=== PATIENT | female | born 1955 | race Caucasian/White ===

== ENCOUNTER 2020-03-07 11:20 | Emergency (ER) | payer OTHER, SELFPAY ==
--- OUTSIDE RECORDS SUMMARY | 2020-03-07 11:30 | XMS REPORT | Continuity of Care Document ---
:1955 Author Organization [facility] t Address [address] [place] [address] Care Team Providers Name Role Phone Pcp, Does Not Have A Attending Clinician Lucy Wright Attending Clinician Doctor Unassigned, Name Attending Clinician Unavailable Aayd Fernandez MD Attending Clinician Faculty, Surg Attending Clinician Unavailable Problems This patient has no known problems. Allergies, Adverse Reactions, Alerts This patient has no known allergies or adverse reactions. Medications This patient has no known medications. Procedures This patient has no known procedures. Encounters Start End Encounter Admission Attending Care Care Encounter Source Date/Time Date/Time Type Type Clinicians Facility Department ID 2019-10-06 2019-10-06 Refill MAIK Felipe [id number] 00:00:00 00:00:00 Patient [facility] [id number] Does Not [facility] [id number] Have A [id number] 2019-08-07 2019-08-07 Emergency YOANDY [place] [id number] 13:02:05 17:56:00 Svetlana Plata [id number] [place] [id number] [place] [id number] 2019-08-07 2019-08-07 Orders Doctor RUCKER [id number] 00:00:00 00:00:00 Only Unassigned, MARLY [id number] [facility] .[id number] 2019-03-28 2019-03-[id number] 14:53:12 23:59:00 Encounter [facility] [id number] CLINICS [id number] 2019-03-28 2019-03-28 Office Faculty, [place] [id number] 16:59:34 20:22:24 Visit [facility] [id number] Surg [facility]INICS [id number] 2019-03-28 2019-03-[address]114 [id number] 14:46:21 14:52:00 Encounter [facility] [id number] CLINICS [id number] [id number] Results This patient has no known results.
[2020-03-07 13:11] LABS: Urine Blood TRACE (NEG); Urine Glucose 2+ (NEG); Urine Protein NEGATIVE (NEG); Urine Specific Gravity 1.015 (1.005-1.030); Urine pH 5.5 (5.0-7.0)
[2020-03-07] MEDS ORDERED: HYDROCODONE/APAP 10/325 TAB ONE (13:39)
[2020-03-07 13:40] LABS: Absolute Lymphocytes (CBC) 1.9 K/uL (0.7-4.9); Basophils % 1.2 % (0-1.3); Hematocrit 45.8 % (36.0-45.0); Lymphocytes % 22.5 % (15.3-44.8); MPV 8.3 fL (7.6-11.3); RBC Red Blood Cell Count 5.49 M/uL (3.86-4.86)
[2020-03-07 13:46] LABS: Protime INR 1.37
--- NOTE | 2020-03-07 13:48 | RAD REPORT ---
EXAM DESCRIPTION: RAD - Chest Single View - 03/07/2020 1:30 pm CLINICAL HISTORY: PALPITATIONS Chest pain. COMPARISON: No comparisons FINDINGS: Portable technique limits examination quality. The lungs are grossly clear. The heart is normal in size. No displaced fractures. IMPRESSION: No acute intrathoracic process suspected.
--- NOTE | 2020-03-07 14:00 | RAD REPORT ---
EXAM DESCRIPTION: US - Extrem Venous W Compress Ciro - 03/07/2020 1:47 pm CLINICAL HISTORY: PAIN Bilateral leg edema and swelling. COMPARISON: No comparisons TECHNIQUE: Real-time sonographic interrogation of the left and right lower extremity deep venous sys tems was performed. FINDINGS: Normal compressibility, flow augmentation, phasic flow and spontaneous flow is identified in both the left and right lower extremity deep venous systems. IMPRESSION: No sonographic evidence of left or right lower extremity deep venous thrombosis.
[2020-03-07 14:02] LABS: ALT/SGPT 18 U/L (12-78); AST/SGOT 8 U/L (15-37); Albumin 3.4 g/dL (3.4-5.0); Alkaline Phosphatase 168 U/L (45-117); BUN Blood Urea Nitrogen 15 mg/dL (7-18); Bicarbonate 29 mmol/L (21-32); Bilirubin Direct < 0.1 mg/dL (0-0.2); Bilirubin Total 0.2 mg/dL (0.2-1.0); Glucose Level 161 mg/dL (74-106); Magnesium 2.1 mg/dL (1.8-2.4); NT PRO-BNP 307 pg/mL (<125); Potassium 3.4 mmol/L (3.5-5.1); Protein, Total 8.2 g/dL (6.4-8.2); Sodium Level 138 mmol/L (136-145); Troponin (Emerg Dept Use Only) < 0.02 ng/mL (0.0-0.045)
--- NOTE | 2020-03-07 15:12 | EDPHYS ---
Physician Documentation [facility] Name: Daniela Enriquez Age: 64 yrs Sex: Female : 1955 Arrival Date: 03/07/2020 Time: 11:23 Bed 23 Private MD: ED Physician Joe Cole HPI: 03/08 12:32 This 64 yrs old Female presents to ER via Ambulatory with complaints of Leg kdr Pain. 12:32 The patient presents with pain, that is chronic, tenderness. The complaints affect the kdr lateral aspect of right calf and right calf. Context: The problem was sustained at an unknown site, resulted from Concerned that she may have recurrent blood clots in her leg. Onset: The symptoms/episode began/occurred gradually, 3 month(s) ago. Modifying factors: The symptoms are alleviated by nothing. the symptoms are aggravated by movement, weight bearing. Associated signs and symptoms: The patient has no apparent associated signs or symptoms. Treatment prior to arrival includes: no previous treatment. Severity of symptoms: At their worst the symptoms were mild, moderate, just prior to arrival. The patient has experienced similar episodes in the past, a few times, but today's symptoms are worse, more painful. The patient has not recently seen a physician. Historical: - Allergies: 03/07 11:39 Lidocaine; ll1 11:39 Morphine; ll1 11:39 Codeine; ll1 - PMHx: 11:39 Diabetes - NIDDM; heart medication for palpitations; blood clots; ll1 - PSHx: 11:39 leg surgeries x 15, bypass; Cholecystectomy; spleen surgery; Tubal ligation; ll1 - Immunization history:: Flu vaccine is not up to date. - Social history:: Smoking status: Patient denies any tobacco usage or history of. Patient/guardian denies using alcohol, street drugs. ROS: 03/08 12:32 Constitutional: Negative for fever, chills, and weight loss, Eyes: Negative for injury, kdr pain, redness, and discharge, Neck: Negative for injury, pain, and swelling, Cardiovascular: Negative for chest pain, palpitations, and edema, Respiratory: Negative for shortness of breath, cough, wheezing, and pleuritic chest pain, Abdomen/GI: Negative for abdominal pain, nausea, vomiting, diarrhea, and constipation, Back: Negative for injury and pain, : Negative for injury, bleeding, discharge, and swelling, Skin: Negative for injury, rash, and discoloration, Neuro: Negative for headache, weakness, numbness, tingling, and seizure activity. Psych: Negative for depression, anxiety, suicide ideation, homicidal ideation, and hallucinations, Allergy/Immunology: Negative for hives, rash, and allergies, Endocrine: Negative for neck swelling, polydipsia, polyuria, polyphagia, and marked weight changes, Hematologic/Lymphatic: Negative for swollen nodes, abnormal bleeding, and unusual bruising. MS/extremity: Positive for pain, Negative for injury or acute deformity, abrasion, decreased range of motion, ecchymosis, erythema, laceration, paresthesias, puncture, rash, swelling, tingling, warmth. Exam: 03/07 19:30 ECG was reviewed by the Attending Physician. kdr 03/08 12:32 Constitutional: This is a well developed, well nourished patient who is awake, alert, kdr and in no acute distress. Head/Face: Normocephalic, atraumatic. Eyes: Pupils equal round and reactive to light, extra-ocular motions intact. Lids and lashes normal. Conjunctiva and sclera are non-icteric and not injected. Cornea within normal limits. Periorbital areas with no swelling, redness, or edema. Neck: Trachea midline, no thyromegaly or masses palpated, and no cervical lymphadenopathy. Supple, full range of motion without nuchal rigidity, or vertebral point tenderness. No Meningismus. Chest/axilla: Normal chest wall appearance and motion. Nontender with no deformity. No lesions are appreciated. Cardiovascular: Regular rate and rhythm with a normal S1 and S2. No gallops, murmurs, or rubs. Normal PMI, no JVD. No pulse deficits. Respiratory: Lungs have equal breath sounds bilaterally, clear to auscultation and percussion. No rales, rhonchi or wheezes noted. No increased work of breathing, no retractions or nasal flaring. Abdomen/GI: Soft, non-tender, with normal bowel sounds. No distension or tympany. No guarding or rebound. No evidence of tenderness throughout. Back: No spinal tenderness. No costovertebral tenderness. Full range of motion. Skin: Warm, dry with normal turgor. Normal color with no rashes, no lesions, and no evidence of cellulitis. Neuro: Awake and alert, GCS 15, oriented to person, place, time, and situation. Cranial nerves II-XII grossly intact. Motor strength 5/5 in all extremities. Sensory grossly intact. Cerebellar exam normal. Normal gait. Psych: Awake, alert, with orientation to person, place and time. Behavior, mood, and affect are within normal limits. Musculoskeletal/extremity: Extremities: grossly normal except: ROM: no acute changes, Circulation is intact in all extremities. Perfusion: the patient is normally perfused throughout, pink, cool, Perfusion: the extremity is normally perfused throughout, pink, cool, Calf tenderness, that is mild, of the right lower extremity, Edema, is not appreciated, Sensation intact. Compartment Syndrome exam of affected extremity: is normal. Weight bearing: able to fully bear weight. Vital Signs: 03/07 11:35 BP 127 / 91; Pulse 95; Resp 18; Temp 98.2; Pulse Ox 100% ; Weight 79.83 kg; Height 5 ll1 ft. 6 in. (167.64 cm); Pain 8/10; 14:21 BP 125 / 76; Pulse 68; Resp 16; Temp 98.1(O); Pulse Ox 100% on R/A; Pain 5/10; ls4 11:35 Body Mass Index 28.41 (79.83 kg, 167.64 cm) ll1 MDM: 14:47 Data reviewed: vital signs, nurses notes. 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 kdr 15:11 Patient medically screened. kdr 03/07 12:10 Order name: Basic Metabolic Panel; Complete Time: 14:44 [facility] 03/07 12:10 Order name: CBC with Diff; Complete Time: 14:44 [facility] 03/07 12:10 Order name: LFT's; Complete Time: 14:44 [facility] 03/07 12:10 Order name: Magnesium; Complete Time: 14:44 [facility] 03/07 12:10 Order name: NT PRO-BNP; Complete Time: 14:44 [facility] 03/07 12:10 Order name: PT-INR; Complete Time: 14:44 [facility] 03/07 12:10 Order name: Troponin (emerg Dept Use Only); Complete Time: 14:44 [facility] 03/07 12:10 Order name: XRAY Chest (1 view); Complete Time: 14:44 [facility] 03/07 12:10 Order name: EKG; Complete Time: 12:11 [facility] 03/07 12:10 Order name: Cardiac monitoring; Complete Time: 12:10 [facility] 03/07 12:10 Order name: EKG - Nurse/Tech; Complete Time: 12:10 [facility] 03/07 12:35 Order name: Extremity Venous W Compression Bilateral US: lower ext pain; Complete Time: bd 14:44 03/07 12:42 Order name: Urine Dipstick--Ancillary (enter results); Complete Time: 14:44 03/07 12:10 Order name: IV Saline Lock; Complete Time: 12:11 [facility] 03/07 12:10 Order name: Labs collected and sent; Complete Time: 12:11 [facility] 03/07 12:10 Order name: O2 Per Protocol; Complete Time: 12:11 [facility] 03/07 12:10 Order name: O2 Sat Monitoring; Complete Time: 12:11 [facility] 03/07 12:12 Order name: Urine Dipstick-Ancillary (obtain specimen); Complete Time: 12:40 [facility] 03/07 12:49 Order name: Labs - recollect needed: recollect cbc,c7,pt; Complete Time: 13:34 bd EC:30 Rate is 77 beats/min. Rhythm is regular, Normal Sinus Rhythm with No ectopy. QRS [place] kdr is Normal. Left axis deviation noted. TN interval is normal. Clinical impression: NSR w/ Non-specific ST/T Changes. Administered Medications: 13:34 Drug: [place] 10 mg-325 mg 1 tabs Route: PO; ls4 Disposition: 03/07/20 15:11 Discharged to Home. Impression: Other idiopathic peripheral autonomic neuropathy, Pain in left leg, Pain in right lower leg. - Condition is Stable. - Discharge Instructions: Peripheral Neuropathy. - Prescriptions for Neurontin 300 mg Oral Capsule - take 1 capsule by ORAL route every 8 hours; 30 capsule. Pepcid 20 mg Oral Tablet - take 1 tablet by ORAL route once daily; 20 tablet. Cyclobenzaprine 10 mg Oral Tablet - take 1 tablet by ORAL route every 8 hours As needed; 15 tablet. - Medication Reconciliation Form, Thank You Letter form. - Follow up: Private Physician; When: 2 - 3 days; Reason: If symptoms return, Further diagnostic work-up, Recheck today's complaints, Continuance of care, Re-evaluation by your physician. - Problem is new. - Symptoms have improved. Signatures: Dispatcher [employer] EDMS Ella Melendez Kevin, MD MD kdr Melina Mishra RN RN iw Amarilys Buitrago RN RN ls4 Kennedy Cortes RN RN ll1 Corrections: (The following items were deleted from the chart) 15:36 15:11 03/07/2020 15:11 Discharged to Home. Impression: Other idiopathic peripheral iw autonomic neuropathy; Pain in left leg; Pain in right lower leg. Condition is Stable. Discharge Instructions: Peripheral Neuropathy. Prescriptions for Neurontin 300 mg Oral Capsule - take 1 capsule by ORAL route every 8 hours; 30 capsule, Pepcid 20 mg Oral Tablet - take 1 tablet by ORAL route once daily; 20 tablet. and Forms are Medication Reconciliation Form, Thank You Letter, Antibiotic Education, Prescription Opioid Use. Follow up: Private Physician; When: 2 - 3 days; Reason: If symptoms return, Further diagnostic work-up, Recheck today's complaints, Continuance of care, Re-evaluation by your physician. Problem is new. Symptoms have improved. kdr
--- NOTE | 2020-03-07 15:12 | ER ---
Nurse's Notes [facility] Name: Daniela Enriquez Age: 64 yrs Sex: Female : 1955 Arrival Date: 03/07/2020 Time: 11:23 Bed 23 Private MD: Diagnosis: Other idiopathic peripheral autonomic neuropathy;Pain in left leg;Pain in right lower leg Presentation: 03/07 11:35 Chief complaint: Patient states: R leg pain for 3 months, believes she has blood clots ll1 again. States left leg has started to have pain for 1 week. Taking eloquis as prescribed. Out of all other medications due to cost restrictions at this time. Coronavirus screen: Client denies travel out of the [place] in the last 14 days. At this time, the client does not indicate any symptoms associated with coronavirus-19. Ebola Screen: Patient denies travel to an Ebola-affected area in the 21 days before illness onset. Initial Sepsis Screen: Does the patient meet any 2 criteria? HR > 90 bpm. No. Patient's initial sepsis screen is negative. Risk Assessment: Do you want to hurt yourself or someone else? Patient reports no desire to harm self or others. Onset of symptoms was December 06, 2019. 11:35 Method Of Arrival: Ambulatory ll1 11:35 Acuity: MILAGROS 3 ll1 14:49 Initial Sepsis Screen: Does the patient have a suspected source of infection? No. ls4 Patient's initial sepsis screen is negative. Triage Assessment: 12:01 General: Appears in no apparent distress. comfortable. Pain: Complains of pain in right ls4 leg Pain does not radiate. Pain currently is 8 out of 10 on a pain scale. Quality of pain is described as tingling, stinging. 12:01 General: Behavior is calm, cooperative. Neuro: No deficits noted. ls4 Historical: - Allergies: 11:39 Lidocaine; ll1 11:39 Morphine; ll1 11:39 Codeine; ll1 - PMHx: 11:39 Diabetes - NIDDM; heart medication for palpitations; blood clots; ll1 - PSHx: 11:39 leg surgeries x 15, bypass; Cholecystectomy; spleen surgery; Tubal ligation; ll1 - Immunization history:: Flu vaccine is not up to date. - Social history:: Smoking status: Patient denies any tobacco usage or history of. Patient/guardian denies using alcohol, street drugs. Screenin:02 Abuse screen: Denies threats or abuse. Denies injuries from another. Nutritional ls4 screening: No deficits noted. Tuberculosis screening: No symptoms or risk factors identified. Fall Risk None identified. Assessment: 13:30 Reassessment: Patient appears in no apparent distress at this time. Patient and/or ls4 family updated on plan of care and expected duration. Pain level reassessed. Patient is alert, oriented x 3, equal unlabored respirations, skin warm/dry/pink. 14:47 Reassessment: Patient appears in no apparent distress at this time. Patient and/or ls4 family updated on plan of care and expected duration. Pain level reassessed. Patient is alert, oriented x 3, equal unlabored respirations, skin warm/dry/pink. Vital Signs: 11:35 BP 127 / 91; Pulse 95; Resp 18; Temp 98.2; Pulse Ox 100% ; Weight 79.83 kg; Height 5 ll1 ft. 6 in. (167.64 cm); Pain 8/10; 14:21 BP 125 / 76; Pulse 68; Resp 16; Temp 98.1(O); Pulse Ox 100% on R/A; Pain 5/10; ls4 11:35 Body Mass Index 28.41 (79.83 kg, 167.64 cm) ll1 ED Course: 11:23 Patient arrived in ED. ds1 11:33 Joe Cole MD is Attending Physician. kdr 11:37 Triage completed. ll1 11:40 Arm band placed on Patient notified of wait time. ll1 11:59 Amarilys Buitrago, RN is Primary Nurse. ls4 12:02 No apparent distress. ls4 12:02 Patient has correct armband on for positive identification. Bed in low position. Call ls4 light in reach. Side rails up X 1. returned goods repairer on. Pulse ox on. NIBP on. Warm blanket given. Verbal reassurance given. 12:02 No provider procedures requiring assistance completed. Inserted saline lock: 22 gauge ls4 in right antecubital area, using aseptic technique. Blood collected. Patient maintains SpO2 saturation greater than 95% on room air. 12:14 EKG done, by biofuels processing technician. reviewed by Joe Cole MD. at1 13:30 XRAY Chest (1 view) In Process Unspecified. EDMS 13:34 Extremity Venous W Compression Bilateral US: lower ext pain Sent. ls4 13:47 Extremity Venous W Compression Bilateral US: lower ext pain In Process Unspecified. EDMS 15:36 IV discontinued, intact, bleeding controlled, No redness/swelling at site. Pressure iw dressing applied. Administered Medications: 13:34 Drug: [place] 10 mg-325 mg 1 tabs Route: PO; ls4 Outcome: 15:11 Discharge ordered by . kdr 15:36 Discharged to home ambulatory. iw 15:36 Condition: good 15:36 Discharge instructions given to patient, Instructed on discharge instructions, follow up and referral plans. medication usage, Demonstrated understanding of instructions, follow-up care, medications, Prescriptions given X 3. 15:36 Patient left the ED. iw Signatures: Dispatcher [employer] EDMS Joe Cole MD MD kdr Vamsi, Samantha ds1 Melina Mishra, STEPHANIE RN iw Marleen Patrick, land acquisition manager EKG Tat1 Amarilys Buitrago RN RN ls4 Kennedy Cortes, RN RN ll1 Corrections: (The following items were deleted from the chart) 11:41 11:35 Chief complaint: Patient states: R leg pain for 3 months, believes she has blood ll1 clots again. States left leg has started to have pain for 1 week. ll1
[2020-03-07 16:09] VITALS: O2SAT 100
[2020-03-07 16:10] VITALS: BP 125/76; TEMP 98.1
--- NOTE | 2020-03-08 08:42 | EKG ---
Test Date: 2020-03-07 Test Time: 12:11:48 [employer] Ambulatory Analysts: NANNETTE MEASUREMENT RESULTS: Intervals: Rate: 77 [place]: 172 QRSD: 76 QT: 388 QTc: 439 [place]: P: 57 [place]: 172 QRS: -13 T: 25 INTERPRETIVE STATEMENTS: Normal sinus rhythm Anteroseptal infarct, age undetermined Abnormal ECG No previous ECG available for comparison Electronically Signed On 03-08-20 08:38:31 CDT by Tre Levy
== END 2020-03-07 15:36 | disposition home or self-care (01) ==
LOC: ER 11:20
DX: G90.09 Other idiopathic peripheral autonomic neuropathy (principal); M79.605 Pain in left leg; Z88.5 Allergy status to narcotic agent
CPT/HCPCS: 36415; 71045; 80048; 80076; 81003; 83735; 83880; 84484; 85025; 85610; 93005; 93970; 99285

== ENCOUNTER 2023-06-03 11:05 | Inpatient (IN) | payer OTHER ==
--- OUTSIDE RECORDS SUMMARY | 2023-06-03 11:27 | XMS REPORT | Continuity of Care Document ---
:1955 Author Organization [facility] t Address [address] [facility] [address] [place] [address] Care Team Providers Name Role Phone KLAUS BLACK Primary Care Physician Unavailable DR KLAUS BLACK Attending Clinician Unavailable [phone] Attending Clinician Unavailable INA DAVIS Attending Clinician Unavailable [id number] Attending Clinician Unavailable RADHA ANDREW Attending Clinician Unavailable SONALI GARCIA ROSHNI Attending Clinician Unavailable JAIME CRESPO Attending Clinician Unavailable Teto Attending Clinician Unavailable Francisco Alfaro Attending Clinician Unavailable Red Wheeler Attending Clinician Unavailable Doctor Unassigned, Post Attending Clinician Unavailable ENGLISH, EVELYN R Attending Clinician Unavailable Kathie SPENCERC, Evelyn R Attending Clinician Ina Davis MD Attending Clinician JULIÁN RANKIN Attending Clinician Unavailable Donnie PARTIDA, Julián Attending Clinician Karina_Brennen Attending Clinician Unavailable Vivian Hernandez RN Attending Clinician Unavailable LAITH LYON Attending Clinician Unavailable LAITH LYON Attending Clinician Unavailable Denisse PARTIDA, Sandor Attending Clinician Yordy Kimbrough MD Attending Clinician Elijah PARTIDA, Milind Ignacio Attending Clinician Sariah Godwin MD Attending Clinician Sayda Khalil MD Attending Clinician Only, Adc Test Attending Clinician Unavailable Socorro Jarvis MD Attending Clinician SOCORRO JARVIS Attending Clinician Unavailable AMBREEN_SAGE Attending Clinician Unavailable Brayan Zamudio MD Attending Clinician Lidia BROWN, Danay Estrada Attending Clinician Unavailable Bulmaro Schmidt MD Attending Clinician DEEPAK JAMES Attending Clinician Unavailable BOZENA STINSON Attending Clinician Unavailable Dustin Slater Attending Clinician Bozena Stinson DO Attending Clinician Alphonse Bro MA Attending Clinician Unavailable Flor Gross-C Attending Clinician Unavailable JANNIE AMANDA Attending Clinician Unavailable IRA DONALDSON Attending Clinician Unavailable Francisco Alfaro MD Attending Clinician Alka Cantu MD Attending Clinician [phone] Taya PARTIDA, Helen Mac Attending Clinician [phone] Damián PARTIDA, Deandra Haddad Attending Clinician Milind Rodriguez Attending Clinician Mendoza SANDOVAL, Ira Song Attending Clinician Mario PARTIDA, Suzy Attending Clinician SUZY MARTIN Attending Clinician Unavailable Luanne BROWN, Marlyn Attending Clinician Kamran PARTIDA, Radha Sanders Attending Clinician Meet PARTIDA, Arjun Melgar Attending Clinician Evelyn Gonzales RN Attending Clinician Abram PARTIDA, Mliind Attending Clinician Sunni Mclaughlin MD Attending Clinician JONATHAN LACEY Attending Clinician Unavailable Koko Connors Attending Clinician Unavailable Aldo Murray DO Attending Clinician [facility], [facility] Continuity Attending Clinician Unavail able Lawanda Valladares DO Attending Clinician LAWANDA VALLADARES Attending Clinician Unavailable SUZY MARTIN Attending Clinician Unavailable Tomasa Ge Attending Clinician Dirk Mercer DO Attending Clinician Albino Castaneda MD Attending Clinician Deepak Fernandez MD Attending Clinician Doug Moncada DO Attending Clinician Rey Haddad MD Attending Clinician Mishel Streeter Attending Clinician Danii Arevalo Attending Clinician Jorge Guerra MD Attending Clinician CAPO CANTU Attending Clinician Unavailable Oscar PARTIDA, Vanessa Briggs Attending Clinician [phone] Catrachita Pichardo MD Attending Clinician Pcp, Patient Does Not Have A Attending Clinician [phone] Svetlana Wright Attending Clinician 1, [facility] Attending Clinician Unavailable Faculty, Vascular Surg Attending Clinician Unavailable 2, [facility] Attending Clinician Unavailable Salvatore BROWN, Lakisha Estrada Attending Clinician Unavailable Blayne Good MD Attending Clinician Opal PARTIDA, Parker Atkinson Attending Clinician [phone] GIANFRANCO SWEENEY Attending Clinician Unavailable MARIELA CARRENO Attending Clinician Unavailable DR KLAUS BLACK Admitting Clinician Unavailable INA DAVIS Admitting Clinician Unavailable [id number] Admitting Clinician Unavailable SANDIP SANTILLAN Admitting Clinician Unavailable SONALI GARCIA ROSHNI Admitting Clinician Unavailable Teto Admitting Clinician Unavailable Red Wheeler Admitting Clinician Unavailable Physician, No Primary or Family Admitting Clinician UnavailEVELYN Ibarra Admitting Clinician Unavailable ZPeggy Admitting Clinician Unavailable LAITH LYON Admitting Clinician Unavailable AMBPARTH Admitting Clinician Unavailable Ina Davis MD Admitting Clinician BOZENA STINSON Admitting Clinician Unavailable Bozena Stinson DO Admitting Clinician HELEN MULLER Admitting Clinician Unavailable Radha Anderw MD Admitting Clinician LAWANDA VALLADARES Admitting Clinician Unavailable INA DAVIS Admitting Clinician Unavailable Catrachita Pichardo MD Admitting Clinician Deepak Fernandez MD Admitting Clinician GIANFRANCO SWEENEY Admitting Clinician Unavailable MARIELA CARRENO Admitting Clinician Unavailable Payers Payer Name Policy Type Policy Number Effective Date Expiration Date S martin MEDICARE - OP [id number] MEDICARE PART A [id number] 2020 \\T\\ B 00:00:00 MEDICAID SSI PENDING 2020 PENDING 00:00:00 [facility] [id number] [place]ARE B-[place]: [id number] 2020 [employer] 00:00:00 [place] A-[place]: [id number] 2020 [employer] 00:00:00 - [facility] MEDICAID 365 [id number] 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:00:00 Problems Condition Condition Condition Status Onset Resolution Last Treating Co mments Source Name Details Category Date Date Treatment Clinician Date Acute Acute Problem Active 2021-07 [place] bronchitis Bronchitis 1-14 da 00:00: Medical 00 Group PAD PAD Disease Active Univers (periphera (periphera 1-24 it y of l artery l artery 00:00: [place] disease) disease) 00 Medica l Branch Diabetic Diabetic Disease Active Unive rs foot ulcer foot ulcer 06 it y of associated [place] 00:[place] with with 00 Medical diabetes diabetes Branch mellitus mellitus due to due to underlying underlying condition, condition, unspecifie unspecifie d d laterality laterality , , unspecifie unspecifie d part of d part of foot, foot, unspecifie unspecifie d ulcer d ulcer stage stage Toe Toe Disease Active Overview: Univer s gangrene gangrene 04 Formattin ity of 00:00: g of this [place] 00 note Medical might be Branch different from the original. Added automatic ally from request for surgery [id number] Pneumonia Pneumonia Disease Active Met hodi due to due to 01-18 st COVID-19 COVID-19 00:00: Hospit a virus virus 00 l Amputated Amputated Disease Active Uni vers great toe great toe 5-12 ity of of right of right 00:00: [place] foot foot 00 Medical Branch Essential Essential Disease Active Uni vers hypertensi hypertensi 5-12 it y of on on 00:00: 00 Medical Branch Dyslipidem Dyslipidem Disease Active U nivers ia ia 5-12 ity of 00:00: 00 Medical Branch Stage 3a Stage 3a Disease Active Unive rs chronic chronic 5-12 ity of kidney kidney 00:00: [place] disease disease 00 Medical Branch Chronic Chronic Disease Active Univers osteomyeli osteomyeli 4-13 it y of tis of tis of 00:00: [place] right foot right foot 00 Me dical Branch Diabetic Diabetic Disease Active Unive rs polyneurop polyneurop 3-28 it y of athy athy 00:00: [place] associated associated 00 Me dical with type with type Bran ch 2 diabetes 2 diabetes mellitus mellitus Osteomyeli Osteomyeli Disease Active U nivers tis of tis of 3-28 ity of right foot right foot 00:[place] Wound Wound Disease Active Univers cellulitis cellulitis 3-26 it y of 00:00: [place] 00 Medical Branch Osteomyeli Osteomyeli Disease Active Overview : Univers tis of tis of 3-25 Formattin ity of right right 00:00: g of this [place] foot, foot, 00 note Medical unspecifie unspecifie might be Branch d type d type different from the original. Added automatic ally from request for surgery [id number] GI bleed GI bleed Disease Active Unive rs 2-11 ity of 00:00: [place] 00 Medical Branch Stroke Stroke Disease Active Univers 2-11 ity of 00:00: [place] 00 Medical Branch Cerebral Cerebral Disease Active Unive rs edema edema 2-11 ity of 00:00: [place] 00 Medical Branch AMS AMS Disease Active Univers (altered (altered 2-05 ity of mental mental 00:00: [place] status) status) 00 Medical Branch Peripheral Peripheral Disease Active U nivers vascular vascular 2-01 ity of disease disease 00:00: [place] 00 Medical Branch Hematochez Hematochez Disease Active Overview : Univers ia ia 2-01 Formattin ity of 00:00: g of this [place] 00 note Medical might be Branch different from the original. Added automatic ally from request for surgery [id number] Malignant Malignant Disease Active 2019-07 Uni vers hypertherm hypertherm 1-16 it y of ia ia 00:00: [place] susceptibi susceptibi 00 Me dical lity in lity in Branch family family history history Lower limb Lower limb Disease Active 2019-07 U nivers ischemia ischemia 1-14 ity of 00:00: [place] 00 Medical Branch Cellulitis Cellulitis Disease Active 2019-07 U nivers of right of right 1-14 ity of lower leg lower leg 00:[place] Critical Critical Disease Active Unive rs lower limb lower limb 8-12 it y of ischemia ischemia 00:00: [place] 00 Medical Branch Absent Absent Disease Active Univers foot pulse foot pulse 4-08 it y of 00:00: [place] Medical Branch Tachycardi Tachycardi Disease Active U nivers a a 1-09 ity of 00:00: [place] Medical Branch Other Other Disease Active Univers chest pain chest pain 1-09 it y of 00:00: [place] [facility] Branch SVT SVT Disease Active Univers (supravent (supravent 1-09 it y of ricular ricular 00:00: [place] tachycardi tachycardi 00 Me dical a) a) Branch Type 2 Type 2 Disease Active Univers diabetes diabetes 1-09 ity of mellitus mellitus 00:00: [place] with 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 Added automatic ally from request for surgery [id number] SOB SOB Disease Active Univers (shortness (shortness 8-22 it y of of breath) of breath) 00:00: [place] 00 [place] Obesity Obesity Disease Active Univers (BMI (BMI 8-22 ity of 35.0-39.9 35.0-39.9 00:00[place] without without 00 Medical comorbidit comorbidit Br anch y) y) Mild Mild Disease Active Univers intermitte intermitte 3-05 it y of nt asthma nt asthma 00:00: [place] without without 00 Medical complicati complicati Br anch on on Type 2 Type 2 Disease Active Univers diabetes diabetes 3-05 ity of mellitus mellitus 00:00: [place] with with 00 Medical hyperglyce hyperglyce Br anch makenna makenna Thrombosis Thrombosis Disease Active U nivers 2-29 ity of 00:00: [place] 00 Medical Branch Leg pain Leg pain Disease Active Unive rs 2-26 ity of 00:00: [place] 00 Medical Branch Thromboemb Thromboemb Disease Active 2014-07 U meri olic olic 1-27 ity of disorder disorder 00:00: [place] 00 Medical Branch Lower GI Lower GI Disease Active Unive rs bleed bleed 1-20 ity of 00:00: [place] [facility] Branch Ischemic Ischemic Disease Active 2013-07 Unive rs leg leg 2-30 ity of 00:00: [place] 00 [facility] Branch Allergies, Adverse Reactions, Alerts Allergy Allergy Status Severity Reaction(s) Onset Inactive Treating Comm ents Source Name Type Date Date Clinician lidocain DA Active U UNKNOWN 2021-07 [facility] e 2-24 Clear 00:00: [place] 00 [facility] morphine DA Active U UNKNOWN 2021-07 [facility] 2-24 Clear 00:00: [place] 00 [facility] codeine DA Active U UNKNOWN 2021-07 [facility] 2-24 Clear 00:00: [place] 00 [facility] Codeine Propensi Active Itching Method i ty to [facility] adverse 00:00: Hospita reaction 00 l s to drug Lidocain Propensi Active Hives Method i e ty to [facility] st adverse 00:00: Hospita reaction 00 l s to drug Morphine Propensi Active Hives Method i ty to 7-03 st adverse 00:00: Hospita reaction 00 l s to drug LIDOCAIN Allergy Active ENCGEN E 2-21 15:28: 21 LIDOCAIN Allergy Active ENCGEN E 2-21 15:28: 21 LIDOCAIN Allergy Active ENCGEN E 2-21 15:28: 21 LIDOCAIN Allergy Active ENCGEN E 2-21 15:28: 21 MORPHINE Allergy Active ENCGEN 2-21 15:28: 03 MORPHINE Allergy Active ENCGEN 2-21 15:28: 03 MORPHINE Allergy Active ENCGEN 2-21 15:28: 03 MORPHINE Allergy Active ENCGEN 2-21 15:28: 03 CODEINE Allergy Active ENCGEN 2- 15:27: 43 CODEINE Allergy Active ENCGEN 2 15:27: 43 CODEINE Allergy Active ENCGEN 2 15:27: 43 CODEINE Allergy Active ENCGEN 2 15:27: 43 Codeine Propensi Active Other - See Upset GI Univers ty to comments 2- ity of adverse 00:00: [place] reaction 00 Medical s Branch CODEINE DRUG Active Other-Cmnt Unive rs INGREDI 2- ity of 00:00: [place] 00 Medical Branch Morphine Propensi Active Hives 2014-07 Univer s ty to 2- ity of adverse 00:00: [place] reaction 00 Medical s Branch MORPHINE DRUG Active Hives 2014-07 Univers INGREDI 2 ity of 00:00: [place] 00 Medical Branch Lidocain Propensi Active Anaphylaxis 2013-07 U nivers e ty to 2-30 ity of adverse 00:00: [place] reaction 00 Medical s Branch LIDOCAIN DRUG Active Anaphylaxis 2013-07 Uni vers E INGREDI 2-30 ity of 00:00: [place] 00 Medical Branch Lidocain Allergy Active [place] to da substanc Medical e Group Morphine Allergy Active [place] to da substanc Medical e Group NOVOCAIN Allergy Active [place] to da substanc Medical e Group Family History Family Member Diagnosis Comments Start Date Stop Date Source Natural father Coronary Heart Univer [facility] Medical [place] Natural father Diabetes [facility] Natural mother Coronary Heart Univer [facility] Natural mother Diabetes [facility] Natural mother Hypertension [facility] Other Other - see comments [facility] Social History Social Habit Start Date Stop Date Quantity Comments Source History [facility] University o f Alcohol Frequency [place] M edical Branch History [facility] University o f Alcohol Std Drinks [place] [facility] History [facility] University o f Alcohol Binge [place] Medic al Branch History of tobacco Passive smoker Un iversity of use [facility] Sexual orientation [facility] Exposure to 2022-08-25 2022-09-04 Not sure University of SARS-CoV-2 (event) 00:00:00 13:08:00 [place] [facility] History SDOH 2022-03-31 2022-03-31 2 University o f Transport Med 00:00:00 00:00:00 [place] Medic al Branch History SDOH 2022-03-31 2022-03-31 2 University o f Transport Non-Med 00:00:00 00:00:00 [place] M edical Branch Education 2021-07-25 2021-07-25 14 University 00:00:00 00:00:00 [facility] History of Social 2021-02-06 2021-02-[address] function 00:00:00 00:00:00 Hospital Alcohol intake 2021-02-06 2021-02-06 Ex-drinker [facility] 00:00:00 00:00:00 (finding) Hospital Tobacco use and 2021-01-18 2021-01-18 Smokeless [facility] exposure 00:00:00 00:00:00 tobacco non-user Hospital Alcohol Comment 2020-10-12 2020-10-12 occasional; 1 Univer sity of 00:00:00 00:00:00 beer in 2 months [facility] dical [place] Sex [birth year] [facility] 00:00:00 00:00:00 Hospital Smoking Status Start Date Stop Date Source Never smoked tobacco [facility] Medications Ordered Filled Start Stop Current Ordering Indication Dosage Frequency Signature Comments Components Source Medication Medication Date Date Medication? Clinician (SIG) Name Name Depo-Medrol Depo-Medrol 2021-07 No Depo-Medro [place] 40 mg/mL 40 mg/mL 1-14 l 40 mg/mL d a suspension suspension 10:45: suspension Medical for for 00 for Group injectionTa injectionTa injectionT ke 1 mL by ke 1 mL by jordan 1 mL injection injection by route. route. injection route. dexamethaso dexamethaso 2021-07 No dexamethas [place] ne sodium ne sodium 1-14 one sodium da phosphate phosphate 10:44: phosphate Medical 10 mg/mL 10 mg/mL 00 10 mg/mL [place] up injection injection injection solutionTak solutionTak solutionTa e 1 mL by e 1 mL by ke 1 mL by injection injection injection route. route. route. Pantoprazol 2021-07 Yes 40mg Take 40 mg Univers e 40 mg 0-04 by mouth ity of delayed-rel 11:53: in the [facility] 18 morning. Medical suspension Branch Cholecalcif 2021-07 Yes Take by Uni vers tamir, 0-04 mouth. ity of Vitamin D3, 11:53: [place] 50 mcg 18 Medical (2,000 Branch unit) capsule Pantoprazol 2021-07 Yes 40mg Take 40 mg Univers e 40 mg 0-04 by mouth ity of delayed-rel 11:53: [place] 18 morning. Medical suspension Branch Cholecalcif 2021-07 Yes Take by Uni vers tamir, 0-04 mouth. ity of Vitamin D3, 11:53: [place] 50 mcg 18 Medical (2,000 Branch unit) capsule Pantoprazol 2021-07 Yes 40mg Take 40 mg Univers e 40 mg 0-04 by mouth ity of delayed-rel 11:53: [place] 18 morning. Medical suspension Branch Cholecalcif 2021-07 Yes Take by Uni vers tamir, 0-04 mouth. ity of Vitamin D3, 11:53: [place] 50 mcg 18 Medical (2,000 Branch unit) capsule Pantoprazol 2021-07 Yes 40mg Take 40 mg Univers e 40 mg 0-04 by mouth ity of delayed-rel 11:53: [place] 18 morning. Medical suspension Branch Cholecalcif 2021-07 Yes Take by Uni vers tamir, 0-04 mouth. ity of Vitamin D3, 11:53: [place] 50 mcg 18 Medical (2,000 Branch unit) capsule Pantoprazol 2021-07 Yes 40mg Take 40 mg Univers e 40 mg 0-04 by mouth ity of delayed-rel 11:53: in the [facility] 18 morning. Medical suspension Branch Cholecalcif 2021-07 Yes Take by Uni vers tamir, 0-04 mouth. ity of Vitamin D3, 11:53: [place] 50 mcg 18 Medical (2,000 Branch unit) capsule Pantoprazol 2021-07 Yes 40mg Take 40 mg Univers e 40 mg 0-04 by mouth ity of delayed-rel 11:53: [place] 18 morning. Medical suspension Branch Cholecalcif 2021-07 Yes Take by Uni vers tamir, 0-04 mouth. ity of Vitamin D3, 11:53: [place] 50 mcg 18 Medical (2,000 Branch unit) capsule Pantoprazol 2021-07 Yes 40mg Take 40 mg Univers e 40 mg 0-04 by mouth ity of delayed-rel 11:53: [place] 18 morning. Medical suspension Branch Cholecalcif 2021-07 Yes Take by Uni vers tamir, 0-04 mouth. ity of Vitamin D3, 11:53: [place] 50 mcg 18 Medical (2,000 Branch unit) capsule Pantoprazol 2021-07 Yes 40mg Take 40 mg Univers e 40 mg 0-04 by mouth ity of delayed-rel 11:53: [place] 18 morning. Medical suspension Branch Cholecalcif 2021-07 Yes Take by Uni vers tamir, 0-04 mouth. ity of Vitamin D3, 11:53: [place] 50 mcg 18 Medical (2,000 Branch unit) capsule escitalopra 2021-07 Yes [id number] 20mg Take 1 Univers m oxalate 0-04 tablet by ity o f (LEXAPRO) 00:00: [place] 20 mg 00 the Medical tablet morning. Branch escitalopra 2021-07 Yes [id number] 20mg Take 1 Univers m oxalate 0-04 tablet by ity o f (LEXAPRO) 00:00: [place] 20 mg 00 the Medical tablet morning. [place] escitalopra 2021-07 Yes [id number] 20mg Take 1 Univers m oxalate 0-04 tablet by ity o f (LEXAPRO) 00:00: [place] 20 mg 00 the Medical tablet morning. Branch escitalopra 2021-07 Yes [id number] 20mg Take 1 Univers m oxalate 0-04 tablet by ity o f (LEXAPRO) 00:00: [place] 20 mg 00 the Medical tablet morning. Branch escitalopra 2021-07 Yes [id number] 20mg Take 1 Univers m oxalate 0-04 tablet by ity o f (LEXAPRO) 00:00: [place] 20 mg 00 the Medical tablet morning. Branch escitalopra 2021-07 Yes [id number] 20mg Take 1 Univers m oxalate 0-04 tablet by ity o f (LEXAPRO) 00:00: [place] 20 mg 00 the Medical tablet morning. Branch escitalopra 2021-07 Yes [id number] 20mg Take 1 Univers m oxalate 0-04 tablet by ity o f (LEXAPRO) 00:00: [place] 20 mg 00 the Medical tablet morning. Branch escitalopra 2021-07 Yes [id number] 20mg Take 1 Univers m oxalate 0-04 tablet by ity o f (LEXAPRO) 00:00: [place] 20 mg 00 the Medical tablet morning. Branch escitalopra 2021-07- No [id number] 10mg Take 1 Univers m oxalate 0-04 10-04 tablet by ity of (LEXAPRO) 00:00: 00:00 mouth in [place] as 10 mg 00 :00 the Medical tablet morning. Branch escitalopra 2021-07- No [id number] 10mg Take 1 Univers m oxalate 0-04 10-04 tablet by ity of (LEXAPRO) 00:00: 00:00 mouth in [place] as 10 mg 00 :00 the Medical tablet morning. Branch clopidogreL Yes [id number] 75mg Take 1 Univers 75 mg 9-27 tablet by ity of tablet 00:00: mouth in [place] 00 the Medical morning. Branch clopidogreL Yes [id number] 75mg Take 1 Univers 75 mg 9-27 tablet by ity of tablet 00:00: mouth in [place] 00 the Medical morning. Branch traMADoL 50 2021- No [id number] 50mg Take 1 Uni vers mg tablet 9-27 10-05 tablet by ity of 00:00: 04:59 mouth [place] 00 :00 every 4 Medical (four) Branch hours as needed for Pain (scale 7-10) for up to 7 days. Indication s: acute pain traMADoL 50 2021- No [id number] 50mg Take 1 Uni vers mg tablet 9-27 10-05 tablet by ity of 00:00: 04:59 mouth [place] 00 :00 every 4 Medical (four) Branch hours as needed for Pain (scale 7-10) for up to 7 days. Indication s: acute pain traMADoL 50 2021- No [id number] 50mg Take 1 Uni vers mg tablet 9-27 10-05 tablet by ity of 00:00: 04:59 mouth [place] 00 :00 every 4 Medical (four) Branch hours as needed for Pain (scale 7-10) for up to 7 days. Indication s: acute pain traMADoL 50 2021- No [id number] 50mg Take 1 Uni vers mg tablet 9-27 10-05 tablet by ity of 00:00: 04:59 mouth [place] 00 :00 every 4 Medical (four) Branch hours as needed for Pain (scale 7-10) for up to 7 days. Indication s: acute pain clopidogreL 2021- No [id number] 75mg Take 1 Univers 75 mg 9-27 10-04 tablet by ity of tablet 00:00: 00:00 mouth in [place] 00 :00 the Medical morning. Branch clopidogreL 2021- No [id number] 75mg Take 1 Univers 75 mg 9-27 10-04 tablet by ity of tablet 00:00: 00:00 mouth in [place] 00 :00 the Medical morning. Branch Novolin N Novolin N No Novolin N [place] NPH U-100 NPH U-100 9-14 NPH U-100 da Insulin Insulin 00:00: Insulin Medi hever inject 18 inject 18 00 inject 18 Group units in am units in am units in and 16 pm and 16 pm am and 16 pm Novolin N Novolin N No Novolin N [place] NPH U-100 NPH U-100 9-14 NPH U-100 da Insulin Insulin 00:00: Insulin Medi hever inject 18 inject 18 00 inject 18 Group units in am units in am units in and 16 pm and 16 pm am and 16 pm Novolin N Novolin N No Novolin N [place] NPH U-100 NPH U-100 9-14 NPH U-100 da Insulin Insulin 00:00: Insulin Medi hever inject 18 inject 18 00 inject 18 Group units in am units in am units in and 16 pm and 16 pm am and 16 pm apixaban 2021- No 5mg 5 mg, Univers (ELIQUIS) 03-29 09-10 Oral, ity of tablet 5 mg 16:57: 17:18 [place]CE, 1 [place] :[place] dose, On Medical Sat Branch 03/29/22 at 1200, Routine
Indicatio ns: DVT/PE MULTIVITAMI Yes Inject Univ ers N 12 IV 9-10 intravenou ity of 15:37: sly. [place] 59 Medical Branch Pantoprazol Yes 40mg Take 40 mg Univers e 40 mg 9-10 by mouth ity of delayed-rel 15:37: in the [facility] 59 morning. Medical suspension Branch Cholecalcif Yes Take by Uni vers tamir, 9-10 mouth. ity of Vitamin D3, 15:37: [place] 50 mcg 59 Medical (2,000 Branch unit) capsule MULTIVITAMI Yes Inject Univ ers N 12 IV 9-10 intravenou ity of 15:37: [place]. [place] [id number] Medical Branch Pantoprazol Yes 40mg Take 40 mg Univers e 40 mg 9-10 by mouth ity of delayed-rel 15:37: in the [facility] morning. Medical suspension Branch Cholecalcif Yes Take by Uni vers tamir, 9-10 mouth. ity of Vitamin D3, 15:37: [place] 50 mcg 59 Medical (2,000 Branch unit) capsule MULTIVITAMI Yes Inject Univ ers N 12 IV 9-10 intravenou ity of 15:37: [place]. [place] [id number] Medical Branch Pantoprazol Yes 40mg Take 40 mg Univers e 40 mg 9-10 by mouth ity of delayed-rel 15:37: in the [facility] morning. Medical suspension Branch Cholecalcif Yes Take by Uni vers tamir, 9-10 mouth. ity of Vitamin D3, 15:37: [place] 50 mcg 59 Medical (2,000 Branch unit) capsule MULTIVITAMI Yes Inject Univ ers N 12 IV 9-10 intravenou ity of 15:37: sly. [place] [address] Medical Branch Pantoprazol Yes 40mg Take 40 mg Univers e 40 mg 9-10 by mouth ity of delayed-rel 15:37: in the [facility] morning. Medical suspension Branch Cholecalcif Yes Take by Uni vers tamir, 9-10 mouth. ity of Vitamin D3, 15:37: [place] 50 mcg 59 Medical (2,000 Branch unit) capsule MULTIVITAMI 0 Yes Inject Univ ers N 12 IV 9-10 intravenou ity of 15:37: [place]. [place] [address] Medical Branch MULTIVITAMI Yes Inject Univ ers N 12 IV 9-10 intravenou ity of 15:37: [place]. [place] [address] Medical Branch MULTIVITAMI Yes Inject Univ ers N 12 IV 9-10 intravenou ity of 15:37: sly. [address] MULTIVITAMI Yes Inject Univ ers N 12 IV 9-10 intravenou ity of 15:37: sly. [address] MULTIVITAMI Yes Inject Univ ers N 12 IV 9-10 intravenou ity of 15:37: sly. [address] MULTIVITAMI Yes Inject Univ ers N 12 IV 9-10 intravenou ity of 15:37: sly. [address] MULTIVITAMI Yes Inject Univ ers N 12 IV 9-10 intravenou ity of 15:37: sly. [address] MULTIVITAMI Yes Inject Univ ers N 12 IV 9-10 intravenou ity of 15:37: sly. [address] MULTIVITAMI Yes Inject Univ ers N 12 IV 9-10 intravenou ity of 15:37: sly. [address] MULTIVITAMI Yes Inject Univ ers N 12 IV 9-10 intravenou ity of 15:37: sly. [address] levoFLOXaci 2021- No 500mg Take 500 Univers n 500 mg 03-29 mg by ity of tablet 12:06: 00:00 mouth [place] 32 :00 every 24 Medical (twenty-fo Branch ur) hours. magnesium 2021- No 2g 2 g, IV Univ ers sulfate in 03-29 Piggyback, it y of water 2 02:00: 02:48 Administer [place] gram/50 mL 00 :00 over 60 Medica l (4 %) Minutes, Branch infusion 2 ONCE, 1 g dose, On Thu03/28/22 at 2100, Routine SERTraline Yes [id number] 100mg Take 2 Univers 50 mg 03-29 tablets by ity of tablet 00:00: mouth in [place] 00 the Medical morning Branch and 2 tablets in the evening. insulin NPH Yes [id number] 14U inject 14 Univers 100 unit/mL 03-29 [id number] Units ity of injection 00:00: under the [place] 00 skin every Medical morning Branch and evening. SERTraline 0 Yes [id number] 100mg Take 2 Univers 50 mg 9-10 [id number] tablets by ity of tablet 00:00: mouth in [place] 00 the Medical morning Branch and 2 tablets in the evening. insulin NPH 2021-0 Yes [id number] 14U inject 14 Univers 100 unit/mL 9-10 [id number] Units ity of injection 00:00: under the [place] 00 skin every Medical morning Branch and evening. SERTraline 2021-0 Yes [id number] 100mg Take 2 Univers 50 mg 9-10 [id number] tablets by ity of tablet 00:00: mouth in [place] 00 the Medical morning Branch and 2 tablets in the evening. insulin NPH 2021-0 Yes [id number] 14U inject 14 Univers 100 unit/mL 9-10 [id number] Units ity of injection 00:00: under the [place] 00 skin every Medical morning Branch and evening. SERTraline 2021-0 Yes [id number] 100mg Take 2 Univers 50 mg 9-10 [id number] tablets by ity of tablet 00:00: mouth in [place] 00 the Medical morning Branch and 2 tablets in the evening. insulin NPH 2021-0 Yes [id number] 14U inject 14 Univers 100 unit/mL 9-10 08251 Units ity of injection 00:00: under the [place] 00 skin every Medical morning Branch and evening. insulin NPH 0 Yes [id number] 14U inject 14 Univers 100 unit/mL 9-10 92906 Units ity of injection 00:00: under the [place] 00 skin every Medical morning Branch and evening. insulin NPH 2021-0 Yes [id number] 14U inject 14 Univers 100 unit/mL 9-10 84874 Units ity of injection 00:00: under the [place] 00 skin every Medical morning Branch and evening. insulin NPH 0 Yes [id number] 14U inject 14 Univers 100 unit/mL 9-10 70712 Units ity of injection 00:00: under the [place] 00 skin every Medical morning Branch and evening. insulin NPH 0 Yes [id number] 14U inject 14 Univers 100 unit/mL 9-10 87325 Units ity of injection 00:00: under the [place] 00 skin every Medical morning Branch and evening. insulin NPH 2021-0 Yes [id number] 14U inject 14 Univers 100 unit/mL 9-10 69432 Units ity of injection 00:00: under the [place] 00 skin every Medical morning Branch and evening. insulin NPH Yes [id number] 14U inject 14 Univers 100 unit/mL 9-10 02156 Units ity of injection 00:00: under the [place] 00 skin every Medical morning Branch and evening. insulin NPH Yes [id number] 14U inject 14 Univers 100 unit/mL 9-10 01051 Units ity of injection 00:00: under the [place] 00 skin every Medical morning Branch and evening. insulin NPH Yes [id number] 14U inject 14 Univers 100 unit/mL 9-10 [id number] Units ity of injection 00:00: under the [place] 00 skin every Medical morning Branch and evening. SERTraline 2021- No [id number] 100mg Take 2 Univers 50 mg 03-29 tablets by ity of tablet 00:00: 00:00 mouth in [place] 00 :00 the Medical morning Branch and 2 tablets in the evening. SERTraline 2021- No [id number] 100mg Take 2 Univers 50 mg 03-29 tablets by ity of tablet 00:00: 00:00 mouth in [place] 00 :00 the Medical morning Branch and 2 tablets in the evening. HYDROcodone 2021- No [id number] 1{tbl} Take 1 U nivers -acetaminop 03-2918 tablet by it y of hen 5-325 00:00: 04:59 mouth [place] mg tablet 00 :00 every 6 Medical (six) Branch hours as needed for Pain (scale 4-6) for up to 7 days. Indication s: acute pain HYDROcodone 2021- No 4647 1{tbl} Take 1 U nivers -acetaminop 03-2918 tablet by it y of hen 5-325 00:00: 04:59 mouth [place] mg tablet 00 :00 every 6 Medical (six) Branch hours as needed for Pain (scale 4-6) for up to 7 days. Indication s: acute pain lactated Yes 1000mL at 20 Univer s ringers IV 9-09 mL/hr, ity of infusion 02:00: 1,000 mL, [place] 1,000 mL 00 IV Medical Infusion, Branch CONTINUOUS , Starting on Narcisa 03/27/22 at 2100, Until Discontinu ed, Routine lactated 2021- No 1000mL at 20 Unive rs ringers IV 03-28 09-10 mL/hr, ity of infusion 02:00: 01:14 1,000 mL, [place] 1,000 mL 00 :25 IV Medical Infusion, Branch CONTINUOUS , Starting on Narcisa 03/27/22 at 2100, Until Thu03/28/22 at 2014, Routine FENTanyl PF 2021- No 25ug 25 mcg, Un breanne (SUBLIMAZE 03-27 Slow IV ity o f (PF)) 23:19: 23:18 Push, [place] injection 34 :34 Q1HPRN, Medical 25 mcg Starting Branch on Narcisa 03/27/22 at 1819, Until Thu03/28/22 at 1818, Routine, Pain (scale 7-10) FENTanyl PF 2021- Yes 25ug 25 mcg, Uni vers (SUBLIMAZE 03-27 Slow IV ity of (PF)) 21:39: Push, [place] injection 23 Q5MIN PRN, Medi hever 25 mcg 4 doses, Branch Starting on Narcisa 03/27/22 at 1639, Until Discontinu ed, Routine, Pain (scale 7-10), PACU FENTanyl PF Yes 25ug 25 mcg, Uni vers (SUBLIMAZE 03-27 Slow IV ity of (PF)) 21:39: Push, [place] injection 23 Q5MIN PRN, Medi hever 25 mcg 4 doses, Branch Starting on Narcisa 03/27/22 at 1639, Until Discontinu ed, Routine, Pain (scale 4-6), PACU ondansetron Yes 4mg 4 mg, Slow Univers (ZOFRAN 03-27 IV Push, ity of (PF)) 21:39: PRN, 1 [place] injection 4 23 dose, Medical mg Starting Branch on Narcisa 03/27/22 at 1639, Until Discontinu ed, Routine, Nausea and Vomiting (N/V), PACU FENTanyl PF 2021- Yes 25ug 25 mcg, Uni vers (SUBLIMAZE 03-27 Slow IV ity of (PF)) 21:39: Push, [place] injection 23 Q5MIN PRN, Medi hever 25 mcg 4 doses, Branch Starting on Narcisa 03/27/22 at 1639, Until Discontinu ed, Routine, Pain (scale 7-10), PACU FENTanyl PF 2021-0 Yes 25ug 25 mcg, Uni vers (SUBLIMAZE 03-27 Slow IV ity of (PF)) 21:39: Push, [place] injection 23 Q5MIN PRN, Medi hever 25 mcg 4 doses, Branch Starting on Narcisa 03/27/22 at 1639, Until Discontinu ed, Routine, Pain (scale 4-6), PACU ondansetron 2021-0 Yes 4mg 4 mg, Slow Univers (ZOFRAN 03-27 IV Push, ity of (PF)) 21:39: PRN, 1 [place] injection 4 23 dose, Medical mg Starting Branch on Narcisa 03/27/22 at 1639, Until Discontinu ed, Routine, Nausea and Vomiting (N/V), PACU argatroban 2021-0 Yes .15ug/k 0.15-2 Un breanne 50 mg in 9-08 g/min mcg/kg/min ity of 0.9% NaCl 21:17: ?87 kg [place] 50 mL RTU 12 (0.783-10. Medi hever IV infusion 44 mL/hr, Bra nch rounded to 0.78-10.44 mL/hr), IV Infusion, TITRATE, Parameters in Admin. Instr., Starting on Narcisa 03/27/22 at 1617
No rmal dosage for non-critic al care patients without hepatic impairment . Ini tial infusion rate : 2 microgram/ kg/min (ABW), Check aPTT 3 hours after start of infusion.& nbsp;Adjus t rate of infusion as follows (MAXIUM INFUSION RATE NOT TO EXCEED 10 MICROGRAM/ KG/MIN): *aPTT = Activated Partial Thrombopla stin Time 1). Standard aPTT* (sec) < or = 44, Infusion rate change increase by 0.5 microgram/ kg/min, Next aPTT 3 hours after rate change. 2). Standard aPTT* (sec) 45-90 (target), Infusion rate change none, Next aPTT repeat 3 hours from last aPTT: after 2 consecutiv e aPTTs within target range, check aPTT every 12 hours. 3). Standard aPTT* (sec) 91-120, Infusion rate change decrease by 0.5 microgram/ kg/min, Next aPTT 3 hours after rate change. 4). Standard aPTT* (sec) 121-149, Infusion rate change hold infusion 1 hour, resume at 1/2 rate, Next aPTT 3 hours after rate change. 5). Standard aPTT* (sec) > or = 150, Infusion rate change hold infusion 1 hour, resume at 1/2 rate when aPTT < 90 sec, Next aPTT repeat every hour until aPTT < 90 sec. 6). If any acute bleeding/h ematoma, obtain STAT aPTT and CBC with platelet count and call physician< br> argatroban 2021-0 2021- No .15ug/k 0.15-2 U nivers 50 mg in 03-27 09-10 g/min mcg/kg/min ity of 0.9% NaCl 21:17: 16:57 ?87 kg [place] 50 mL RTU 12 :41 (0.783-10. Medi hever IV infusion 44 mL/hr, Bra nch rounded to 0.78-10.44 mL/hr), IV Infusion, TITRATE, Parameters in Admin. Instr., Starting on Narcisa 03/27/22 at 1617
No rmal dosage for non-critic al care patients without hepatic impairment . Ini tial infusion rate : 2 microgram/ kg/min (ABW), Check aPTT 3 hours after start of infusion.& nbsp;Adjus t rate of infusion as follows (MAXIUM INFUSION RATE NOT TO EXCEED 10 MICROGRAM/ KG/MIN): *aPTT = Activated Partial Thrombopla stin Time 1). Standard aPTT* (sec) < or = 44, Infusion rate change increase by 0.5 microgram/ kg/min, Next aPTT 3 hours after rate change. 2). Standard aPTT* (sec) 45-90 (target), Infusion rate change none, Next aPTT repeat 3 hours from last aPTT: after 2 consecutiv e aPTTs within target range, check aPTT every 12 hours. 3). Standard aPTT* (sec) 91-120, Infusion rate change decrease by 0.5 microgram/ kg/min, Next aPTT 3 hours after rate change. 4). Standard aPTT* (sec) 121-149, Infusion rate change hold infusion 1 hour, resume at 1/2 rate, Next aPTT 3 hours after rate change. 5). Standard aPTT* (sec) > or = 150, Infusion rate change hold infusion 1 hour, resume at 1/2 rate when aPTT < 90 sec, Next aPTT repeat every hour until aPTT < 90 sec. 6). If any acute bleeding/h ematoma, obtain STAT aPTT and CBC with platelet count and call physician< br> ropivacaine 2021- No PRN, Unive rs 0.5 % 03-27 Starting ity of (NAROPIN 18:40: 22:13 on [facility]) 00 :36 03/27/22 at Medical injection 1340, Branch Until Thu03/27/22 at 1713, Routine, Intra-op insulin NPH 0 Yes 3U 3 Units, Un breanne (HUMULIN N) 03-27 Subcutaneo it y of injection 3 13:00: us, QAM [place] Units 00 WITH Medical BREAKFAST, Branch First dose (after last modificati on) on Thu03/27/22 at 0800, Until Discontinu ed, Routine insulin NPH 0 Yes 3U 3 Units, Un breanne (HUMULIN N) 03-27 Subcutaneo it y of injection 3 13:00: us, QAM [place] Units 00 WITH Medical BREAKFAST, Branch First dose (after last modificati on) on Thu03/27/22 at 0800, Until Discontinu ed, Routine D5W 0.45% 2021- No IV Univers NaCl 03-27 Infusion, ity of (1/2NS) 1 L 03:00: 00:46 at 75 [place] + KCL 20 00 :32 mL/hr, Medical mEq CONTINUOUS Branch , Starting on Thu03/26/22 at 2200, Until Thu03/27/22 at 1946, Routine gadobenate 2021- No [id number] .2mL/kg 17.4 mL Univers dimeglumine 03-26 (0.2 mL/kg i ty of (MULTIHANCE 02:30: 01:36 ?87 kg), [place] -20 mL) 00 :00 Intravenou Medica l injection s, ONCE, 1 Bran ch 17.4 mL dose, On Thu03/25/22 at 2130, Routine Saline 2021- No Injection, Univ ers Bubble 03-25 TITRATE - ity of Study 16:48: 16:48 FOR [place] 00 :00 PROCEDURE Medical USE, 1 Branch dose, Starting on Thu03/25/22 at 1148, Until Thu03/25/22 at 1148, Routine Saline 2021- No Injection, Univ ers Bubble 03-25 TITRATE - ity of Study 16:48: 16:48 FOR [place] 00 :00 PROCEDURE Medical USE, 1 Branch dose, Starting on Thu03/25/22 at 1148, Until Thu03/25/22 at 1148, Routine NaCl 0.9% [id number] 250mL at 20 Univers (NS) IV 03-25 mL/hr, IV ity of infusion 16:45: 01:54 Infusion, [place] 250 mL 00 :18 CONTINUOUS Medical , Starting Branch on Thu03/25/22 at 1145, Until Thu03/26/22 at 2054, Routine
KVO
FENTanyl PF 2021- No Slow IV Un breanne (SUBLIMAZE 03-25 Push, ity of (PF)) 16:34: 16:34 TITRATE - [place] injection 32 :32 FOR Medical PROCEDURE Branch USE, 1 dose, Starting on Thu03/25/22 at 1134, Until Thu03/25/22 at 1134, Routine midazolam 2021- No IV [place], Uni vers (VERSED) 03-25 TITRATE - ity o f injection 16:34: 16:34 FOR [place] 28 :28 PROCEDURE Medical USE, 1 Branch dose, Starting on Thu03/25/22 at 1134, Until Thu03/25/22 at 1134, Routine FENTanyl PF 2021- No Slow IV Un breanne (SUBLIMAZE 03-25 Push, ity of (PF)) 16:32: 16:32 TITRATE - [place] injection 11 :11 FOR Medical PROCEDURE Branch USE, 1 dose, Starting on Thu03/25/22 at 1132, Until Thu03/25/22 at 1132, Routine midazolam 2021- No IV Push, Uni vers (VERSED) 03-25 TITRATE - ity o f injection 16:32: 16:32 FOR [place] 04 :04 PROCEDURE Medical USE, 1 Branch dose, Starting on Thu03/25/22 at 1132, Until Thu03/25/22 at 1132, Routine NaCl 0.9% 2021- No IV Univers (NS) IV 03-25 Infusion, ity of infusion 16:27: 16:27 CONTINUOUS [place] 34 :34 PRN, Medical Starting Branch on Thu03/25/22 at 1127, Until Thu03/25/22 at 1127, Routine magnesium 2021- No 2g 2 g, IV Univ ers sulfate in 03-24 Piggyback, it y of water 2 13:00: 14:32 Administer [place] gram/50 mL 00 :00 over 60 Medica l (4 %) Minutes, Branch infusion 2 ONCE, 1 g dose, On Thu03/24/22 at 0800, NOAH KCL 2021-2021- No 40meq 40 mEq, Univers (KLOR-CON 03-22 Oral, ity of M20) tablet 15:30: 18:51 ONCE, 1 [place] 40 mEq 00 :00 dose, On Medical 03/22/22 Branch at 1030, Routine pantoprazol Yes 40mg 40 mg, Univ ers e 03-22 Oral, ity of (PROTONIX) 14:00: DAILY, [place] EC tablet 00 First dose Medi hever 40 mg on Sat Branch 03/22/22 at 0900, Until Discontinu ed, Routine collagenase 2021- Yes Topical Uni vers (SANTYL) 03-22 (Apply To ity of ointment 14:00: Affected [place] 00 Areas), Medical DAILY, Branch First dose on 03/22/22 at 0900, Until Discontinu ed, Routine aspirin Yes 81mg 81 mg, Univers chewable 03-22 Oral, ity of tablet 81 14:00: DAILY, [place] mg 00 First dose Medical on [facility] 03/22/22 at 0900, Until Discontinu ed, Routine pantoprazol 2022-0 Yes 40mg 40 mg, Univ ers e 03-22 Oral, ity of (PROTONIX) 14:00: DAILY, [place] EC tablet 00 First dose Medi hever 40 mg on [facility] 03/22/22 at 0900, Until Discontinu ed, Routine collagenase 2021-0 Yes Topical Uni vers (SANTYL) 03-22 (Apply To ity of ointment 14:00: Affected [place] 00 Areas), Medical DAILY, Branch First dose on [facility] 03/22/22 at 0900, Until Discontinu ed, Routine aspirin 2021-0 Yes 81mg 81 mg, Univers chewable 03-22 Oral, ity of tablet 81 14:00: DAILY, [place] mg 00 First dose Medical on [facility] 03/22/22 at 0900, Until Discontinu ed, Routine pantoprazol 2021-0 Yes 40mg 40 mg, Univ ers e 03-22 Oral, ity of (PROTONIX) 14:00: DAILY, [place] EC tablet 00 First dose Medi hever 40 mg on [facility] 03/22/22 at 0900, Until Discontinu ed, Routine collagenase 2021-0 Yes Topical Uni vers (SANTYL) 03-22 (Apply To ity of ointment 14:00: Affected [place] [id number] Areas), Medical DAILY, Branch First dose on [facility] 03/22/22 at 0900, Until Discontinu ed, Routine aspirin 2021-0 Yes 81mg 81 mg, Univers chewable 03-22 Oral, ity of tablet 81 14:00: DAILY, [place] mg 00 First dose Medical on [facility] 03/22/22 at 0900, Until Discontinu ed, Routine insulin NPH 2021-0 Yes 14U 14 Units, U nivers (HUMULIN N) 03-22 Subcutaneo it y of injection 13:00: us, QAM [place] 14 Units 00 WITH Medical BREAKFAST, Branch First dose on [facility] 03/22/22 at 0800, Until Discontinu ed, Routine insulin NPH 2021-0 2022- No 14U 14 Units, Univers (HUMULIN N) 03-22-08 Subcutaneo i ty of injection 13:00: 01:56 us, QAM [place] 14 Units 00 :14 WITH Medical BREAKFAST, [place] First dose on [facility] 03/22/22 at 0800, Until Discontinu ed, Routine rosuvastati 2021-0 Yes 10mg 10 mg, Univ ers n (CRESTOR) 9- Oral, QHS, it y of tablet 10 02:00: First dose [place] mg 00 on [facility] 03/21/22 at [place] 2100, Until Discontinu ed, Routine rosuvastati 2021-0 Yes 10mg 10 mg, Univ ers n (CRESTOR) 9- Oral, QHS, it y of tablet 10 02:00: First dose [place] mg 00 on [facility] 03/21/22 at [place] 2100, Until Discontinu ed, Routine rosuvastati 2021-0 Yes 10mg 10 mg, Univ ers n (CRESTOR) - Oral, QHS, it y of tablet 10 02:00: First dose [place] mg 00 on [facility] 03/21/22 at [place] 2099, Until Discontinu ed, Routine SERTraline 2021-0 Yes 100mg 100 mg, Uni vers (ZOLOFT) 03-22 Oral, BID, ity o f tablet 100 01:00: First dose [place] mg 00 on [facility] 03/21/22 at [place] 1999, Until Discontinu ed, Routine gabapentin 2021-0 Yes 300mg 300 mg, Uni vers (NEURONTIN) 03-22 Oral, BID, it y of capsule 300 01:00: First dose [place] mg 00 on Thu [facility] 03/21/22 at [place] 1999, Until Discontinu ed, Routine gabapentin 2022-0 Yes 300mg 300 mg, Uni vers (NEURONTIN) 03-22 Oral, BID, it y of capsule 300 01:00: First dose [place] mg 00 on Thu [facility] 03/21/22 at [place] 1999, Until Discontinu ed, Routine gabapentin 2022-0 Yes 300mg 300 mg, Uni vers (NEURONTIN) 03-22 Oral, BID, it y of capsule 300 01:00: First dose [place] mg 00 on Thu [facility] 03/21/22 at [place] 1999, Until Discontinu ed, Routine SERTraline 2022-0 2022- No 100mg 100 mg, Un breanne (ZOLOFT) 03-22 09-09 Oral, BID, ity of tablet 100 01:00: 01:55 First dose [place] mg 00 :38 on Thu Medical 03/21/22 at Branch 2000, Until Discontinu ed, Routine heparin 2021- No 5000U 5,000 Univers 1000 03-21 09-02 Units, IV ity of unit/mL 18:00: 20:08 Push, [place] injection 00 :00 ONCE, 1 Medical Soln 5,000 dose, On Branc h Units Thu03/21/22 at 1300, Routine heparin Yes 3000U FOR Univers (1,000 02 REBOLUSING ity of unit/mL, 10 17:53: , Starting [place] mL vial) 36 on Thu Medical 03/21/22 at Branch 1253, Until Discontinu ed, Routine
Dosing based on aPTT testing parameters (refer to continuous heparin drip order)
heparin Yes 1300U/h 1,300 Univer s 25,000 03-21 Units/hr ity of Units/250 17:53: (13 [place] mL 36 mL/hr), IV Medical (Premixed Infusion, Branc h Bag) in TITRATE, 0.45 % NS Parameters in Admin. Instr., Starting on Thu03/21/22 at 1253
CA UTION - If LMWH given in ER, AVOID bolus and start next dose/drip 12 hrs after ER dosage.&nb sp; M ust program rate using programmab le infusion pump.&nbsp ; Tarah ck with the ordering provider first prior to any administra tion should the patient be on existing/a dditional anticoagul ant therapy. Rang e, Dosing and Testing: &nbs p;DO NOT ADJUST INITIAL BOLUS OR INITIAL INFUSION RATE.&nbsp ; _ &nb sp;FOR [facility], [facility], AND [facility] ONLY &nbs p; - aPTT < 35: & nbsp;Bolus 5000 units, increase rate 300 units/hr&n bsp; - aPTT 35-44:&nbs p; Miko emerita 3000 units, increase rate 200 units/hr&n bsp; - aPTT 45-54:&nbs p; In crease rate 100 units/hr&n bsp; - aPTT 55-85:&nbs p; NO CHANGE&nbs p; - aPTT 86-95:&nbs p; De crease rate 100 units/hr&n bsp; - aPTT 96-120:&nb sp;&nb sp;Hold 30 minutes, decrease rate 150 units/hr&n bsp; - aPTT > 120: Hold 60 minutes, decrease rate 200 units/hr&n bsp; Check aPTT 6 hours after initiation , then Q6H after every change, aPTT Q12H once therapeuti c levels are reached.&n bsp; &nbs p; __ &n bsp;FOR [facility] ONLY - aPTT < 40: & nbsp;Bolus 5000 units, increase rate 300 units/hr&n bsp; - aPTT 40-49:&nbs p; Miko emerita 3000 units, increase rate 200 units/hr&n bsp; - aPTT 50-59:&nbs p; In crease rate 100 units/hr&n bsp; - aPTT 60-85:&nbs p; NO CHANGE&nbs p; - aPTT 86-95:&nbs p; De crease rate 100 units/hr&n bsp; - aPTT 96-120:&nb sp; H old 30 minutes, decrease rate 150 units/hr&n bsp; - aPTT > 120: Hold 60 minutes, decrease rate 200 units/hr&n bsp; Check aPTT 6 hours after initiation , then Q6H after every change, aPTT Q12H once therapeuti c levels are reached.<b r> heparin 2021-0 Yes 3000U FOR Univers (1,000 9-02 REBOLUSING ity of unit/mL, 10 17:53: , Starting [place] mL vial) 36 on Thu [facility] 03/21/22 at Branch 1253, Until Discontinu ed, Routine
Dosing based on aPTT testing parameters (refer to continuous heparin drip order)
heparin 0 Yes 3000U FOR Univers (1,000 9-02 REBOLUSING ity of unit/mL, 10 17:53: , Starting [place] mL vial) 36 on Thu [facility] 03/21/22 at Branch 1253, Until Discontinu ed, Routine
Dosing based on aPTT testing parameters (refer to continuous heparin drip order)
heparin 202- No 1300U/h 1,300 Unive rs 25,000 - 09-09 Units/hr ity of Units/250 17:53: 00:46 (13 [place] mL 36 :32 mL/hr), IV Medical (Premixed Infusion, Branc h Bag) in TITRATE, 0.45 % NS Parameters in Admin. Instr., Starting on Thu03/21/22 at 1253
CA UTION - If LMWH given in ER, AVOID bolus and start next dose/drip 12 hrs after ER dosage.&nb sp; M ust program rate using programmab le infusion pump.&nbsp ; Tarah ck with the ordering provider first prior to any administra tion should the patient be on existing/a dditional anticoagul ant therapy. Rang e, Dosing and Testing: &nbs p;DO NOT ADJUST INITIAL BOLUS OR INITIAL INFUSION RATE.&nbsp ; _ &nb sp;FOR [facility], [facility], AND [facility] ONLY &nbs p; - aPTT < 35: & nbsp;Bolus 5000 units, increase rate 300 units/hr&n bsp; - aPTT 35-44:&nbs p; Miko emerita 3000 units, increase rate 200 units/hr&n bsp; - aPTT 45-54:&nbs p; In crease rate 100 units/hr&n bsp; - aPTT 55-85:&nbs p; NO CHANGE&nbs p; - aPTT 86-95:&nbs p; De crease rate 100 units/hr&n bsp; - aPTT 96-120:&nb sp;&nb sp;Hold 30 minutes, decrease rate 150 units/hr&n bsp; - aPTT > 120: Hold 60 minutes, decrease rate 200 units/hr&n bsp; Check aPTT 6 hours after initiation , then Q6H after every change, aPTT Q12H once therapeuti c levels are reached.&n bsp; &nbs p; __ &n bsp;FOR [facility] ONLY - aPTT < 40: & nbsp;Bolus 5000 units, increase rate 300 units/hr&n bsp; - aPTT 40-49:&nbs p; Miko emerita 3000 units, increase rate 200 units/hr&n bsp; - aPTT 50-59:&nbs p; In crease rate 100 units/hr&n bsp; - aPTT 60-85:&nbs p; NO CHANGE&nbs p; - aPTT 86-95:&nbs p; De crease rate 100 units/hr&n bsp; - aPTT 96-120:&nb sp; H old 30 minutes, decrease rate 150 units/hr&n bsp; - aPTT > 120: Hold 60 minutes, decrease rate 200 units/hr&n bsp; Check aPTT 6 hours after initiation , then Q6H after every change, aPTT Q12H once therapeuti c levels are reached.<b r> Sliding [facility] 9-02 us, TID ity of Insulin - 17:00: MEALS+HS, [place] Lispro 00 First dose Medical (HumaLOG) + on Thu Branch [facility] 03/21/22 at Testing 1200, Until Discontinu ed, Routine Sliding Yes [facility] ers Scale 9-02 us, TID ity of Insulin - 17:00: MEALS+HS, [place] Lispro 00 First dose Medical (HumaLOG) + on Thu Branch [facility] 03/21/22 at Testing 1200, Until Discontinu ed, Routine Sliding Yes [facility] ers Scale 9-02 us, TID ity of Insulin - 17:00: MEALS+HS, [place] Lispro 00 First dose Medical (HumaLOG) + on Thu Branch [facility] 03/21/22 at Testing 1200, Until Discontinu ed, Routine FENTanyl PF Yes 25ug 25 mcg, Uni vers (SUBLIMAZE 03-21 Slow IV ity of (PF)) 14:29: Push, [place] injection 59 Q6HPRN, Medical 25 mcg Starting Branch on Thu03/21/22 at 0929, Until Discontinu ed, Routine, Pain (scale 7-10) HYDROcodone Yes 1{tbl} 1 tablet, [facility] -acetaminop 02 Oral, ity of hen (NORCO 14:28: Q6HPRN[place] 5) 5-325 mg 23 Starting Medi hever tablet 1 on Fri Branch tablet 03/21/22 at 0928, Until Discontinu ed, Routine, Pain (scale 4-6) HYDROcodone 0 Yes 1{tbl} 1 tablet, [facility] -acetaminop 9-02 Oral, ity of hen (NORCO 14:28: Q6HPRN, [place] 5) 5-325 mg 23 Starting Medi hever tablet 1 on Fri Branch tablet 03/21/22 at 0928, Until Discontinu ed, Routine, Pain (scale 4-6) HYDROcodone 2022-0 Yes 1{tbl} 1 tablet, [facility] -acetaminop 03-21 Oral, ity of hen (NORCO 14:28: Q6HPRN, [place] 5) 5-325 mg 23 Starting Medi hever tablet 1 on Fri Branch tablet 03/21/22 at 0928, Until Discontinu ed, Routine, Pain (scale 4-6) acetaminoph 2022-0 Yes 650mg 650 mg, Un breanne en 03-21 Oral, ity of (TYLENOL) 14:28: Q6HPRN, [place] tablet 650 02 Starting Medic al mg on Fri Branch 03/21/22 at 0928, Until Discontinu ed, Routine, Pain (scale 1-3) acetaminoph 2022-0 Yes 650mg 650 mg, Un breanne en 03-21 Oral, ity of (TYLENOL) 14:28: Q6HPRN, [place] tablet 650 02 Starting Medic al mg on Fri Branch 03/21/22 at 0928, Until Discontinu ed, Routine, Pain (scale 1-3) acetaminoph 2022-0 Yes 650mg 650 mg, Un breanne en 03-21 Oral, ity of (TYLENOL) 14:28: Q6HPRN, [place] tablet 650 02 Starting Medic al mg on Fri Branch 03/21/22 at 0928, Until Discontinu ed, Routine, Pain (scale 1-3) ondansetron 2022-0 Yes 4mg 4 mg, Slow [facility] (ZOFRAN 03-21 IV Push, ity of (PF)) 14:27: Q6HPRN, [place] injection 4 57 Starting Medi hever mg on Fri Branch 03/21/22 at 0927, Until Discontinu ed, Routine, Nausea and Vomiting (N/V) ondansetron 2022-0 Yes 4mg 4 mg, Slow [facility] (ZOFRAN -02 IV Push, ity of (PF)) 14:27: Q6HPRN, [place] injection 4 57 Starting Medi hever mg on Fri Branch 03/21/22 at 0927, Until Discontinu ed, Routine, Nausea and Vomiting (N/V) ondansetron 2022-0 Yes 4mg 4 mg, Slow [facility] (ZOFRAN - IV Push, ity of (PF)) 14:27: Q6HPRN, [place] injection 4 57 Starting Medi hever mg on Thu Branch 03/21/22 at 0927, Until Discontinu ed, Routine, Nausea and Vomiting (N/V) ipratropium 2022-0 Yes 3mL 3 mL, Unive rs -albuteroL 03-21 Inhalation ity of (DUONEB) 14:16: , Q6HPRN, [place] 0.5 mg-3 07 Starting Medical mg(2.5 mg on Thu)/3 mL 03/21/22 at nebulizer 0916, solution 3 Until mL Discontinu ed, Routine, Wheezing, Shortness of Breath albuterol 2022-0 Yes 2{puff} 2 Puff, Un breanne (VENTOLIN) 03-21 Inhalation ity of inhaler 2 14:16: , Q6HPRN, [place] Puff 07 Starting Medical on Thu Branch 03/21/22 at 0916, Until Discontinu ed, Routine, Wheezing, Shortness of Breath cyclobenzap 2022-0 Yes 5mg 5 mg, Unive rs rine 03-21 Oral, ity of (FLEXERIL) 14:16: TIDPRN, [place] tablet 5 mg 07 Starting Medi hever on Thu Branch 03/21/22 at 0916, Until Discontinu ed, Routine, Muscle Spasms ipratropium 2022-0 Yes 3mL 3 mL, Unive rs -albuteroL 03-21 Inhalation ity of (DUONEB) 14:16: , Q6HPRN, [place] 0.5 mg-3 07 Starting Medical mg(2.5 mg on Thu)/3 mL 03/21/22 at nebulizer 0916, solution 3 Until mL Discontinu ed, Routine, Wheezing, Shortness of Breath albuterol 2022-0 Yes 2{puff} 2 Puff, Un breanne (VENTOLIN) 03-21 Inhalation ity of inhaler 2 14:16: , Q6HPRN, [place] Puff 07 Starting Medical on Thu03/21/22 at 0916, Until Discontinu ed, Routine, Wheezing, Shortness of Breath cyclobenzap 2022-0 Yes 5mg 5 mg, Unive rs rine 03-21 Oral, ity of (FLEXERIL) 14:16: TIDPRN, [place] tablet 5 mg 07 Starting Medi hever on Thu Branch 03/21/22 at 0916, Until Discontinu ed, Routine, Muscle Spasms ipratropium Yes 3mL 3 mL, Unive rs -albuteroL 03-21 Inhalation ity of (DUONEB) 14:16: , Q6HPRN, [place] 0.5 mg-3 07 Starting Medical mg(2.5 mg on Thu Branch base)/3 mL 03/21/22 at nebulizer 0916, solution 3 Until mL Discontinu ed, Routine, Wheezing, Shortness of Breath albuterol Yes 2{puff} 2 Puff, Un breanne (VENTOLIN) 03-21 Inhalation ity of inhaler 2 14:16: , Q6HPRN, [place] Puff 07 Starting Medical on Thu Branch 03/21/22 at 0916, Until Discontinu ed, Routine, Wheezing, Shortness of Breath cyclobenzap Yes 5mg 5 mg, Unive rs rine 03-21 Oral, ity of (FLEXERIL) 14:16: TIDPRN, [place] tablet 5 mg 07 Starting Medi hever on Thu Branch 03/21/22 at 0916, Until Discontinu ed, Routine, Muscle Spasms iopamidol 2021- No PRN, Univers (ISOVUE 03-21 Starting ity of 370-500 mL) 13:41: 14:21 on Thu [place] injection 00 :25 03/21/22 at Medic al 0841, Branch Until Thu03/21/22 at 0921, Routine, Intra-op heparin 2021- No PRN, Univers 10,000 03-21 Starting ity of units in NS 13:00: 14:21 on Thu [place] 1000 mL for 00 :25 03/21/22 at Med ical vascular 0800, Branch Intra-op MULTIVITAMI Yes Inject Univ ers N 12 IV 03-21 intravenou ity of 09:30: sly. [address] levoFLOXaci Yes 500mg Take 500 U nivers n 500 mg 03-21 mg by ity of tablet 09:30: mouth [place] [address] every 24 Medical (twenty-fo Branch ur) hours. Pantoprazol 2022-0 Yes 40mg Take 40 mg Univers e 40 mg 9-02 by mouth ity of delayed-rel 09:30: in the [facility] 53 morning. Medical suspension Branch Cholecalcif 2021-0 Yes Take by Uni vers tamir, 03-21 mouth. ity of Vitamin D3, 09:30: [place] 50 mcg 53 Medical (2,000 Branch unit) capsule MULTIVITAMI 2-0 Yes Inject Univ ers N 12 IV 03-21 intravenou ity of 09:30: sly. [place] [address] Medical Branch levoFLOXaci 2-0 Yes 500mg Take 500 U nivers n 500 mg 9-02 mg by ity of tablet 09:30: mouth [place] [address] every 24 Medical (twenty-fo Branch ur) hours. Pantoprazol 2022-0 Yes 40mg Take 40 mg Univers e 40 mg -02 by mouth ity of delayed-rel 09:30: in the [facility] 53 morning. Medical suspension Branch Cholecalcif 2021-0 Yes Take by Uni vers tamir, 03-21 mouth. ity of Vitamin D3, 09:30: [place] 50 mcg 53 Medical (2,000 Branch unit) capsule MULTIVITAMI 2-0 Yes Inject Univ ers N 12 IV 03-21 intravenou ity of 09:30: sly. [place] [address] Medical Branch levoFLOXaci 2-0 Yes 500mg Take 500 U nivers n 500 mg 9-02 mg by ity of tablet 09:30: mouth [place] [address] every 24 Medical (twenty-fo Branch ur) hours. Pantoprazol 2-0 Yes 40mg Take 40 mg Univers e 40 mg 02 by mouth ity of delayed-rel 09:30: in the [place] [address] morning. Medical suspension Branch Cholecalcif 2-0 Yes Take by Uni vers tamir, 03-21 mouth. ity of Vitamin D3, 09:30: [place] 50 mcg 53 Medical (2,000 Branch unit) capsule MULTIVITAMI 2-0 Yes Inject Univ ers N 12 IV -02 intravenou ity of 09:30: sly. [place] [address] Medical Branch levoFLOXaci 2022-0 Yes 500mg Take 500 U nivers n 500 mg 9-02 mg by ity of tablet 09:30: mouth [place] [address] every 24 Medical (twenty-fo Branch ur) hours. Pantoprazol 0 Yes 40mg Take 40 mg Univers e 40 mg 03-21 by mouth ity of delayed-rel 09:30: in the [facility] 53 morning. Medical suspension Branch Cholecalcif 0 Yes Take by Uni vers tamir, 03-21 mouth. ity of Vitamin D3, 09:30: [place] 50 mcg 53 Medical (2,000 Branch unit) capsule Pantoprazol 0 Yes 40mg Take 40 mg Univers e 40 mg 03-19 by mouth ity of delayed-rel 09:43: in the [facility] 14 morning. Medical suspension Branch Cholecalcif Yes Take by Uni vers tamir, 03-19 mouth. ity of Vitamin D3, 09:43: [place] 50 mcg 14 Medical (2,000 Branch unit) capsule MULTIVITAMI Yes Inject Univ ers N 12 IV 8-18 intravenou ity of 16:15: sly. [place] [address] Medical Branch levoFLOXaci Yes 500mg Take 500 U nivers n 500 mg 8-18 mg by ity of tablet 16:15: mouth [place] 17 every 24 Medical (-fo Branch ur) hours. gadoteridol 2021- No [id number] .2mL/kg 0.2 mL/kg, Univers (PROHANCE-2 03-05 Intravenou i ty of 0 mL) 22:30: 22:16 s, ONCE, 1 [place] injection 00 :00 dose, On Medica l 0.2 mL/kg [facility] Branch 03/05/22 at 1730, Routine minocycline 2021-2021- No 100mg Take 100 Univers 100 mg 03-02 mg by ity of capsule 00:00: 04:59 mouth [place] 00 :00 every 12 Medical (twelve) Branch hours. minocycline 2021-0 2021- No [id number] 100mg Take 1 [facility] 100 mg 02-25 capsule by ity of capsule 00:00: 04:59 mouth [place] 00 :00 every 12 Medical (twelve) Branch hours for 7 days. minocycline 2021-0 2021- No [id number] 100mg Take 1 [facility] 100 mg 02-25 capsule by ity of capsule 00:00: 04:59 mouth [place] 00 :00 every 12 Medical (twelve) Branch hours for 7 days. benzonatate 2-0 2022- No 100mg Q.[id number] Take 100 Methodi (TESSALON) 5-27 05-27 [id number] mg by s t 100 MG 11:12: 00:00 3D mouth 3 Hospita capsule 20 :00 (three) l times a day as needed for cough. rosuvastati 2022-0 Yes 10mg QD Take 10 mg Methodi n (CRESTOR) 5-[address] 10 mg 09:27: daily. Hospita tablet 45 l rosuvastati 2022-0 Yes 10mg QD Take 10 mg Methodi n (CRESTOR) 5-[address] 10 mg 09:27: daily. Hospita tablet 45 l sertraline 2022-0 Yes 100mg Q.5D Take 100 Me [facility]odi (ZOLOFT) 5-[address] 100 MG 09:27: mouth 2 Hospita tablet 43 (two) l times a day. sertraline 2022-0 Yes 100mg Q.5D Take 100 Me [facility] (ZOLOFT) 5-[address] 100 MG 09:27: mouth 2 Hospita tablet 43 (two) l times a day. clotrimazol 2022-0 Yes [id number] Apply to Univers e 1 % 2-21 area(s) 2 ity of topical 00:00: (two) [place] cream 00 times Medical daily. Branch clotrimazol 2022-0 Yes [id number] Apply to Univers e 1 % 2-21 area(s) 2 ity of topical 00:00: (two) [place] cream 00 times Medical daily. Branch clotrimazol 2022-0 Yes [id number] Apply to Univers e 1 % 2-21 area(s) 2 ity of topical 00:00: (two) [place] cream 00 times Medical daily. Branch clotrimazol 2022-0 Yes [id number] Apply to Univers e 1 % 2-21 area(s) 2 ity of topical 00:00: (two) [place] cream 00 times Medical daily. Branch clotrimazol 2022-0 Yes [id number] Apply to Univers e 1 % 2-21 area(s) 2 ity of topical 00:00: (two) [place] cream 00 times Medical daily. Branch clotrimazol 2022-0 Yes [id number] Apply to Univers e 1 % 2-21 area(s) 2 ity of topical 00:00: (two) [place] cream 00 times Medical daily. Branch clotrimazol 2022-0 Yes [id number] Apply to Univers e 1 % 2-21 area(s) 2 ity of topical 00:00: (two) [place] cream 00 times Medical daily. Branch clotrimazol 2022-0 Yes [id number] Apply to Univers e 1 % 2-21 area(s) 2 ity of topical 00:00: (two) [place] cream 00 times Medical daily. Branch clotrimazol 2022-0 Yes [id number] Apply to Univers e 1 % 2-21 area(s) 2 ity of topical 00:00: (two) [place] cream 00 times Medical daily. Branch clotrimazol 2022-0 Yes [id number] Apply to Univers e 1 % 2-21 area(s) 2 ity of topical 00:00: (two) [place] cream 00 times Medical daily. Branch clotrimazol 2022-0 Yes [id number] Apply to Univers e 1 % 2-21 area(s) 2 ity of topical 00:00: (two) [place] cream 00 times Medical daily. Branch clotrimazol 2022-0 Yes [id number] Apply to Univers e 1 % 2-21 area(s) 2 ity of topical 00:00: (two) [place] cream 00 times Medical daily. Branch clotrimazol 2022-0 Yes [id number] Apply to Univers e 1 % 2-21 area(s) 2 ity of topical 00:00: (two) [place] cream 00 times Medical daily. Branch clotrimazol 2022-0 Yes [id number] Apply to Univers e 1 % 2-21 area(s) 2 ity of topical 00:00: (two) [place] cream 00 times Medical daily. Branch clotrimazol 2022-0 Yes [id number] Apply to Univers e 1 % 2-21 area(s) 2 ity of topical 00:00: (two) [place] cream 00 times Medical daily. Branch clotrimazol 2022-0 Yes [id number] Apply to Univers e 1 % 2-21 area(s) 2 ity of topical 00:00: (two) [place] cream 00 times Medical daily. Branch clotrimazol Yes [id number] Apply to Univers e 1 % 2-21 area(s) 2 ity of topical 00:00: (two) [place] cream 00 times Medical daily. Branch clotrimazol 0 Yes [id number] Apply to Univers e 1 % 2-21 area(s) 2 ity of topical 00:00: (two) [place] cream 00 times Medical daily. Branch clotrimazol 0 Yes [id number] Apply to Univers e 1 % 2-21 area(s) 2 ity of topical 00:00: (two) [place] cream 00 times Medical daily. Branch MULTIVITAMI Yes Inject Univ ers N 12 IV 1-29 intravenou ity of 18:16: sly. [address] levoFLOXaci 0 Yes 500mg Take 500 U nivers n 500 mg 1-29 mg by ity of tablet 18:16: mouth [place] 05 every 24 Medical (twenty-fo Branch ur) hours. MULTIVITAMI Yes Inject Univ ers N 12 IV 1-29 intravenou ity of 18:16: sly. [address] levoFLOXaci 0 Yes 500mg Take 500 U nivers n 500 mg 1-29 mg by ity of tablet 18:16: mouth [place] 05 every 24 Medical (twenty-fo Branch ur) hours. traMADoL 50 2021-0 Yes [id number] 50mg Take 1 Univ ers mg tablet 1-04 tablet by ity o f 00:00: mouth [place] 00 every 8 Medical (eight) Branch hours as needed for Pain (scale 7-10). Indication s: chronic pain traMADoL 50 2021-0 Yes [id number] 50mg Take 1 Univ ers mg tablet 1-04 tablet by ity o f 00:00: mouth [place] 00 every 8 Medical (eight) Branch hours as needed for Pain (scale 7-10). Indication s: chronic pain traMADoL 50 2021-0 Yes [id number] 50mg Take 1 Univ ers mg tablet 1-04 tablet by ity o f 00:00: mouth [place] 00 every 8 Medical (eight) Branch hours as needed for Pain (scale 7-10). Indication s: chronic pain traMADoL 50 2021-0 Yes [id number] 50mg Take 1 Univ ers mg tablet 1-04 tablet by ity o f 00:00: mouth [place] 00 every 8 Medical (eight) Branch hours as needed for Pain (scale 7-10). Indication s: chronic pain traMADoL 50 2021-0 Yes [id number] 50mg Take 1 Univ ers mg tablet 1-04 tablet by ity o f 00:00: mouth [place] 00 every 8 Medical (eight) Branch hours as needed for Pain (scale 7-10). Indication s: chronic pain traMADoL 50 2021-0 Yes [id number] 50mg Take 1 Univ ers mg tablet 1-04 tablet by ity o f 00:00: mouth [place] 00 every 8 Medical (eight) Branch hours as needed for Pain (scale 7-10). Indication s: chronic pain traMADoL 50 2021-0 Yes [id number] 50mg Take 1 Univ ers mg tablet 1-04 tablet by ity o f 00:00: mouth [place] 00 every 8 Medical (eight) Branch hours as needed for Pain (scale 7-10). Indication s: chronic pain traMADoL 50 2021-0 2021- No [id number] 50mg Take 1 Uni vers mg tablet 1-04 09-10 tablet by ity of 00:00: 00:00 mouth [place] 00 :00 every 8 Medical (eight) Branch hours as needed for Pain (scale 7-10). Indication s: chronic pain RISPERIDONE 2020-0 Yes Q.5D Take by Met hodi ORAL 8-[address] 13:52: (two) Hospita 40 times a l day. RISPERIDONE 2020-0 Yes Q.5D Take by Met hodi ORAL 8-[address] 13:52: (two) Hospita 40 times a l day. RISPERIDONE 2020-0 Yes Q.5D Take by Met hodi ORAL 8-[address] 13:52: (two) Hospita 40 times a l day. cefuroxime 2020-0 2020- No 500mg Q.5D Take 500 M ethodi (CEFTIN) 7- 07-[address] 500 MG 15:27: 00:00 mouth 2 Hospita tablet 28 :00 (two) l times a day. aspirin 2020-0 Yes 81mg QD Take 81 mg [facility] ped[facility] (ECOTRIN) 7-[address] 81 MG 15:27: daily. Hospita enteric 24 l coated tablet ondansetron 2020-0 Yes 4mg Q.25D Take 4 mg [facility]i ODT 7-[address] (ZOFRAN-ODT 15:27: (four) [facility] ) 4 MG 24 times a l disintegrat day as ing tablet needed for nausea or vomiting. gabapentin 2020-0 Yes 300mg Q.5D Take 300 [facility] (NEURONTIN) 7-[address] 300 mg 15:27: mouth 2 Hospita capsule 24 (two) l times a day. cyclobenzap 202-0 Yes 5mg Q.[id number] Take 5 mg Methodi rine 7-07 [id number] mouth [address] (FLEXERIL) 15:27: 3D (three) [facility] [place] 5 mg tablet 24 times a l day as needed for muscle spasms. metoprolol 2020-0 Yes 12.5mg Q.5D Take 12.5 Methodi tartrate 7-[address] (LOPRESSOR) 15:27: mouth 2 Hos teena 25 mg 24 (two) l tablet times a day. sertraline 0 Yes 50mg QD Take 50 mg M ethodi (ZOLOFT) 50 7-[address] MG tablet 15:27: nightly. [facility] [place] 24 l apixaban 2020-0 Yes 5mg Q.5D Take 5 mg [facility] (ELIQUIS) 5 7-[address] mg tablet 15:27: (two) Hospita 24 times a l day. pantoprazol 2020-0 Yes 40mg QD Take 40 mg Methodi e 7-[address] (PROTONIX) 15:27: daily. Hospi ta 40 MG EC 24 l tablet aspirin 2020-0 Yes 81mg QD Take 81 mg [facility] (ECOTRIN) 7-[address] 81 MG 15:27: daily. Hospita enteric 24 l coated tablet rosuvastati 2020-0 Yes 10mg QD Take 10 mg Methodi n (CRESTOR) 7-[address] 10 mg 15:27: daily. Hospita tablet 24 l ondansetron 2020-0 Yes 4mg Q.25D Take 4 mg [facility]i ODT 7-[address] (ZOFRAN-ODT 15:27: (four) [facility] ) 4 MG 24 times a l disintegrat day as ing tablet needed for nausea or vomiting. gabapentin 2020-0 Yes 300mg Q.5D Take 300 [facility] (NEURONTIN) 7-[address] 300 mg 15:27: mouth 2 Hospita capsule 24 (two) l times a day. cyclobenzap 2020-0 Yes 5mg Q.[id number] Take 5 mg Methodi rine 7-07 [id number] mouth [address] (FLEXERIL) 15:27: 3D (three) [facility] 5 mg tablet 24 times a l day as needed for muscle spasms. metoprolol 2020-0 Yes 12.5mg Q.5D Take 12.5 [facility]i tartrate 7-[address] (LOPRESSOR) 15:27: mouth 2 Hos [place] 25 mg 24 (two) l tablet times a day. sertraline 2020-0 Yes 50mg QD Take 50 mg M ethodi (ZOLOFT) 50 7-[address] MG tablet 15:27: nightly. [facility] 24 l apixaban 2020-0 Yes 5mg Q.5D Take 5 mg [facility] (ELIQUIS) 5 7-[address] mg tablet 15:27: (two) Hospita 24 times a l day. pantoprazol 0 Yes 40mg QD Take 40 mg Methodi e 7-[address] (PROTONIX) 15:27: daily. Hospi ta 40 MG EC 24 l tablet benzonatate Yes 100mg Q.[id number] Take 100 [facility]i (TESSALON) 7-[id number] 100 MG 15:27: 3D mouth 3 Hospita capsule 24 (three) l times a day as needed for cough. aspirin 0 Yes 81mg QD Take 81 mg [facility] (ECOTRIN) 7-[address] 81 MG 15:27: daily. Hospita enteric 24 l coated tablet ondansetron 0 Yes 4mg Q.25D Take 4 mg [facility]i ODT 7-[address] (ZOFRAN-ODT 15:27: (four) [facility] ) 4 MG 24 times a l disintegrat day as ing tablet needed for nausea or vomiting. gabapentin 2020-0 Yes 300mg Q.5D Take 300 Me [facility] (NEURONTIN) 7-[address] 300 mg 15:27: mouth 2 Hospita capsule 24 (two) l times a day. cyclobenzap Yes 5mg Q.[id number] Take 5 mg Methodi rine 01-23 [id number] mouth [address] (FLEXERIL) 15:27: 3D (three) [facility] 5 mg tablet 24 times a l day as needed for muscle spasms. metoprolol Yes 12.5mg Q.5D Take 12.5 [facility]i tartrate 7-[address] (LOPRESSOR) 15:27: mouth 2 Hos teena 25 mg 24 (two) l tablet times a day. sertraline Yes 50mg QD Take 50 mg M ethodi (ZOLOFT) [address] MG tablet 15:27: nightly. [facility] 24 l apixaban Yes 5mg Q.5D Take 5 mg [facility] (ELIQUIS) [address] mg tablet 15:27: (two) Hospita 24 times a l day. pantoprazol Yes 40mg QD Take 40 mg Methodi e 01-[address] (PROTONIX) 15:27: daily. Hospi ta 40 MG EC 24 l tablet methylPREDN 2020- No follow Met hodi ISolone 01-[address] (MEDROL 00:00: 04:59 directions Hos teena DOSEPAK) 4 00 :00 l mg tablet amoxicillin 2020- No 1{tbl} Q.5D Take 1 M ethodi -pot 01-[address] clavulanate 00:00: 04:59 mouth 2 Ho spita (Augmentin) 00 :00 (two) l 875-125 mg times a per tablet day for 5 days. Lactobac 2020- No 1{capsu QD Take 1 Met hodi 41-B.bifid, 01-23 le} capsule by s t lactis-FOS 00:00: 04:59 mouth Hospi ta 111 mg (25 00 :00 daily for l billion 5 days. cell) capsule collagenase Yes [id number] Apply to Univers 250 5-18 affected ity of unit/gram 00:00: area(s) [place] ointment 00 daily. Medical Branch collagenase Yes [id number] Apply to Univers 250 5-18 affected ity of unit/gram 00:00: area(s) [place] ointment 00 daily. Medical Branch collagenase 2020-0 Yes [id number] Apply to Univers 250 5-18 affected ity of unit/gram 00:00: area(s) [place] ointment 00 daily. Medical Branch collagenase 2020-0 Yes [id number] Apply to Univers 250 5-18 affected ity of unit/gram 00:00: area(s) [place] ointment 00 daily. Medical Branch collagenase 2020-0 Yes [id number] Apply to Univers 250 5-18 affected ity of unit/gram 00:00: area(s) [place] ointment 00 daily. Medical Branch collagenase 2020-0 Yes [id number] Apply to Univers 250 5-18 affected ity of unit/gram 00:00: area(s) [place] ointment 00 daily. Medical Branch collagenase 2020-0 Yes [id number] Apply to Univers 250 5-18 affected ity of unit/gram 00:00: area(s) [place] ointment 00 daily. Medical Branch collagenase 2020-0 Yes [id number] Apply to Univers 250 5-18 affected ity of unit/gram 00:00: area(s) [place] ointment 00 daily. Medical Branch collagenase 2020-0 Yes [id number] Apply to Univers 250 5-18 affected ity of unit/gram 00:00: area(s) [place] ointment 00 daily. Medical Branch collagenase 2020-0 Yes [id number] Apply to Univers 250 5-18 affected ity of unit/gram 00:00: area(s) [place] ointment 00 daily. Medical Branch collagenase 2020-0 Yes [id number] Apply to Univers 250 5-18 affected ity of unit/gram 00:00: area(s) [place] ointment 00 daily. Medical Branch collagenase 2020-0 Yes [id number] Apply to Univers 250 5-18 affected ity of unit/gram 00:00: area(s) [place] ointment 00 daily. Medical Branch collagenase 2020-0 Yes [id number] Apply to Univers 250 5-18 affected ity of unit/gram 00:00: area(s) [place] ointment 00 daily. Medical Branch collagenase 2020-0 Yes [id number] Apply to Univers 250 5-18 affected ity of unit/gram 00:00: area(s) [place] ointment 00 daily. Medical Branch collagenase 2020-0 Yes [id number] Apply to Univers 250 5-18 affected ity of unit/gram 00:00: area(s) [place] ointment 00 daily. Medical Branch collagenase 2020-0 Yes [id number] Apply to Univers 250 5-18 affected ity of unit/gram 00:00: area(s) [place] ointment 00 daily. Medical Branch collagenase 2020-0 Yes [id number] Apply to Univers 250 5-18 affected ity of unit/gram 00:00: area(s) [place] ointment 00 daily. Medical Branch collagenase 2020-0 Yes [id number] Apply to Univers 250 5-18 affected ity of unit/gram 00:00: area(s) [place] ointment 00 daily. Medical Branch collagenase 2020-0 Yes [id number] Apply to Univers 250 5-18 affected ity of unit/gram 00:00: area(s) [place] ointment 00 daily. Medical Branch collagenase 2020-0 Yes [id number] Apply to Univers 250 5-18 affected ity of unit/gram 00:00: area(s) [place] ointment 00 daily. Medical Branch collagenase 2020-0 Yes [id number] Apply to Univers 250 5-18 affected ity of unit/gram 00:00: area(s) [place] ointment 00 daily. Medical Branch insulin NPH 0 Yes [id number] 14U inject 14 Univers 100 unit/mL 4-06 [id number] Units ity of injection 00:00: under the [place] 00 skin daily Medical with Branch breakfast. insulin NPH 0 Yes [id number] 14U inject 14 Univers 100 unit/mL 4-06 [id number] Units ity of injection 00:00: under the [place] 00 skin daily Medical with Branch breakfast. insulin NPH 2020-0 Yes [id number] 14U inject 14 [facility] 100 unit/mL 4-06 [id number] Units ity of injection 00:00: under the [place] 00 skin daily Medical with Branch breakfast. insulin NPH 0 Yes [id number] 14U inject 14 Univers 100 unit/mL 4-06 [id number] Units ity of injection 00:00: under the [place] 00 skin daily Medical with Branch breakfast. insulin NPH 2020-0 Yes [id number] 14U inject 14 [facility] 100 unit/mL 10-23 [id number] Units ity of injection 00:00: under the [place] 00 skin daily Medical with Branch breakfast. insulin NPH 2020-0 Yes [id number] 14U inject 14 Univers 100 unit/mL 10-23 [id number] Units ity of injection 00:00: under the [place] 00 skin daily Medical with Branch breakfast. insulin NPH 2020-0 Yes [id number] 14U inject 14 [facility] 100 unit/mL 10-23 [id number] Units ity of injection 00:00: under the [place] 00 skin daily Medical with Branch breakfast. insulin NPH 2021- No [id number] 14U inject 14 [facility] 100 unit/mL 10-23- 20512 Units ity o f injection 00:00: 00:00 under the [place] 00 :00 skin daily Medical with Branch breakfast. apixaban 5 0 Yes 1462 5mg Take 1 Unive rs mg tablet 10-22 tablet by ity o f 00:00: mouth 2 [place] (two) Medical times Branch daily. Indication s: blood vessel disease gabapentin Yes [id number] 300mg Take 1 Univers 300 mg 10-22 capsule by ity of capsule 00:00: mouth 2 [place] (two) Medical times Branch daily. rosuvastati Yes [id number] 10mg Take 1 Univers n 10 mg 10-22 tablet by ity of tablet 00:00: mouth at [place] [id number] bedtime. Medical Branch SERTraline Yes [id number] 50mg Take 1 [facility] 50 mg 10-22 tablet by ity of tablet 00:00: mouth at [place] 00 bedtime. Medical Branch ipratropium 0 Yes [id number] 3mL Inhale 3 Univers -albuteroL - mL every 6 it y of 0.5 mg-3 00:00: (six) [place] mg(2.5 mg 00 hours as Medica l base)/3 mL needed for Bra [facility] nebulizer Wheezing solution or Shortness of Breath. insulin Yes [id number] BG 170-220 Univers lispro, - give 1 ity of human, 100 00:00: unitBG [place] unit/mL 00 221-270 Medical injection give 2 Branch unitsBG 271-300 give 3 units>300 give 4 units, recheck in 3 hours then cover again with sliding scale apixaban 5 Yes 1462 5mg Take 1 Unive rs mg tablet 4-05 tablet by ity o f 00:00: mouth 2 (two) Medical times Branch daily. Indication s: blood vessel disease gabapentin Yes [id number] 300mg Take 1 Univers 300 mg 4-05 [address]93 capsule by ity of capsule 00:00: mouth 2 (two) Medical times Branch daily. rosuvastati Yes [id number] 10mg Take 1 [facility] n 10 mg 4-05 16290 tablet by ity of tablet 00:00: mouth at [place] bedtime. Medical Branch SERTraline Yes [id number] 50mg Take 1 [facility] 50 mg 4-05 [id number] tablet by ity of tablet 00:00: mouth at [place] bedtime. Medical Branch ipratropium Yes [id number] 3mL Inhale 3 [facility] -albuteroL 4-05 42527 mL every 6 it y of 0.5 mg-3 00:00: (six) [place] mg(2.5 mg 00 hours as Medica l base)/3 mL needed for [facility] nebulizer Wheezing solution or Shortness of Breath. insulin Yes [id number] BG 170-220 [facility] lispro, 4-05 78525 give 1 ity of human, 100 00:00: unitBG [place] unit/mL 00 221-270 Medical injection give 2 Branch unitsBG 271-300 give 3 units>300 give 4 units, recheck in 3 hours then cover again with sliding scale apixaban 5 2020- Yes 1462 5mg Take 1 Unive rs mg tablet 4-05 tablet by ity o f 00:00: mouth 2 (two) Medical times Branch daily. Indication s: blood vessel disease gabapentin 2020-0 Yes [id number] 300mg Take 1 [facility] 300 mg 4-05 89701 capsule by ity of capsule 00:00: mouth 2 (two) Medical times Branch daily. rosuvastati 2020- Yes [id number] 10mg Take 1 [facility] n 10 mg 4-05 58429 tablet by ity of tablet 00:00: mouth at [place] 00 bedtime. Medical Branch SERTraline Yes [id number] 50mg Take 1 [facility] 50 mg 4-05 35447 tablet by ity of tablet 00:00: mouth at [place] [address] bedtime. Medical Branch ipratropium Yes [id number] 3mL Inhale 3 [facility] -albuteroL 4-05 04406 mL every 6 it y of 0.5 mg-3 00:00: (six) [place] mg(2.5 mg 00 hours as Medica l base)/3 mL needed for [facility] nebulizer Wheezing solution or Shortness of Breath. insulin Yes [id number] BG 170-220 [facility] lispro, 4-00 give 1 ity of human, 100 00:00: unitBG [place] unit/mL 00 221-270 Medical injection give 2 Branch unitsBG 271-300 give 3 units>300 give 4 units, recheck in 3 hours then cover again with sliding scale apixaban 5 Yes 1462 5mg Take 1 [facility] rs mg tablet 10-22 tablet by ity o f 00:00: mouth 2 (two) Medical times Branch daily. Indication s: blood vessel disease gabapentin Yes [id number] 300mg Take 1 [facility] 300 mg 4- capsule by ity of capsule 00:00: mouth 2 (two) Medical times Branch daily. rosuvastati Yes [id number] 10mg Take 1 [facility] n 10 mg 4-00 tablet by ity of tablet 00:00: mouth at [place] [address] bedtime. Medical Branch SERTraline Yes [id number] 50mg Take 1 [facility] 50 mg 4-05 [id number] tablet by ity of tablet 00:00: mouth at [place] [address] bedtime. Medical Branch ipratropium Yes [id number] 3mL Inhale 3 [facility] -albuteroL 4-05 08054 mL every 6 it y of 0.5 mg-3 00:00: (six) [place] mg(2.5 mg 00 hours as Medica l base)/3 mL needed for [facility] nebulizer Wheezing solution or Shortness of Breath. insulin Yes [id number] BG 170-220 [facility] lispro, 4-00 give 1 ity of human, 100 00:00: unitBG [place] unit/mL 00 221-270 Medical injection give 2 Branch unitsBG 271-300 give 3 units>300 give 4 units, recheck in 3 hours then cover again with sliding scale apixaban 5 Yes 1462 5mg Take 1 [facility] rs mg tablet 4-05 tablet by ity o f 00:00: mouth 2 (two) Medical times Branch daily. Indication s: blood vessel disease gabapentin Yes [id number] 300mg Take 1 [facility] 300 mg 4-00 capsule by ity of capsule 00:00: mouth 2 (two) Medical times Branch daily. rosuvastati Yes [id number] 10mg Take 1 [facility] n 10 mg 4-00 tablet by ity of tablet 00:00: mouth at [place] 00 bedtime. Medical Branch SERTraline Yes [id number] 50mg Take 1 [facility] 50 mg 4-00 tablet by ity of tablet 00:00: mouth at [place] 00 bedtime. Medical Branch ipratropium Yes [id number] 3mL Inhale 3 [facility] -albuteroL 4-05 26148 mL every 6 it y of 0.5 mg-3 00:00: (six) [place] mg(2.5 mg 00 hours as Medica l base)/3 mL needed for [facility] nebulizer Wheezing solution or Shortness of Breath. insulin Yes [id number] BG 170-220 [facility] lispro, 4-00 give 1 ity of human, 100 00:00: unitBG [place] unit/mL 00 221-270 Medical injection give 2 Branch unitsBG 271-300 give 3 units>300 give 4 units, recheck in 3 hours then cover again with sliding scale apixaban 5 Yes 1462 5mg Take 1 [facility] rs mg tablet 4-05 tablet by ity o f 00:00: mouth 2 (two) Medical times Branch daily. Indication s: blood vessel disease gabapentin 2020- Yes [id number] 300mg Take 1 [facility] 300 mg 4-00 capsule by ity of capsule 00:00: mouth 2 (two) Medical times Branch daily. rosuvastati Yes [id number] 10mg Take 1 [facility] n 10 mg 4-05 [id number] tablet by ity of tablet 00:00: mouth at [place] bedtime. Medical Branch SERTraline Yes [id number] 50mg Take 1 [facility] 50 mg 4-05 02417 tablet by ity of tablet 00:00: mouth at [place] [address] bedtime. Medical Branch ipratropium Yes [id number] 3mL Inhale 3 [facility] -albuteroL 4-05 54752 mL every 6 it y of 0.5 mg-3 00:00: (six) [place] mg(2.5 mg 00 hours as Medica l base)/3 mL needed for [facility] nebulizer Wheezing solution or Shortness of Breath. insulin Yes [id number] BG 170-220 [facility] lispro, 4-05 14002 give 1 ity of human, 100 00:00: unitBG [place] unit/mL 00 221-270 Medical injection give 2 Branch unitsBG 271-300 give 3 units>300 give 4 units, recheck in 3 hours then cover again with sliding scale apixaban 5 0 Yes 1462 5mg Take 1 [facility] rs mg tablet 4-05 tablet by ity o f 00:00: mouth 2 (two) Medical times Branch daily. Indication s: blood vessel disease gabapentin Yes [id number] 300mg Take 1 [facility] 300 mg 4-05 87965 capsule by ity of capsule 00:00: mouth 2 [place] (two) Medical times Branch daily. rosuvastati Yes [id number] 10mg Take 1 [facility] n 10 mg 4-05 68616 tablet by ity of tablet 00:00: mouth at [place] [address] bedtime. Medical Branch SERTraline Yes [id number] 50mg Take 1 [facility] 50 mg 4-05 [id number] tablet by ity of tablet 00:00: mouth at [place] [address] bedtime. Medical Branch ipratropium Yes [id number] 3mL Inhale 3 [facility] -albuteroL 4-05 72589 mL every 6 it y of 0.5 mg-3 00:00: (six) [place] mg(2.5 mg 00 hours as Medica l base)/3 mL needed for [facility] nebulizer Wheezing solution or Shortness of Breath. insulin Yes [id number] BG 170-220 [facility] lispro, 4-05 84699 give 1 ity of human, 100 00:00: unitBG [place] unit/mL 00 221-270 Medical injection give 2 Branch unitsBG 271-300 give 3 units>300 give 4 units, recheck in 3 hours then cover again with sliding scale apixaban 5 Yes 1462 5mg Take 1 [facility] rs mg tablet 4-05 tablet by ity o f 00:00: mouth 2 (two) Medical times Branch daily. Indication s: blood vessel disease gabapentin Yes [id number] 300mg Take 1 [facility] 300 mg 4-00 capsule by ity of capsule 00:00: mouth 2 (two) Medical times Branch daily. rosuvastati Yes [id number] 10mg Take 1 [facility] n 10 mg 4-00 tablet by ity of tablet 00:00: mouth at bedtime. Medical Branch ipratropium Yes [id number] 3mL Inhale 3 [facility] -albuteroL 4-05 20414 mL every 6 it y of 0.5 mg-3 00:00: (six) [place] mg(2.5 mg 00 hours as Medica l base)/3 mL needed for [facility] nebulizer Wheezing solution or Shortness of Breath. insulin Yes [id number] BG 170-220 [facility] lispro, 4-00 give 1 ity of human, 100 00:00: unitBG [place] unit/mL 00 221-270 Medical injection give 2 Branch unitsBG 271-300 give 3 units>300 give 4 units, recheck in 3 hours then cover again with sliding scale apixaban 5 Yes 1462 5mg Take 1 [facility] rs mg tablet 4-05 tablet by ity o f 00:00: mouth 2 (two) Medical times Branch daily. Indication s: blood vessel disease gabapentin 2020- Yes [id number] 300mg Take 1 [facility] 300 mg 4- 72802 capsule by ity of capsule 00:00: mouth 2 (two) Medical times Branch daily. rosuvastati Yes [id number] 10mg Take 1 [facility] n 10 mg 4-05 70582 tablet by ity of tablet 00:00: mouth at [place] 00 bedtime. Medical Branch ipratropium Yes [id number] 3mL Inhale 3 [facility] -albuteroL 4-05 23491 mL every 6 it y of 0.5 mg-3 00:00: (six) [place] mg(2.5 mg 00 hours as Medica l base)/3 mL needed for Bra [facility] nebulizer Wheezing solution or Shortness of Breath. insulin Yes [id number] BG 170-220 [facility] lispro, 4- 16794 give 1 ity of human, 100 00:00: unitBG [place] unit/mL 00 221-270 Medical injection give 2 Branch unitsBG 271-300 give 3 units>300 give 4 units, recheck in 3 hours then cover again with sliding scale apixaban 5 Yes 1462 5mg Take 1 [facility] rs mg tablet 4-05 tablet by ity o f 00:00: mouth 2 (two) Medical times Branch daily. Indication s: blood vessel disease gabapentin Yes [id number] 300mg Take 1 [facility] 300 mg 4-05 81728 capsule by ity of capsule 00:00: mouth 2 (two) Medical times Branch daily. rosuvastati Yes [id number] 10mg Take 1 [facility] n 10 mg 4-05 93799 tablet by ity of tablet 00:00: mouth at [place] 00 bedtime. Medical Branch ipratropium Yes [id number] 3mL Inhale 3 [facility] -albuteroL 4-05 30121 mL every 6 it y of 0.5 mg-3 00:00: (six) [place] mg(2.5 mg 00 hours as Medica l base)/3 mL needed for [facility] nebulizer Wheezing solution or Shortness of Breath. insulin Yes [id number] BG 170-220 [facility] lispro, 4-05 80635 give 1 ity of human, 100 00:00: unitBG [place] unit/mL 00 221-270 Medical injection give 2 Branch unitsBG 271-300 give 3 units>300 give 4 units, recheck in 3 hours then cover again with sliding scale apixaban 5 2021-0 Yes 1462 5mg Take 1 [facility] rs mg tablet 4-05 tablet by ity o f 00:00: mouth 2 (two) Medical times Branch daily. Indication s: blood vessel disease gabapentin 2020-0 Yes [id number] 300mg Take 1 [facility] 300 mg 4-05 [id number] capsule by ity of capsule 00:00: mouth 2 (two) Medical times Branch daily. rosuvastati 2020-0 Yes [id number] 10mg Take 1 [facility] n 10 mg 4-05 32247 tablet by ity of tablet 00:00: mouth at [place] bedtime. Medical Branch ipratropium Yes [id number] 3mL Inhale 3 [facility] -albuteroL 4-05 62722 mL every 6 it y of 0.5 mg-3 00:00: (six) [place] mg(2.5 mg 00 hours as Medica l base)/3 mL needed for [facility] nebulizer Wheezing solution or Shortness of Breath. insulin Yes [id number] BG 170-220 [facility] lispro, 4-05 14398 give 1 ity of human, 100 00:00: unitBG [place] unit/mL 00 221-270 Medical injection give 2 Branch unitsBG 271-300 give 3 units>300 give 4 units, recheck in 3 hours then cover again with sliding scale apixaban 5 2020-0 Yes 1462 5mg Take 1 [facility] rs mg tablet 4-05 tablet by ity o f 00:00: mouth 2 (two) Medical times Branch daily. Indication s: blood vessel disease gabapentin 2020-0 Yes [id number] 300mg Take 1 [facility] 300 mg 4-05 86594 capsule by ity of capsule 00:00: mouth 2 (two) Medical times Branch daily. rosuvastati 2020-0 Yes [id number] 10mg Take 1 [facility] n 10 mg 4-05 [id number] tablet by ity of tablet 00:00: mouth at [place] bedtime. Medical Branch ipratropium 2020-0 Yes [id number] 3mL Inhale 3 [facility] -albuteroL 4-05 65046 mL every 6 it y of 0.5 mg-3 00:00: (six) [place] mg(2.5 mg 00 hours as Medica l base)/3 mL needed for Bra n[facility] nebulizer Wheezing solution or Shortness of Breath. insulin Yes [id number] BG 170-220 [facility] lispro, 4-05 46001 give 1 ity of human, 100 00:00: unitBG [place] unit/mL 00 221-270 Medical injection give 2 Branch unitsBG 271-300 give 3 units>300 give 4 units, recheck in 3 hours then cover again with sliding scale apixaban 5 Yes 1462 5mg Take 1 [facility] rs mg tablet 4-05 tablet by ity o f 00:00: mouth 2 (two) Medical times Branch daily. Indication s: blood vessel disease gabapentin 2020- Yes [id number] 300mg Take 1 [facility] 300 mg 4-00 capsule by ity of capsule 00:00: mouth 2 (two) Medical times Branch daily. rosuvastati Yes [id number] 10mg Take 1 [facility] n 10 mg 4-00 tablet by ity of tablet 00:00: mouth at bedtime. Medical Branch ipratropium Yes [id number] 3mL Inhale 3 [facility] -albuteroL 4-05 51647 mL every 6 it y of 0.5 mg-3 00:00: (six) [place] mg(2.5 mg 00 hours as Medica l base)/3 mL needed for Bra n[facility] nebulizer Wheezing solution or Shortness of Breath. insulin Yes [id number] BG 170-220 [facility] lispro, 4-05 09636 give 1 ity of human, 100 00:00: unitBG [place] unit/mL 00 221-270 Medical injection give 2 Branch unitsBG 271-300 give 3 units>300 give 4 units, recheck in 3 hours then cover again with sliding scale apixaban 5 2020- Yes 1462 5mg Take 1 [facility] rs mg tablet 4-05 tablet by ity o f 00:00: mouth 2 (two) Medical times Branch daily. Indication s: blood vessel disease gabapentin 2020-0 Yes [id number] 300mg Take 1 [facility] 300 mg 4-05 88972 capsule by ity of capsule 00:00: mouth 2 (two) Medical times Branch daily. rosuvastati 2020-0 Yes [id number] 10mg Take 1 [facility] n 10 mg 4-05 [id number] tablet by ity of tablet 00:00: mouth at [place] 00 bedtime. Medical Branch ipratropium Yes [id number] 3mL Inhale 3 [facility] -albuteroL 4-05 [id number] mL every 6 it y of 0.5 mg-3 00:00: (six) [place] mg(2.5 mg 00 hours as Medica l base)/3 mL needed for Bra n[facility] nebulizer Wheezing solution or Shortness of Breath. insulin 0 Yes [id number] BG 170-220 [facility] lispro, 4- give 1 ity of human, 100 00:00: unitBG [place] unit/mL 00 221-270 Medical injection give 2 Branch unitsBG 271-300 give 3 units>300 give 4 units, recheck in 3 hours then cover again with sliding scale apixaban 5 Yes 1462 5mg Take 1 [facility] rs mg tablet 4-05 tablet by ity o f 00:00: mouth 2 (two) Medical times Branch daily. Indication s: blood vessel disease gabapentin 2020-0 Yes [id number] 300mg Take 1 [facility] 300 mg 4-05 [id number] capsule by ity of capsule 00:00: mouth 2 [place] (two) Medical times Branch daily. rosuvastati Yes [id number] 10mg Take 1 [facility] n 10 mg 4-05 [id number] tablet by ity of tablet 00:00: mouth at [place] 00 bedtime. Medical Branch ipratropium Yes [id number] 3mL Inhale 3 [facility] -albuteroL 4-05 10196 mL every 6 it y of 0.5 mg-3 00:00: (six) [place] mg(2.5 mg 00 hours as Medica l base)/3 mL needed for Bra n[facility] nebulizer Wheezing solution or Shortness of Breath. insulin 0 Yes [id number] BG 170-220 [facility] lispro, 4-05 22887 give 1 ity of human, 100 00:00: unitBG [place] unit/mL 00 221-270 Medical injection give 2 Branch unitsBG 271-300 give 3 units>300 give 4 units, recheck in 3 hours then cover again with sliding scale apixaban 5 2020-0 Yes 1462 5mg Take 1 Un[facility] rs mg tablet 4-05 tablet by ity o f 00:00: mouth 2 (two) Medical times Branch daily. Indication s: blood vessel disease gabapentin 2020-0 Yes [id number] 300mg Take 1 [facility] 300 mg 4-05 79077 capsule by ity of capsule 00:00: mouth 2 (two) Medical times Branch daily. rosuvastati 2020-0 Yes [id number] 10mg Take 1 [facility] n 10 mg 4-05 15049 tablet by ity of tablet 00:00: mouth at [place] 00 bedtime. Medical Branch ipratropium Yes [id number] 3mL Inhale 3 [facility] -albuteroL 4-05 33892 mL every 6 it y of 0.5 mg-3 00:00: (six) [place] mg(2.5 mg 00 hours as Medica l base)/3 mL needed for Bra n[facility] nebulizer Wheezing solution or Shortness of Breath. insulin Yes [id number] BG 170-220 [facility] lispro, 4-05 83644 give 1 ity of human, 100 00:00: unitBG [place] unit/mL 00 221-270 Medical injection give 2 Branch unitsBG 271-300 give 3 units>300 give 4 units, recheck in 3 hours then cover again with sliding scale apixaban 5 2020-0 Yes 1462 5mg Take 1 Un[facility] rs mg tablet 4-05 tablet by ity o f 00:00: mouth 2 (two) Medical times Branch daily. Indication s: blood vessel disease gabapentin 2020-0 Yes [id number] 300mg Take 1 [facility] 300 mg 4-05 77939 capsule by ity of capsule 00:00: mouth 2 (two) Medical times Branch daily. rosuvastati 2020- Yes [id number] 10mg Take 1 [facility] n 10 mg 4-05 [id number] tablet by ity of tablet 00:00: mouth at [place] [address] bedtime. Medical Branch ipratropium Yes [id number] 3mL Inhale 3 [facility] -albuteroL 4-05 67592 mL every 6 it y of 0.5 mg-3 00:00: (six) [place] mg(2.5 mg 00 hours as Medica l base)/3 mL needed for Bra nch nebulizer Wheezing solution or Shortness of Breath. insulin Yes [id number] BG 170-220 [facility] lispro, 4-05 25760 give 1 ity of human, 100 00:00: unitBG [place] unit/mL 00 221-270 Medical injection give 2 Branch unitsBG 271-300 give 3 units>300 give 4 units, recheck in 3 hours then cover again with sliding scale apixaban 5 Yes 1462 5mg Take 1 Un[facility] rs mg tablet 4-05 tablet by ity o f 00:00: mouth 2 (two) Medical times Branch daily. Indication s: blood vessel disease gabapentin 2020- Yes [id number] 300mg Take 1 [facility] 300 mg 4-00 capsule by ity of capsule 00:00: mouth (two) Medical times Branch daily. rosuvastati Yes [id number] 10mg Take 1 [facility] n 10 mg 4- 85791 tablet by ity of tablet 00:00: mouth at bedtime. Medical Branch ipratropium Yes [id number] 3mL Inhale 3 [facility] -albuteroL 4-05 72637 mL every 6 it y of 0.5 mg-3 00:00: (six) [place] mg(2.5 mg 00 hours as Medica l base)/3 mL needed for Bra nch nebulizer Wheezing solution or Shortness of Breath. insulin Yes [id number] BG 170-220 [facility] lispro, 4-05 18981 give 1 ity of human, 100 00:00: unitBG [place] unit/mL 00 221-270 Medical injection give 2 Branch unitsBG 271-300 give 3 units>300 give 4 units, recheck in 3 hours then cover again with sliding scale apixaban 5 2020- Yes 1462 5mg Take 1 Un[facility] rs mg tablet 4-05 tablet by ity o f 00:00: mouth (two) Medical times Branch daily. Indication s: blood vessel disease gabapentin 2020-0 Yes [id number] 300mg Take 1 [facility] 300 mg 4-05 04101 capsule by ity of capsule 00:00: mouth 2 (two) Medical times Branch daily. rosuvastati 2020-0 Yes [id number] 10mg Take 1 [facility] n 10 mg 4-05 35445 tablet by ity of tablet 00:00: mouth at [place] 00 bedtime. Medical Branch ipratropium Yes [id number] 3mL Inhale 3 [facility] -albuteroL 4-05 08003 mL every 6 it y of 0.5 mg-3 00:00: (six) [place] mg(2.5 mg 00 hours as Medica l base)/3 mL needed for Bra n[facility] nebulizer Wheezing solution or Shortness of Breath. insulin Yes [id number] BG 170-220 [facility] lispro, 4- give 1 ity of human, 100 00:00: unitBG [place] unit/mL 00 221-270 Medical injection give 2 Branch unitsBG 271-300 give 3 units>300 give 4 units, recheck in 3 hours then cover again with sliding scale apixaban 5 Yes 1462 5mg Take 1 Un[facility] rs mg tablet 4-05 tablet by ity o f 00:00: mouth 2 (two) Medical times Branch daily. Indication s: blood vessel disease gabapentin 2020-0 Yes [id number] 300mg Take 1 [facility] 300 mg 4- 65116 capsule by ity of capsule 00:00: mouth 2 (two) Medical times Branch daily. rosuvastati Yes [id number] 10mg Take 1 [facility] n 10 mg 4-05 85880 tablet by ity of tablet 00:00: mouth at [place] 00 bedtime. Medical Branch ipratropium Yes [id number] 3mL Inhale 3 [facility] -albuteroL 4-05 47486 mL every 6 it y of 0.5 mg-3 00:00: (six) [place] mg(2.5 mg 00 hours as Medica l base)/3 mL needed for Bra n[facility] nebulizer Wheezing solution or Shortness of Breath. insulin Yes [id number] BG 170-220 [facility] lispro, 4-05 00949 give 1 ity of human, 100 00:00: unitBG [place] unit/mL 00 221-270 Medical injection give 2 Branch unitsBG 271-300 give 3 units>300 give 4 units, recheck in 3 hours then cover again with sliding scale apixaban 5 2020- Yes 1462 5mg Take 1 [facility] rs mg tablet 10-22 tablet by ity o f 00:00: mouth 2 (two) Medical times Branch daily. Indication s: blood vessel disease gabapentin Yes [id number] 300mg Take 1 [facility] 300 mg 10-22 capsule by ity of capsule 00:00: mouth 2 [place] (two) Medical times Branch daily. rosuvastati Yes [id number] 10mg Take 1 [facility] n 10 mg 10-22 tablet by ity of tablet 00:00: mouth at [place] 00 bedtime. Medical Branch ipratropium Yes [id number] 3mL Inhale 3 [facility] -albuteroL 10-22 mL every 6 it y of 0.5 mg-3 00:00: (six) [place] mg(2.5 mg 00 hours as Medica l base)/3 mL needed for [facility] nebulizer Wheezing solution or Shortness of Breath. insulin Yes [id number] BG 170-220 [facility] lispro, 10-22 give 1 ity of human, 100 00:00: unitBG [place] unit/mL 00 221-270 Medical injection give 2 Branch unitsBG 271-300 give 3 units>300 give 4 units, recheck in 3 hours then cover again with sliding scale SERTraline 2021- No [id number] 50mg Take 1 [facility] 50 mg 10-22 tablet by ity of tablet 00:00: 00:00 mouth at [place] 00 :00 bedtime. Medical Branch albuterol Yes [id number] 2{puff} Inhale 2 [facility] 90 8-16 Puffs ity of mcg/actuati 00:00: every 6 [place] as on inhaler 00 (six) Medical hours as Branch needed for Wheezing or Shortness of Breath. albuterol Yes [id number] 2{puff} Inhale 2 [facility] 90 8-16 Puffs ity of mcg/actuati 00:00: every 6 [place] as on inhaler 00 (six) Medical hours as Branch needed for Wheezing or Shortness of Breath. albuterol Yes [id number] 2{puff} Inhale 2 [facility] 90 8-16 Puffs ity of mcg/actuati 00:00: every 6 [place] as on inhaler 00 (six) Medical hours as Branch needed for Wheezing or Shortness of Breath. albuterol 2019- Yes [id number] 2{puff} Inhale 2 [facility] 90 8-16 Puffs ity of mcg/actuati 00:00: every 6 [place] as on inhaler 00 (six) Medical hours as Branch needed for Wheezing or Shortness of Breath. albuterol 2019- Yes [id number] 2{puff} Inhale 2 [facility] 90 8-16 Puffs ity of mcg/actuati 00:00: every 6 [place] as on inhaler 00 (six) Medical hours as Branch needed for Wheezing or Shortness of Breath. albuterol 2019- Yes [id number] 2{puff} Inhale 2 [facility] 90 8-16 Puffs ity of mcg/actuati 00:00: every 6 [place] as on inhaler 00 (six) Medical hours as Branch needed for Wheezing or Shortness of Breath. albuterol 2019- Yes [id number] 2{puff} Inhale 2 [facility] 90 8-16 Puffs ity of mcg/actuati 00:00: every 6 [place] as on inhaler 00 (six) Medical hours as Branch needed for Wheezing or Shortness of Breath. albuterol 2019-0 Yes [id number] 2{puff} Inhale 2 [facility] 90 8-16 Puffs ity of mcg/actuati 00:00: every 6 [place] as on inhaler 00 (six) Medical hours as Branch needed for Wheezing or Shortness of Breath. albuterol 2019-0 Yes [id number] 2{puff} Inhale 2 [facility] 90 8-16 Puffs ity of mcg/actuati 00:00: every 6 [place] as on inhaler 00 (six) Medical hours as Branch needed for Wheezing or Shortness of Breath. albuterol 2019-0 Yes [id number] 2{puff} Inhale 2 [facility] 90 8-16 Puffs ity of mcg/actuati 00:00: every 6 [place] as on inhaler 00 (six) Medical hours as Branch needed for Wheezing or Shortness of Breath. albuterol 2019-0 Yes [id number] 2{puff} Inhale 2 [facility] 90 8-16 Puffs ity of mcg/actuati 00:00: every 6 [place] as on inhaler 00 (six) Medical hours as Branch needed for Wheezing or Shortness of Breath. albuterol 2019- Yes [id number] 2{puff} Inhale 2 [facility] 90 8-16 Puffs ity of mcg/actuati 00:00: every 6 [place] as on inhaler 00 (six) Medical hours as Branch needed for Wheezing or Shortness of Breath. albuterol 2018- Yes [id number] 2{puff} Inhale 2 [facility] 90 8-16 Puffs ity of mcg/actuati 00:00: every 6 [place] as on inhaler 00 (six) Medical hours as Branch needed for Wheezing or Shortness of Breath. albuterol Yes [id number] 2{puff} Inhale 2 [facility] 90 8-16 Puffs ity of mcg/actuati 00:00: every 6 [place] as on inhaler 00 (six) Medical hours as Branch needed for Wheezing or Shortness of Breath. albuterol Yes [id number] 2{puff} Inhale 2 [facility] 90 8-16 Puffs ity of mcg/actuati 00:00: every 6 [place] as on inhaler 00 (six) Medical hours as Branch needed for Wheezing or Shortness of Breath. albuterol Yes [id number] 2{puff} Inhale 2 [facility] 90 8-16 Puffs ity of mcg/actuati 00:00: every 6 [place] as on inhaler 00 (six) Medical hours as Branch needed for Wheezing or Shortness of Breath. albuterol Yes [id number] 2{puff} Inhale 2 [facility] 90 8-16 Puffs ity of mcg/actuati 00:00: every 6 [place] as on inhaler 00 (six) Medical hours as Branch needed for Wheezing or Shortness of Breath. albuterol Yes [id number] 2{puff} Inhale 2 [facility] 90 8-16 Puffs ity of mcg/actuati 00:00: every 6 [place] as on inhaler 00 (six) Medical hours as Branch needed for Wheezing or Shortness of Breath. albuterol 2018-0 Yes [id number] 2{puff} Inhale 2 [facility] 90 8-16 Puffs ity of mcg/actuati 00:00: every 6 [place] as on inhaler 00 (six) Medical hours as Branch needed for Wheezing or Shortness of Breath. albuterol Yes [id number] 2{puff} Inhale 2 [facility] 90 8-16 Puffs ity of mcg/actuati 00:00: every 6 [place] as on inhaler 00 (six) Medical hours as Branch needed for Wheezing or Shortness of Breath. albuterol 2018- Yes [id number] 2{puff} Inhale 2 [facility] 90 8-16 Puffs ity of mcg/actuati 00:00: every 6 [place] as on inhaler 00 (six) Medical hours as Branch needed for Wheezing or Shortness of Breath. cyclobenzap Yes [id number] 5mg Take 1 [facility] rine 5 mg 5-06 tablet by ity o f tablet 00:00: mouth 3 [place] (three) Medical times Branch daily as needed for Muscle Spasms. cyclobenzap Yes [id number] 5mg Take 1 [facility] rine 5 mg 5-06 tablet by ity o f tablet 00:00: mouth 3 00 (three) Medical times Branch daily as needed for Muscle Spasms. cyclobenzap 2018- Yes [id number] 5mg Take 1 [facility] 5 mg 5-06 tablet by it[facility] o f tablet 00:00: mouth 3 00 (three) Medical times Branch daily as needed for Muscle Spasms. cyclobenzap Yes [id number] 5mg Take 1 [facility] 5 mg 5-06 tablet by ity o f tablet 00:00: mouth 3 00 (three) Medical times Branch daily as needed for Muscle Spasms. cyclobenzap 2018- Yes [id number] 5mg Take 1 [facility] 5 mg 5-06 tablet by ity o f tablet 00:00: mouth 3 [place] 00 (three) Medical times Branch daily as needed for Muscle Spasms. cyclobenzap 2018- Yes [id number] 5mg Take 1 [facility] 5 mg 5-06 tablet by ity o f tablet 00:00: mouth 3 [place] 00 (three) Medical times Branch daily as needed for Muscle Spasms. cyclobenzap 2018- Yes [id number] 5mg Take 1 [facility] 5 mg 5-06 tablet by ity o f tablet 00:00: mouth 3 [place] 00 (three) Medical times Branch daily as needed for Muscle Spasms. cyclobenzap 2018- Yes [id number] 5mg Take 1 [facility] 5 mg 5-06 tablet by ity o f tablet 00:00: mouth 3 [place] 00 (three) Medical times Branch daily as needed for Muscle Spasms. cyclobenzap Yes [id number] 5mg Take 1 [facility] 5 mg 5-06 tablet by ity o f tablet 00:00: mouth 3 [place] 00 (three) Medical times Branch daily as needed for Muscle Spasms. cyclobenzap Yes [id number] 5mg Take 1 [facility] 5 mg 5-06 tablet by ity o f tablet 00:00: mouth 3 [place] 00 (three) Medical times Branch daily as needed for Muscle Spasms. cyclobenzap Yes [id number] 5mg Take 1 [facility] 5 mg 5-06 tablet by ity o f tablet 00:00: mouth 3 00 (three) Medical times Branch daily as needed for Muscle Spasms. cyclobenzap 2021- No [id number] 5mg Take 1 [facility] 5 mg 5-06 10-04 tablet by ity of tablet 00:00: 00:00 mouth 3 [place] 00 :00 (three) Medical times Branch daily as needed for Muscle Spasms. cyclobenzap 2021- No [id number] 5mg Take 1 [facility] 5 mg 5-06 10-04 tablet by ity of tablet 00:00: 00:00 mouth 3 [place] 00 :00 (three) Medical times Branch daily as needed for Muscle Spasms. aspirin 81 2014-07 Yes 81mg Take 1 Tab U nivers mg chewable 2-08 by mouth ity of tablet 00:00: daily. [place] [facility] aspirin 81 2014-07 Yes 81mg Take 1 Tab U nivers mg chewable 2-08 by mouth ity of tablet 00:00: daily. [place] [facility] aspirin 81 2014-07 Yes 81mg Take 1 Tab U nivers mg chewable 2-08 by mouth ity of tablet 00:00: daily. [place] [facility] aspirin 81 2014-07 Yes 81mg Take 1 Tab U nivers mg chewable 2-08 by mouth ity of tablet 00:00: daily. [place] [facility] aspirin 81 2014-07 Yes 81mg Take 1 Tab U nivers mg chewable 2-08 by mouth ity of tablet 00:00: daily. [place] [facility] aspirin 81 2014-07 Yes 81mg Take 1 Tab U nivers mg chewable 2-08 by mouth ity of tablet 00:00: daily. Medical Branch aspirin 81 2014-07 Yes 81mg Take 1 Tab U nivers mg chewable 2-08 by mouth ity of tablet 00:00: daily. Medical Branch aspirin 81 2014-07 Yes 81mg Take 1 Tab U nivers mg chewable 2-08 by mouth ity of tablet 00:00: daily. Medical Branch aspirin 81 2014-07 Yes 81mg Take 1 Tab U nivers mg chewable 2-08 by mouth ity of tablet 00:00: daily. Medical Branch aspirin 81 2014-07 Yes 81mg Take 1 Tab U nivers mg chewable 2-08 by mouth ity of tablet 00:00: daily. [facility] Branch aspirin 81 2014-07 Yes 81mg Take 1 Tab U nivers mg chewable 2-08 by mouth ity of tablet 00:00: daily. [place] [facility] aspirin 81 2014-07 Yes 81mg Take 1 Tab U nivers mg chewable 2-08 by mouth ity of tablet 00:00: daily. [place] [facility] Branch aspirin 81 2014-07 Yes 81mg Take 1 Tab U nivers mg chewable 2-08 by mouth ity of tablet 00:00: daily. [place] [facility] Branch aspirin 81 2014-07 Yes 81mg Take 1 Tab U nivers mg chewable 2-08 by mouth ity of tablet 00:00: daily. [place] [facility] Branch aspirin 81 2014-07 Yes 81mg Take 1 Tab U nivers mg chewable 2-08 by mouth ity of tablet 00:00: daily. [facility] aspirin 81 2014-07 Yes 81mg Take 1 Tab U nivers mg chewable 2-08 by mouth ity of tablet 00:00: daily. [place] [facility] aspirin 81 2014-07 Yes 81mg Take 1 Tab U nivers mg chewable 2-08 by mouth ity of tablet 00:00: daily. [place] [facility] Branch aspirin 81 2014-07 Yes 81mg Take 1 Tab U nivers mg chewable 2-08 by mouth ity of tablet 00:00: daily. [place] [facility] Branch aspirin 81 2014-07 Yes 81mg Take 1 Tab U nivers mg chewable 2-08 by mouth ity of tablet 00:00: daily. [address] aspirin 81 2014-07 Yes 81mg Take 1 Tab U nivers mg chewable 2-08 by mouth ity of tablet 00:00: daily. [address] aspirin 81 2014-07 Yes 81mg Take 1 Tab U nivers mg chewable 2-08 by mouth ity of tablet 00:00: daily. [address] Adult Low Adult Low No Adult Low [place] Dose Dose Dose da Aspirin one Aspirin one Aspirin Medical tablet tablet one tablet Group daily daily daily atorvastati atorvastati No atorvastat [place] n 10 mg n 10 mg in 10 mg da tablet 1 tablet 1 tablet 1 Med ical tab po qd tab po qd tab po qd Group cyclobenzap cyclobenzap No cyclobenza [place] rine 5 mg rine 5 mg olayinka 5 mg da tablet Take tablet Take tablet Medical by oral by oral Take by Group route for route for oral route 90 days. 90 days. for 90 days. Eliquis 5 Eliquis 5 No Eliquis 5 [place] mg tablet mg tablet mg tablet da TAKE 1 TAKE 1 TAKE 1 Medical TABLET BY TABLET BY TABLET BY Group MOUTH TWICE MOUTH TWICE MOUTH DAILY DAILY TWICE DAILY ergocalcife ergocalcife No ergocalcif [place] rol rol tamir da (vitamin (vitamin (vitamin Med ical D2) 1,250 D2) 1,250 D2) 1,250 Group mcg (50,000 mcg (50,000 mcg unit) unit) (50,000 capsule capsule unit) TAKE ONE TAKE ONE capsule CAPSULE BY CAPSULE BY TAKE ONE MOUTH EVERY MOUTH EVERY CAPSULE BY WEEK WEEK MOUTH EVERY WEEK gabapentin gabapentin No gabapentin [place] 300 mg 300 mg 300 mg da capsule capsule capsule Medica l TAKE ONE TAKE ONE TAKE ONE Joshua up CAPSULE BY CAPSULE BY CAPSULE BY MOUTH THREE MOUTH THREE MOUTH TIMES DAILY TIMES DAILY THREE TIMES DAILY metoprolol metoprolol No metoprolol [place] tartrate 25 tartrate 25 tartrate da mg tablet mg tablet 25 mg Medi hever TAKE 1/2 TAKE 1/2 tablet Group TABLET BY TABLET BY TAKE 1/2 MOUTH TWICE MOUTH TWICE TABLET BY DAILY DAILY MOUTH TWICE DAILY Novolin R Novolin R No Novolin R [place] Regular Regular Regular da U-100 U-100 U-100 Medical Insulin 100 Insulin 100 Insulin Group unit/mL unit/mL 100 injection injection unit/mL solution solution injection sliding sliding solution scale scale sliding scale pantoprazol pantoprazol No pantoprazo [place] e 40 mg e 40 mg le 40 mg da tablet,adam tablet,adam tablet,del Medical yed release yed release ayed G roup TAKE 1 TAKE 1 release TABLET BY TABLET BY TAKE 1 MOUTH EVERY MOUTH EVERY TABLET BY DAY DAY MOUTH EVERY DAY rosuvastati rosuvastati No rosuvastat [place] n 10 mg n 10 mg in 10 mg da tablet TAKE tablet TAKE tablet Medical 1 TABLET BY 1 TABLET BY TAKE 1 Group MOUTH EVERY MOUTH EVERY TABLET BY DAYMUST DAYMUST MOUTH BE SEEN FOR BE SEEN FOR EVERY ADDITIONAL ADDITIONAL DAYMUST REFILLS* REFILLS* BE SEEN FOR ADDITIONAL REFILLS* tramadol 50 tramadol 50 No tramadol [place] mg tablet mg tablet 50 mg da TAKE 1 TAKE 1 tablet Medical TABLET BY TABLET BY TAKE 1 Joshua up MOUTH EVERY MOUTH EVERY TABLET BY 8 HOURS 8 HOURS MOUTH NEEDED FOR NEEDED FOR EVERY 8 SEVERE PAIN SEVERE PAIN HOURS OR CHRONIC OR CHRONIC NEEDED FOR PAIN PAIN SEVERE PAIN OR CHRONIC PAIN Adult Low Adult Low No Adult Low [place] Dose Dose Dose da Aspirin one Aspirin one Aspirin Medical tablet tablet one tablet Group daily daily daily albuterol albuterol No 2puff(s Q4H albuterol [place] sulfate HFA sulfate HFA ) sulfate da 90 90 HFA 90 Medical mcg/actuati mcg/actuati mcg/actuat Group on aerosol on aerosol ion inhaler inhaler aerosol Inhale 2 Inhale 2 inhaler puffs every puffs every Inhale 2 4 hours by 4 hours by puffs inhalation inhalation every 4 route as route as hours by needed. needed. inhalation route as needed. atorvastati atorvastati No atorvastat [place] n 10 mg n 10 mg in 10 mg da tablet 1 tablet 1 tablet 1 Med ical tab po qd tab po qd tab po qd Group clopidogrel clopidogrel No clopidogre [place] 75 mg 75 mg l 75 mg da tablet TAKE tablet TAKE tablet Medical 1 TABLET BY 1 TABLET BY TAKE 1 Group MOUTH IN MOUTH IN TABLET BY THE MORNING THE MORNING MOUTH IN THE MORNING cyclobenzap cyclobenzap No cyclobenza [place] rine 5 mg rine 5 mg olayinka 5 mg da tablet Take tablet Take tablet Medical by oral by oral Take by Group route for route for oral route 90 days. 90 days. for 90 days. Depo-Medrol Depo-Medrol No 1mL Depo-Medro [place] 40 mg/mL 40 mg/mL l 40 mg/mL d a suspension suspension suspension Medical for for for Group injection injection injection Take 1 mL Take 1 mL Take 1 mL by by by injection injection injection route. route. route. dexamethaso dexamethaso No 1mL dexamethas [place] ne sodium ne sodium one sodium da phosphate phosphate phosphate Medical 10 mg/mL 10 mg/mL 10 mg/mL Joshua up injection injection injection solution solution solution Take 1 mL Take 1 mL Take 1 mL by by by injection injection injection route. route. route. doxycycline doxycycline No 1capsul BID doxycyclin [place] hyclate 100 hyclate 100 e(s) e hyclate da mg capsule mg capsule 100 mg M edical Take 1 Take 1 capsule Group capsule capsule Take 1 twice a day twice a day capsule by oral by oral twice a route for route for day by 10 days. 10 days. oral route for 10 days. Eliquis 5 Eliquis 5 No Eliquis 5 [place] mg tablet mg tablet mg tablet da TAKE 1 TAKE 1 TAKE 1 Medical TABLET BY TABLET BY TABLET BY Group MOUTH TWICE MOUTH TWICE MOUTH DAILY DAILY TWICE DAILY ergocalcife ergocalcife No ergocalcif [place] rol rol tamir da (vitamin (vitamin (vitamin Med ical D2) 1,250 D2) 1,250 D2) 1,250 Group mcg (50,000 mcg (50,000 mcg unit) unit) (50,000 capsule capsule unit) TAKE ONE TAKE ONE capsule CAPSULE BY CAPSULE BY TAKE ONE MOUTH EVERY MOUTH EVERY CAPSULE BY WEEK WEEK MOUTH EVERY WEEK escitalopra escitalopra No escitalopr [place] m 20 mg m 20 mg am 20 mg da tablet TAKE tablet TAKE tablet Medical 1 TABLET BY 1 TABLET BY TAKE 1 Group MOUTH IN MOUTH IN TABLET BY THE MORNING THE MORNING MOUTH IN THE MORNING gabapentin gabapentin No gabapentin [place] 300 mg 300 mg 300 mg da capsule capsule capsule Medica l TAKE ONE TAKE ONE TAKE ONE Joshua up CAPSULE BY CAPSULE BY CAPSULE BY MOUTH THREE MOUTH THREE MOUTH TIMES DAILY TIMES DAILY THREE TIMES DAILY hydrocodone hydrocodone No hydrocodon [place] 5 5 e 5 da mg-acetamin mg-acetamin mg-acetami Medical ophen 325 ophen 325 nophen 325 Group mg tablet mg tablet mg tablet TAKE 1 TAKE 1 TAKE 1 TABLET BY TABLET BY TABLET BY MOUTH EVERY MOUTH EVERY MOUTH 6 HOURS FOR 6 HOURS FOR EVERY 6 UP TO 7 UP TO 7 HOURS FOR DAYS DAYS UP TO 7 NEEDED FOR NEEDED FOR DAYS MODERATE MODERATE NEEDED FOR PAIN OR PAIN OR MODERATE ACUTE PAIN. ACUTE PAIN. PAIN OR ACUTE PAIN. metoprolol metoprolol No metoprolol [place] tartrate 25 tartrate 25 tartrate da mg tablet mg tablet 25 mg Medi hever TAKE 1/2 TAKE 1/2 tablet Group TABLET BY TABLET BY TAKE 1/2 MOUTH TWICE MOUTH TWICE TABLET BY DAILY DAILY MOUTH TWICE DAILY Novolin R Novolin R No Novolin R [place] Regular Regular Regular da U-100 U-100 U-100 Medical Insulin 100 Insulin 100 Insulin Group unit/mL unit/mL 100 injection injection unit/mL solution solution injection sliding sliding solution scale scale sliding scale pantoprazol pantoprazol No pantoprazo [place] e 40 mg e 40 mg le 40 mg da tablet,adam tablet,adam tablet,del Medical yed release yed release ayed G roup TAKE 1 TAKE 1 release TABLET BY TABLET BY TAKE 1 MOUTH EVERY MOUTH EVERY TABLET BY DAY DAY MOUTH EVERY DAY rosuvastati rosuvastati No rosuvastat [place] n 10 mg n 10 mg in 10 mg da tablet TAKE tablet TAKE tablet Medical 1 TABLET BY 1 TABLET BY TAKE 1 Group MOUTH EVERY MOUTH EVERY TABLET BY DAY DAY MOUTH EVERY DAY sertraline sertraline No sertraline [place] 100 mg 100 mg 100 mg da tablet TAKE tablet TAKE tablet Medical ONE TABLET ONE TABLET TAKE ONE Group BY MOUTH BY MOUTH TABLET BY TWICE DAILY TWICE DAILY MOUTH TWICE DAILY tramadol 50 tramadol 50 No tramadol [place] mg tablet mg tablet 50 mg da TAKE 1 TAKE 1 tablet Medical TABLET BY TABLET BY TAKE 1 Joshua up MOUTH EVERY MOUTH EVERY TABLET BY 4 HOURS FOR 4 HOURS FOR MOUTH UP TO 7 UP TO 7 EVERY 4 DAYS DAYS HOURS FOR NEEDED FOR NEEDED FOR UP TO 7 SEVERE PAIN SEVERE PAIN DAYS OR ACUTE OR ACUTE NEEDED FOR PAIN PAIN SEVERE PAIN OR ACUTE PAIN Vanacof DM Vanacof DM No 5mL Q8H Vanacof DM [place] 10 mg-18 10 mg-18 10 mg-18 da mg-200 mg-200 mg-200 Medical mg/15 mL mg/15 mL mg/15 mL Joshua up oral liquid oral liquid oral Take 5 mL Take 5 mL liquid every 8 every 8 Take 5 mL hours by hours by every 8 oral route oral route hours by as needed. as needed. oral route as needed. Adult Low Adult Low No Adult Low [place] Dose Dose Dose da Aspirin one Aspirin one Aspirin Medical tablet tablet one tablet Group daily daily daily albuterol albuterol No albuterol [place] sulfate HFA sulfate HFA sulfate da 90 90 HFA 90 Medical mcg/actuati mcg/actuati mcg/actuat Group on aerosol on aerosol ion inhaler inhaler aerosol INHALE 2 INHALE 2 inhaler PUFFS BY PUFFS BY INHALE 2 MOUTH EVERY MOUTH EVERY PUFFS BY 4 HOURS 4 HOURS MOUTH NEEDED NEEDED EVERY 4 HOURS NEEDED atorvastati atorvastati No atorvastat [place] n 10 mg n 10 mg in 10 mg da tablet 1 tablet 1 tablet 1 Med ical tab po qd tab po qd tab po qd Group cyclobenzap cyclobenzap No cyclobenza [place] rine 5 mg rine 5 mg olayinka 5 mg da tablet TAKE tablet TAKE tablet Medical 1 TABLET BY 1 TABLET BY TAKE 1 Group MOUTH THREE MOUTH THREE TABLET BY TIMES TIMES MOUTH DAILY. DAILY. THREE TIMES DAILY. Depo-Medrol Depo-Medrol No 1mL Depo-Medro [place] 40 mg/mL 40 mg/mL l 40 mg/mL d a suspension suspension suspension Medical for for for Group injection injection injection Take 1 mL Take 1 mL Take 1 mL by by by injection injection injection route. route. route. dexamethaso dexamethaso No 1mL dexamethas [place] ne sodium ne sodium one sodium da phosphate phosphate phosphate Medical 10 mg/mL 10 mg/mL 10 mg/mL Joshua up injection injection injection solution solution solution Take 1 mL Take 1 mL Take 1 mL by by by injection injection injection route. route. route. Eliquis 5 Eliquis 5 No Eliquis 5 [place] mg tablet mg tablet mg tablet da TAKE 1 TAKE 1 TAKE 1 Medical TABLET BY TABLET BY TABLET BY Group MOUTH TWICE MOUTH TWICE MOUTH DAILY DAILY TWICE DAILY ergocalcife ergocalcife No ergocalcif [place] rol rol tamir da (vitamin (vitamin (vitamin Med ical D2) 1,250 D2) 1,250 D2) 1,250 Group mcg (50,000 mcg (50,000 mcg unit) unit) (50,000 capsule capsule unit) TAKE ONE TAKE ONE capsule CAPSULE BY CAPSULE BY TAKE ONE MOUTH EVERY MOUTH EVERY CAPSULE BY WEEK WEEK MOUTH EVERY WEEK escitalopra escitalopra No escitalopr [place] m 20 mg m 20 mg am 20 mg da tablet TAKE tablet TAKE tablet Medical 1 TABLET BY 1 TABLET BY TAKE 1 Group MOUTH IN MOUTH IN TABLET BY THE MORNING THE MORNING MOUTH IN THE MORNING gabapentin gabapentin No gabapentin [place] 300 mg 300 mg 300 mg da capsule capsule capsule Medica l TAKE ONE TAKE ONE TAKE ONE Joshua up CAPSULE BY CAPSULE BY CAPSULE BY MOUTH THREE MOUTH THREE MOUTH TIMES DAILY TIMES DAILY THREE TIMES DAILY hydrocodone hydrocodone No hydrocodon [place] 5 5 e 5 da mg-acetamin mg-acetamin mg-acetami Medical ophen 325 ophen 325 nophen 325 Group mg tablet mg tablet mg tablet TAKE 1 TAKE 1 TAKE 1 TABLET BY TABLET BY TABLET BY MOUTH EVERY MOUTH EVERY MOUTH 6 HOURS FOR 6 HOURS FOR EVERY 6 UP TO 7 UP TO 7 HOURS FOR DAYS DAYS UP TO 7 NEEDED FOR NEEDED FOR DAYS MODERATE MODERATE NEEDED FOR PAIN OR PAIN OR MODERATE ACUTE PAIN. ACUTE PAIN. PAIN OR ACUTE PAIN. metoprolol metoprolol No metoprolol [place] tartrate 25 tartrate 25 tartrate da mg tablet mg tablet 25 mg Medi hever TAKE 1/2 TAKE 1/2 tablet Group TABLET BY TABLET BY TAKE 1/2 MOUTH TWICE MOUTH TWICE TABLET BY DAILY DAILY MOUTH TWICE DAILY Novolin R Novolin R No Novolin R [place] Regular Regular Regular da U-100 U-100 U-100 Medical Insulin 100 Insulin 100 Insulin Group unit/mL unit/mL 100 injection injection unit/mL solution solution injection sliding sliding solution scale scale sliding scale pantoprazol pantoprazol No pantoprazo [place] e 40 mg e 40 mg le 40 mg da tablet,adam tablet,adam tablet,del Medical yed release yed release ayed G roup TAKE 1 TAKE 1 release TABLET BY TABLET BY TAKE 1 MOUTH EVERY MOUTH EVERY TABLET BY DAY DAY MOUTH EVERY DAY Plavix 75 Plavix 75 No 1 Q1D Plavix 75 [place] mg tablet mg tablet mg tablet da Take 1 Take 1 Take 1 Medical tablet tablet tablet Group every day every day every day by oral by oral by oral route for route for route for 90 days. 90 days. 90 days. rosuvastati rosuvastati No rosuvastat [place] n 10 mg n 10 mg in 10 mg da tablet TAKE tablet TAKE tablet Medical 1 TABLET BY 1 TABLET BY TAKE 1 Group MOUTH EVERY MOUTH EVERY TABLET BY DAY DAY MOUTH EVERY DAY sertraline sertraline No 1 BID sertraline [place] 100 mg 100 mg 100 mg da tablet Take tablet Take tablet Medical 1 tablet 1 tablet Take 1 Group twice a day twice a day tablet by oral by oral twice a route at route at day by bedtime for bedtime for oral route 90 days. 90 days. at bedtime for 90 days. tramadol 50 tramadol 50 No tramadol [place] mg tablet mg tablet 50 mg da TAKE 1 TAKE 1 tablet Medical TABLET BY TABLET BY TAKE 1 Joshua up MOUTH EVERY MOUTH EVERY TABLET BY 4 HOURS FOR 4 HOURS FOR MOUTH UP TO 7 UP TO 7 EVERY 4 DAYS DAYS HOURS FOR NEEDED FOR NEEDED FOR UP TO 7 SEVERE PAIN SEVERE PAIN DAYS OR ACUTE OR ACUTE NEEDED FOR PAIN PAIN SEVERE PAIN OR ACUTE PAIN Vanacof DM Vanacof DM No 5mL Q8H Vanacof DM [place] 10 mg-18 10 mg-18 10 mg-18 da mg-200 mg-200 mg-200 Medical mg/15 mL mg/15 mL mg/15 mL Joshua up oral liquid oral liquid oral Take 5 mL Take 5 mL liquid every 8 every 8 Take 5 mL hours by hours by every 8 oral route oral route hours by as needed. as needed. oral route as needed. Immunizations Ordered Filled Date Status Comments Source Immunization Name Immunization Name [facility] 2021-01-22 Completed [facility] 00:00:00 [facility] 2021-01-22 Completed [facility] 00[facility]00:00 [facility] 2021-01-22 Completed [facility] 2021-01-22 Completed [facility] 00[facility] 2021-01-22 Completed [facility] 00[facility] 2021-01-22 Completed [facility] 00[facility]00:[facility] 2021-01-22 Completed [facility] 00[facility]00:[facility] 2021-01-22 Completed [facility] 00:00:00 [facility] 2021-01-22 Completed [facility] 00:[facility] 2021[facility]01[facility]22 [facility] Remdesivir 2021-01-22 Completed [facility] 00:00:00 [facility] Remdesivir 2021-01-22 Completed [facility]00 [facility] Rem[facility] 2021-01-22 Completed [facility] 00:00:00 [facility] Remdesivir 2021-01-21 Completed [facility] 00:00:00 [facility] Remdesivir 2021-01-21 Completed [facility] 00:00:00 [facility] Remdesivir 2021-01-21 Completed [facility] 00:00:00 [facility] Remdesivir 2021-01-21 Completed [facility] 00:00:00 [facility] Remdesivir 2021-01-21 Completed [facility] 00:00:00 [facility] Remdesivir 2021-01-21 Completed [facility] 00:00:00 [facility] Remdesivir 2021-01-21 Completed [facility] 00:00:00 [facility] Remdesivir 2021-01-21 Completed [facility] of 00:00:00 [facility] Remdesivir 2021-01-21 Completed [facility] 00:00:00 [facility] Remdesivir 2021-01-21 Completed [facility] 00:00:00 [facility] Remdesivir 2021-01-21 Completed [facility] 00:00:00 [facility] Remdesivir 2021-01-21 Completed [facility] 00:00:00 [facility] Remdesivir 2021-01-21 Completed [facility] 00:00:00 [facility] Remdesivir 2021-01-21 Completed [facility] 00:00:00 [facility] Remdesivir 2021-01-20 Completed [facility] 00:00:00 [facility] Remdesivir 2021-01-20 Completed [facility] 00:00:00 [facility] Remdesivir 2021-01-20 Completed [facility] 00:00:00 [facility] Remdesivir 2021-01-20 Completed [facility] 00:00:00 [facility] Remdesivir 2021-01-20 Completed [facility] 00:00:00 [facility] Remdesivir 2021-01-20 Completed [facility] 00:00:00 [facility] Remdesivir 2021-01-20 Completed [facility] 00:00:00 [facility] Remdesivir 2021-01-20 Completed [facility] 00:00:00 [facility] Remdesivir 2021-01-20 Completed [facility] 00:00:00 [facility] Remdesivir 2021-01-20 Completed [facility] 00:00:00 [facility] Remdesivir 2021-01-20 Completed [facility] 00:00:00 [facility] Remdesivir 2021-01-20 Completed [facility] 00:00:00 [facility] Remdesivir 2021-01-20 Completed [facility] 00:00:00 [facility] Remdesivir 2021-01-20 Completed [facility] 00:00:00 [facility] Influenza Virus 2015-06-26 Completed [facility]+ 00:00:00 [facility] Influenza Virus 2015-06-26 Completed [facility]+ 00:00:00 [facility] Influenza Virus 2015-06-26 Completed [facility]it [facility] 3+ 00:00:00 [facility] Influenza Virus 2015-06-26 Completed [facility] 3+ 00:00:00 [facility] Influenza Virus 2015-06-26 Completed [facility]it y [facility] 3+ 00:00:00 [facility] Influenza Virus 2015-06-26 Completed [facility]it y of [facility] 3+ 00:00:00 [facility] Influenza Virus 2015-06-26 Completed [facility]it [facility] 3+ 00:00:00 [facility] Influenza Virus 2015-06-26 Completed [facility]it y of [facility]ine [facility] 3+ 00:00:00 [facility] Influenza Virus 2015-06-26 Completed [facility]it [facility] of [facility] 3+ 00:00:00 [facility] Influenza Virus 2015-06-26 Completed [facility] 3+ 00:00:00 [facility] Influenza Virus 2015-06-26 Completed [facility] 3+ 00:00:00 [facility] Influenza Virus 2015-06-26 Completed [facility] 3+ 00:00:00 [facility] Influenza Virus 2015-06-26 Completed [facility]it y of [facility] 3+ 00:00:00 [facility] Influenza Virus 2015-06-26 Completed [facility] 3+ 00:00:00 [facility] Influenza Virus 2015-06-26 Completed [facility] 3+ 00:00:00 [facility] Influenza Virus 2015-06-26 Completed Universit y of Vaccine [facility] IM 3+ 00:00:00 [facility] Influenza Virus 2015-06-26 Completed [facility] 3+ 00:00:00 [facility] Influenza Virus 2014-07-28 Completed [facility] 3+ 00:00:00 [facility] Influenza Virus 2014-07-28 Completed [facility] 3+ 00:00:00 [facility] Influenza Virus 2014-07-28 Completed [facility] 3+ 00:00:00 [facility] Influenza Virus 2014-07-28 Completed [facility]it [facility] of [facility] 3+ 00:00:00 [facility] Influenza Virus 2014-07-28 Completed [facility]it y [facility] 3+ 00:00:00 [facility] Influenza Virus 2014-07-28 Completed Universit y of Vaccine Quad IM 3+ 00:00:00 [facility] Influenza Virus 2014-07-28 Completed [facility]ine [facility] IM 3+ 00:00:00 [facility] Influenza Virus 2014-07-28 Completed [facility] y of Vaccine [facility] IM 3+ 00:00:00 [facility] Influenza Virus 2014-07-28 Completed [facility] y of Vaccine [facility] IM 3+ 00:00:00 [facility] Influenza Virus 2014-07-28 Completed [facility]it y of Vaccine [facility] IM 3+ 00:00:00 [facility] Influenza Virus 2014-07-28 Completed [facility]it y of Vaccine [facility] IM 3+ 00:00:00 [facility] Influenza Virus 2014-07-28 Completed [facility]it y of Vaccine [facility] IM 3+ 00:00:00 [facility] Influenza Virus 2014-07-28 Completed [facility] y of Vaccine [facility] IM 3+ 00:00:00 [facility] Influenza Virus 2014-07-28 Completed [facility]it y of Vaccine [facility] IM 3+ 00:00:00 [facility] Influenza Virus 2014-07-28 Completed [facility] y of Vaccine [facility] IM 3+ 00:00:00 [facility] Influenza Virus 2014-07-28 Completed [facility] y of Vaccine [facility] IM 3+ 00:00:00 [facility] Influenza Virus 2014-07-28 Completed [facility]it y of Vaccine Quad IM 3+ 00:00:00 [facility] Influenza Virus Unknown Completed [facility] y of Vaccine Quad IM 3+ [facility] Influenza Virus Unknown Completed [facility] y [facility] Vaccine [facility] IM 3+ [facility] Remdesivir Unknown Completed [facility] Remdesivir Unknown Completed [facility] Remdesivir Unknown Completed [facility] Influenza Virus Unknown Completed [facility] of Vaccine [facility] IM 3+ [facility] Influenza Virus Unknown Completed [facility] of Vaccine [facility] IM 3+ [facility] Remdesivir Unknown Completed [facility] Remdesivir Unknown Completed [facility] Remdesivir Unknown Completed [facility] Influenza Virus Unknown Completed [facility] of Vaccine Quad IM 3+ [facility] Influenza Virus Unknown Completed [facility] of Vaccine [facility] IM 3+ [facility] Remdesivir Unknown Completed [facility] Remdesivir Unknown Completed [facility] Remdesivir Unknown Completed [facility] Influenza Virus Unknown Completed [facility] Vaccine [facility] IM 3+ [facility] Influenza Virus Unknown Completed [facility] Vaccine [facility] IM 3+ [facility] Remdesivir Unknown Completed [facility] Remdesivir Unknown Completed [facility] Remdesivir Unknown Completed [facility] Remdesivir Unknown Completed [facility] Remdesivir Unknown Completed [facility] Remdesivir Unknown Completed [facility] Vital Signs Vital Name Observation Time Observation Value Comments Source BP Diastolic 2022-07-30 00:00:00 72 mm[Hg] [facility] Height 2022-07-30 00:00:00 66 [facility] BMI (Body Mass 2022-07-30 00:00:00 30.6 kg/m2 [facility] BP Systolic 2022-07-30 00:00:00 125 mm[facility]Hg] [facility] Body Weight 2022-07-30 00:00:00 3030 [facility]oz_av[facility] BP Diastolic 2022-06-02 00:00:00 63 mm[Hg] [facility] Height 2022-06-02 00:00:00 66 [in_i] [facility] BMI (Body Mass 2022-06-02 00:00:00 31.2 kg/m2 [facility] Medical Index) Group BP Systolic 2022-06-02 00:00:00 108 mm[Hg] [facility] Body Weight 2022-06-02 00:00:00 3088 [oz_av] [facility] Systolic blood 2022-05-28 22:03:00 114 mm[Hg] Univer sity of [facility] Diastolic blood 2022-05-28 22:03:00 75 mm[Hg] Unive rsity of pressure [facility] Heart rate 2022-05-28 22:03:00 70 /min [facility] Body temperature 2022-05-28 22:03:00 36.5 Chitra [facility] ers[facility] Body height 2022-05-28 22:03:00 167.6 cm [facility] Body weight 2022-05-28 22:03:00 85.73 kg [facility] BMI 2022-05-28 22:03:00 30.51 kg/m2 [facility] Oxygen saturation in 2022-05-28 22:03:00 100 /min University of Arterial blood by [facility] Pulse oximetry Branch Systolic blood 2022-04-22 16:59:00 123 mm[Hg] Univer sity of pressure [facility] Diastolic blood 2022-04-22 16:59:00 82 mm[Hg] Unive rsity of pressure [facility] Heart rate 2022-04-22 16:59:00 70 /min [facility] Body temperature 2022-04-22 16:59:00 36.39 Chitra [facility] Body height 2022-04-22 16:59:00 167.6 cm [facility] Body weight 2022-04-22 16:59:00 85.73 kg [facility] BMI 2022-04-22 16:59:00 30.51 kg/m2 [facility] Oxygen saturation in 2022-04-22 16:59:00 98 /min University of Arterial blood by [facility] Pulse oximetry Branch Systolic blood 2022-04-15 13:44:00 124 mm[Hg] Univer [facility]ity of [facility] Diastolic blood 2022-04-15 13:44:00 67 mm[Hg] Unive rsity of pressure [facility] Heart rate 2022-04-15 13:44:00 82 /min [facility] Body height 2022-04-15 13:44:00 167.6 cm [facility] Body weight 2022-04-15 13:44:00 84.823 kg [facility] BMI 2022-04-15 13:44:00 30.18 kg/m2 [facility] Oxygen saturation in 2022-04-15 13:44:00 99 /min University of Arterial blood by [facility] Pulse oximetry Branch BP Diastolic 2022-04-02 00:00:00 71 mm[Hg] [facility] Height 2022-04-02 00:00:00 66 [in_i] [facility] BMI (Body Mass 2022-04-02 00:00:00 31.2 kg/m2 [facility] Medical Index) Group BP Systolic 2022-04-02 00:00:00 120 mm[Hg] [facility] Body Weight 2022-04-02 00:00:00 3093 [oz_av] [facility] Systolic blood 2022-03-29 17:20:00 101 mm[Hg] Univer [facility]ity of pressure [facility] Diastolic blood 2022-03-29 17:20:00 73 mm[Hg] [facility] Heart rate 2022-03-29 17:20:00 82 /min [facility] Body temperature 2022-03-29 17:20:00 36.39 Chitra [facility] Respiratory rate 2022-03-29 17:20:00 18 /min [facility] Oxygen saturation in 2022-03-29 17:20:00 97 /min University of Arterial blood by [place] [facility] Pulse oximetry Branch Body weight 2022-03-29 11:18:00 85.911 kg [facility] BMI 2022-03-29 11:18:00 30.57 kg/m2 [facility] Body height 2022-03-27 23:28:00 167.6 cm [facility] Systolic blood 2022-03-27 12:23:00 130 mm[Hg] [facility] Diastolic blood 2022-03-27 12:23:00 57 mm[Hg] Unive rsity of pressure [facility] Heart rate 2022-03-27 12:23:00 81 /min [facility] Body temperature 2022-03-27 12:23:00 36.56 Chitra [facility] Respiratory rate 2022-03-27 12:23:00 16 /min [facility] Oxygen saturation in 2022-03-27 12:23:00 96 /min [facility] Arterial blood by [place] [employer] [facility] Pulse oximetry Branch Body height 2022-03-21 18:13:00 167.6 cm [facility] Body weight 2022-03-21 18:13:00 87 kg [facility] BMI 2022-03-21 18:13:00 31.95 kg/m2 [facility] Systolic blood 2022-03-21 14:15:00 128 mm[Hg] [facility] Diastolic blood 2022-03-21 14:15:00 62 mm[Hg] Unive rsity of pressure [facility] Respiratory rate 2022-03-21 14:15:00 10 /min [facility] Oxygen saturation in 2022-03-21 14:15:00 96 /min [facility] Arterial blood by [place] [employer] [facility] Pulse oximetry Branch Heart rate 2022-03-21 13:58:00 74 /min [facility] Body temperature 2022-03-21 13:58:00 36.5 Chitra [facility] Body height 2022-03-21 10:46:00 167.6 cm [facility] Body weight 2022-03-21 10:46:00 85.5 kg [facility] BMI 2022-03-21 10:46:00 30.96 kg/m2 [facility] BP Diastolic 2022-03-18 00:00:00 68 mm[Hg] [facility] Height 2022-03-18 00:00:00 66 [in_i] [facility] BP Systolic 2022-03-18 00:00:00 104 mm[Hg] [facility] Systolic blood 2022-02-25 14:52:00 102 mm[Hg] Univer sity of pressure [facility] Diastolic blood 2022-02-25 14:52:00 61 mm[Hg] Unive rsity of pressure [facility] Heart rate 2022-02-25 14:52:00 66 /min [facility] Body height 2022-02-25 14:52:00 167.6 cm [facility] Body weight 2022-02-25 14:52:00 [facility]22-02-25 14:52:00 32.12 kg/m2 [facility] Oxygen saturation in 2022-02-25 14:52:00 98 /min [facility] Arterial blood by [facility] Pulse oximetry Branch BP Diastolic 2021-05-27 00:00:00 73 mm[Hg] [facility] Height 2021-05-27 00:00:00 66 [in_i] [facility] BMI (Body Mass 2021-05-27 00:00:00 29.2 kg/m2 [facility]) Group BP Systolic 2021-05-27 00:00:00 118 mm[Hg] [facility] Body Weight 2021-05-27 00:00:00 2897 [oz_av] [facility] Height 2021-01-30 00:00:00 66 [in_i] [facility] BMI (Body Mass 2021-01-30 00:00:00 28.4 kg/m2 [facility] Medical Index) Group Body Weight 2021-01-30 00:00:00 2816 [oz_av] [facility] Height 2021-01-17 00:00:00 66 [in_i] [facility] BMI (Body Mass 2021-01-17 00:00:00 28.4 kg/m2 [facility] supervisor Medical Index) Group Body Weight 2021-01-17 00:00:00 2816 [oz_av] [facility] BP Diastolic 2020-11-13 00:00:00 58 mm[Hg] [facility] Height 2020-11-13 00:00:00 66 [in_i] [facility] BMI (Body Mass 2020-11-13 00:00:00 28.4 kg/m2 [facility]) Group BP Systolic 2020-11-13 00:00:00 95 mm[Hg] [facility] Body Weight 2020-11-13 00:00:00 2816 [oz_av] [facility] BP Diastolic 2020-09-25 00:00:00 69 mm[Hg] [facility] Height 2020-09-25 00:00:00 66 [in_i] [facility] BMI (Body Mass 2020-09-25 00:00:00 31.2 kg/m2 [facility]) [facility] BP Systolic 2020-09-25 00:00:00 115 mm[Hg] [facility] Body Weight 2020-09-25 00:00:00 3092 [oz_av] [facility] Systolic blood 2022-03-27 12:23:00 130 mm[Hg] Univer sity of [facility] Diastolic blood 2022-03-27 12:23:00 57 mm[Hg] Unive rsity of [facility] Heart rate 2022-03-27 12:23:00 81 /min [facility] Body temperature 2022-03-27 12:23:00 36.56 Chitra [facility] Respiratory rate 2022-03-27 12:23:00 16 /min [facility] Oxygen saturation in 2022-03-27 12:23:00 96 /min [facility] blood by [facility] Pulse oximetry Branch Body height 2022-03-21 18:13:00 167.6 cm [facility] Body weight 2022-03-21 18:13:00 87 kg [facility] BMI 2022-03-21 18:13:00 30.96 kg/m2 [facility] Heart rate 2021-01-23 14:19:00 66 /min [facility] Respiratory rate 2021-01-23 14:19:00 18 /min [facility] Oxygen saturation in 2021-01-23 14:13:00 97 /min [facility] Arterial blood by Pulse oximetry Systolic blood 2021-01-23 12:55:04 130 mm[Hg] [facility] pressure Diastolic blood 2021-01-23 12:55:04 64 mm[Hg] [facility] Body temperature 2021-01-23 12:55:04 36.39 Chitra [facility] Body weight 2021-01-21 08:18:11 80.015 kg [facility] BMI 2021-01-21 08:18:11 29.35 kg/m2 [facility] Body height 2021-01-19 05:30:00 165.1 cm [facility] Procedures Procedure Date / Time Performing Clinician Source Performed MR BRAIN WO CONTRAST 2022-05-09 16:09:41 Evelyn Saunders [facility] POCT GLUCOSE (AUTOMATED) 2022-03-29 17:15:00 [facility] 2022-03-29 12:58:00 [facility] 2022-03-29 09:05:[address] [facility] BASIC METABOLIC PANEL (NA, 2022-03-29 09:05:00 [facility] K, CL, CO2, GLUCOSE, BUN, [facility] CREATININE, [place]) CBC WITH DIFF 2022-03-29 09:05:00 Cristhian, [facility] ACTIVATED PARTIAL THRMPLAS 2022-03-29 05:17:00 Jonah Brand [facility] ACTIVATED PARTIAL THRMPLAS 2022-03-29 01:51:00 Jonah Brand [facility] POCT GLUCOSE (AUTOMATED) 2022-03-29 01:40:00 [facility]SE (AUTOMATED) 2022-03-28 21:11:00 Laith Lyon versity [facility] POCT GLUCOSE (AUTOMATED) 2022-03-28 21:11:00 Laith Lyon [facility] ACTIVATED PARTIAL THRMPLAS 2022-03-28 21:10:00 [facility] 2022-03-28 21:10:00 Jonah Brandersdaniel [facility] POCT GLUCOSE (AUTOMATED) 2022-03-28 16:40:00 [facility] (AUTOMATED) 2022-03-28 16:40:00 [facility] ACTIVATED PARTIAL THRMPLAS 2022-03-28 16:38:00 Jonah Brand niversity [facility] ACTIVATED PARTIAL THRMPLAS 2022-03-28 16:38:00 Jonah Brand niversity [facility] ACTIVATED PARTIAL THRMPLAS 2022-03-28 12:58:00 Jonah Brandersity [facility] ACTIVATED PARTIAL THRMPLAS 2022-03-28 12:58:00 [facility]ATED) 2022-03-28 12:51:00 Laith Lyon Uni versity [facility] POCT GLUCOSE (AUTOMATED) 2022-03-28 12:51:00 [facility] 2022-03-28 08:58:[address] [facility] MAGNESIUM 2022-03-28 08:58:00 Dennis [facility] BASIC METABOLIC PANEL (NA, 2022-03-28 08:58:00 Demetrio Collins [facility] K, CL, CO2, GLUCOSE, BUN, Medica l Branch CREATININE, CA) CBC WITH DIFF 2022-03-28 08:58:[address] [facility] ACTIVATED PARTIAL THRMPLAS 2022-03-28 08:58:00 [facility] 2022-03-28 08:58:[address] [facility] MAGNESIUM 2022-03-28 08:58:00 Dennis [facility] BASIC METABOLIC PANEL (NA, 2022-03-28 08:58:00 Demetrio Collins [facility] K, CL, CO2, GLUCOSE, BUN, Medica l Branch CREATININE, CA) CBC WITH DIFF 2022-03-28 08:58:00 Demetrio Collins o f [facility] ACTIVATED PARTIAL THRMPLAS 2022-03-28 08:58:00 Jonah Brand [facility] ACTIVATED PARTIAL THRMPLAS 2022-03-28 04:40:00 Jonah Brand [facility] ACTIVATED PARTIAL THRMPLAS 2022-03-28 04:40:00 Jonah Brand [facility] POCT GLUCOSE (AUTOMATED) 2022-03-28 01:57:00 Laith Lyon [facility] POCT GLUCOSE (AUTOMATED) 2022-03-28 01:57:00 Laith Lyon [facility] ACTIVATED PARTIAL THRMPLAS 2022-03-28 01:48:00 Jonah Brand [facility] ACTIVATED PARTIAL THRMPLAS 2022-03-28 01:48:00 Jonah Brand [facility] FL TIME OR 2022-03-27 20:53:17 [facility] (NON-REPORTABLE) [facility] FL TIME OR 2022-03-27 20:53:17 [facility] (NON-REPORTABLE) [facility] POCT ACT HIGH RANGE 2022-03-27 19:29:00 Laith Lyon [facility] TRANSFUSE PACKED RBC 2022-03-27 19:00:00 Gordon Morrow [facility] TRANSFUSE PACKED RBC 2022-03-27 19:00:00 Gordon Morrow [facility] POCT ACT HIGH RANGE 2022-03-27 19:00:00 Laith Lyon [facility] TRANSFUSE PACKED RBC 2022-03-27 18:09:00 Gordon Morrow [facility] TRANSFUSE PACKED RBC 2022-03-27 18:09:00 Gordon Morrow [facility] ARTERIAL LINE 2022-03-27 17:33:00 Denisse [facility] CENTRAL LINE 2022-03-27 17:15:00 [facility] PREPARE PACKED RBC 2022-03-27 16:31[facility]06 [facility] 2022-03-27 16:31:06 [facility] RBC 2022-03-27 16:31:06 [facility] ARTERIAL THROMBECTOMY 2022-03-27 16:15:00 [facility] ANGIOPLASTY 2022-03-27 16:[facility]27 [facility]22-03-27 [facility]:15[facility] ([facility]OMATED) 2022-03-27 14:12:00 Laith Lyon [facility] POCT GLUCOSE (AUTOMATED) 2022-03-27 14:12:00 Laith yLon [facility] POCT GLUCOSE (AUTOMATED) 2022-03-27 14:12:00 Laith Lyon [facility] POCT GLUCOSE (AUTOMATED) 2022-03-27 12:56:00 Laith Lyon [facility] POCT GLUCOSE (AUTOMATED) 2022-03-27 12:56:00 Laith Lyon [facility] POCT GLUCOSE (AUTOMATED) 2022-03-27 12:56:00 Laith Lyon [facility] HB ABO GROUPING 2022-03-27 10:24:00 Fior [facility] HB ABO GROUPING 2022-03-27 10:24:00 Fior [facility] HB ABO GROUPING 2022-03-27 10:24:00 elifosiris [facility] BASIC METABOLIC PANEL (NA, 2022-03-27 06:01:00 Sahibzada, [facility] K, CL, CO2, GLUCOSE, BUN, [facility] CREATININE, CA) CBC WITH DIFF 2022-03-27 06:01:00 [facility] MAGNESIUM 2022-03-27 06:01:00 [facility] ACTIVATED PARTIAL THRMPLAS 2022-03-27 06:01:[address] [facility] MAGNESIUM 2022-03-27 06:01:00 [facility] BASIC METABOLIC PANEL (NA, 2022-03-27 06:01:00 [facility] K, CL, CO2, GLUCOSE, BUN, [facility] CREATININE, CA) CBC WITH DIFF 2022-03-27 06:01:00 [facility] ACTIVATED PARTIAL THRMPLAS 2022-03-27 06:01:[address] [facility] MAGNESIUM 2022-03-27 06:01:00 [facility] BASIC METABOLIC PANEL (NA, 2022-03-27 06:01:00 Moiz Cohen [facility] K, CL, CO2, GLUCOSE, BUN, [facility] CREATININE, CA) CBC WITH DIFF 2022-03-27 06:01:00 [facility] ACTIVATED PARTIAL THRMPLAS 2022-03-27 06:01:[address] [facility] POCT GLUCOSE (AUTOMATED) 2022-03-27 01:08:00 Laith Lyon [facility] POCT GLUCOSE (AUTOMATED) 2022-03-27 01:08:00 Laith Lyon [facility] POCT GLUCOSE (AUTOMATED) 2022-03-27 01:08:00 Laith Lyon [facility] POCT GLUCOSE (AUTOMATED) 2022-03-26 22:23:00 Laith Lyon [facility] POCT GLUCOSE (AUTOMATED) 2022-03-26 22:23:00 [facility] ([facility]OMATED) 2022-03-26 22:23:00 [facility] ACTIVATED PARTIAL THRMPLAS 2022-03-26 21:39:[address] [facility] ACTIVATED PARTIAL THRMPLAS 2022-03-26 21:39:[address] [facility] ACTIVATED PARTIAL THRMPLAS 2022-03-26 21:39:[address] [facility] COVID-19 (ID NOW RAPID 2022-03-26 17:27:[address] [facility] TESTING) Medical Branch LAB ONLY COVID 2022-03-26 17:27:[address] [facility] COVID-19 (ID NOW RAPID 2022-03-26 17:27:[address] [facility] TESTING) Medical Branch LAB ONLY COVID 2022-03-26 17:27:00 [facility] COVID-19 (ID NOW RAPID 2022-03-26 17:27:[address] [facility] TESTING) Medical Branch LAB ONLY COVID 2022-03-26 17:27:[address] [facility] POCT GLUCOSE (AUTOMATED) 2022-03-26 17:14:00 [facility]SE (AUTOMATED) 2022-03-26 17:14:00 [facility] PO[facility]SE (AUTOMATED) 2022-03-26 17:14:00 [facility] POCT GLUCOSE (AUTOMATED) 2022-03-26 14:08:00 [facility] POCT GLUCOSE (AUTOMATED) 2022-03-26 14:08:00 Laith Lyon versity of [facility] POCT GLUCOSE (AUTOMATED) 2022-03-26 14:08:00 [facility] BASIC METABOLIC PANEL (NA, 2022-03-26 09:58:00 Fior [facility] K, CL, CO2, GLUCOSE, BUN, Medica l Branch CREATININE, CA) ACTIVATED PARTIAL THRMPLAS 2022-03-26 09:58:[address] [facility] BASIC METABOLIC PANEL (NA, 2022-03-26 09:58:00 Fior [facility] K, CL, CO2, GLUCOSE, BUN, Medica l Branch CREATININE, CA) ACTIVATED PARTIAL THRMPLAS 2022-03-26 09:58:[address] [facility] BASIC METABOLIC PANEL (NA, 2022-03-26 09:58:00 Fior [facility] K, CL, CO2, GLUCOSE, BUN, Medica l Branch CREATININE, CA) ACTIVATED PARTIAL THRMPLAS 2022-03-26 09:58:[address] [facility] MR ANGIOGRAM NECK W 2022-03-26 02:17:54 [facility] MR ANGIOGRAM NECK W 2022-03-26 02:17:54 [facility] MR ANGIOGRAM NECK W 2022-03-26 02:17:54 [facility] MR ANGIOGRAM HEAD WO 2022-03-26 02:17:17 Aida [facility] CONTRAST Medical Branch MR ANGIOGRAM HEAD WO 2022-03-26 02:17:17 Aida [facility] CONTRAST Medical Branch MR ANGIOGRAM HEAD WO 2022-03-26 02:17:17 Aida [facility] CONTRAST Medical Branch POCT GLUCOSE (AUTOMATED) 2022-03-26 02:16:00 [facility] ([facility]OMATED) 2022-03-26 02:16:00 [facility] PO[facility]SE (AUTOMATED) 2022-03-26 02:16:00 Laith Lyon [facility] POCT GLUCOSE (AUTOMATED) 2022-03-25 21:45:00 Laith Lyon [facility] POCT GLUCOSE (AUTOMATED) 2022-03-25 21:45:00 Laith Lyon [facility] POCT GLUCOSE (AUTOMATED) 2022-03-25 21:45:00 Laith Lyon [facility] ACTIVATED PARTIAL THRMPLAS 2022-03-25 21:30:[address] [facility] ACTIVATED PARTIAL THRMPLAS 2022-03-25 21:30:[address] [facility] ACTIVATED PARTIAL THRMPLAS 2022-03-25 21:30:[address] [facility] TRANSESOPHAGEAL ECHO (AUTUMN) 2022-03-25 17:53:52 Leonard Mejia [facility] COMPLETE W/ DOPPLER AND [facility] COLOR TRANSESOPHAGEAL ECHO (AUTUMN) 2022-03-25 17:53:52 Leonard Mejia [facility] W/ DOPPLER AND [facility] COLOR TRANSESOPHAGEAL ECHO (AUTUMN) 2022-03-25 17:53:52 Leonard Mejia [facility] W/ DOPPLER AND [facility] COLOR POCT GLUCOSE (AUTOMATED) 2022-03-25 12:09:00 Laith Lyon [place] [facility] POCT GLUCOSE (AUTOMATED) 2022-03-25 12:09:00 Laith Lyon [facility] POCT GLUCOSE (AUTOMATED) 2022-03-25 12:09:00 Laith Lyon [facility] CBC WITHOUT DIFF 2022-03-25 09:06:[address] [facility] BASIC METABOLIC PANEL (NA, 2022-03-25 09:06:00 [facility], CO2, [facility]SE, [facility], [facility] CREAT[facility], [facility]) ACTIVATED PARTIAL THRMPLAS 2022-03-25 09:06:[address] [facility] ANTICARDIOLIPIN ANTIBODIES 2022-03-25 09:06:00 Fior [facility] ANTI-B2 GLYCOPROTEIN I AB 2022-03-25 09:06:00 Fior [facility] ANTIPHOSPHOLIPID ANTIBODY 2022-03-25 09:06:00 [facility] PANEL (NA, 2022-03-25 09:06:00 [facility] K, CL, CO2, GLUCOSE, BUN, [facility] CREATININE, CA) CBC WITHOUT DIFF 2022-03-25 09:06:00 [facility] ACTIVATED PARTIAL THRMPLAS 2022-03-25 09:06:[address] [facility] ANTICARDIOLIPIN ANTIBODIES 2022-03-25 09:06:00 Fior [facility] ANTI-B2 GLYCOPROTEIN I AB 2022-03-25 09:06:00 Fior [facility] ANTIPHOSPHOLIPID ANTIBODY 2022-03-25 09:06:00 Fior [facility] BASIC METABOLIC PANEL (NA, 2022-03-25 09:06:00 [facility], CL, CO2, GLUCOSE, BUN, [facility] CREATININE, CA) CBC WITHOUT DIFF 2022-03-25 09:06:00 [facility] ACTIVATED PARTIAL THRMPLAS 2022-03-25 09:06:[address] [facility] ANTICARDIOLIPIN ANTIBODIES 2022-03-25 09:06:00 Fior [facility] ANTI-B2 GLYCOPROTEIN I AB 2022-03-25 09:06:00 Fior [facility] ANTIPHOSPHOLIPID ANTIBODY 2022-03-25 09:06:00 Fior [facility] POCT GLUCOSE (AUTOMATED) 2022-03-25 01:53:00 [facility] 2022-03-25 01:53:00 [facility] ([facility]OMATED) 2022-03-25 01:53:00 [facility] POCT GLUCOSE (AUTOMATED) 2022-03-24 21:56:00 Laith Lyon Uni [facility] POCT GLUCOSE (AUTOMATED) 2022-03-24 21:56:00 Laith Lyon [facility] POCT GLUCOSE (AUTOMATED) 2022-03-24 21:56:00 Laith Lyon [facility] POCT GLUCOSE (AUTOMATED) 2022-03-24 21:56:00 Laith Lyon Payton [facility] ACTIVATED PARTIAL THRMPLAS 2022-03-24 21:03:[address] [facility] ACTIVATED PARTIAL THRMPLAS 2022-03-24 21:03:[address] [facility] ACTIVATED PARTIAL THRMPLAS 2022-03-24 21:03:[address] [facility] ACTIVATED PARTIAL THRMPLAS 2022-03-24 21:03:[address] [facility] POCT GLUCOSE (AUTOMATED) 2022-03-24 16:53:00 Laith Lyon [facility] POCT GLUCOSE (AUTOMATED) 2022-03-24 16:53:00 Laith Lyon [facility] POCT GLUCOSE (AUTOMATED) 2022-03-24 16:53:00 Laith Lyon [facility] POCT GLUCOSE (AUTOMATED) 2022-03-24 16:53:00 Laith Lyon [facility] POCT GLUCOSE (AUTOMATED) 2022-03-24 14:04:00 Laith Lyon [facility] POCT GLUCOSE (AUTOMATED) 2022-03-24 14:04:00 Laith Lyon [facility] POCT GLUCOSE (AUTOMATED) 2022-03-24 14:04:00 Laith Lyon [facility] POCT GLUCOSE (AUTOMATED) 2022-03-24 14:04:00 Laith Lyon [facility] POCT GLUCOSE (AUTOMATED) 2022-03-24 12:57:00 Laith Lyon [facility] POCT GLUCOSE (AUTOMATED) 2022-03-24 12:57:00 Lyon, [facility] POCT GLUCOSE (AUTOMATED) 2022-03-24 12:57:00 Laith [facility] POCT GLUCOSE (AUTOMATED) 2022-03-24 12:57:00 Laith Lyon [facility] MAGNESIUM 2022-03-24 09:03:00 [facility] BASIC METABOLIC PANEL (NA, 2022-03-24 09:03:00 [facility], [facility], CO2, GLUCOSE, BUN, [facility] CREATININE, CA) CBC WITH DIFF 2022-03-24 09:03:00 [facility] ACTIVATED PARTIAL THRMPLAS 2022-03-24 09:03:[address] [facility] BASIC METABOLIC PANEL (NA, 2022-03-24 09:03:00 [facility]iz [facility], CL, CO2, GLUCOSE, BUN, [facility] CREATININE, CA) CBC WITH DIFF 2022-03-24 09:03:00 [facility] MAGNESIUM 2022-03-24 09:03:00 [facility] ACTIVATED PARTIAL THRMPLAS 2022-03-24 09:03:00 Renee Childress [facility] MAGNESIUM 2022-03-24 09:03:00 [facility] BASIC METABOLIC PANEL (NA, 2022-03-24 09:03:00 Moiz Cohen U [facility]iversity [facility] K, CL, CO2, GLUCOSE, BUN, [facility] CREATININE, CA) CBC WITH DIFF 2022-03-24 09:03:00 [facility]i [facility] ACTIVATED PARTIAL THRMPLAS 2022-03-24 09:03:00 Renee Childress [facility] MAGNESIUM 2022-03-24 09:03:00 [facility] BASIC METABOLIC PANEL (NA, 2022-03-24 09:03:00 [facility] K, CL, CO2, GLUCOSE, BUN, [facility] CREATININE, CA) CBC WITH DIFF 2022-03-24 09:03:00 [facility] ACTIVATED PARTIAL THRMPLAS 2022-03-24 09:03:[address] [facility] POCT GLUCOSE (AUTOMATED) 2022-03-24 01:44:00 Laith Lyon [facility] POCT GLUCOSE (AUTOMATED) 2022-03-24 01:44:00 Laith Lyon [facility] POCT GLUCOSE (AUTOMATED) 2022-03-24 01:44:00 Laith Lyon [facility] POCT GLUCOSE (AUTOMATED) 2022-03-24 01:44:00 Laith Lyon [facility] POCT GLUCOSE (AUTOMATED) 2022-03-23 22:41:00 Laith Lyon [facility] POCT GLUCOSE (AUTOMATED) 2022-03-23 22:41:00 Laith Lyon [facility] POCT GLUCOSE (AUTOMATED) 2022-03-23 22:41:00 Laith Lyon [facility] POCT GLUCOSE (AUTOMATED) 2022-03-23 22:41:00 Laith Lyon versity [facility] ACTIVATED PARTIAL THRMPLAS 2022-03-23 20:58:[address] [facility] ACTIVATED PARTIAL THRMPLAS 2022-03-23 20:58:[address] [facility] ACTIVATED PARTIAL THRMPLAS 2022-03-23 20:58:[address] [facility] ACTIVATED PARTIAL THRMPLAS 2022-03-23 20:58:[address] [facility] POCT GLUCOSE (AUTOMATED) 2022-03-23 17:50:00 Laith Lyon [facility] POCT GLUCOSE (AUTOMATED) 2022-03-23 17:50:00 [facility]OMATED) 2022-03-23 17:50:00 [facility] PO[facility]SE (AUTOMATED) 2022-03-23 17:50:00 Laith Lyon versity [facility] POCT GLUCOSE (AUTOMATED) 2022-03-23 13:24:00 [facility] PO[facility]SE (AUTOMATED) 2022-03-23 13:24:00 Laith Lyon versity [facility] POCT GLUCOSE (AUTOMATED) 2022-03-23 13:24:00 Laith Lyon versity [facility] POCT GLUCOSE (AUTOMATED) 2022-03-23 13:24:00 Laith Lyon [facility] BASIC METABOLIC PANEL (NA, 2022-03-23 09:19:00 Fior [facility] K, CL, CO2, GLUCOSE, BUN, Medica l Branch CREATININE, CA) CBC WITH DIFF 2022-03-23 09:19:00 Fior [facility] ACTIVATED PARTIAL THRMPLAS 2022-03-23 09:19:[address] [facility] CBC WITH DIFF 2022-03-23 09:19:00 Fior [facility] BASIC METABOLIC PANEL (NA, 2022-03-23 09:19:00 Fior [facility] K, CL, CO2, GLUCOSE, BUN, Medica l Branch CREATININE, CA) ACTIVATED PARTIAL THRMPLAS 2022-03-23 09:19:[address] [facility] BASIC METABOLIC PANEL (NA, 2022-03-23 09:19:00 Fior [facility] K, CL, CO2, GLUCOSE, BUN, Medica l Branch CREATININE, CA) CBC WITH DIFF 2022-03-23 09:19:00 Fior [facility] ACTIVATED PARTIAL THRMPLAS 2022-03-23 09:19:[address] [facility] BASIC METABOLIC PANEL (NA, 2022-03-23 09:19:00 Fior [facility] K, CL, CO2, GLUCOSE, BUN, Medica l Branch CREATININE, CA) CBC WITH DIFF 2022-03-23 09:19:00 Fior [facility] ACTIVATED PARTIAL THRMPLAS 2022-03-23 09:19:[address] [facility] POCT GLUCOSE (AUTOMATED) 2022-03-23 02:05:00 Laith Lyon [facility] POCT GLUCOSE (AUTOMATED) 2022-03-23 02:05:00 Laith Lyon [facility] POCT GLUCOSE (AUTOMATED) 2022-03-23 02:05:00 Laith Lyon [facility] POCT GLUCOSE (AUTOMATED) 2022-03-23 02:05:00 Laith Lyon [facility] POCT GLUCOSE (AUTOMATED) 2022-03-22 22:42:00 Laith Lyon [facility] POCT GLUCOSE (AUTOMATED) 2022-03-22 22:42:00 Laith Lyon [facility] POCT GLUCOSE (AUTOMATED) 2022-03-22 22:42:00 Laith Lyon [facility] POCT GLUCOSE (AUTOMATED) 2022-03-22 22:42:00 [facility] ACTIV[facility] PARTIAL THRMPLAS 2022-03-22 21:19:[address] [facility] ACTIVATED PARTIAL THRMPLAS 2022-03-22 21:19:[address] [facility] ACTIVATED PARTIAL THRMPLAS 2022-03-22 21:19:[address] [facility] ACTIVATED PARTIAL THRMPLAS 2022-03-22 21:19:[address] [facility] POCT GLUCOSE (AUTOMATED) 2022-03-22 17:50:00 Laith Lyon [facility] POCT GLUCOSE (AUTOMATED) 2022-03-22 17:50:00 Laith Lyon [facility] POCT GLUCOSE (AUTOMATED) 2022-03-22 17:50:00 Laith Lyon versity [facility] POCT GLUCOSE (AUTOMATED) 2022-03-22 17:50:00 [facility] ([facility]OMATED) 2022-03-22 13:35:00 Ina Davis [facility] POCT GLUCOSE (AUTOMATED) 2022-03-22 13:35:00 Ina Davis [facility] POCT GLUCOSE (AUTOMATED) 2022-03-22 13:35:00 Ina Davis [facility] POCT GLUCOSE (AUTOMATED) 2022-03-22 13:35:00 Ina Davis [facility] BASIC METABOLIC PANEL (NA, 2022-03-22 09:50:00 Can [facility] [place] K, CL, CO2, GLUCOSE, BUN, Medica l Branch CREATININE, CA) CBC WITH DIFF 2022-03-22 09:50:00 Aida [facility] ACTIVATED PARTIAL THRMPLAS 2022-03-22 09:50:[address] [facility] CBC WITH DIFF 2022-03-22 09:50:00 Aida [facility] BASIC METABOLIC PANEL (NA, 2022-03-22 09:50:00 AidaCan cortes [facility] [place] K, CL, CO2, GLUCOSE, BUN, Medica l Branch CREATININE, CA) ACTIVATED PARTIAL THRMPLAS 2022-03-22 09:50:[address] [facility] BASIC METABOLIC PANEL (NA, 2022-03-22 09:50:00 AidaCan cortes [facility] [place] K, CL, CO2, GLUCOSE, BUN, Medica l Branch CREATININE, CA) CBC WITH DIFF 2022-03-22 09:50:00 Aida [facility] ACTIVATED PARTIAL THRMPLAS 2022-03-22 09:50:[address] [facility] BASIC METABOLIC PANEL (NA, 2022-03-22 09:50:00 AidaLaloa [facility] [place] K, CL, CO2, GLUCOSE, BUN, Medica l Branch CREATININE, CA) CBC WITH DIFF 2022-03-22 09:50:00 [facility] ACTIVATED PARTIAL THRMPLAS 2022-03-22 09:50:00 [facility] ACTIVATED PARTIAL THRMPLAS 2022-03-22 02:01:00 Renee Childress [facility] POCT GLUCOSE (AUTOMATED) 2022-03-22 02:01:00 Ina Davis [facility] ACTIVATED PARTIAL THRMPLAS 2022-03-22 02:01:[address] [facility] POCT GLUCOSE (AUTOMATED) 2022-03-22 02:01:00 Ina Davis [facility] ACTIVATED PARTIAL THRMPLAS 2022-03-22 02:01:[address] [facility] POCT GLUCOSE (AUTOMATED) 2022-03-22 02:01:00 Ina Davis [facility] ACTIVATED PARTIAL THRMPLAS 2022-03-22 02:01:[address] [facility] POCT GLUCOSE (AUTOMATED) 2022-03-22 02:01:00 Ina Davis [facility] POCT GLUCOSE (AUTOMATED) 2022-03-21 22:17:00 Ina Davis [facility] POCT GLUCOSE (AUTOMATED) 2022-03-21 22:17:00 [facility]ATED) 2022-03-21 22:17:00 Ina Davis [facility] POCT GLUCOSE (AUTOMATED) 2022-03-21 22:17:00 Ina Davis U [facility] ACTIVATED PARTIAL THRMPLAS 2022-03-21 18:31:[address] [facility] ACTIVATED PARTIAL THRMPLAS 2022-03-21 18:31:[address] [facility] ACTIVATED PARTIAL THRMPLAS 2022-03-21 18:31:00 Renee Childress [facility] ACTIVATED PARTIAL THRMPLAS 2022-03-21 18:31:00 Renee Childress [facility] POCT GLUCOSE (AUTOMATED) 2022-03-21 18:23:00 Ina Davis [facility] POCT GLUCOSE (AUTOMATED) 2022-03-21 18:23:00 Ina Davis [facility] POCT GLUCOSE (AUTOMATED) 2022-03-21 18:23:00 Ina Davis [facility] POCT GLUCOSE (AUTOMATED) 2022-03-21 18:23:00 Ina Davis [facility] FL TIME OR 2022-03-21 13:45:00 [facility] (NON-REPORTABLE) [facility] FL TIME OR 2022-03-21 13:45:00 [facility] (NON-REPORTABLE) [facility] FL TIME OR 2022-03-21 13:45:00 [facility] (NON-REPORTABLE) [facility] FL TIME OR 2022-03-21 13:45:00 [facility] (NON-REPORTABLE) [facility] ARTERIOGRAM 2022-03-21 12:05:00 [facility] 2022-03-21 12:05:00 [facility] 2022-03-21 12:05:00 [facility] HB ABO GROUPING 2022-03-21 11:04:00 [facility] POCT GLUCOSE (AUTOMATED) 2022-03-21 11:04:00 Ina Davis [facility] HB ABO GROUPING 2022-03-21 11:04[facility]00 [facility] 2022-03-21 11:04:00 Ina Davis [facility] HB ABO GROUPING 2022-03-21 11:04:00 [facility] POCT GLUCOSE (AUTOMATED) 2022-03-21 11:04:00 Ina Davis [facility] HB ABO GROUPING 2022-03-21 11:04:00 [facility] POCT GLUCOSE (AUTOMATED) 2022-03-21 11:04:00 Ina Davis [facility] COVID-19 (ID NOW RAPID 2022-03-20 13:33:00 Ina Davis [facility] TESTING) Medical Branch LAB ONLY COVID 2022-03-20 13:33:00 Ina Davis [facility] INTERPRETATION [facility] MR FOOT RIGHT W WO 2022-03-05 22:14:00 Ina Davis [facility] CONTRAST [facility] PATIENT QUESTIONNAIRE 2022-03-05 05:01:00 Doctor Unassigned, [facility] Post [facility] DANIELE MULTI LEVEL - BY 2022-02-18 16:50:00 Ina Davis [facility] VASCULAR LAB Medical Branch LOWER EXTREMITY ARTERIAL 2022-02-18 16:21:00 [facility] DUPLEX BILATERAL - BY [facility] VASCULAR LAB AORTOILIAC DUPLEX - BY 2022-02-18 14:28:00 Ina Davis [facility] VASCULAR LAB Medical Branch AUTHORIZATION FOR RELEASE 2022-02-13 05:01:00 Doctor Unalinh, [facility] Post [facility] MRI BRAIN WO CONTRAST 2021-03-08 17:38:09 Brayan Zamudio [facility] EEG AWAKE/ASLEEP LESS THAN 2021-03-08 15:52:[facility] 41 MIN XR CHEST 1 VW PORTABLE 2021-01-23 13:38:57 Jagruti Adams [facility] POC GLUCOSE 2021-01-23 12:53:00 Milind Rodriguez [facility] HC COMPLETE BLD COUNT 2021-01-23 08:54:00 Milind Rodriguez [facility] W/AUTO DIFF COMPREHENSIVE METABOLIC 2021-01-23 08:54:00 [facility]NESIUM LEVEL 2021-01-23 08:54[facility]00 [facility] 2021-01-23 08:54[facility] 2021-01-23 08:54[facility]00 [facility] 2021-01-23 00:42:00 [facility]SE 2021-01-22 22:03:00 [facility] POC GLUCOSE 2021-01-22 17:39:00 [facility] POC GLUCOSE 2021-01-22 12:44:00 [facility] COMPREHENSIVE METABOLIC 2021-01-22 09:04:00 [facility] PANEL HC COMPLETE BLD COUNT 2021-01-22 09:04:00 [facility] W/AUTO DIFF LIPID PANEL 2021-01-22 09:04:00 [facility] ESTIMATED GFR 2021-01-22 09:04:00 [facility] POC GLUCOSE 2021-01-22 00:27:00 [facility] POC GLUCOSE 2021-01-21 21:21:00 [facility] XR CHEST 1 VW PORTABLE 2021-01-21 17:45:22 [facility] POC GLUCOSE 2021-01-21 17:43:00 [facility] POC GLUCOSE 2021-01-21 13:39:00 [facility] COMPREHENSIVE METABOLIC 2021-01-21 09:04:00 [facility] PANEL HC COMPLETE BLD COUNT 2021-01-21 09:04:00 [facility] W/AUTO DIFF HEMOGLOBIN A1C 2021-01-21 09:04:00 [facility] ESTIMATED GFR 2021-01-21 09:04:00 [facility] 2021-01-21 00:21:00 Damián [facility] POC GLUCOSE 2021-01-20 21:51:00 Damián, [facility] POC GLUCOSE 2021-01-20 18:39:00 Damián, [facility] US DUPLEX VENOUS LOWER 2021-01-20 17:51:37 Damián [facility] EXTREMITY BILATERAL XR CHEST 1 VW PORTABLE 2021-01-20 16:44:43 Damián, [facility] POC GLUCOSE 2021-01-20 16:03:00 [facility] POC GLUCOSE 2021-01-20 12:41:00 Damián, [facility] COMPREHENSIVE METABOLIC 2021-01-20 11:39:00 [facility] PANEL HC COMPLETE BLD COUNT 2021-01-20 11:39:00 Deandra Steel [facility] W/AUTO DIFF ESTIMATED GFR 2021-01-20 11:39:00 [facility] POC GLUCOSE 2021-01-20 00:26:00 [facility] AMMONIA LEVEL 2021-01-19 22:41:00 [facility] POC GLUCOSE 2021-01-19 22:09:00 [facility] CT HEAD WO CONTRAST 2021-01-19 21:15:47 Deandra Steel [facility] POC GLUCOSE 2021-01-19 19:00:00 [facility] XR CHEST 1 VW PORTABLE 2021-01-19 14:14:47 [facility] POC GLUCOSE 2021-01-19 13:14:00 [facility] [id number] IGG 2021-01-19 07:04:00 Helen Muller [facility]ba TROPONIN 2021-01-19 07:04:00 Helen Muller [facility] IMMUNOGLOBULIN G 2021-01-19 07:04:00 [facility]er [facility] INTERLEUKIN 6 2021-01-19 07:04:00 Helen Muller [facility] FERRITIN LEVEL 2021-01-19 07:04:00 Helen Muller [facility] LDH 2021-01-19 07:04:00 Helen Muller [facility] D-DIMER 2021-01-19 07:04:00 Helen Muller [facility] TRIGLYCERIDES 2021-01-19 07:04:00 Helen Muller [facility] FIBRINOGEN 2021-01-19 07:04:00 Helen Muller [facility] CRP HIGH SENSITIVITY 2021-01-19 07:04:00 Helen Muller [facility] Bubba HC COMPLETE BLD COUNT 2021-01-19 07:04:00 Helen Muller [facility] W/AUTO DIFF [place] COMPREHENSIVE METABOLIC 2021-01-19 07:04:00 Helen Muller [facility] PANEL [place] ESTIMATED GFR 2021-01-19 07:04:00 Helen Muller [facility] [place] XR CHEST 1 VW PORTABLE 2021-01-19 02:25:49 [facility] [place] [facility] COMPLETE BLD COUNT 2021-01-19 02:11:00 [facility]/AUTO DIFF [place] COMPREHENSIVE METABOLIC 2021-01-19 02:11:00 [facility] PANEL [place] TROPONIN 2021-01-19 02:11:00 Helen Muller [facility] [place] LIPASE LEVEL 2021-01-19 02:11:00 [facility] NATRIURETIC PEPTIDE 2021-01-19 02:11:00 [facility] [place] ESTIMATED GFR 2021-01-19 02:11:00 [facility] ECG 12-LEAD 2021-01-19 02:00:39 Helen Muller [facility] [place] ECG ED PRELIMINARY 2021-01-19 01:41:44 Milind Anguiano [facility] INTERPRETATION [place] Procedure on Spleen [facility] Tubal Ligation [facility] Cholecystectomy [facility] Amputation of Toe [facility] Plan of Care Planned Activity Planned Date Details Comments Source Future Scheduled Test 2023-05-16 [facility] 23:08:37 malignant neoplasm of colon (procedure) [code = 502976601] Future Scheduled Test 2023-05-16 [facility] 23:08:37 malignant neoplasm of colon (procedure) [code = 029687620] Future Scheduled Test 2023-05-16 [facility] 23:08:37 malignant neoplasm of colon (procedure) [code = 996995201] Future Scheduled Test 2023-05-16 COVID-19 VACCINE (#1) [facility] 23:08:37 [code = COVID-19 VACCINE (#1)] Future Scheduled Test 2023-05-16 65+ PNEUMOCOCCAL [facility] 23:08:37 VACCINE (1 - PCV) [code = 65+ PNEUMOCOCCAL VACCINE (1 - PCV)] Future Scheduled Test 2023-05-16 Hepatitis C screening [facility] 23:08:37 (procedure) [code = 736838035] Future Scheduled Test 2023-05-16 BREAST CANCER [facility] 23:08:37 SCREENING [code = BREAST CANCER SCREENING] Future Scheduled Test 2023-05-16 Screening for [facility] 23:08:37 malignant neoplasm of colon (procedure) [code = [id number]] Future Scheduled Test 2023-05-16 Screening for [facility] 23:08:37 malignant neoplasm of colon (procedure) [code = 591410796] Future Scheduled Test 2023-05-16 SHINGLES VACCINES (1 [facility] 23:08:37 of 2) [code = SHINGLES VACCINES (1 of 2)] Future Scheduled Test 2023-05-16 INFLUENZA VACCINE [facility] 23:08:37 (#1) [code = INFLUENZA VACCINE (#1)] Diagnostic Test 2022-07-30 urinalysis, dipstick [facility] Medical Pending 00:00:00 [code = urinalysis, Group dipstick] Diagnostic Test 2022-07-30 CMP, serum or plasma [facility] Pending 00:00:00 [code = CMP, serum or Group plasma] Diagnostic Test 2022-07-30 CBC w/ auto diff [facility] Pending 00:00:00 [code = CBC w/ auto Group diff] Diagnostic Test 2022-07-30 phosphorus, serum or [facility] Pending 00:00:00 plasma [code = Group phosphorus, serum or plasma] Diagnostic Test 2022-07-30 magnesium, serum or [facility] Pending 00:00:00 plasma [code = Group magnesium, serum or plasma] Diagnostic Test 2022-07-30 HbA1c (hemoglobin [facility] Pending 00:00:00 A1c), blood [code = Group HbA1c (hemoglobin A1c), blood] Diagnostic Test 2022-07-30 lipid panel, serum [facility] Pending 00:00:00 [code = lipid panel, Group serum] Diagnostic Test 2022-07-30 culture, urine [code [facility] Pending 00:00:00 = culture, urine] Group Future Scheduled Test 2022-07-07 COVID-19 VACCINE (#1) [facility] 04:05:06 [code = COVID-19 VACCINE (#1)] Future Scheduled Test 2022-07-07 65+ PNEUMOCOCCAL Me [facility] 04:05:06 VACCINE (1 - PCV) [code = 65+ PNEUMOCOCCAL VACCINE (1 - PCV)] Future Scheduled Test 2022-07-07 Hepatitis C screening [facility] 04:05:06 (procedure) [code = 860022545] Future Scheduled Test 2022-07-07 SHINGLES VACCINES (1 [facility] 04:05:06 of 2) [code = SHINGLES VACCINES (1 of 2)] Future Scheduled Test 2022-07-07 BREAST CANCER [facility] 04:05:06 SCREENING [code = BREAST CANCER SCREENING] Future Scheduled Test 2022-07-07 COLONOSCOPY SCREENING [facility] 04:05:06 [code = COLONOSCOPY SCREENING] Future Scheduled Test 2022-07-07 INFLUENZA VACCINE [facility] 04:05:06 [code = INFLUENZA VACCINE] Future Scheduled Test 2021-08-21 COVID-19 VACCINE (1) [facility] 11:33:49 [code = COVID-19 VACCINE (1)] Future Scheduled Test 2021-08-21 Hepatitis C screening [facility] 11:33:49 (procedure) [code = 367812850] Future Scheduled Test 2021-08-21 Screening for [facility] 11:33:49 malignant neoplasm of cervix (procedure) [code = 023655134] Future Scheduled Test 2021-08-21 BREAST CANCER [facility] 11:33:49 SCREENING [code = BREAST CANCER SCREENING] Future Scheduled Test 2021-08-21 COLONOSCOPY SCREENING [facility] 11:33:49 [code = COLONOSCOPY SCREENING] Future Scheduled Test 2021-08-21 SHINGLES VACCINES [facility] 11:33:49 (#1) [code = SHINGLES VACCINES (#1)] Future Scheduled Test 2021-08-21 INFLUENZA VACCINE [facility] 11:33:49 [code = INFLUENZA VACCINE] Instructions [facility] Encounters Start End Encounter Admission Attending Care Care Encounter Source Date/Time Date/Time Type Type Clinicians Facility Department ID 2022-05-08 Outpatient KLAUS BLACK ELCAMPO ELCAMPO 0 [id number] El 09:24:35 [id number] [facility] 2022-03-21 Inpatient R SUSAN [facility] [id number] Univers 09:37:28 INA [facility] 2021-08-15 Outpatient 3 [id number] ENCSL REF [id number] [facility] 11:53:55 [id number] [facility] [place] 2021-07-23 [facility] [id number] Univers 15:05:51 INA [facility] 2021-05-19 Outpatient R SUSAN [facility] [id number] Univers 11:18:54 INA [facility] 2021-05-19 Inpatient RADHA SUBRAMANIAN [facility] [id number] Univers [facility]19 Emergency [facility] [id number] Univers 00:33:26 [facility] 2021-05-18 Emergency [facility] [id number] Univers 12:17:07 [facility] 2021-05-18 Emergency [facility] [id number] Univers 05:31:55 ity of [facility] 2021-05-17 Emergency [facility] [id number] Univers 21:35:55 ity [facility] 2020-10-24 Inpatient 3 ROZINA GARCIA AML [id number] [facility] 17:55:00 SONALI 93611 [facility] [place] 2022-11-09 2022-11-09 Outpatient Evans_S [facility] MMG [id number] [place] 00:00:00 00:00:00 0423 [facility] 2022-10-05 2022-10-05 Outpatient Evans_S MMG MMG [id number] [place] 00:00:00 00:00:00 0319 [facility] 2022-09-04 2022-09-04 Outpatient R CHERIE, [facility] [id number] Univers 13:45:00 13:49:29 JAIME ity [facility] 2022-08-31 2022-08-31 Outpatient Evans_S MMG MMG [id number] [place] 00:00:00 00:00:00 0212 [facility] 2022-08-22 2022-08-22 Outpatient Duncan SUSAN, [facility] [id number] Univers 12:29:37 23:59:00 INA moreno [facility] 2022-07-30 2022-07-30 Outpatient EL Karina, [facility] [id number] [place] 09:48:00 09:48:00 Francisco [id number] [facility] 2022-07-30 2022-07-30 Outpatient Zuniga_S MMG MMG [id number] 2022 [place] 00:00:00 00:00:00 0111 [facility] 2022-07-30 2022-07-30 Outpatient Zuniga_S MMG MMG [id number] 2022 [place] 00:00:00 00:00:00 0117 [facility] 2022-07-30 2022-07-30 Francisco PAULINO [place] - [id number] [place] 00:00:00 00:00:00 Scott Penn MD: [address] [facility] [address], [place] [address] , Ph. 2022-07-29 2022-07-29 Outpatient Zuniga_S MMG MMG [id number] 2022 [place] 00:00:00 00:00:00 0110 [facility] 2022-07-12 2022-07-16 Inpatient EM Wheeler, HCAPM TELE [id number] [facility] 19:16:00 11:31:00 Red 23 [facility] [place] 2022-06-22 2022-06-22 Outpatient Zuniga_S MMG MMG [id number] 2021 [place] 00:00:00 00:00:00 1204 [facility] 2022-06-02 2022-06-02 Outpatient Zuniga_S MMG MMG [id number] [place] 00:00:00 00:00:00 1114 [facility] 2022-06-02 2022-06-02 Sonam MMG [place] - [id number] [place] 00:00:00 00:00:00 Discovery charla Alfaro PRESS OFFICER-C: 600 [facility] [place] [address], [facility] [address] , Ph. 2022-05-29 2022-05-29 Patient Doctor [facility] 1.2.840.114 [id number] Univers 00:00:00 00:00:00 Secure Msg Unassigned, SPECIALTY 350.1.13.10 ity of Post [place] [phone] [address] 2022-05-28 2022-05-28 Outpatient Duncan CRESPO [facility] [id number] Univers 15:45:00 16:41:29 JAIME hortay of [facility] 2022-05-28 2022-05-28 Office MAIK Crespo 1.2.970.025 [id number] Univers 15:45:00 16:41:29 Visit Jaime [facility] 350.1.13.10 i ty of CL[place]ICS [place] [id number] [facility] [address] 2022-05-16 2022-05-16 Outpatient R KATHIE [facility] [id number] Univers 00:00:00 00:00:00 EVELYN sanchez [facility] 2022-05-09 2022-05-09 Outpatient R KATHIE [facility] [id number] Univers 09:01:30 23:59:00 EVELYN daniel [facility] 2022-05-09 2022-05-09 [facility] 1.2.840.114 [id number] Univers 09:01:30 23:59:00 Encounter Evelyn FOURNIER 350.1.13.10 ity of [place] [id number] [facility] [address] 2022-05-08 2022-05-08 Outpatient N KLAUS BLACK [facility] TY [id number] 09:26:00 09:26:00 [id number] [facility] 2022-05-02 2022-05-02 Patient Doctor ALKA 1.2.840.114 [id number] Univers 00:00:00 00:00:00 Secure Msg Unassigned, MAGGI 350.1.13.10 ity of Post [facility] 4.2.7.2.686 [place] [id number] [facility] [address] 2022-04-25 2022-04-25 Telephone [facility] 1.2.840.114 [id number] Univers 00:00:00 00:00:00 Ina FOURNIER 350.1.13.10 ity of [place] [facility] [phone] Wi dical [facility] [address] BUILDING 2022-04-22 2022-04-22 Outpatient R DONNIE [facility] [id number] Univers 12:00:00 16:26:49 HASHEM itdorothy [facility] 2022-04-22 2022-04-22 Office Donnie [facility] 1.2.647.858 [id number] Univers 12:00:00 16:26:49 Visit [facility] 350.1.13.10 it y of [place] [phone] [facility] [address] [place] OFFICE BUILDING 2022-04-15 2022-04-15 Outpatient R SUSAN [facility] [id number] Univers 09:00:00 09:49:12 INA ayoub f [facility] 2022-04-15 2022-04-15 Office [facility] 1.2.840.114 [id number] Univers 09:00:00 09:49:12 Visit Ina FOURNIER 350.1.13.10 ity of [facility] 4.2.7.2.[place] [phone] Wi dical [facility] [address] [facility] 2022-04-02 2022-04-02 Outpatient Zuniga_F [facility] [id number] [place] 00:00:00 00:00:00 0914 [facility] 2022-04-02 2022-04-02 [facility] [place] - [id number] [place] 00:00:00 00:00:00 Azam Jones [facility] Medical MD: [address] [place] [address] [address], [place] [address] , Ph. 2022-03-31 2022-03-31 Transition KELLY Hernandez 1.2.840.114 [id number] Univers 00:00:00 00:00:00 of Care Vivian ZAYAS 350.1.13.10 it y of [place] [id number] [facility] [address] 2022-03-21 2022-03-29 Inpatient R LAITH LYON [facility] 10 [id number] Univers 05:20:00 15:20:00 LAITH LYON of [facility] 2022-03-21 2022-03-29 [facility] 1.2.840 .114 [id number] Univers 05:20:00 15:20:00 Encounter Laith Lyon 350.1.13.10 ity of [facility] 4.2.7.2.686 [place] [id number] [facility] [address] 2022-03-27 2022-03-27 Surgery ROXANA Davis 1.2.840.114 [id number] Univers 09:30:00 15:13:00 Ina TAY 350.1.13.10 i ty of HOSPITAL 4.2.7.2.686 [place] [phone] [facility] [address] 2022-03-27 2022-03-27 Anesthesia Denisse Sandor 1.2.840.1 [id number] Univers 11:33:00 11:33:00 Event Yordy Kimbrough 86963.1.1 ity of 3.104.2.7 [place] .3.414072 Medica l .8 Branch 2022-03-26 2022-03-26 Anesthesia Elijah, 1.2.840.4 [id number] Univers 11:31:05 11:31:05 Event Milind Ignacio 70159.1.1 ity of 3.104.2.7 [place] .3.755281 Medica l .8 Branch 2022-03-21 2022-03-21 Surgery Susan, 1.2.840.1 [id number] Univers 06:50:00 09:23:00 Ina 55012.1.1 ity of 3.104.2.7 [place] .3.620321 Medica l .8 Branch 2022-03-21 2022-03-21 Anesthesia Sariah Godwin 1.2.840.3 [id number] Univers 07:26:00 08:51:00 Event Sayda Khalil 06207.1.1 ity of 3.104.2.7 [place] .3.634953 Medica l .8 Branch 2022-03-20 2022-03-20 Laboratory Ina Davis 1.2.840.9 [id number] Univers 08:45:00 09:00:00 Only Only, Adc Test 98076.1.1 ity of 3.104.2.7 [place] .3.256528 Medica l .8 Branch 2022-03-20 2022-03-20 Outpatient R SUSAN, [facility] [id number] Univers 08:45:00 08:45:00 INA moreno [facility] 2022-03-19 2022-03-19 Travel 1.2.840.1 1.2.513.637 [id number] Univers 00:00:00 00:00:00 68516.1.1 350.1.13.10 ity of 3.104.2.7 4.[place].7.3.698 [place] .3.258650 084.8 Medica l .8 Branch 2022-03-18 2022-03-18 Outpatient ERVIN Alfaro [facility] [id number] [place] 11:25:00 11:25:00 Francisco [id number] [facility] 2022-03-18 2022-03-18 Francisco Jaydeniga_F [facility] [place] - [id number] [place] 00:00:00 00:00:00 Azam Frausto 829 charla Alfaro [facility] Medical MD: [address] [facility] [address], [place] [address] , Ph. 2022-03-18 2022-03-18 Francisco MMG [place] - [id number] [place] 00:00:00 00:00:00 Scott Penn Medical MD: [address] [place] [address] [address], [place] [address] , Ph. 2022-03-14 2022-03-14 Outpatient Sahrauniga_F [facility] [id number]- [id number] [place] 00:00:00 00:00:00 08Blanco [facility] 2022-03-06 2022-03-06 Outpatient Duncan CRESPO, [facility] [id number] Univers 16:15:00 16:29:50 JAIME sanchez of [facility] 2022-03-06 2022-03-06 Office Cherie, 1.2.840.8 [id number] Univers 16:15:00 16:29:50 Visit Jaime 62069.1.1 ity of 3.104.2.7 [place] .3.952256 Medica l .[address] [place] 2022-03-06 2022-03-06 Outpatient [facility] [id number] Univers 16:15:00 16:15:00 JAIME ity of [facility] 2022-03-06 2022-03-06 Travel 1.2.840.1 1.2.775.813 [id number] Univers 00:00:00 00:00:00 05396.1.1 350.1.13.10 ity of 3.104.2.7 4.[place].7.3.698 [place] .3.621295 084.8 Medica l .8 [place] 2022-03-05 2022-03-05 Outpatient [facility] [id number] Univers 15:18:39 23:59:00 INA moreno [facility] 2022-03-05 2022-03-05 [facility], 1.2.840.0 [id number] [id number] [facility] 15:18:39 23:59:00 Encounter Ina 71880.1.1 i ty of 3.104.2.7 [place] .3.579174 Medica l .8 [place] 2022-02-26 2022-02-26 Travel 1.2.840.1 1.2.794.072 [id number] Univers 00:00:00 00:00:00 94751.1.1 350.1.13.10 ity of 3.104.2.7 4.2.7.3.698 [place] .3.803745 084.8 Medica l .8 [place] 2022-02-25 2022-02-25 Outpatient [facility] [id number] Univers 09:30:00 10:47:50 INA moreno [facility] 2022-02-25 2022-02-25 [facility], 1.2.840.3 [id number] Univers 09:30:00 10:47:50 Visit Ina 17543.1.1 ity of 3.104.2.7 [place] .3.413779 Medica l .8 Branch 2022-02-25 2022-02-25 Travel 1.2.840.1 1.2.545.451 [id number] [id number] Univers 00:00:00 00:00:00 17249.1.1 350.1.13.10 ity of 3.104.2.7 4.2.7.3.698 [place] .3.901694 084.8 Medica l .8 Branch 2022-02-18 2022-02-18 [facility] 1.2.840.1 [id number] Univers 08:46:54 23:59:00 Encounter Matheus Socorro 96394.1.1 ity of 3.104.2.7 [place] .3.558903 Medica l .8 [place] 2022-02-18 2022-02-18 [facility] 1.2.840.1 [id number] Univers 08:46:04 23:59:00 Encounter Socorro Jarvis 63008.1.1 ity of 3.104.2.7 [place] .3.984247 Medica l .8 Branch 2022-02-18 2022-02-18 Outpatient Duncan JARVIS, [facility] [id number] Univers 08:45:05 08:45:05 SOCORRO ity o f [facility] 2022-02-18 2022-02-18 [facility]xfer 1.2.840.1 [id number] Univers 08:45:05 08:45:05 Encounter Socorro Jarvis 33259.1.1 ity of 3.104.2.7 [place] .3.970797 Medica l .8 Branch 2022-02-17 2022-02-17 Office [facility] 1.2.840.114 [id number] Univers 10:45:00 11:00:00 Visit Ina [facility] 350.1.13.10 ity of CLINICS 4.2.[place].2.[place] [id number] [facility] hever [address] 2022-02-17 2022-02-17 Office [place] [address].2.840.2 [id number] Univers 10:45:00 11:00:00 Visit Ina 27877.1.1 ity of 3.104.2.7 [place] .3.883250 Medica l .8 [place] 2022-02-17 2022-02-17 Outpatient [facility] [id number] Univers 10:45:00 10:45:00 INA moreno [facility] 2022-02-13 2022-02-13 Orders Doctor ALKA 1.2.840.114 [id number] Univers 00:00:00 00:00:00 Only Unassigned, MAGGI 350.1.13.10 ity of Post [facility] 4.2.7.2.686 [place] [id number] [address] 2022-02-13 2022-02-13 Orders Doctor 1.2.840.2 [id number] Univers 00:00:00 00:00:00 Only Unassigned, 28423.1.1 ity of Post 3.104.2.7 [place] .3.494968 Medica l .8 [place] 2022-01-30 2022-01-30 [facility] [address] [place] 05:41:00 05:41:00 RICK 0714 da [facility] Outre h Program 2021-12-13 2021-12-13 Telemedici Brayan Zamudio 1.2.840.1 [id number] Methodi 11:15:00 11:15:[address] 3.430.2.7 Hospit a .3.044581 l .8 2021-09-09 2021-09-09 Outpatient [facility] [id number] Univers 08:15:00 09:23:25 INA moreno [facility] 2021-09-09 2021-09-09 Office MAIK Davis 1.2.840.114 [id number] Univers 08:15:00 09:23:25 Visit Ina CURRAN 350.1.13.10 ity of CL[place] 4[place] [id number] [facility] [address] 2021-08-19 2021-08-19 Transition KELLY Hernandez 1.2.840.114 [id number] Univers 00:00:00 00:00:00 of Care Vivian ZAYAS 350.1.13.10 it y of [place] 4[place]2.7.2.[place] [id number] [facility] [address] 2021-08-19 2021-08-19 Patient Doctor ALKA 1.2.840.114 [id number] Univers 00:00:00 00:00:00 Secure Msg Unassigned, MAGGI 350.1.13.10 ity of Post [facility] 4.2.7.2.686 [place] [id number] [facility] 019 [address] 2021-08-12 2021-08-17 Inpatient R [facility] [id number] Univers 08:27:00 17:30:00 INA moreno [facility] 2021-08-12 2021-08-17 Hospital ROXANA Davis 1.2.742.392 [id number] Univers 08:27:00 17:30:00 Encounter Ina TAY 350.1.13.10 ity of [place] [address].2.7.2.686 [place] [id number] [facility] 0[address] 2021-08-12 2021-08-17 Inpatient R [facility] [id number] Univers 08:27:00 17:30:00 INA moreno [facility] 2021-08-15 2021-08-15 Surgery ROXANA Davis 1.2.840.114 [id number] Univers 14:10:00 16:31:00 Ina TAY 350.1.13.10 i ty of [facility] 4.2.7.2.686 [place] [id number] [facility] [address] 2021-08-12 2021-08-12 Anesthesia Danay Murillo 1.2.840. 114 [id number] Univers 11:53:00 15:55:00 Event Bulmaro Schmidt 350.1.13.10 ity of [facility] 4.2.7.2.686 [place] [id number] [facility] [address] 2021-08-12 2021-08-12 Surgery ROXANA Davis 1.2.840.114 [id number] Univers 10:50:00 15:42:00 Ina MAGGI 350.1.13.10 i ty of HOSPITAL 2.7.2.686 [place] [id number] [facility] [address] [place] 2021-08-12 2021-08-12 Orders Doctor ALKA 1.2.840.114 [id number] Univers 00:00:00 00:00:00 Only Unassigned, MAGGI 350.1.13.10 ity of Post [facility].7.2.686 [place] [id number] [facility] [address] [place] 2021-08-10 2021-08-10 Outpatient R [facility] [id number] Univers 11:45:00 11:45:00 DEEPAK sanchez [facility] 2021-08-07 2021-08-07 [facility] [id number] Univers 06:29:00 13:28:00 INA daniel o f [facility] 2021-08-07 2021-08-07 [facility] Susan ROXANA 1.2.145.315 [id number] Univers 06:29:00 13:28:00 Encounter Ina MAGGI 350.1.13.10 ity of HOSPITAL [facility].7.2.686 [place] [id number] [facility] [address] 2021-08-07 2021-08-07 Surgery RADHA DavisE 1.2.840.114 [id number] Univers 09:00:00 11:27:00 Ina MAGGI 350.1.13.10 i ty of HOSPITAL [facility].7.2.686 [place] [id number] [facility] [address] [place] 2021-08-07 2021-08-07 Orders Doctor ALKA 1.2.840.114 [id number] Univers 00:00:00 00:00:00 Only Unassigned, MAGGI 350.1.13.10 ity of Post HOSPITAL 2.7.2.686 [place] [id number] [facility] [address] 2021-08-07 2021-08-07 Prep For SusanMAIK 1.2.840.114 [id number] Univers 00:00:00 00:00:00 Surgery Ina Dorothy [facility] 350.1.13.10 ity of CLIN[place] 4[place] [id number] [facility] [address] 2021-08-06 2021-08-06 Outpatient R SUSAN [facility] [id number] Univers 13:45:00 13:45:00 INA ity o f [facility] 2021-07-30 2021-07-30 Transition Hernandez KELLY 1.2.840.114 [id number] Univers 00:00:00 00:00:00 of Care Vivian ZAYAS 350.1.13.10 it y of [place] 4.2.7.[place] [id number] [facility] [address] 2021-07-29 2021-07-29 Patient Doctor ALKA 1.2.840.114 [id number] Univers 00:00:00 00:00:00 Secure Msg Unassigned, MAGGI 350.1.13.10 ity of Post HOSPITAL 4.2.7.2.686 [place] [id number] [facility] 0[address] 2021-07-25 2021-07-28 Inpatient X SHANTELL [facility] TIERA [id number] Univers 11:18:00 13:56:00 BOZENA sanchez of [facility] 2021-07-25 2021-07-28 Hospital Dustin Mosher [facility] 1.2.840. 114 [id number] Univers 11:18:00 13:56:00 Encounter Bozena Stinson 350.1.13.10 ity of [facility] 4.2.7.[place] [id number] [facility] [address] 2021-07-25 2021-07-25 Orders Adali 1.2.840.1 [id number] Methodi 00:00:00 00:00:00 Only Alphonse 44622.1.[address] 3.430.2.7 Hospit a .3.232854 l .8 2021-07-25 2021-07-25 Telephone Susan [facility] 1.2.840.114 [id number] Univers 00:00:00 00:00:00 Ina Metzger [facility] 350.1.13.10 ity of CL[place] 4[place] [id number] [address] 2021-07-23 2021-07-23 Office Susan [facility] 1.2.840.114 [id number] Univers 14:00:00 14:15:00 Visit Ina CURRAN 350.1.13.10 ity of CL[place] 4[place] [id number] [address] 2021-07-23 2021-07-23 Outpatient R [facility] [id number] Univers 14:00:00 14:00:00 INA ayoub [facility] 2021-07-23 2021-07-23 Outpatient R [facility] [id number] Univers 14:00:00 14:00:00 INA ayoub [facility] 2021-07-15 2021-07-15 [facility] 1.2.522.228 [id number] Univers 08:51:33 23:59:00 Encounter Ina FOURNIER 350.1.13.10 ity of [place] 4.2.7.2.686 [facility] s [place] [id number] [address] 2021-07-15 2021-07-15 [facility] 1.2.510.889 [id number] Univers 08:50:31 08:50:31 Encounter Ina FOURNIER 350.1.13.10 ity of [place] 4[place]2.7.2.[place] [id number] [address] 2021-07-15 2021-07-15 Outpatient R [facility] [id number] Univers 08:48:28 08:49:00 INA ayoub [facility] 2021-07-15 2021-07-15 [facility] 1.2.119.761 [id number] Univers 08:48:28 08:49:00 Encounter Ina FOURNIER 350.1.13.10 ity of [place].2.[place] C[place]US [id number] [facility] [address] 2021-07-15 2021-07-15 Outpatient R [facility] [id number] Univers 00:00:00 00:00:00 INA daniel ayoub brennen [facility] 2021-07-15 2021-07-15 Orders Doctor ALKA 1.2.840.114 [id number] Univers 00:00:00 00:00:00 Only Unassigned, MAGGI 350.1.13.10 ity of Post [facility] 4.2.7.2.686 [place] as [id number] [facility] [address] 2021-06-25 2021-06-25 [facility] 1.2.840.114 [id number] Univers 15:51:06 16:06:06 Visit Ina Metzger MAGDY 350.1.13.10 ity of [facility] [place] [id number] [facility] [address] 2021-06-25 2021-06-25 Outpatient R [facility] [id number] Univers 15:30:00 15:30:00 INA moreno [facility] 2021-06-24 2021-06-24 Outpatient ERVIN Gross, [facility] [id number] [place] 08:16:00 08:16:00 Flor -[id number] da [facility] 2021-06-04 2021-06-04 Emergency ER TREASURE, [facility] [id number] [address] [place] 19:24:00 23:02:00 JANNIE -[id number] [facility] 2021-05-27 2021-05-27 Outpatient ERVIN Alfaro, [facility] [id number] [address] [place] 11:31:00 11:31:00 Francisco -[id number] da [facility] 2021-05-27 2021-05-27 Francisco Alfaro_F [facility] [place] - [id number] 21 [place] 00:00:00 00:00:00 Azam Frausto 1108 Scott Jones MD: [address] [facility] [address], [place] [address] , Ph. 2021-04-10 2021-04-10 [facility] [id number] [facility] 02:57:00 02:57:00 0922 [facility] 2021-03-15 2021-03-15 Telephone Adali 1.2.840.1 [id number] Methodi 00:00:00 00:00:[address] 3.430.2.7 Hospit a .3.703736 l .8 2021-03-08 2021-03-08 [facility] Brayan Zamduio 1.2.840.1 [id number] 2 [id number] Methodi 09:09:40 23:59:[address] 3.430.2.7 Hospit a .3.893234 l .8 2021-03-08 2021-03-08 [facility] Brayan Zamudio 1.2.840.1 [id number] 2 [id number] Methodi 09:09:18 23:59:[address] 3.430.2.7 Hospit a .3.208649 l .8 2021-03-08 2021-03-08 Travel 1.2.840.1 1.2.695.680 [id number] Methodi 00:00:00 00:00:[address] 3.430.2.7 0.2.7.3.698 [facility] .3.804147 084.8 l .8 2021-02-07 2021-02-07 Outpatient Duncan DONALDSON FIRELANDS [facility] [id number] Univers 11:00:00 11:00:00 IRA sanchez [facility] 2021-02-06 2021-02-06 Telemedici Francisco Alfaro 1.2.840.1 [id number] Methodi 08:14:48 10:42:54 [address]33.1.[address] 3.430.2.7 Hospit a .3.502045 l .8 2021-02-06 2021-02-06 Travel 1.2.840.1 1.2.830.087 3212 [id number] Methodi 00:00:00 00:00:[address] 3.430.2.7 0.2.7.3.698 Ho spita .3.291850 084.8 l .8 2021-01-30 2021-01-30 Francisco Carpenteramada_[place] [facility] [place] - [address] [facility] 00:00[facility]00 Azam Frausto 0714 charla Alfaro, Medical Medical MD: [address] [place] [address] [address], [place] [address] , Ph. 2021-01-30 2021-01-30 Transcribe Karina, 1.2.840.1 [id number] Methodi 00:00:00 00:00:00 Orders Francisco [address]6623.1.[address] 3.430.2.7 Hospit a .3.181049 l .8 2021-01-18 2021-01-23 [facility] Alka Cantu in 1.2.840.1 [id number] Methodi 20:35:00 15:27:00 Encounter Helen Muller 86261.1.1 179 [facility] Boo 3.430.2.7 Hospita Milind Rodriguez .3.848598 l .8 2021-01-18 2021-01-18 Travel 1.2.840.1 1.2.796.675 1161 [id number] Methodi 00:00:00 00:00:[address] 3.430.2.7 0.2.7.3.698 Ho spita .3.024400 084.8 l .8 2021-01-17 2021-01-17 Francisco Zunigpuja_[place] [facility] [place] - [address] 21 [place] 00:00:00 00:00:00 Azam Frausto 0701 charla Alfaro Medical Medical MD: [address] [facility] [address], [place] [address] , Ph. 2021-01-16 2021-01-16 Emergency ER TREASURE, [facility] [id number] 250 [place] 15:21:00 18:16:00 [id number] 2020-12-27 2020-12-27 Office [facility] 1.2.840.114 [id number] 11:01:03 11:58:26 Visit Ira R Y HEALTH 350.1.13.10 CLINICS 4.2.7.2.686 [id number] 2020-12-27 2020-12-27 Office Mendoza, [facility] 1.2.840.114 [id number] [facility] 11:01:03 11:58:26 Visit Ira R Y HEALTH 350.1.13.10 ity of CL[place] [phone] [address] 2020-12-27 2020-12-27 Outpatient R [facility] 934 [id number] [facility] 11:15:00 11:15:00 IRA ity [facility] 2020-12-20 2020-12-20 Out[facility] 699 [id number] [facility] 11:45:00 11:45:00 IRA ity [facility] 2020-12-20 2020-12-20 Telephone [facility] 1.2.840.114 [id number] [facility] 00:00:00 00:00:00 Ina Y HEALTH 350.1.13.10 ity of CL[place] [phone] [address] 2020-12-05 2020-12-05 Telephone [facility] 1.2.840.114 844 [id number] Univers 00:00:00 00:00:00 Ina Sherlyn 350.1.13.10 ity of [place] Profess[place] [phone] Wi dical nal 188 [facility] 2020-12-04 2020-12-04 [facility] 1.2.843.302 9702 0295 Univers 11:14:41 11:16:00 Encounter Ina Sherlyn 350.1.13.10 ity of [place].7.[place] [phone] [facility] [address] [place] 2020-12-04 2020-12-04 Office [facility] 1.2.840.114 [id number] 698 Univers 09:46:15 10:41:58 Visit Ina Fournier 350.1.13.10 ity of [place] 4.2.7.[place] Profess[place] [phone] Wi dical nal 205 [facility] 2020-12-04 2020-12-04 Outpatient R [facility] [id number] Univers 10:00:00 10:00:00 INA sanchez o f [facility] 2020-12-03 2020-12-03 [facility] 1.2.840.114 843 [id number] [facility] 00:00:00 00:00:00 Ina Fournier 350.1.13.10 ity of [place].7.[place] [phone] Wi dical nal 205 [facility] 2020-11-28 2020-11-28 Office [facility] 1.2.840.114 842 [id number] Univers 14:18:18 16:47:17 Visit Suzy Fournier 350.1.13.10 i ty of [place] 4.2.7.2.[place] [phone] Wi dical nal 044 [facility] 2020-11-28 2020-11-28 Outpatient R [facility] 1032 [id number] Univers 16:00:00 16:00:00 SUZY sanchez [facility] 2020-11-23 2020-11-23 Telephone [facility] 1.2.840.114 8 [id number] Univers 00:00:00 00:00:00 Ina Dorothy CURRAN 350.1.13.10 ity of CLINICS 4.[place] [phone] [address] 2020-11-21 2020-11-21 Telephone [facility] 1.2.840.114 840 [id number] Univers 00:00:00 00:00:00 Ina Sherlyn 350.1.13.10 ity of [place] 4.2.7.2.[place] Profess[place] [phone] [address] 2020-11-20 2020-11-20 Office [facility] 1.2.840.114 [id number] Univers 09:04:26 10:12:49 Visit Ina Fournier 350.1.13.10 ity of [place] 4.2.7.2.[place] Profess[place] [phone] [address] 2020-11-20 2020-11-20 Outpatient R [facility] [id number] [facility] 09:15:00 09:15:00 INA moreno [facility] 2020-11-13 2020-11-13 Francisco Alfaro_Brennen [place] - [address] 21 [facility] 00:00:00 00:00:00 Azam Frausto 0427 Scott Jones Medical MD: [address] [place] [address] [address], [place] [address] , Ph. 2020-11-13 2020-11-13 Orders Doctor RUCKER 1..840.114 [id number] Univers 00:00:00 00:00:00 Only Unassigned, MAGGI 350.1.13.10 ity of Post [facility] 4.2.7.2.686 [place] [phone] [address] 2020-11-06 2020-11-06 Office [facility] 1.2.840.114 [id number] Univers 09:05:03 11:49:51 Visit Ina Sherlyn 350.1.13.10 ity of [place] 4.2.7.2.[place] [phone] Wi dical nal 205 [facility] 2020-11-06 2020-11-06 Outpatient R [facility] 1032 [id number] Univers 09:00:00 09:00:00 PETER ity of [facility] 2020-11-06 2020-11-06 Telephone [facility] 1.2.840.114 [id number] Univers 00:00:00 00:00:00 Suzy Fournier 350.1.13.10 i ty of [place] 4[place].7.2.[place] [phone] Wi dicma nal 044 [facility] 2020-11-01 2020-11-01 Transition Kelly Stroud 1.2.840.114 835 [id number] Univers 00:00:00 00:00:00 of John Zayas 350.1.13.10 it y of [place] 4.2.7.2.[place] [phone] [facility] [address] [place] 2020-11-01 2020-11-01 Telephone [facility] 1.2.840.114 [id number] [id number] Univers 00:00:00 00:00:00 Ina Sherlyn 350.1.13.10 ity of [place].7.[place] [phone] [facility] 205 [facility] 2020-10-30 2020-10-31 Hospital Roxana Davis 1.2.864.045 [id number] 1532 Univers 09:12:00 19:50:00 Encounter Ina Tay 350.1.13.10 ity of [facility] 4.2.7.2.686 [place] [phone] [facility] [address] 2020-10-30 2020-10-30 Surgery Roxana Davis 1.2.840.114 [id number] Univers 10:44:00 13:08:00 Ina Tay 350.1.13.10 i ty of [address]686 [place] [phone] [facility] 103 [address] 2020-10-12 2020-10-24 Hospital Radha Andrew 1.2.8 40.114 [id number] Univers 01:38:00 15:51:00 Encounter Arjun Dsouza 350.1.13.10 ity of [place] [address].7.2.686 [place] [phone] [facility] 093 Branch 2020-10-22 2020-10-22 Patient Evelyn Gonzales 1.2.840.114 [id number] Univers 00:00:00 00:00:00 Outreach E Zayas 350.1.13.10 i ty of [address]2.[place] [phone] [facility] 403 [address] 2020-10-18 2020-10-18 Surgery Roxana Davis 1.2.840.114 [id number] Univers 11:20:00 13:49:00 Ina Tay 350.1.13.10 i ty of [place] [address].7.2.686 [place] [phone] [facility] 103 [address] 2020-10-18 2020-10-18 Anesthesia Milind Valverde 1.2.840.1 14 [id number] Univers 11:21:00 13:19:00 Event Sunni Mclaughlin Carlos Tay 350.1.13.10 ity of [address]686 [place] [phone] [facility] 103 [address] 2020-10-18 2020-10-18 Outpatient Karina_F [facility] [id number] [place] 03:48:00 03:48:00 0401 Medical Group 2020-10-11 2020-10-11 Emergency LONDON LACEY, [facility] [id number] [place] 17:00:00 23:42:00 JONATHAN -[id number] [facility] 2020-10-09 2020-10-09 Outpatient ERVIN Connors, [facility] [id number] [place] 15:56:00 15:56:00 Koko -[id number] [facility] 2020-10-04 2020-10-04 Telephone Susan [facility] 1.2.840.114 [id number] Univers 00:00:00 00:00:00 Ina Sherlyn 350.1.13.10 ity of [place] [phone] Wi dical nal 205 [address] Building 2020-09-28 2020-09-28 [facility] 1.2.840.114 [id number] Univers 00:00:00 00:00:00 [facility] 350.1.13.10 it y of [place] 4.2.7.2.686 [place] Professio [phone] Wi dical nal [address] [place] [address] One 2020-09-27 2020-09-27 Outpatient [facility] 06602- 2020 [place] 04:09:00 04:09:00 0311 [facility] 2020-09-27 2020-09-27 Patient Evelyn Gonzales 1.2.840.114 [id number] Univers 00:00:00 00:00:00 Outreach E Zayas 350.1.13.10 i ty of [place].7.[place] [phone] [facility] 403 [address] 2020-09-25 2020-09-25 [place] - [address] 21 [place] 00:00:00 00:00:00 Azam Frausto 0309 Scott Jones Medical MD: [address] [place] [address] [address], [place] [address] , Ph. 2020-09-25 2020-09-25 Patient Trevor [facility] 1.2.840.114 [id number] Univers 00:00:00 00:00:00 Outreach Aldo MUNOZ 350.1.13.10 i ty of José [place]2.7.2.[place] [phone] Wi dical 388 [address] 2020-09-22 2020-09-22 Outpatient Zuniga_F MMG MMG [id number] [place] 01:23:00 01:23:00 0306 Medical Group 2020-09-19 2020-09-19 Letter Clinic, [facility] 1.2.840.114 [id number] Univers 00:00:00 00:00:00 (Out) Neurology Y HEALTH 350.1.13.10 ity of Continuity CLINICS 4.2.7.2.686 [place] [phone] [facility] 092 Branch 2020-09-18 2020-09-18 Orders Doctor ALKA 1.2.840.114 [id number] Univers 00:00:00 00:00:00 Only Unassigned, MAGGI 350.1.13.10 ity of Post [facility] 4.2.7.2.686 [place] [phone] [facility] 009 Branch 2020-09-11 2020-09-11 Outpatient Zunstefaniea_F [facility] [id number] [place] 04:11:00 04:11:00 0223 [facility] 2020-09-10 2020-09-10 Emergency [facility] 1.2.840.114 81 [id number] Univers 14:58:00 18:55:00 Lawanda Fournier 350.1.13.10 ity of [place].2.[place] [phone] [facility] 084 Branch 2020-09-10 2020-09-10 Emergency X [facility] ERT [id number] Univers 14:58:00 18:55:00 LAWANDA ity of [facility] 2020-09-07 2020-09-07 Outpatient CHRIS MARTIN, ENCGEN ENCGEN 2665 [id number] ENCGEN 00:00:00 00:00:00 ADMISSION SUZY 2020-09-06 2020-09-06 Telephone [facility] 1.2.840.114 [id number] [id number] Univers 00:00:00 00:00:00 Tomasa Fournier 350.1.13.10 ity of [place].2.[place] [facility] [phone] [facility] 044 [facility] 2020-08-20 2020-09-04 [facility] Dirk Mercer 1.2.840.1 14 [id number] Univers 11:09:00 16:04:00 Encounter Ina Davis Maggi 350.1.13.1 0 ity of [facility] 4.2.7.2.686 Deepak Glass [phone] Medical Ina Davis 089 Branch 2020-08-20 2020-09-04 Inpatient U [facility] [id number] Univers 11:09:00 16:04:00 INA daniel o f [facility] 2020-08-23 2020-08-23 Anesthesia Doug Moncada Roxana 1.2. 840.114 [id number] Univers 11:44:00 22:36:00 Rey Haddad 350.1.13.10 ity of [facility] 4.2.7.2.686 [place] [phone] [facility] 103 Branch 2020-08-21 2020-08-21 Patient Kelly Streeter 1.2.840.114 [id number] Univers 00:00:00 00:00:00 Outreach Mishel E Zayas 350.1.13.10 i ty of [place] [phone] [facility] 403 Branch 2020-08-20 2020-08-20 Orders Doctor ALKA 1.2.840.114 [id number] Univers 00:00:00 00:00:00 Only UnassignedMAGGI 350.1.13.10 ity of Post [facility] 4.2.7.2.686 [place] [phone] [facility] 009 Branch 2020-08-16 2020-08-16 Patient Evelyn Gonzales Kelly 1.2.840.114 81 [id number] Univers 00:00:00 00:00:00 Outreach E Zayas 350.1.13.10 i ty of [place].7.2.[place] [phone] [facility] 403 [address] 2020-08-15 2020-08-15 Patient Evelyn Gonzales Kelly 1.2.840.114 81 [id number] Univers 00:00:00 00:00:00 Outreach E Zayas 350.1.13.10 i ty of [place] 4[place]2.7.2.[place] [phone] [facility] 403 [address] 2020-08-05 2020-08-05 Tele[facility] 1.2.840.114 [id number] Univers 00:00:00 00:00:00 Ira Barton 350.1.13.10 ity of Pediatric [place].2.[place] [phone] [facility] 370 [address] 2020-08-03 2020-08-03 Telephone Susan [facility] 1.2.840.114 [id number] Univers 00:00:00 00:00:00 Ina CURRAN 350.1.13.10 ity of CLINICS 4.2.7.2.[place] [phone] [facility] 205 [address] 2020-07-30 2020-07-30 Patient Kelly Streeter 1.2.840.114 [id number] Univers 00:00:00 00:00:00 Outreach Mishel Carlos Zayas 350.1.13.10 i ty of [place] 4[place]2.7.2.[place] [phone] [facility] 403 [address] 2020-07-24 2020-07-24 Office [facility] 1.2.840.114 [id number] Univers 09:36:34 12:10:39 Visit Ina Fournier 350.1.13.10 ity of [place] 4.[place].2.[place] [phone] [facility] 205 [address] Building 2020-07-24 2020-07-24 Outpatient R [facility] [id number] Univers 10:30:00 10:30:00 INA moreno [facility] 2020-07-17 2020-07-17 Orders Doctor RUCKER 1.2.840.114 [id number] Univers 00:00:00 00:00:00 Only Unassigned, MAGGI 350.1.13.10 ity of Post HOSPITAL 4.2.7.2.686 [place] [phone] [facility] 009 Branch 2020-07-10 2020-07-10 Transition Kelly Arevalo 1.2.840.114 [id number] [id number] Univers 00:00:00 00:00:00 of Care Danii Zayas 350.1.13.10 ity of [place].2.[place] [phone] [address] 2020-07-09 2020-07-09 Patient Kelly Streeter 1.2.840.114 [id number] Univers 00:00:00 00:00:00 Outreach Mishel E Zayas 350.1.13.10 i ty of [place] 4[place]2.7.2.[place] [phone] [address] 2020-07-07 2020-07-08 Hospital Mari Jorge Carlos Schmidt 1.2.840. 114 [id number] Univers 14:49:00 15:30:00 Encounter Ina Davis 350.1.13.1 0 ity of Hospital 4.2.7.2.686 [place] [phone] [place] [address] [place] 2020-07-06 2020-07-06 Patient Evelyn Gonzales 1.2.840.114 [id number] Univers 00:00:00 00:00:00 Outreach E Zayas 350.1.13.10 i ty of [place]2.7.2.[place] [phone] [address] 2020-07-06 2020-07-06 Patient Kelly Streeter 1.2.840.114 [id number] Univers 00:00:00 00:00:00 Outreach Mishel E Zayas 350.1.13.10 i ty [place].2.[place] [phone] [address] 2020-07-03 2020-07-03 Office Susan CAYANN 1.2.840.114 [id number] Univers 09:50:36 12:17:17 Visit Ina Fournier 350.1.13.10 ity of [place].2.[place] Profess[place] [phone] Wi dical [address] 2020-07-03 2020-07-03 Outpatient R SUSAN CAYANN [facility] [id number] Univers 10:00:00 10:00:00 INA sanchez o f [facility] 2020-06-27 2020-06-27 Emergency ER CAPO CANTU [facility] [id number] [place] 10:20:00 12:46:00 -[id number] [facility] 2020-06-18 2020-06-18 Patient Evelyn Gonzales 1.2.840.114 [id number] Univers 00:00:00 00:00:00 Outreach E Zayas 350.1.13.10 i ty of [place] 4[place]2.7.2.[place] [phone] [facility] 403 [address] 2020-06-06 2020-06-06 Transition Kelly Arevalo 1.2.840.114 [id number] [id number] Univers 00:00:00 00:00:00 of Care Danii Zayas 350.1.13.10 ity of [place] 4[place]2.7.2.[place] [id number] [place] [address] Branch 2020-06-06 2020-06-06 Transition Kelly Arevalo 1.2.840.114 [id number] [id number] Univers 00:00:00 00:00:00 of Care Danii Zayas 350.1.13.10 ity of [place] 4[place].2.[place] [phone] [facility] 403 [address] 2020-06-01 2020-06-05 [facility] Lawanda Valladares 1.2.84 0.114 [id number] Univers 19:35:00 16:10:00 Encounter Vanessa Moore 350.1 .13.10 ity of [place] Aldo [facility] 4.2.7.2.68 6 [facility], [place] [phone] Medical 096 Branch 2020-04-25 2020-04-25 Emergency , [facility] 1.2.152.557 [id number] Univers 11:54:00 14:04:00 Dirk Fournier 350.1.13.10 i ty of [place].7.2.[place] [phone] [facility] 084 Branch 2019-10-06 2019-10-06 Refill Pcp, UNIVERSIT 1.2.809.007 [id number] Univers 00:00:00 00:00:00 Patient Y HEALTH 350.1.13.10 i ty of Does Not CLINICS 4.2.7.2.686 [place] Have A [phone] [facility] 205 [address] 2019-08-07 2019-08-07 Emergency Grzegorz CAYANN 1.2.840.114 [id number] Univers 13:02:05 17:56:00 Svetlana Fournier 350.1.13.10 ity of [place] 4.2.7.2.[place] [phone] [facility] 084 Branch 2019-08-07 2019-08-07 Orders Doctor ALKA 1.2.840.114 [id number] Univers 00:00:00 00:00:00 Only Unassigned, MAGGI 350.1.13.10 ity of Post [facility] 4.2.7.2.686 [place] [phone] [facility] 009 Branch 2019-03-28 2019-03-28 [facility] Deepak Fernandez UN[facility]ERS[facility] 1.2.84 0.114 [id number] Univers 14:53:12 23:59:00 Encounter 1, [facility] Vas Rm Y HEALTH 350.1.13.10 ity of CLINICS 4[place] [phone] [facility] 206 Branch 2019-03-28 2019-03-28 Office Faculty, Vascular Surg UNIVERSIT 1 .2.840.114 [id number] Univers 16:59:34 20:22:24 Visit Deepak Fernandez HEALTH 350.1.13.10 ity of CLINICS 4[place]2.7.2.[place] [id number] [facility] 205 [address] 2019-03-28 2019-03-28 [facility] Deepak Fernandez UNIVERSIT 1.2.84 0.114 [id number] Univers 14:46:21 14:52:00 Encounter 2, [facility] Vas Rm Y HEALTH 350.1.13.10 ity of CLINICS 4.2.7.2.[place] [id number] [facility] 206 Branch 2019-03-14 2019-03-14 Office Faculty, Vascular Surg UNIVERSIT 1 .2.840.114 [id number] Univers 14:46:56 15:01:56 Visit Ina Davis [facility] 350.1.13.10 ity of CLINICS 4.2.7.2.[place] [phone] [facility] 205 [address] 2019-03-11 2019-03-11 Telephone YOANDY Chase AT 1.2.840.114 [id number] Univers 00:00:00 00:00:00 Lakisha GILL 350.1.13.10 ity of [place] 980.1 [facility] Branch 2019-03-08 2019-03-08 Transition Kelly Arevalo 1.2.840.114 [id number] Univers 00:00:00 00:00:00 of Care Danii Coxy 350.1.13.10 ity of [place] 4[place]2.7.2.[place] [phone] [facility] 403 Branch 2019-03-07 2019-03-07 Telephone Salvatore [facility] AT 1.2.840.114 [id number] [id number] Univers 00:00:00 00:00:00 Lakisha GILL 350.1.13.10 ity of [place].2.[place] 980.1 [facility] Branch 2019-02-28 2019-03-04 Hospital Roxana Fernandez 1.2.840.114 [id number] Univers 16:08:00 14:47:00 Encounter Deepak Tay 350.1.13.10 ity of Hospital 4.2.7.2.686 [place] [phone] [facility] 089 Branch 2019-03-02 2019-03-02 Anesthesia Roxana Good 1.2.840.114 [id number] [id number] Univers 15:58:00 20:40:00 Blayne Tay 350.1.13.10 it y of Hospital 4.2.7.2.686 [place] [id number] [facility] 103 Branch 2019-03-02 2019-03-02 Telephone Salvatore [facility] AT 1.2.840.114 [id number] [id number] Univers 00:00:00 00:00:00 Lakisha GILL 350.1.13.10 ity of [place] 980.1 [facility] 2019-02-28 2019-03-01 Office Faculty, Vascular Surg UNIVERSIT 1 .2.840.114 [id number] Univers 12:48:14 14:08:20 Visit Deepak Fernandez Y HEALTH 350.1.13.10 ity of CLINICS 4[place] [phone] [facility] 205 [address] 2019-02-28 2019-02-28 [facility] Deepak Fernandez UNIVERSIT 1.2.84 0.114 [id number] Univers 14:25:24 16:07:00 Encounter 2, [facility] Vas Rm Y HEALTH 350.1.13.10 ity of CLINICS 4[place]2.7.2.[place] [id number] [place] [address] Branch 2019-02-28 2019-02-28 [facility] Deepak Fernandez UNIVERSIT 1.2.84 0.114 [id number] Univers 11:00:00 14:24:00 Encounter 1, [facility] Vas Rm Y HEALTH 350.1.13.10 ity of CLINICS 4[place]2.7.2.[place] [phone] [place] [address] Branch 2019-02-28 2019-02-28 Abstract Opal, UN[facility]ERSIT 1.2.840.114 [id number] Univers 00:00:00 00:00:00 Parker Y HEALTH 350.1.13.10 ity of [facility] CLINICS 4.[place].7.2.[place] [phone] [address] 2018-03-10 2018-03-17 Inpatient X [facility] [id number] Univers 09:02:48 13:55:00 GIANFRANCO sanchez [facility] 2018-02-18 2018-02-18 Emergency X WAI [facility] ERT [id number] Univers 10:05:57 12:46:00 [facility] 2016-[facility] 2016-01-28 Outpatient R MENDOZA [facility] [id number] Univers 15:00:00 15:05:25 IRA sanchez [facility] 2016-01-28 2016-01-28 Office Faculty, Vascular Surg UNIVERSIT 1 .2.840.114 [id number] Univers 15:00:00 15:05:25 Visit Ira Donaldson Y HEALTH 350.1.1 3.10 ity of CLINICS 4.2.7.2.686 Luis M ignacio [phone] [facility] 205 Branch Results Test Description Test Time Test Comments Results Result Comments Source culture,urine pres id david 2022-08-01 09:03:00 Test Item Value Reference Range Interpretation Comme nts culture,urine (test code = culture,urine) scant skin nneka present. pathogen not present at 2 days. [facility] pres id [id number] 08:27:00 Test Item Value Reference Range Interpretation Comments culture,urine (test scant skin nneka code = culture,urine) present. pathogen not present at 1 day. [id number] 12:43[facility]00 Test Item Value Reference Range Interpretation Comments Hemoglobin A1c/Hemoglobin.total in 5.8 % 4.0-6.0 Blood (test code = 4548-4) [facility] - [facility] or Plasma 2022-07-30 12:24:00 Test Item Value Reference Range Interpretation Comments glucose (test code = glucose) 122 mg/dL 82-115 H blood urea nitrogen (test code = 31 mg/dL 8-23 H blood urea nitrogen) osmolality calculated,serum (test 284 mOsm/kg 280-300 code = osmolality calculated,serum) creatinine (test code = 2.92 mg/dL 0.50-0.90 H creatinine) glomerular filtration rate (test 16.16 L code = glomerular filtration rate) BUN/creatinine ratio (test code = 10.6 12.0-20.0 L BUN/creatinine ratio) sodium level (test code = sodium 138 mmol/L 135-145 level) potassium level (test code = 5.0 mmol/L 3.5-5.2 potassium level) chloride level (test code = 105 mmol/L 98-108 chloride level) CO2 (test code = CO2) 28 mmol/L 21-32 anion gap (test code = anion gap) 10.0 mEq/L 12.0-20.0 L calcium level (test code = 9.4 mg/dL 8.8-10.2 calcium level) total protein (test code = total 7.8 g/dL 6.6-8.7 protein) albumin (test code = albumin) 3.7 g/dL 3.5-5.2 globulin (test code = globulin) 4.1 g/dL 1.5-4.5 A/G ratio (test code = A/G ratio) 0.9 >1.0 bilirubin,total (test code = 0.2 mg/dL 0.0-1.2 bilirubin,total) AST/SGOT (test code = AST/SGOT) 12 U/L 15-32 L ALT/SGPT (test code = ALT/SGPT) 7 U/L 0-33 alkaline phosphatase, total (test 121 U/L 35-105 H code = alkaline phosphatase, total) [id number] Test Item Value Reference Range Interpretation Comments cholesterol level (test code = 133 mg/dL 150-200 L cholesterol level) triglycerides level (test code = 269 mg/dL <150 H triglycerides level) HDL cholesterol (test code = HDL 34 mg/dL >65 L cholesterol) Cholesterol in LDL [Mass/volume] in 47 mg/dL <100 Serum or Plasma (test code = 2089-1) cholesterol risk ratio (test code = 3.911 cholesterol risk ratio) [facility] - [id number] 11:41:00 Test Item Value Reference Range Interpretation Comments white blood count (test code = 9.4 K/uL 4.0-11.5 white blood count) red blood count (test code = red 4.45 M/uL 3.80-5.20 blood count) hemoglobin (test code = 10.6 g/dL 10.5-15.7 hemoglobin) hematocrit (test code = 37.7 % 34.0-50.0 hematocrit) mean corpuscular volume (test code 84.7 fL 86.0-100.0 L = mean corpuscular volume) mean corpuscular hemoglobin (test 23.8 pg 26.2-33.4 L code = mean corpuscular hemoglobin) mean corpuscular HGB conc (test 28.1 g/dL 30.0-34.0 L code = mean corpuscular HGB conc) red cell distribution width (test 15.4 % 12.0-15.5 code = red cell distribution width) platelet count (test code = 280 K/uL 165-450 platelet count) mean platelet volume (test code = 10.0 fL 9.4-12.6 mean platelet volume) neutrophils % (test code = 79.2 % 44.4-80.1 neutrophils %) Ig% (test code = Ig%) 0.3 % 0.0-0.4 lymphocyte% (test code = 12.9 % 10.0-50.0 lymphocyte%) mono % (test code = mono %) 4.1 % 3.6-12.0 eos % (test code = eos %) 3.0 % 0.0-5.4 basophil % (test code = basophil 0.5 % 0.1-1.2 %) absolute neutrophil count (test 7.41 K/uL 1.56-6.13 H code = absolute neutrophil count) Ig# (test code = Ig#) 0.03 K/uL 0.00-0.03 lymph # (test code = lymph #) 1.21 K/uL 1.18-3.74 mono # (test code = mono #) 0.38 K/uL 0.24-0.86 eos # (test code = eos #) 0.28 K/uL 0.04-0.36 basophil # (test code = basophil 0.05 K/uL 0.01-0.08 #) NRBC% (test code = NRBC%) 0 /100 WBC 0-0.2 NRBC# (test code = NRBC#) 0 K/uL [facility] pres id [id number] 11:07:00 Test Item Value Reference Range Interpretation Comments culture,urine (test specimen has been code = culture,urine) received in lab and IS in progress. [facility] CenterUrinalysis macro (dipstick) panel - [id number] 09:18:00 Test Item Value Reference Range Interpretation Comments Leukocytes (test code = Leukocytes) Trace Nitrite (test code = Nitrite) negative Urobilinogen (test code = .2 Urobilinogen) Protein (test code = Protein) 30 pH (test code = pH) 5.5 Blood (test code = Blood) Moderate Specific Mesa (test code = 1.015 Specific Mesa) Ketone (test code = Ketone) Negative Bilirubin (test code = Bilirubin) Negative Glucose (test code = Glucose) Negative Appearance (test code = Appearance) Clear Color (test code = Color) Yellow [facility] GroupPhosphate [Mass/volume] in Serum or [id number] 00:00:00 Test Item Value Reference Range Interpretation Comments phosphorous level (test code = 3.2 mg/dL 2.5-4.5 phosphorous level) [facility] CenterMagnesium [Mass/volume] in Serum or [id number] 00:00:00 Test Item Value Reference Range Interpretation Comments magnesium level (test code = 2.0 mg/dL 1.6-2.4 magnesium level) [facility] CenterUR SODIUM [id number] 15:11:00 Test Item Value Reference Range Interpretation Comments UR SODIUM RANDOM 135 MEQ/L See_Comment The Referen ce Range and (test code = Method Performa nce NIMCO) specificationsh ave not been established for this fluid. The test result should be correlated into the clinical context forinte rpretation. [Automated mess age] The system which ge nerated this result transmit hernesto reference range: (). The reference range was not u sed to interpret this result as normal/abnormal . UR POTASSIUM [id number] 15:11:00 Test Item Value Reference Range Interpretation Comments UR POTASSIUM 12.0 MEQ/L See_Comment The Reference R ruchi and RANDOM (test code Method Per formance = KU) specificationsh ave not been establishe d for this fluid. The test resultshould be correlated into the clinic al context forinterpretati on. [Automated mess age] The system which ge nerated this result tra nsmitted reference range : (). The reference range was not used to interpr et this result as alfredo l/abnormal. UR CHLORIDE [id number] 15:11:00 Test Item Value Reference Range Interpretation Comments UR CHLORIDE RANDOM 113 mmol/L Not Estab. Performed At: HD (test code = CLU) [facility] [id number] [place], [place] [id number] marly Wiggins MD Ph:[phone] UR PROTEIN [id number] 15:11:00 Test Item Value Reference Range Interpretation Comments UR PROTEIN TOTAL (test code = 56.5 MG/DL 0.0-12.0 H PROTU) UR CREATININE [id number] 15:11:00 Test Item Value Reference Range Interpretation Comments UR CREATININE RANDOM (test code = 26.3 MG/DL 30-125 L CREATU) UR OSMOLALITY [id number] 15:11:00 Test Item Value Reference Range Interpretation Comments UR OSMOLALITY RANDOM 332 mOsm/KG See_Comment INFCE R esult Units: (test code = OSMOU) mOsmol/k g 24 hr : 300 - 900 Random: 5 0 - 1400 After 12hr fluid restriction: >850Performed A t: HD [facility] [address] [id number] Kyle L MD Ph:[phone] [Automated mess age] The system [employer] generated this result transmitted ref erence range: (). The reference range was not used to int erpret this result as normal/abnormal . AB DNA DOUBLE [id number] 11:11:00 Test Item Value Reference Range Interpretation Comments AB DNA DOUBLE STRAND 1 IU/mL 0-9 Negat trinidad <5 Equivocal (test code = DNADSAB) 5 - 9 Positive >9Performed At: HD [facility] [address] [id number] ucarlos Wiggins MD Ph:[phone] GLUCOSE BEDSIDE [id number] 08:52:00 Test Item Value Reference Range Interpretation Comments GLUCOSE BEDSIDE TESTING (test code 104 mg/dL 70-110 N = GLUBED) GLUCOSE BEDSIDE [id number] 21:04:00 Test Item Value Reference Range Interpretation Comments GLUCOSE BEDSIDE TESTING (test code 116 mg/dL 70-110 H = GLUBED) GLUCOSE BEDSIDE [id number] 16:40:00 Test Item Value Reference Range Interpretation Comments GLUCOSE BEDSIDE TESTING (test code 139 mg/dL 70-110 H = GLUBED) GLUCOSE BEDSIDE [id number] 11:48:00 Test Item Value Reference Range Interpretation Comments GLUCOSE BEDSIDE TESTING (test code 103 mg/dL 70-110 N = GLUBED) GLUCOSE BEDSIDE [id number] 08:12:00 Test Item Value Reference Range Interpretation Comments GLUCOSE BEDSIDE TESTING (test code 111 mg/dL 70-110 H = GLUBED) BASIC METABOLIC [id number] 07:32:00 Test Item Value Reference Range Interpretation Comments SODIUM (test code = 143 mmol/L 134-147 N NA) POTASSIUM (test 3.9 mmol/L 3.4-5.0 N code = K) CHLORIDE (test code 111 mmol/L 100-108 H = CL) CARBON DIOXIDE 24 mmol/L 21-32 N (test code = CO2) ANION GAP (test 8.0 GAP calc 4.0-15.0 N code = GAP) GLUCOSE (test code 112 MG/DL 70-110 H = GLU) BLOOD UREA NITROGEN 22 MG/DL 7-18 H (test code = BUN) GLOMERULAR 23 estGFR >60 L The Glomerular FILTRATION RATE Filtration R ate is a (test code = GFR) calculated parameterbased on serum Creatinin e, patient age and sex. GFR valuesless than 60 mL/min/1.73 squ are meters are keely cative ofChronic Kidne y Disease. Values less than 15 mL/min/1.73squa re meters indicate Kidney failure. The calculation for GFR is based on the CK D-EPI (2020) calculat ion. This formulais race indifferent and is the recommended for timothy for GFRby the [facility] on for Adults.The GFR will not calculate i f the sex is unknown or if thepatient's ag e is <18 years. CREATININE (test 2.3 MG/DL 0.6-1.0 H code = CREAT) CALCIUM (test code 8.9 MG/DL 8.5-10.1 N = CA) THROMBOPLASTIN TIME [id number] 06:39:00 Test Item Value Reference Range Interpretation Comments THROMBOPLASTIN TIME PARTIAL 28.0 SECONDS 26-35 N (test code = PTT) CBC W/AUTO [id number] 06:32:00 Test Item Value Reference Range Interpretation Comments WHITE BLOOD CELL (test code = 7.6 K/mm3 3.5-11.0 N WBC) RED BLOOD CELL (test code = 3.73 M/mm3 4.70-6.10 L RBC) HEMOGLOBIN (test code = HGB) 9.2 G/DL 10.4-14.9 L HEMATOCRIT (test code = HCT) 30.4 % 31.5-44.1 L MEAN CELL VOLUME (test code = 81.5 Fl 84.5-98.6 L MCV) MEAN CELL HGB (test code = MCH) 24.7 pg 27.0-34.2 L MEAN CELL HGB CONCETRATION 30.3 G/DL 31.5-34.0 L (test code = MCHC) RED CELL DISTRIBUTION WIDTH 14.8 SD 11.5-14.5 H (test code = RDW) PLATELET COUNT (test code = 176 K/mm3 150-450 N PLT) MEAN PLATELET VOLUME (test code 9.60 fL 7.0-10.5 N = MPV) NEUTROPHIL % (test code = NT%) 75.9 % 40-76 N IMMATURE GRANULOCYTE % (test 0.4 % 0.0-5.0 N code = IG%) LYMPHOCYTE % (test code = LY%) 13.0 % 20.5-51.1 L MONOCYTE % (test code = MO%) 7.5 % 1.7-9.3 N EOSINOPHIL % (test code = EO%) 2.8 % 0.0-6.0 N BASOPHIL % (test code = BA%) 0.4 % 0.0-2.0 N NUCLEATED RBC % (test code = 0.0 /100WBC% 0.0-1.0 N NRBC%) NEUTROPHIL # (test code = NT#) 5.7 K/mm3 1.8-7.6 N IMMATURE GRANULOCYTE # (test 0.03 x10 3/uL 0.00-0.03 N code = IG#) LYMPHOCYTE # (test code = LY#) 1.0 K/mm3 0.6-3.2 N MONOCYTE # (test code = MO#) 0.6 K/mm3 0.3-1.1 N EOSINOPHIL # (test code = EO#) 0.2 K/mm3 0.0-0.4 N BASOPHIL # (test code = BA#) 0.0 K/mm3 0.0-0.1 N NUCLEATED RBC # (test code = 0.0 K/mm3 0.0-0.1 N NRBC#) MANUAL DIFF REQUIRED (test code NO DIFF/SCN CRITERIA = MDIFF) SERUM [id number] 03:43:00 Test Item Value Reference Range Interpretation Comments SERUM IRON (test code = IRON) 39 mcG/DL 50-170 L TOTAL IRON BINDING [id number] 03:43:00 Test Item Value Reference Range Interpretation Comments TOTAL IRON BINDING CAPACITY (test 279 mcg/dL 260-445 code = TIBC) TOTAL IRON BINDING [id number] 03:42:00 Test Item Value Reference Range Interpretation Comments TOTAL IRON BINDING CAPACITY (test 279 mcg/dL 260-445 N code = TIBC) UR SODIUM [id number] 03:38:00 Test Item Value Reference Range Interpretation Comments UR SODIUM RANDOM 135 MEQ/L The Referen ce Range and (test code = Method Performa nce NIMCO) specificationsh ave not been established for this fluid. The test result should be correlated into the clinical context forinte rpretation. UR POTASSIUM [id number] 03:38:00 Test Item Value Reference Range Interpretation Comments UR POTASSIUM 12.0 MEQ/L The Reference R ruchi and RANDOM (test code Method Per formance = KU) specificationsh ave not been establishe d for this fluid. The test resultshould be correlated into the clinic al context forinterpretati on. GLUCOSE BEDSIDE [id number] 21:49:00 Test Item Value Reference Range Interpretation Comments GLUCOSE BEDSIDE TESTING (test code 116 mg/dL 70-110 H = GLUBED) GLUCOSE BEDSIDE [id number] 17:26:00 Test Item Value Reference Range Interpretation Comments GLUCOSE BEDSIDE TESTING (test code 102 mg/dL 70-110 N = GLUBED) - [facility] [id number] 17:05:00 [facility] 1955 Sex: F Name: LUCHO NORRIS [facility] : 1955 Age/S: 66 / F [address] [address] [place] Unit #: [id number] Loc:[place] [address] Phys: Carloz Pelletier MD Acct: [id number] Dis Date: Status: ADM IN PHONE #: [phone] Exam Date: 07/14/2022 1359 FAX #: Reason: clare EXAMS: CPT: [id number] US RETROPERITONEAL COM 83082 EXAM: - US RETROPERITONEAL COM HISTORY: clare Location code:C3 TECHNIQUE: Grayscale B-mode and color Doppler sonographic images of the kidneys were performed. Dedicated grayscale B-mode and color Doppler pelvic imaging of the urinary bladder was also performed. COMPARISON: None availabletime of interpretation. FINDINGS: The right kidney measures 10.8 x 4.9 x 3.4cm and the left mekvipjs39.7 x 4.9 x 4.5 cm. Shadowing echogenic focus in the mid right kidney measuring 8 x 8 mm in size isseen. There is no cystic or solid renal mass lesion visualized. No hydronephrosis. There is normal renal cortical thickness and echogenicity. The urinary bladder has a normal sonographic appearance. IMP RESSION: 1. There is an 8 mm shadowing calculus in the mid right kidney otherwise no significant abnormality. at 1705 Reportedand signed by: Tay Agustin MD CC: Carloz Simon MD; Red Wheeler MD Technologist: Laura Garza Trnscb Date/Time: 07/14/2022 (1705) MitchellCB5 PAGE 1 Signed Report Name: LUCHO LEAHY [facility] : 1955 Age/S: 66 / F [address] [address] [place] Unit #: [id number] Loc: [place] [address] Phys: Carloz Pelletier MD Acct: [id number] Dis Date: Status: ADM IN PHONE #: [phone] Exam Date: 07/14/2022 135 FAX #: Reason: clare EXAMS: CPT: [id number] US RETROPERITONEAL COM 78210 (Continued) Orig Print D/T: S: 07/14/2022 (1708) Probe: PAGE 2 Signed ReportGLUCOSE BEDSIDE [id number] 12:30:00 Test Item Value Reference Range Interpretation Comments GLUCOSE BEDSIDE TESTING (test code 134 mg/dL 70-110 H = GLUBED) GLUCOSE BEDSIDE [id number] 08:18:00 Test Item Value Reference Range Interpretation Comments GLUCOSE BEDSIDE TESTING (test code 104 mg/dL 70-110 N = GLUBED) BASIC METABOLIC [id number] 05:03:00 Test Item Value Reference Range Interpretation Comments SODIUM (test code = 141 mmol/L 134-147 N NA) POTASSIUM (test 3.8 mmol/L 3.4-5.0 N code = K) CHLORIDE (test code 110 mmol/L 100-108 H = CL) CARBON DIOXIDE 24 mmol/L 21-32 N (test code = CO2) ANION GAP (test 7.0 GAP calc 4.0-15.0 N code = GAP) GLUCOSE (test code 112 MG/DL 70-110 H = GLU) BLOOD UREA NITROGEN 28 MG/DL 7-18 H (test code = BUN) GLOMERULAR 21 estGFR >60 L The Glomerular FILTRATION RATE Filtration R ate is a (test code = GFR) calculated parameterbased on serum Creatinin e, patient age and sex. GFR valuesless than 60 mL/min/1.73 squ are meters are keely cative ofChronic Kidne y Disease. Values less than 15 mL/min/1.73squa re meters indicate Kidney failure. The calculation for GFR is based on the CK D-EPI (2020) calculat ion. This formulais race indifferent and is the recommended for timothy for GFRby the [facility] for Ad[facility].The GFR will not calculate i f the sex is unknown or if thepatient's ag e is <18 years. CREATININE (test 2.5 MG/DL 0.6-1.0 H code = CREAT) CALCIUM (test code 8.3 MG/DL 8.5-10.1 L = CA) THROMBOPLASTIN TIME [id number] 04:59:00 Test Item Value Reference Range Interpretation Comments THROMBOPLASTIN TIME PARTIAL 58.6 SECONDS 26-35 H (test code = PTT) CBC W/AUTO [id number] 04:49:00 Test Item Value Reference Range Interpretation Comments WHITE BLOOD CELL (test code = 7.8 K/mm3 3.5-11.0 N WBC) RED BLOOD CELL (test code = 2.81 M/mm3 4.70-6.10 L RBC) HEMOGLOBIN (test code = HGB) 6.8 G/DL 10.4-14.9 L HEMATOCRIT (test code = HCT) 22.1 % 31.5-44.1 L MEAN CELL VOLUME (test code = 78.6 Fl 84.5-98.6 L MCV) MEAN CELL HGB (test code = MCH) 24.2 pg 27.0-34.2 L MEAN CELL HGB CONCETRATION 30.8 G/DL 31.5-34.0 L (test code = MCHC) RED CELL DISTRIBUTION WIDTH 15.3 SD 11.5-14.5 H (test code = RDW) PLATELET COUNT (test code = 151 K/mm3 150-450 N PLT) MEAN PLATELET VOLUME (test code 10.20 fL 7.0-10.5 N = MPV) NEUTROPHIL % (test code = NT%) 74.1 % 40-76 N IMMATURE GRANULOCYTE % (test 0.3 % 0.0-5.0 N code = IG%) LYMPHOCYTE % (test code = LY%) 15.0 % 20.5-51.1 L MONOCYTE % (test code = MO%) 7.5 % 1.7-9.3 N EOSINOPHIL % (test code = EO%) 2.6 % 0.0-6.0 N BASOPHIL % (test code = BA%) 0.5 % 0.0-2.0 N NUCLEATED RBC % (test code = 0.0 /100WBC% 0.0-1.0 N NRBC%) NEUTROPHIL # (test code = NT#) 5.8 K/mm3 1.8-7.6 N IMMATURE GRANULOCYTE # (test 0.02 x10 3/uL 0.00-0.03 N code = IG#) LYMPHOCYTE # (test code = LY#) 1.2 K/mm3 0.6-3.2 N MONOCYTE # (test code = MO#) 0.6 K/mm3 0.3-1.1 N EOSINOPHIL # (test code = EO#) 0.2 K/mm3 0.0-0.4 N BASOPHIL # (test code = BA#) 0.0 K/mm3 0.0-0.1 N NUCLEATED RBC # (test code = 0.0 K/mm3 0.0-0.1 N NRBC#) MANUAL DIFF REQUIRED (test code NO DIFF/SCN CRITERIA = MDIFF) THROMBOPLASTIN TIME [id number] 22:00:00 Test Item Value Reference Range Interpretation Comments THROMBOPLASTIN TIME PARTIAL 62.4 SECONDS 26-35 H (test code = PTT) GLUCOSE BEDSIDE [id number] 21:05:00 Test Item Value Reference Range Interpretation Comments GLUCOSE BEDSIDE TESTING (test code 114 mg/dL 70-110 H = GLUBED) - [place] [id number] 18:04:00 [facility] 1955 Sex: F Name:LUCHO LEAHY [facility] : 1955 Age/S: 66 / F [address] [address] [place] Unit #: [id number] Loc:[place] [address] Phys: Red Wheeler MD Acct: [id number] Dis Date: Status: ADM IN PHONE #: [phone] Exam Date: 07/13/2022 1520 FAX #: Reason: NON PALAPABLE PULSE EXAMS: CPT: [id number] [place] [address] EXAM: - [place] HISTORY: NON PALPABLE PULSE Location code:C3 TECHNIQUE: Grayscale B-mode, color-flow, and spectral Doppler analysis of the lower extremity arterial vasculature was performed. COMPARISON: None available time of interpretation. FINDINGS: No flow in the right mid SFA and popliteal artery is seen with partial monophasic waveform in the distal SFA on the right. There is monophasic waveforms throughout the right lower survey otherwise with decreased velocities below theknee indicative of inflow disease/high-grade stenosis at the right SFA origin. Monophasic waveform in the distal left SFA and distally indicative of focal stenosis in the distal left SFA is seen. Multiphasic waveforms with normal velocities above this level are present on the left. IMPRESSION: As above. at 1804 Reported and signed by: Tay Agustin MD CC: Red Wheeler MD Technologist: Laura Garza Trnscb Date/Time:07/13/2022 (1803) [id number] PAGE 1 Signed Report Name: LUCHO LEAHY [place] : 1955 Age/S: 66 / F [address] [address] [place] Unit #: [id number] Loc: [place] [address] Phys: Red Wheeler MD Acct: [id number] Dis Date: Status: ADM IN PHONE #: [phone] Exam Date: 07/13/2022 1520 FAX #: Reason: NON PALAPABLE PULSE EXAMS: CPT: [id number] [place] [address] (Continued) Orig Print D/T: S: (1806) Probe: PAGE 2 Signed ReportGLUCOSE BEDSIDE [id number] 17:36:00 Test Item Value Reference Range Interpretation Comments GLUCOSE BEDSIDE TESTING (test code 120 mg/dL 70-110 H = GLUBED) - XR FOOT 3+V [id number] 14:55:00 [facility] : 1955 Sex: F [facility]: [facility] 1955 Age/S: 66 / F [address] [address] [place] Unit #: [id number] Loc:[place] [address] Phys: Buzz Garcia DPM Acct: [id number] Dis Date: Status: ADM IN PHONE #: [phone] Exam Date: 07/13/20221406 FAX #: Reason: ulcer 5th metatarsal base EXAMS: CPT: [id number] XR FOOT 3+[place] [address] Fluoro Time: DAP (Gy m2): Air Kerma (mGy): Location: B2 EXAM: - XR FOOT 3+V RT INDICATION: ulcer 5th metatarsal base COMPARISON: None TECHNIQUE: 3 views of the right foot. FINDINGS: There is diffuse osteopenia. 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 No acute fracture or malalignment isidentified. No definite cortical erosion, focal osteopenia or other bony destructive changes. Thereis mild nonspecific soft tissue swelling of the midfoot and hindfoot. IMPRESSION: 1. No acute bony abnormality. No definite radiographic evidence of osteomyelitis. However, an MRI examination or triphasic nuclear medicine bone scan would be a more sensitive evaluation for such. 2. Osteopenia. 3. Chronic findings, as above. at 1455 Reported and signed by: Darinel Bean M.D. CC: Red Wheeler MD; Buzz Garcia DPM PAGE 1 Signed Report [facility] 1955 Age/S: 66 / F [address] [facility] Unit #: [id number] Loc: [place] [address] Phys: Buzz Garcia DPM Acct: [id number] Dis Date: Status: ADM IN PHONE #: [phone] Exam Date: 07/13/20221406 FAX #: Reason: ulcer 5th metatarsal base EXAMS: CPT: [id number] XR FOOT 3+[place] [address] Fluoro Time: DAP (Gy m2): Air Kerma (mGy): (Continued) T echnologist: Janette De La Cruz, RT(R)(CT) Trnscb Date/Time: 07/13/2022 (8071) t.[email or web address] Orig Print D/T:S: 07/13/2022 (1124) PAGE 2 Signed Report THROMBOPLASTIN TIME [id number] 14:11:00 Test Item Value Reference Range Interpretation Comments THROMBOPLASTIN TIME PARTIAL 148.6 SECONDS 26-35 HH (test code = PTT) GLUCOSE BEDSIDE [id number] 14:03:00 Test Item Value Reference Range Interpretation Comments GLUCOSE BEDSIDE TESTING (test code 115 mg/dL 70-110 H = GLUBED) - MRI BRAIN W/O [id number] 13:18:00 [facility] : 1955 Sex: F FAX: Major Jensen APRN [phone] Camps: PM St: ADM FAX: Red Wheeler MD [phone] Name: LUCHO LEAHY [facility] : 1955 Age/S: 66/F [address] [address] [place] Unit #: [id number] Loc: [place] [address] Phys: Corin Bowen APRNNP Acct: [id number] Dis Date: Status: ADM IN PHONE #: [phone] Exam Date: 07/13/2022 1225 FAX #: Reason: AMS, CVA to rule out EXAMS: CPT: [id number] MRI BRAIN W/O CONTRAST 07740 Location: B2 EXAM: - MRI BRAIN W/O CONTRAST INDICATION: AMS, CVA to rule out COMPARISON: None TECHNIQUE: Multiplanar, multisequence MRI of the brain without contrast. FINDINGS: Diffusion-weighted im ages fail to demonstrate any recent ischemic change. No MRI evidence of intracranial hemorrhage. There is mild, chronic diffuse parenchymal volume loss. There is chronic encephalomalacia involving portions of the left parietal, left temporal and lateral left occipital lobes and left insular cortex. There is some regional cortical laminar necrosis, which may suggest sequelae of prior, old infarct. Subtle patchy T2/FLAIR abnormality within the servando is favored to represent sequelae of chronic microvascular disease. There are a few, subtle, small periventricular, deep and juxtacortical white matter T2/FLAIR hyperintensities, which are nonspecific. Given small size, these may represent prominent perivascular spaces. Alternately, they may represent additional, mild sequelae of chronic microvascular disease. The large intracranial vessels demonstrate normal flow-voids. There is mild mucosal thickeningof the ethmoid air cells, maxillary sinuses and sphenoid sinuses. Mastoid air cells are predominantly clear. IMPRESSION: 1. No acute intracranial abnormality. No evidence of recent ischemic PAGE 1 Signed Report (CONTINUED) FAX: Major Rod APRN [phone] Camps: PM St: ADM FAX: Red Wheeler MD [phone] Name:LUCHO LEAHY [facility] : 1955 Age/S: 66/F [address] [address] [place] Unit #: [id number] Loc: [place] [address] Phys: Corin Bowen APRNNP Acct: [id number] Dis Date: Status: ADM IN PHONE #: [phone] Exam Date: 07/13/2022 1225 FAX #: Reason: AMS, CVA to rule out EXAMS: CPT: [id number] MRI BRAIN W/O CONTRAST 33315 (Continued) change. 2. Chronic intracranial findings, as above. 3. Mild sinonasal disease. at 1318 Reported and signed by: Darinel Bean M.D. CC: Corin Bowen; Red Wheeler MD Technologist: Alber Small, RT(R)(CT)(MR) Transcribed Date/Time/By: 07/13/2022 (8726) :MitchellGS29 [facility] D/T: S: 07/13/2022 (9527) PAGE 2 Signed Report- [place] [id number] 10:56:00[facility] : 1955 Sex: F Name: LUCHO NORRIS [facility] : 1955 Age/S: 66 / F [address] [address] [facility] [place] Unit #: [id number] Loc: [place] [address] Phys: Corin Bowen Acct: [id number] Dis Date: Status: ADM IN PHONE #: [phone] Exam Date: 07/12/2022 1030 FAX #: Reason: Rt. lower extremity swelling and redness EXAMS: CPT: [id number] [place] [address] LOCATION CODE: C3 LOWER EXTREMITY VENOUS DUPLEX ULTRASOUND, right. HISTORY: Right lower extremity redness COMPARISON: None available TECHNIQUE: Real-time spectralanalysis and color flow imaging ultrasound of the right lower extremity was obtained from the inguinal ligament down to the ankle in transverse and longitudinal planes. FINDINGS: Duplex color Doppler ultrasound of the common femoral, deep femoral, superficial femoral, proximal greater saphenous, popliteal, posterior tibial and peroneal veins was obtained. The deep venous system is well visualized without evidence of intraluminal filling defect, lack of compressibility, or augmentation. The study is considered negative for deep venous thrombosis. Survey of the contralateral left common femoral vein demonstrates normal compressibility and normal flow as well. IMPRESSION: No evidence of deep venous thrombosis. . at 1056 Reported and signed by: Saskia Ibarra MD CC: Corin Bowen; Red Wheeler MD Technologist: Laura Garza Trnprb Date/Time: 07/13/2022 (4682) MitchellEFM1 PAGE 1 Signed Report Name: LUCHO LEAHY A[place]ate : 1955 Age/S: 66 / F [address] [place] Unit #: [id number] Loc: [place] [address] Phys: Corin Bowen Acct: [id number] Dis Date: Status: ADM IN PHONE #: [phone] Exam Date: 07/12/2022 1030 FAX #: Reason: Rt. lower extremity swelling and redness EXAMS: [id number] [place] [address] (Continued) Orig Print D/T: S: 07/13/2022 (3815) Probe: PAGE 2 Signed ReportGLUCOSE BEDSIDE [id number] 08:25:00 Test Item Value Reference Range Interpretation Comments GLUCOSE BEDSIDE TESTING (test code 113 mg/dL 70-110 H = GLUBED) GLYCOSYLATED HEMOGLOBIN [id number] 05:35:00 Test Item Value Reference Range Interpretation Comments GLYCOSYLATED HEMOGLOBIN (HA1C) 5.4 % A1C 0.0-5.7 N (test code = GLYHGB) ESTIMATED AVERAGE GLUCOSE (test 108 MG/DLest code = EAG) BASIC METABOLIC [id number] 05:33:00 Test Item Value Reference Range Interpretation Comments SODIUM (test code = 137 mmol/L 134-147 N NA) POTASSIUM (test 3.8 mmol/L 3.4-5.0 N code = K) CHLORIDE (test code 107 mmol/L 100-108 N = CL) CARBON DIOXIDE 23 mmol/L 21-32 N (test code = CO2) ANION GAP (test 7.0 GAP calc 4.0-15.0 N code = GAP) GLUCOSE (test code 90 MG/DL 70-110 N = GLU) BLOOD UREA NITROGEN 30 MG/DL 7-18 H (test code = BUN) GLOMERULAR 19 estGFR >60 L The Glomerular FILTRATION RATE Filtration R ate is a (test code = GFR) calculated parameterbased on serum Creatinin e, patient age and sex. GFR valuesless than 60 mL/min/1.73 squ are meters are keely cative ofChronic Kidne y Disease. Values less than 15 mL/min/1.73squa re meters indicate Kidney failure. The calculation for GFR is based on the CK D-EPI (2020) calculat ion. This formulais race indifferent and is the recommended for timothy for GFRby the N [facility] for Ad[facility].The GFR will not calculate i f the sex is unknown or if thepatient's ag e is <18 years. CREATININE (test 2.7 MG/DL 0.6-1.0 H code = CREAT) CALCIUM (test code 8.0 MG/DL 8.5-10.1 L = CA) LIPID PROFILE (CORONARY RISK)2022-07-13 05:33:00 Test Item Value Reference Range Interpretation Comments TRIGLYCERIDES (test 128 MG/DL 0-150 N code = TRIG) CHOLESTEROL (test 89 MG/DL 133-200 L code = CHOL) CHOLESTEROL/HDL 3.07 RATIO See_Comment RISK ASSOCIA HERNESTO WITH RATIO (test code = CHOL/HDL RATIOS: RISK CHOLHDL) MALE FEMALE1/2 AVERAGE 3.43 3.27AVERAG E 4.97 4.442X AVERAGE 9.55 7.053X AVERAGE 23.39 11.04 NOTE THAT THE REFERENCE VALUE IS RELATED TO RISK LEVELS ASRECOMMENDED B Y THE [facility] . [Automated mess age] The system which ge nerated this result tra nsmitted reference range : 0-. The reference range was not used to interpr et this result as normal/abnormal . HDL CHOLESTEROL 29 MG/DL 40-59 L (test code = HDL) NON-HDL CHOLESTEROL 60 mg/dL <130 (test code = NHDL) LIPOPROTEIN LDL 45 MG/DL 0-129 N <100 OPTIMAL 100 - 129 (test code = LDL) NEAR OPTIM AL/ABOVE [id number] - 15 9 [id number] - 189 HIGH>OR= 190 VE RY HIGHNOTE THAT G UIDELINES ARE PROVIDED BY NATIONAL CHOLESTEROLEDUC ATION PROGRAM ADULT T REATMENT PANEL III LDL/HDL (test code 1.55 Ratio See_Comment N [Automat ed message] The = LDL/HDL) system which LAVEGO nerated this result tra nsmitted reference range : 1.48-3.22 Avg. The reference range was not used to interpr et this result as normal/abnormal . [id number] 05:33:00 Test Item Value Reference Range Interpretation Comments PHOSPHOROUS (test code = PHOS) 3.3 MG/DL 2.5-4.9 N [id number] 05:33:00 Test Item Value Reference Range Interpretation Comments MAGNESIUM (test code = MAG) 2.4 MG/DL 1.8-2.4 N CBC W/AUTO [id number] 05:15:00 Test Item Value Reference Range Interpretation Comments WHITE BLOOD CELL (test code = 11.1 K/mm3 3.5-11.0 H WBC) RED BLOOD CELL (test code = 3.13 M/mm3 4.70-6.10 L RBC) HEMOGLOBIN (test code = HGB) 7.7 G/DL 10.4-14.9 L HEMATOCRIT (test code = HCT) 24.6 % 31.5-44.1 L MEAN CELL VOLUME (test code = 78.6 Fl 84.5-98.6 L MCV) MEAN CELL HGB (test code = MCH) 24.6 pg 27.0-34.2 L MEAN CELL HGB CONCETRATION 31.3 G/DL 31.5-34.0 L (test code = MCHC) RED CELL DISTRIBUTION WIDTH 15.6 SD 11.5-14.5 H (test code = RDW) PLATELET COUNT (test code = 162 K/mm3 150-450 N PLT) MEAN PLATELET VOLUME (test code 10.60 fL 7.0-10.5 H = MPV) NEUTROPHIL % (test code = NT%) 82.1 % 40-76 H IMMATURE GRANULOCYTE % (test 0.5 % 0.0-5.0 N code = IG%) LYMPHOCYTE % (test code = LY%) 10.0 % 20.5-51.1 L MONOCYTE % (test code = MO%) 6.5 % 1.7-9.3 N EOSINOPHIL % (test code = EO%) 0.5 % 0.0-6.0 N BASOPHIL % (test code = BA%) 0.4 % 0.0-2.0 N NUCLEATED RBC % (test code = 0.0 /100WBC% 0.0-1.0 N NRBC%) NEUTROPHIL # (test code = NT#) 9.1 K/mm3 1.8-7.6 H IMMATURE GRANULOCYTE # (test 0.06 x10 3/uL 0.00-0.03 H code = IG#) LYMPHOCYTE # (test code = LY#) 1.1 K/mm3 0.6-3.2 N MONOCYTE # (test code = MO#) 0.7 K/mm3 0.3-1.1 N EOSINOPHIL # (test code = EO#) 0.1 K/mm3 0.0-0.4 N BASOPHIL # (test code = BA#) 0.0 K/mm3 0.0-0.1 N NUCLEATED RBC # (test code = 0.0 K/mm3 0.0-0.1 N NRBC#) MANUAL DIFF REQUIRED (test code NO DIFF/SCN CRITERIA = MDIFF) LACTIC [id number] 01:09:00 Test Item Value Reference Range Interpretation Comments LACTIC ACID (test code = LACT) 0.8 mmol/L 0.4-2.0 N PROTHROMBIN [id number] 01:07:00 Test Item Value Reference Range Interpretation Comments PT PATIENT (test 26.6 SECONDS 9.3-12.9 H code = PTP) INTERNATIONAL NORMAL 2.35 INR Unit 0.8-1.2 H TARGE T INR BY RATIO (test code = INDICATIO N Indication INR) INR1. Prophylax is of venous thrombos is 2.0 - 3.0 (orthoped ic surgery), Proph ylaxis of venous throm bosis (other than hig h-risk surgery), Treat ment of Deep Vein Thrombosis/Pulm onary Embolism, Preve ntion of systemic emb olism - Tissue heart va lves, Acute Myocardia l Infarction (to prevent systemic emboli sm), Valvular heart disease, Acute Myocardial Infa rction (to prevent sys temic embolism), Valv ular heart disease, Atrial Fibrillation, Bileaflet mecha nical valve in aortic position.2. Mec hanical prosthetic valv es (high risk), 2. 5 - 3.5 Presence of Lup us Anticoagulant o r Antiphospholipi d Antibodies, Pre vention of systemic emb olism - Acute Myocardia l Infarction (to prevent recurrent infar ct). THROMBOPLASTIN TIME [id number] 01:07:00 Test Item Value Reference Range Interpretation Comments THROMBOPLASTIN TIME PARTIAL 32.7 SECONDS 26-35 N (test code = PTT) CBC W/AUTO [id number] 01:06:00 Test Item Value Reference Range Interpretation Comments WHITE BLOOD CELL (test code = 11.6 K/mm3 3.5-11.0 H WBC) RED BLOOD CELL (test code = 3.15 M/mm3 4.70-6.10 L RBC) HEMOGLOBIN (test code = HGB) 7.7 G/DL 10.4-14.9 L HEMATOCRIT (test code = HCT) 24.8 % 31.5-44.1 L MEAN CELL VOLUME (test code = 78.7 Fl 84.5-98.6 L MCV) MEAN CELL HGB (test code = MCH) 24.4 pg 27.0-34.2 L MEAN CELL HGB CONCETRATION 31.0 G/DL 31.5-34.0 L (test code = MCHC) RED CELL DISTRIBUTION WIDTH 15.6 SD 11.5-14.5 H (test code = RDW) PLATELET COUNT (test code = 155 K/mm3 150-450 N PLT) MEAN PLATELET VOLUME (test code 10.10 fL 7.0-10.5 N = MPV) NEUTROPHIL % (test code = NT%) 84.3 % 40-76 H IMMATURE GRANULOCYTE % (test 0.5 % 0.0-5.0 N code = IG%) LYMPHOCYTE % (test code = LY%) 8.0 % 20.5-51.1 L MONOCYTE % (test code = MO%) 6.7 % 1.7-9.3 N EOSINOPHIL % (test code = EO%) 0.2 % 0.0-6.0 N BASOPHIL % (test code = BA%) 0.3 % 0.0-2.0 N NUCLEATED RBC % (test code = 0.0 /100WBC% 0.0-1.0 N NRBC%) NEUTROPHIL # (test code = NT#) 9.7 K/mm3 1.8-7.6 H IMMATURE GRANULOCYTE # (test 0.06 x10 3/uL 0.00-0.03 H code = IG#) LYMPHOCYTE # (test code = LY#) 0.9 K/mm3 0.6-3.2 N MONOCYTE # (test code = MO#) 0.8 K/mm3 0.3-1.1 N EOSINOPHIL # (test code = EO#) 0.0 K/mm3 0.0-0.4 N BASOPHIL # (test code = BA#) 0.0 K/mm3 0.0-0.1 N NUCLEATED RBC # (test code = 0.0 K/mm3 0.0-0.1 N NRBC#) MANUAL DIFF REQUIRED (test code NO DIFF/SCN CRITERIA = MDIFF) Comment: IF NOT ALREADY DONE WITHIN THE LAST 24 HOURSGLUCOSE BEDSIDE TESTING 2022-07-12 22:04:00 Test Item Value Reference Range Interpretation Comments GLUCOSE BEDSIDE TESTING (test code 102 mg/dL 70-110 N = GLUBED) rapid flu (A+B)2022-06-02 14:54:00 Test Item Value Reference Range Interpretation Comments Flu (test code = Flu) negative [facility] GLUCOSE (AUTOMATED)2022-03-29 17:17:50 Test Item Value Reference Range Interpretation Comments POCT GLU (test code = 6985556184) 140 mg/dL 70-110 H Lab Interpretation (test code = Abnormal 20130-4) [facility] GLUCOSE (AUTOMATED)2022-03-29 13:08:23 Test Item Value Reference Range Interpretation Comments POCT GLU (test code = 7488681712) 122 mg/dL 70-110 H Lab Interpretation (test code = Abnormal 27592-0) [facility] ACT HIGH [id number] 12:59:18 Test Item Value Reference Range Interpretation Comments ACTHR (test code = See_Comment [Automat ed message] 2348057279) The system [employer] generated this result transmitted ref erence range: 96 - 152 Seconds. The re ference range was not u sed to interpret this result as normal/abnor mal. Lab Interpretation (test Normal code = 63373-6) [facility] ACT HIGH [id number] 12:59:18 Test Item Value Reference Range Interpretation Comments ACTHR (test code = See_Comment H [Automat ed message] 8216743937) The system [employer] generated this result transmitted ref erence range: 96 - 152 Seconds. The reference range was not used to int erpret this result as normal/abnormal . Lab Interpretation (test Abnormal code = 70517-5) [facility] GLUCOSE (AUTOMATED)2022-03-29 01:41:19 Test Item Value Reference Range Interpretation Comments POCT GLU (test code = 0248703889) 110 mg/dL 70-110 Lab Interpretation (test code = Normal 73017-7) [facility] GLUCOSE (AUTOMATED)2022-03-28 21:12:42 Test Item Value Reference Range Interpretation Comments POCT GLU (test code = 6114027473) 137 mg/dL 70-110 H Lab Interpretation (test code = Abnormal 50926-0) [facility] GLUCOSE (AUTOMATED)2022-03-28 21:12:42 Test Item Value Reference Range Interpretation Comments POCT GLU (test code = 0092984391) 137 mg/dL 70-110 H Lab Interpretation (test code = Abnormal 76662-4) [facility] GLUCOSE (AUTOMATED)2022-03-28 16:44:33 Test Item Value Reference Range Interpretation Comments POCT GLU (test code = 4608548262) 153 mg/dL 70-110 H Lab Interpretation (test code = Abnormal 30621-6) [facility] GLUCOSE (AUTOMATED)2022-03-28 16:44:33 Test Item Value Reference Range Interpretation Comments POCT GLU (test code = 4273230530) 153 mg/dL 70-110 H Lab Interpretation (test code = Abnormal 21532-3) [place] [id number] 13:13:00 Test Item Value Reference Range Interpretation Comments APTT Patient (test code See_Comment H [Au tomated message] = 3173-2) The system [employer] generated this result transmitted ref erence range: 26 - 36 Seconds. The reference range was not used to int erpret this result as normal/abnormal . Lab Interpretation (test Abnormal code = 50998-3) [facility] 13:13:00 Test Item Value Reference Range Interpretation Comments APTT Patient (test code See_Comment H [Au tomated message] = 3173-2) The system [employer] generated this result transmitted ref erence range: 26 - 36 Seconds. The reference range was not used to int erpret this result as normal/abnormal . Lab Interpretation (test Abnormal code = 54552-7) [facility] GLUCOSE (AUTOMATED)2022-03-28 13:02:15 Test Item Value Reference Range Interpretation Comments POCT GLU (test code = 1448133249) 101 mg/dL 70-110 Lab Interpretation (test code = Normal 65455-8) [facility] GLUCOSE (AUTOMATED)2022-03-28 13:02:15 Test Item Value Reference Range Interpretation Comments POCT GLU (test code = 1048926895) 101 mg/dL 70-110 Lab Interpretation (test code = Normal 10124-2) [facility] (NA, K, CL, CO2, GLUCOSE, BUN, CREATININE, CA)2022-03-28 12:36:55 Test Item Value Reference Range Interpretation Comments NA (test code = 136 mmol/L 135-145 2250382666) K (test code = 4.6 mmol/L 3.5-5 6139024482) CL (test code = 110 mmol/L 98-108 H 1360897105) CO2 TOTAL (test code = 27 mmol/L 23-31 4537263992) AGAP (test code = 2-16 L 4603368306) BUN (test code = 16 mg/dL 7-23 5245684538) GLUCOSE (test code = 104 mg/dL 70-110 7087441300) CREATININE (test code = 1.92 mg/dL 0.5-1.04 H 2778098187) CALCIUM (test code = 8.0 mg/dL 8.6-10.6 L 2698070513) eGFR (test code = mL/min/1.73m2 1314658548) RICHARD (test code = RICHARD) Association of Glomerular Filtration Rate (GFR) and Staging of Kidney Disease* + --+ --+ ------+| GFR (mL/min/1.73 m2) ?| With Kidney Damage ?| ?Without Kidney Damage+ --------+ --------+ +| ?>90 ?| ?Stage one ?| ? Normal ?+ ---+ ---+ -------+| ?60-89 ?| ?Stage two ?| ? Decreased GFR ? + --+ --+ ------+| ?30-59 ?| ?Stage three ?| ? Stage three ? + --+ --+ ------+| ?15-29 ?| ?Stage four ? | ? Stage four ?+ ---+ ---+ -------+| ?<15 (or dialysis) ? ?| ?Stage five ? | ? Stage five ?+ ---+ ---+ -------+ *Each stage assumes the associated GFR level has been in effect for at least three months. ?Stages 1 to 5, with or without kidney disease, indicate chronic kidney disease. Notes: Determination of stages one and two (with eGFR >59mL/min/1.73 m2) requires estimation of kidney damage for at least three months as defined by structural or functional abnormalities of the kidney, manifested by either:Pathological abnormalities or Markers of kidney damage (including abnormalities in the composition of the blood or urine or abnormalities in imaging tests). Lab Interpretation Abnormal (test code = 87856-4) [facility] Metabolic Panel (NA, K, CL, CO2, GLUCOSE, BUN, CREATININE, CA)2022-03-28 12:36:55 Test Item Value Reference Range Interpretation Comments NA (test code = 136 mmol/L 135-145 2890615050) K (test code = 4.6 mmol/L 3.5-5 5710574684) CL (test code = 110 mmol/L 98-108 H 3208074642) CO2 TOTAL (test code = 27 mmol/L 23-31 4399024042) AGAP (test code = 2-16 L 9399877162) BUN (test code = 16 mg/dL 7-23 5909397398) GLUCOSE (test code = 104 mg/dL 70-110 1213075883) CREATININE (test code = 1.92 mg/dL 0.5-1.04 H 8536093514) CALCIUM (test code = 8.0 mg/dL 8.6-10.6 L 4153463923) eGFR (test code = mL/min/1.73m2 6792377436) RICHARD (test code = RICHARD) Association of Glomerular Filtration Rate (GFR) and Staging of Kidney Disease* + --+ --+ ------+| GFR (mL/min/1.73 m2) ?| With Kidney Damage ?| ?Without Kidney Damage+ --------+ --------+ +| ?>90 ?| ?Stage one ?| ? Normal ?+ ---+ ---+ -------+| ?60-89 ?| ?Stage two ?| ? Decreased GFR ? + --+ --+ ------+| ?30-59 ?| ?Stage three ?| ? Stage three ? + --+ --+ ------+| ?15-29 ?| ?Stage four ? | ? Stage four ?+ ---+ ---+ -------+| ?<15 (or dialysis) ? ?| ?Stage five ? | ? Stage five ?+ ---+ ---+ -------+ *Each stage assumes the associated GFR level has been in effect for at least three months. ?Stages 1 to 5, with or without kidney disease, indicate chronic kidney disease. Notes: Determination of stages one and two (with eGFR >59mL/min/1.73 m2) requires estimation of kidney damage for at least three months as defined by structural or functional abnormalities of the kidney, manifested by either:Pathological abnormalities or Markers of kidney damage (including abnormalities in the composition of the blood or urine or abnormalities in imaging tests). Lab Interpretation Abnormal (test code = 49053-0) [facility] [id number] 12:19:55 Test Item Value Reference Range Interpretation Comments MAGNESIUM (test code = 1017706508) 1.8 mg/dL 1.7-2.4 Lab Interpretation (test code = Normal 63473-2) [facility] CampusPhosphorus [id number] 12:19:55 Test Item Value Reference Range Interpretation Comments PHOSPHORUS (test code = 2147264436) 4.1 mg/dL 2.5-5 Lab Interpretation (test code = Normal 84874-6) [facility] [id number] 12:19:55 Test Item Value Reference Range Interpretation Comments MAGNESIUM (test code = 7334247350) 1.8 mg/dL 1.7-2.4 Lab Interpretation (test code = Normal 84804-0) [facility] [id number] 12:19:55 Test Item Value Reference Range Interpretation Comments PHOSPHORUS (test code = 9774108686) 4.1 mg/dL 2.5-5 Lab Interpretation (test code = Normal 55822-8) [facility]2022-[facility]-09 09:32:18 Test Item Value Reference Range Interpretation Comments APTT Patient (test code See_Comment H [Au tomated message] = 3173-2) The system [employer] generated this result transmitted ref erence range: 26 - 36 Seconds. The reference range was not used to int erpret this result as normal/abnormal . Lab Interpretation (test Abnormal code = 66278-7) [facility]2022-[facility]-09 09:32:18 Test Item Value Reference Range Interpretation Comments APTT Patient (test code See_Comment H [Au tomated message] = 3173-2) The system [employer] generated this result transmitted ref erence range: 26 - 36 Seconds. The reference range was not used to int erpret this result as normal/abnormal . Lab Interpretation (test Abnormal code = 25719-7) [facility] Campus[facility] with [id number] 09:29:57 Test Item Value Reference Range Interpretation Comments WBC (test code = See_Comment [Automated 6690-2) message] The sy stem which generated this result transmitted reference range : 4.30 - 11.10 10*3/?L. The reference range was not used to interpret this result as normal/abnormal . RBC (test code = See_Comment L [Automated 789-8) message] The sy stem which generated this result transmitted reference range : 3.93 - 5.25 10*6/?L. The reference range was not used to interpret this result as normal/abnormal . HGB (test code = 9.3 g/dL 11.6-15 L 718-7) HCT (test code = 30.2 % 35.7-45.2 L 4544-3) MCV (test code = 80.1 fL 80.6-95.5 L 787-2) MCH (test code = 24.7 pg 25.9-32.8 L 785-6) MCHC (test code = 30.8 g/dL 31.6-35.1 L 786-4) RDW-SD (test code = 51.3 fL 39-49.9 H 67216-3) RDW-CV (test code = 17.3 % 12-15.5 H 788-0) PLT (test code = See_Comment [Automated 777-3) message] The sy stem which generated this result transmitted reference range : 166 - 358 10*3/ ?L. The reference r ruchi was not used to interpret this result as normal/abnormal . MPV (test code = 9.2 fL 9.5-12.9 L 65935-2) NRBC/100 WBC (test See_Comment [Automat ed code = 3156222213) message] The system which generated this result transmitted reference range : 0.0 - 10.0 /100 WBCs. The refer ence range was not u sed to interpret th is result as normal/abnormal . NRBC x10^3 (test code See_Comment [Auto mated = 3045999927) message] The s ystem which generated this result transmitted reference range : 10*3/?L. The reference range was not used to interpret this result as normal/abnormal . GRAN MAT (NEUT) % 79.0 % (test code = 770-8) IMM GRAN % (test code 0.30 % = 9482529642) LYMPH % (test code = 11.6 % 736-9) MONO % (test code = 5.8 % 5905-5) EOS % (test code = 3.0 % 713-8) BASO % (test code = 0.3 % 706-2) GRAN MAT x10^3(ANC) 7.55 10*3/uL 1.88-7.09 H (test code = 7734615861) IMM GRAN x10^3 (test 0.03 10*3/uL 0-0.06 code = 3670029156) LYMPH x10^3 (test code 1.11 10*3/uL 1.32-3.29 L = 731-0) MONO x10^3 (test code 0.55 10*3/uL 0.33-0.92 = 742-7) EOS x10^3 (test code = 0.29 10*3/uL 0.03-0.39 711-2) BASO x10^3 (test code 0.03 10*3/uL 0.01-0.07 = 704-7) Lab Interpretation Abnormal (test code = 29985-0) [facility] with Moofiecutodo8161-58-44 09:29:57 Test Item Value Reference Range Interpretation Comments WBC (test code = See_Comment [Automated 6690-2) message] The sy stem which generated this result transmitted reference range : 4.30 - 11.10 10*3/?L. The reference range was not used to interpret this result as normal/abnormal . RBC (test code = See_Comment L [Automated 789-8) message] The sy stem which generated this result transmitted reference range : 3.93 - 5.25 10*6/?L. The reference range was not used to interpret this result as normal/abnormal . HGB (test code = 9.3 g/dL 11.6-15 L 718-7) HCT (test code = 30.2 % 35.7-45.2 L 4544-3) MCV (test code = 80.1 fL 80.6-95.5 L 787-2) MCH (test code = 24.7 pg 25.9-32.8 L 785-6) MCHC (test code = 30.8 g/dL 31.6-35.1 L 786-4) RDW-SD (test code = 51.3 fL 39-49.9 H 81621-2) RDW-CV (test code = 17.3 % 12-15.5 H 788-0) PLT (test code = See_Comment [Automated 777-3) message] The sy stem which generated this result transmitted reference range : 166 - 358 10*3/ ?L. The reference r ruchi was not used to interpret this result as normal/abnormal . MPV (test code = 9.2 fL 9.5-12.9 L 68480-9) NRBC/100 WBC (test See_Comment [Automat ed code = 3578933997) message] The system which generated this result transmitted reference range : 0.0 - 10.0 /100 WBCs. The refer ence range was not u sed to interpret th is result as normal/abnormal . NRBC x10^3 (test code See_Comment [Auto mated = 2228680301) message] The s ystem which generated this result transmitted reference range : 10*3/?L. The reference range was not used to interpret this result as normal/abnormal . GRAN MAT (NEUT) % 79.0 % (test code = 770-8) IMM GRAN % (test code 0.30 % = 6476120412) LYMPH % (test code = 11.6 % 736-9) MONO % (test code = 5.8 % 5905-5) EOS % (test code = 3.0 % 713-8) BASO % (test code = 0.3 % 706-2) GRAN MAT x10^3(ANC) 7.55 10*3/uL 1.88-7.09 H (test code = 6798817807) IMM GRAN x10^3 (test 0.03 10*3/uL 0-0.06 code = 6730961134) LYMPH x10^3 (test code 1.11 10*3/uL 1.32-3.29 L = 731-0) MONO x10^3 (test code 0.55 10*3/uL 0.33-0.92 = 742-7) EOS x10^3 (test code = 0.29 10*3/uL 0.03-0.39 711-2) BASO x10^3 (test code 0.03 10*3/uL 0.01-0.07 = 704-7) Lab Interpretation Abnormal (test code = 07521-8) [facility] 05:42:45 Test Item Value Reference Range Interpretation Comments APTT Patient (test code See_Comment H [Au tomated message] = 3173-2) The system whic h generated this result transmitted ref erence range: 26 - 36 Seconds. The reference range was not used to int erpret this result as normal/abnormal . Lab Interpretation (test Abnormal code = 99698-3) [facility]22-[facility]-09 05:42:45 Test Item Value Reference Range Interpretation Comments APTT Patient (test code See_Comment H [Au tomated message] = 3173-2) The system [employer] generated this result transmitted ref erence range: 26 - 36 Seconds. The reference range was not used to int erpret this result as normal/abnormal . Lab Interpretation (test Abnormal code = 61351-4) [place] [id number] 02:07:11 Test Item Value Reference Range Interpretation Comments APTT Patient (test code See_Comment H [Au tomated message] = 3173-2) The system [employer] generated this result transmitted ref erence range: 26 - 36 Seconds. The reference range was not used to int erpret this result as normal/abnormal . Lab Interpretation (test Abnormal code = 40109-0) [place] [id number] 02:07:11 Test Item Value Reference Range Interpretation Comments APTT Patient (test code See_Comment H [Au tomated message] = 3173-2) The system [employer] generated this result transmitted ref erence range: 26 - 36 Seconds. The reference range was not used to int erpret this result as normal/abnormal . Lab Interpretation (test Abnormal code = 85069-5) [facility] GLUCOSE (AUTOMATED)2022-03-28 01:58:16 Test Item Value Reference Range Interpretation Comments POCT GLU (test code = 3643089862) 122 mg/dL 70-110 H Lab Interpretation (test code = Abnormal 75984-7) [facility] GLUCOSE (AUTOMATED)2022-03-28 01:58:16 Test Item Value Reference Range Interpretation Comments POCT GLU (test code = 2859796015) 122 mg/dL 70-110 H Lab Interpretation (test code = Abnormal 96320-1) [facility] Packed RBC (in units), 2 Units 2022-03-27 16:31:06 Test Item Value Reference Range Interpretation Comments Cross Match Result Compatible (test code = 4409) ISBT Blood Type Code (test code = 466661) Unit Blood Type (test A Neg code = 4410) Unit Number (test [id number] code = 4411) Blood Expiration Date & Time (test code = 001883) Status Information Issued (test code = 4412) Product Red Blood Cells Identification (test code = 4413) Product Code (test N7492L28 Performed at [facility] code = 4414) Laboratory Services - [facility] Blood [address] [address]Gmrw Free: [phone] A No. [id number] [facility] Packed RBC (in units), 2 Units 2022-03-27 16:31:06 Test Item Value Reference Range Interpretation Comments Cross Match Result Compatible (test code = 4409) ISBT Blood Type Code (test code = 704520) Unit Blood Type (test A Neg code = 4410) Unit Number (test [id number] code = 4411) Blood Expiration Date & Time (test code = 022092) Status Information Issued (test code = 4412) Product Red Blood Cells Identification (test code = 4413) Product Code (test U6851I73 Performed at [facility] code = 4414) Laboratory Services - [facility] Blood [address] [address]Hayw Free: [phone] A No. [id number] [facility] Packed RBC (in units), 2 Units 2022-03-27 16:31:06 Test Item Value Reference Range Interpretation Comments Cross Match Result Compatible (test code = 4409) ISBT Blood Type Code (test code = 005454) Unit Blood Type (test A Neg code = 4410) Unit Number (test [id number] code = 4411) Blood Expiration Date & Time (test code = 075334) Status Information Issued (test code = 4412) Product Red Blood Cells Identification (test code = 4413) Product Code (test F2932H47 Performed at [facility] code = 4414) Laboratory Services - [facility] Blood [address] [address]Fuxx Free: [phone] A No. [id number] [facility]22-[facility]-27 14:13:29 Test Item Value Reference Range Interpretation Comments POCT GLU (test code = 1593550558) 137 mg/dL 70-110 H Lab Interpretation (test code = Abnormal 94464-7) [facility] GLUCOSE (AUTOMATED)2022-03-27 14:13:29 Test Item Value Reference Range Interpretation Comments POCT GLU (test code = 8734406280) 137 mg/dL 70-110 H Lab Interpretation (test code = Abnormal 79687-6) [facility] GLUCOSE (AUTOMATED)2022-03-27 14:13:29 Test Item Value Reference Range Interpretation Comments POCT GLU (test code = 3215600602) 137 mg/dL 70-110 H Lab Interpretation (test code = Abnormal 32201-9) [facility] GLUCOSE (AUTOMATED)2022-03-27 12:57:54 Test Item Value Reference Range Interpretation Comments POCT GLU (test code = 1951281875) 116 mg/dL 70-110 H Lab Interpretation (test code = Abnormal 92790-1) [facility] GLUCOSE (AUTOMATED)2022-03-27 12:57:54 Test Item Value Reference Range Interpretation Comments POCT GLU (test code = 3082216013) 116 mg/dL 70-110 H Lab Interpretation (test code = Abnormal 71614-5) [facility] and Screen - ONCE [id number] 11:02:45 Test Item Value Reference Range Interpretation Comments ABO & RH (test code A NEGATIVE Performe d at [facility] = 20) Laboratory [facility] Blood Bank[address] [place] [address]Xiqh Free: [phone] A No. [id number] IAT (test code = Negative Performed a t [facility] 1185) Laboratory [facility] access hospital Blood Bank[facility] [address] [place] [address] s [address]Vcub Free: [phone] A No. [id number] [facility] and Screen - ONCE [id number] 11:02:45 Test Item Value Reference Range Interpretation Comments ABO & RH (test code A NEGATIVE Performe d at [facility] = 20) Laboratory [facility] access hospital Blood [facility] [address] [place] [address] s [address]Gsjw Free: [phone] A No. [id number] IAT (test code = Negative Performed a t [facility] 1185) Laboratory Critical access hospital Blood Bank3 [address] [facility] [address]Ajac Free: [phone] A No. [id number] [facility] [id number] 11:02:45 Test Item Value Reference Range Interpretation Comments ABO & RH (test code A NEGATIVE Performe d at [facility] = 20) Laboratory Critical access hospital Blood Bank3 [address] [facility] [address]Yewq Free: [phone] A No. [id number] IAT (test code = Negative Performed a t [facility] 1185) Laboratory Critical access hospital Blood Bank3 [facility] [address]Bzwg Free: [phone] A No. [id number] [facility]2022-[facility] 06:37:05 Test Item Value Reference Range Interpretation Comments MAGNESIUM (test code = 5019428814) 2.0 mg/dL 1.7-2.4 Lab Interpretation (test code = Normal 24147-9) [facility]OLIC PAN[facility] (NA, K, CL, CO2, GLUCOSE, BUN, CREATININE, CA)2022-03-27 06:37:05 Test Item Value Reference Range Interpretation Comments NA (test code = 136 mmol/L 135-145 0385102181) K (test code = 4.2 mmol/L 3.5-5 8270471983) CL (test code = 108 mmol/L 98-108 0378809816) CO2 TOTAL (test code = 27 mmol/L 23-31 8995241061) AGAP (test code = 2-16 L 9587486530) BUN (test code = 18 mg/dL 7-23 6886194627) GLUCOSE (test code = 108 mg/dL 70-110 0455685316) CREATININE (test code = 2.08 mg/dL 0.5-1.04 H 7294072516) CALCIUM (test code = 8.3 mg/dL 8.6-10.6 L 2087296750) eGFR (test code = mL/min/1.73m2 7500797452) RICHARD (test code = RICHARD) Association of Glomerular Filtration Rate (GFR) and Staging of Kidney Disease* + --+ --+ ------+| GFR (mL/min/1.73 m2) ?| With Kidney Damage ?| ?Without Kidney Damage+ --------+ --------+ +| ?>90 ?| ?Stage one ?| ? Normal ?+ ---+ ---+ -------+| ?60-89 ?| ?Stage two ?| ? Decreased GFR ? + --+ --+ ------+| ?30-59 ?| ?Stage three ?| ? Stage three ? + --+ --+ ------+| ?15-29 ?| ?Stage four ? | ? Stage four ?+ ---+ ---+ -------+| ?<15 (or dialysis) ? ?| ?Stage five ? | ? Stage five ?+ ---+ ---+ -------+ *Each stage assumes the associated GFR level has been in effect for at least three months. ?Stages 1 to 5, with or without kidney disease, indicate chronic kidney disease. Notes: Determination of stages one and two (with eGFR >59mL/min/1.73 m2) requires estimation of kidney damage for at least three months as defined by structural or functional abnormalities of the kidney, manifested by either:Pathological abnormalities or Markers of kidney damage (including abnormalities in the composition of the blood or urine or abnormalities in imaging tests). Lab Interpretation Abnormal (test code = 63079-5) [facility] (NA, K, CL, CO2, GLUCOSE, BUN, CREATININE, CA)2022-03-27 06:37:05 Test Item Value Reference Range Interpretation Comments NA (test code = 136 mmol/L 135-145 8186259888) K (test code = 4.2 mmol/L 3.5-5 8210509050) CL (test code = 108 mmol/L 98-108 2544872106) CO2 TOTAL (test code = 27 mmol/L 23-31 9312983121) AGAP (test code = 2-16 L 7913135234) BUN (test code = 18 mg/dL 7-23 4788688798) GLUCOSE (test code = 108 mg/dL 70-110 2963984997) CREATININE (test code = 2.08 mg/dL 0.5-1.04 H 8213856010) CALCIUM (test code = 8.3 mg/dL 8.6-10.6 L 3412151604) eGFR (test code = mL/min/1.73m2 8604887710) RICHARD (test code = RICHARD) Association of Glomerular Filtration Rate (GFR) and Staging of Kidney Disease* + --+ --+ ------+| GFR (mL/min/1.73 m2) ?| With Kidney Damage ?| ?Without Kidney Damage+ --------+ --------+ +| ?>90 ?| ?Stage one ?| ? Normal ?+ ---+ ---+ -------+| ?60-89 ?| ?Stage two ?| ? Decreased GFR ? + --+ --+ ------+| ?30-59 ?| ?Stage three ?| ? Stage three ? + --+ --+ ------+| ?15-29 ?| ?Stage four ? | ? Stage four ?+ ---+ ---+ -------+| ?<15 (or dialysis) ? ?| ?Stage five ? | ? Stage five ?+ ---+ ---+ -------+ *Each stage assumes the associated GFR level has been in effect for at least three months. ?Stages 1 to 5, with or without kidney disease, indicate chronic kidney disease. Notes: Determination of stages one and two (with eGFR >59mL/min/1.73 m2) requires estimation of kidney damage for at least three months as defined by structural or functional abnormalities of the kidney, manifested by either:Pathological abnormalities or Markers of kidney damage (including abnormalities in the composition of the blood or urine or abnormalities in imaging tests). Lab Interpretation Abnormal (test code = 73042-8) [facility]20[facility] 06:37:05 Test Item Value Reference Range Interpretation Comments MAGNESIUM (test code = 6949916080) 2.0 mg/dL 1.7-2.4 Lab Interpretation (test code = Normal 64520-6) [facility] (NA, K, CL, CO2, GLUCOSE, BUN, CREATININE, CA)2022-03-27 06:37:05 Test Item Value Reference Range Interpretation Comments NA (test code = 136 mmol/L 135-145 1745927056) K (test code = 4.2 mmol/L 3.5-5 8065185222) CL (test code = 108 mmol/L 98-108 9619440877) CO2 TOTAL (test code = 27 mmol/L 23-31 0690294717) AGAP (test code = 2-16 L 9740855133) BUN (test code = 18 mg/dL 7-23 4687158983) GLUCOSE (test code = 108 mg/dL 70-110 3526039417) CREATININE (test code = 2.08 mg/dL 0.5-1.04 H 1144866929) CALCIUM (test code = 8.3 mg/dL 8.6-10.6 L 0338230338) eGFR (test code = mL/min/1.73m2 9979945479) RICHARD (test code = RICHARD) Association of Glomerular Filtration Rate (GFR) and Staging of Kidney Disease* + --+ --+ ------+| GFR (mL/min/1.73 m2) ?| With Kidney Damage ?| ?Without Kidney Damage+ --------+ --------+ +| ?>90 ?| ?Stage one ?| ? Normal ?+ ---+ ---+ -------+| ?60-89 ?| ?Stage two ?| ? Decreased GFR ? + --+ --+ ------+| ?30-59 ?| ?Stage three ?| ? Stage three ? + --+ --+ ------+| ?15-29 ?| ?Stage four ? | ? Stage four ?+ ---+ ---+ -------+| ?<15 (or dialysis) ? ?| ?Stage five ? | ? Stage five ?+ ---+ ---+ -------+ *Each stage assumes the associated GFR level has been in effect for at least three months. ?Stages 1 to 5, with or without kidney disease, indicate chronic kidney disease. Notes: Determination of stages one and two (with eGFR >59mL/min/1.73 m2) requires estimation of kidney damage for at least three months as defined by structural or functional abnormalities of the kidney, manifested by either:Pathological abnormalities or Markers of kidney damage (including abnormalities in the composition of the blood or urine or abnormalities in imaging tests). Lab Interpretation Abnormal (test code = 13582-5) [facility] Test Item Value Reference Range Interpretation Comments MAGNESIUM (test code = 1026437051) 2.0 mg/dL 1.7-2.4 Lab Interpretation (test code = Normal 72026-2) [facility] (for use with Heparin Drip)2022-03-27 06:33:44 Test Item Value Reference Range Interpretation Comments APTT Patient (test code See_Comment H [Au tomated message] = 3173-2) The system [employer] generated this result transmitted ref erence range: 26 - 36 Seconds. The reference range was not used to int erpret this result as normal/abnormal . Lab Interpretation (test Abnormal code = 69508-2) [facility] (for use with Heparin Drip)2022-03-27 06:33:44 Test Item Value Reference Range Interpretation Comments APTT Patient (test code See_Comment H [Au tomated message] = 3173-2) The system [employer] generated this result transmitted ref erence range: 26 - 36 Seconds. The reference range was not used to int erpret this result as normal/abnormal . Lab Interpretation (test Abnormal code = 29960-4) [facility] (for use with Heparin Drip)2022-03-27 06:33:44 Test Item Value Reference Range Interpretation Comments APTT Patient (test code See_Comment H [Au tomated message] = 3173-2) The system [employer] generated this result transmitted ref erence range: 26 - 36 Seconds. The reference range was not used to int erpret this result as normal/abnormal . Lab Interpretation (test Abnormal code = 94968-4) [facility] WITH [id number] 06:15:59 Test Item Value Reference Range Interpretation Comments WBC (test code = See_Comment [Automated 6690-2) message] The sy stem which generated this result transmitted reference range : 4.30 - 11.10 10*3/?L. The reference range was not used to interpret this result as normal/abnormal . RBC (test code = See_Comment L [Automated 789-8) message] The sy stem which generated this result transmitted reference range : 3.93 - 5.25 10*6/?L. The reference range was not used to interpret this result as normal/abnormal . HGB (test code = 7.9 g/dL 11.6-15 L 718-7) HCT (test code = 26.4 % 35.7-45.2 L 4544-3) MCV (test code = 76.7 fL 80.6-95.5 L 787-2) MCH (test code = 23.0 pg 25.9-32.8 L 785-6) MCHC (test code = 29.9 g/dL 31.6-35.1 L 786-4) RDW-SD (test code = 48.1 fL 39-49.9 18739-9) RDW-CV (test code = 17.4 % 12-15.5 H 788-0) PLT (test code = See_Comment [Automated 777-3) message] The sy stem which generated this result transmitted reference range : 166 - 358 10*3/ ?L. The reference r ruchi was not used to interpret this result as normal/abnormal . MPV (test code = 9.6 fL 9.5-12.9 24099-0) NRBC/100 WBC (test See_Comment [Automat ed code = 6008861370) message] The system which generated this result transmitted reference range : 0.0 - 10.0 /100 WBCs. The refer ence range was not u sed to interpret th is result as normal/abnormal . NRBC x10^3 (test code See_Comment [Auto mated = 9664731538) message] The s ystem which generated this result transmitted reference range : 10*3/?L. The reference range was not used to interpret this result as normal/abnormal . GRAN MAT (NEUT) % 70.6 % (test code = 770-8) IMM GRAN % (test code 0.50 % = 3675628683) LYMPH % (test code = 20.2 % 736-9) MONO % (test code = 5.2 % 5905-5) EOS % (test code = 3.1 % 713-8) BASO % (test code = 0.4 % 706-2) GRAN MAT x10^3(ANC) 7.26 10*3/uL 1.88-7.09 H (test code = 6085701063) IMM GRAN x10^3 (test 0.05 10*3/uL 0-0.06 code = 8100631930) LYMPH x10^3 (test code 2.07 10*3/uL 1.32-3.29 = 731-0) MONO x10^3 (test code 0.53 10*3/uL 0.33-0.92 = 742-7) EOS x10^3 (test code = 0.32 10*3/uL 0.03-0.39 711-2) BASO x10^3 (test code 0.04 10*3/uL 0.01-0.07 = 704-7) Lab Interpretation Abnormal (test code = 76139-7) [facility] WITH [id number] 06:15:59 Test Item Value Reference Range Interpretation Comments WBC (test code = See_Comment [Automated 6290-2) message] The sy stem which generated this result transmitted reference range : 4.30 - 11.10 10*3/?L. The reference range was not used to interpret this result as normal/abnormal . RBC (test code = See_Comment L [Automated 789-8) message] The sy stem which generated this result transmitted reference range : 3.93 - 5.25 10*6/?L. The reference range was not used to interpret this result as normal/abnormal . HGB (test code = 7.9 g/dL 11.6-15 L 718-7) HCT (test code = 26.4 % 35.7-45.2 L 4544-3) MCV (test code = 76.7 fL 80.6-95.5 L 787-2) MCH (test code = 23.0 pg 25.9-32.8 L 785-6) MCHC (test code = 29.9 g/dL 31.6-35.1 L 786-4) RDW-SD (test code = 48.1 fL 39-49.9 17175-9) RDW-CV (test code = 17.4 % 12-15.5 H 788-0) PLT (test code = See_Comment [Automated 777-3) message] The sy stem which generated this result transmitted reference range : 166 - 358 10*3/ ?L. The reference r ruchi was not used to interpret this result as normal/abnormal . MPV (test code = 9.6 fL 9.5-12.9 57815-3) NRBC/100 WBC (test See_Comment [Automat ed code = 2298026725) message] The system which generated this result transmitted reference range : 0.0 - 10.0 /100 WBCs. The refer ence range was not u sed to interpret th is result as normal/abnormal . NRBC x10^3 (test code See_Comment [Auto mated = 7135611642) message] The s ystem which generated this result transmitted reference range : 10*3/?L. The reference range was not used to interpret this result as normal/abnormal . GRAN MAT (NEUT) % 70.6 % (test code = 770-8) IMM GRAN % (test code 0.50 % = 6900112045) LYMPH % (test code = 20.2 % 736-9) MONO % (test code = 5.2 % 5905-5) EOS % (test code = 3.1 % 713-8) BASO % (test code = 0.4 % 706-2) GRAN MAT x10^3(ANC) 7.26 10*3/uL 1.88-7.09 H (test code = 0428007126) IMM GRAN x10^3 (test 0.05 10*3/uL 0-0.06 code = 3315492951) LYMPH x10^3 (test code 2.07 10*3/uL 1.32-3.29 = 731-0) MONO x10^3 (test code 0.53 10*3/uL 0.33-0.92 = 742-7) EOS x10^3 (test code = 0.32 10*3/uL 0.03-0.39 711-2) BASO x10^3 (test code 0.04 10*3/uL 0.01-0.07 = 704-7) Lab Interpretation Abnormal (test code = 41245-2) [facility] WITH [id number] 06:15:59 Test Item Value Reference Range Interpretation Comments WBC (test code = See_Comment [Automated 6690-2) message] The sy stem which generated this result transmitted reference range : 4.30 - 11.10 10*3/?L. The reference range was not used to interpret this result as normal/abnormal . RBC (test code = See_Comment L [Automated 789-8) message] The sy stem which generated this result transmitted reference range : 3.93 - 5.25 10*6/?L. The reference range was not used to interpret this result as normal/abnormal . HGB (test code = 7.9 g/dL 11.6-15 L 718-7) HCT (test code = 26.4 % 35.7-45.2 L 4544-3) MCV (test code = 76.7 fL 80.6-95.5 L 787-2) MCH (test code = 23.0 pg 25.9-32.8 L 785-6) MCHC (test code = 29.9 g/dL 31.6-35.1 L 786-4) RDW-SD (test code = 48.1 fL 39-49.9 28005-1) RDW-CV (test code = 17.4 % 12-15.5 H 788-0) PLT (test code = See_Comment [Automated 777-3) message] The sy stem which generated this result transmitted reference range : 166 - 358 10*3/ ?L. The reference r ruchi was not used to interpret this result as normal/abnormal . MPV (test code = 9.6 fL 9.5-12.9 64435-9) NRBC/100 WBC (test See_Comment [Automat ed code = 6250386382) message] The system which generated this result transmitted reference range : 0.0 - 10.0 /100 WBCs. The refer ence range was not u sed to interpret th is result as normal/abnormal . NRBC x10^3 (test code See_Comment [Auto mated = 0169660571) message] The s ystem which generated this result transmitted reference range : 10*3/?L. The reference range was not used to interpret this result as normal/abnormal . GRAN MAT (NEUT) % 70.6 % (test code = 770-8) IMM GRAN % (test code 0.50 % = 1998594371) LYMPH % (test code = 20.2 % 736-9) MONO % (test code = 5.2 % 5905-5) EOS % (test code = 3.1 % 713-8) BASO % (test code = 0.4 % 706-2) GRAN MAT x10^3(ANC) 7.26 10*3/uL 1.88-7.09 H (test code = 0538818619) IMM GRAN x10^3 (test 0.05 10*3/uL 0-0.06 code = 8501405633) LYMPH x10^3 (test code 2.07 10*3/uL 1.32-3.29 = 731-0) MONO x10^3 (test code 0.53 10*3/uL 0.33-0.92 = 742-7) EOS x10^3 (test code = 0.32 10*3/uL 0.03-0.39 711-2) BASO x10^3 (test code 0.04 10*3/uL 0.01-0.07 = 704-7) Lab Interpretation Abnormal (test code = 24681-2) [facility] GLUCOSE (AUTOMATED)2022-03-27 01:12:34 Test Item Value Reference Range Interpretation Comments POCT GLU (test code = 0857869164) 131 mg/dL 70-110 H Lab Interpretation (test code = Abnormal 05796-5) [facility] GLUCOSE (AUTOMATED)2022-03-27 01:12:34 Test Item Value Reference Range Interpretation Comments POCT GLU (test code = 9392556000) 131 mg/dL 70-110 H Lab Interpretation (test code = Abnormal 51148-1) [facility] GLUCOSE (AUTOMATED)2022-03-26 22:25:08 Test Item Value Reference Range Interpretation Comments POCT GLU (test code = 5942148285) 119 mg/dL 70-110 H Lab Interpretation (test code = Abnormal 39488-9) [facility] GLUCOSE (AUTOMATED)2022-03-26 22:25:08 Test Item Value Reference Range Interpretation Comments POCT GLU (test code = 4865370446) 119 mg/dL 70-110 H Lab Interpretation (test code = Abnormal 18740-2) [facility]2022-03-26 22:02:12 Test Item Value Reference Range Interpretation Comments APTT Patient (test code See_Comment H [Au tomated message] = 9083-2) The system [employer] generated this result transmitted ref erence range: 26 - 36 Seconds. The reference range was not used to int erpret this result as normal/abnormal . Lab Interpretation (test Abnormal code = 80281-3) [facility]arin Drip[facility]2022-03-26 22:02:12 Test Item Value Reference Range Interpretation Comments APTT Patient (test code See_Comment H [Au tomated message] = 3173-2) The system [employer] generated this result transmitted ref erence range: 26 - 36 Seconds. The reference range was not used to int erpret this result as normal/abnormal . Lab Interpretation (test Abnormal code = 63546-6) [facility] GLUCOSE (AUTOMATED)2022-03-26 17:17:02 Test Item Value Reference Range Interpretation Comments POCT GLU (test code = 1152320308) 158 mg/dL 70-110 H Lab Interpretation (test code = Abnormal 29917-3) [facility] GLUCOSE (AUTOMATED)2022-03-26 17:17:02 Test Item Value Reference Range Interpretation Comments POCT GLU (test code = 2340817277) 158 mg/dL 70-110 H Lab Interpretation (test code = Abnormal 84844-4) [facility] GLUCOSE (AUTOMATED)2022-03-26 14:16:24 Test Item Value Reference Range Interpretation Comments POCT GLU (test code = 8570356395) 115 mg/dL 70-110 H Lab Interpretation (test code = Abnormal 16848-8) [facility] GLUCOSE (AUTOMATED)2022-03-26 14:16:24 Test Item Value Reference Range Interpretation Comments POCT GLU (test code = 4990999745) 115 mg/dL 70-110 H Lab Interpretation (test code = Abnormal 11386-0) [facility] METABOLIC PANEL (NA, K, CL, CO2, GLUCOSE, BUN, CREATININE, CA)2022-03-26 11:21:57 Test Item Value Reference Range Interpretation Comments NA (test code = 136 mmol/L 135-145 6091756759) K (test code = 4.1 mmol/L 3.5-5 6161048074) CL (test code = 107 mmol/L 98-108 3635779011) CO2 TOTAL (test code = 28 mmol/L 23-31 2535329386) AGAP (test code = 2-16 L 9801861254) BUN (test code = 17 mg/dL 7- 4607286694) GLUCOSE (test code = 127 mg/dL 70-110 H 9125888554) CREATININE (test code = 2.11 mg/dL 0.5-1.04 H 3671424070) CALCIUM (test code = 8.1 mg/dL 8.6-10.6 L 7317313174) eGFR (test code = mL/min/1.73m2 3071647858) RICHARD (test code = RICHARD) Association of Glomerular Filtration Rate (GFR) and Staging of Kidney Disease* + --+ --+ ------+| GFR (mL/min/1.73 m2) ?| With Kidney Damage ?| ?Without Kidney Damage+ --------+ --------+ +| ?>90 ?| ?Stage one ?| ? Normal ?+ ---+ ---+ -------+| ?60-89 ?| ?Stage two ?| ? Decreased GFR ? + --+ --+ ------+| ?30-59 ?| ?Stage three ?| ? Stage three ? + --+ --+ ------+| ?15-29 ?| ?Stage four ? | ? Stage four ?+ ---+ ---+ -------+| ?<15 (or dialysis) ? ?| ?Stage five ? | ? Stage five ?+ ---+ ---+ -------+ *Each stage assumes the associated GFR level has been in effect for at least three months. ?Stages 1 to 5, with or without kidney disease, indicate chronic kidney disease. Notes: Determination of stages one and two (with eGFR >59mL/min/1.73 m2) requires estimation of kidney damage for at least three months as defined by structural or functional abnormalities of the kidney, manifested by either:Pathological abnormalities or Markers of kidney damage (including abnormalities in the composition of the blood or urine or abnormalities in imaging tests). Lab Interpretation Abnormal (test code = 36592-8) [facility] METABOLIC PANEL (NA, K, CL, CO2, GLUCOSE, BUN, CREATININE, CA)2022-03-26 11:21:57 Test Item Value Reference Range Interpretation Comments NA (test code = 136 mmol/L 135-145 1872058116) K (test code = 4.1 mmol/L 3.5-5 9296757093) CL (test code = 107 mmol/L 98-108 6669092318) CO2 TOTAL (test code = 28 mmol/L 23-31 5397126725) AGAP (test code = 2-16 L 0927287672) BUN (test code = 17 mg/dL 7-23 5391265221) GLUCOSE (test code = 127 mg/dL 70-110 H 4725273814) CREATININE (test code = 2.11 mg/dL 0.5-1.04 H 3344808463) CALCIUM (test code = 8.1 mg/dL 8.6-10.6 L 6874591873) eGFR (test code = mL/min/1.73m2 4005519930) RICHARD (test code = RICHARD) Association of Glomerular Filtration Rate (GFR) and Staging of Kidney Disease* + --+ --+ ------+| GFR (mL/min/1.73 m2) ?| With Kidney Damage ?| ?Without Kidney Damage+ --------+ --------+ +| ?>90 ?| ?Stage one ?| ? Normal ?+ ---+ ---+ -------+| ?60-89 ?| ?Stage two ?| ? Decreased GFR ? + --+ --+ ------+| ?30-59 ?| ?Stage three ?| ? Stage three ? + --+ --+ ------+| ?15-29 ?| ?Stage four ? | ? Stage four ?+ ---+ ---+ -------+| ?<15 (or dialysis) ? ?| ?Stage five ? | ? Stage five ?+ ---+ ---+ -------+ *Each stage assumes the associated GFR level has been in effect for at least three months. ?Stages 1 to 5, with or without kidney disease, indicate chronic kidney disease. Notes: Determination of stages one and two (with eGFR >59mL/min/1.73 m2) requires estimation of kidney damage for at least three months as defined by structural or functional abnormalities of the kidney, manifested by either:Pathological abnormalities or Markers of kidney damage (including abnormalities in the composition of the blood or urine or abnormalities in imaging tests). Lab Interpretation Abnormal (test code = 73242-6) [facility] (for use with Heparin Drip)2022-03-26 10:21:50 Test Item Value Reference Range Interpretation Comments APTT Patient (test code See_Comment H [Au tomated message] = 3173-2) The system [employer] generated this result transmitted ref erence range: 26 - 36 Seconds. The reference range was not used to int erpret this result as normal/abnormal . Lab Interpretation (test Abnormal code = 39208-2) [facility] (for use with Heparin Drip)2022-03-26 10:21:50 Test Item Value Reference Range Interpretation Comments APTT Patient (test code See_Comment H [Au tomated message] = 3173-2) The system [employer] generated this result transmitted ref erence range: 26 - 36 Seconds. The reference range was not used to int erpret this result as normal/abnormal . Lab Interpretation (test Abnormal code = 68439-8) [facility] GLUCOSE (AUTOMATED)2022-03-26 02:23:48 Test Item Value Reference Range Interpretation Comments POCT GLU (test code = 6624118440) 142 mg/dL 70-110 H Lab Interpretation (test code = Abnormal 32827-8) [facility] GLUCOSE (AUTOMATED)2022-03-26 02:23:48 Test Item Value Reference Range Interpretation Comments POCT GLU (test code = 6417672964) 142 mg/dL 70-110 H Lab Interpretation (test code = Abnormal 72136-2) [facility] 22:43:45 Test Item Value Reference Range Interpretation Comments Height (test code = in 7765538355) Weight (test code = lbs 5953738718) Systolic BP (test mmHg code = 0662366764) Diastolic BP (test mmHg code = 3077657831) Heart Rate (test code bpm = 7759820937) BSA (test code = 1.96 m2 6061188133) Radiology Study observation (narrative) (test code = 76812-4) RICHARD (test code = RICHARD) Formatting of this result is different from the original. ?Left?Atrium: Saline contrast shows no shunt. No thrombus in left atrial appendage. ?Aorta: Atherosclerosis of the descending aorta with mild thickening. Left VentricleLeft ventricle size is normal. Normal systolic function with a visually estimated EF of 60 - 65%.Right VentricleRight ventricle size is normal. Normal systolic function.Left AtriumLeft atrium size is normal. Saline contrast shows no shunt. Normal sized appendage. Normal appendage flow velocity. No thrombus in left atrial appendage.Right AtriumRight atrium size is normal.Mitral ValveMitral valve structure is normal.Tricuspid ValveTricuspid valve structure is normal.Aortic ValveAortic valve structure is normal.Pulmonic ValveValve structure is normal.Ascending AortaAorta is normal in size. Atherosclerosis of the descending aorta with mild thickening.PericardiumTh e pericardium is normal. No pericardial effusion.Study DetailsA complete transesophageal echocardiogram was performed using complete 2D, color flow Doppler and spectral Doppler. The probe was inserted by the furniture mover. Moderate sedation was given. 2 mg of midazolam and 50 mcg of Fentanyl were administered during the study.STEPHANIE SHETH [facility] 22:43:45 Test Item Value Reference Range Interpretation Comments Height (test code = in 0696834480) Weight (test code = lbs 4847354231) Systolic BP (test mmHg code = 6865112490) Diastolic BP (test mmHg code = 1841412785) Heart Rate (test code bpm = 2250211253) BSA (test code = 1.96 m2 6488532964) Radiology Study observation (narrative) (test code = 07323-8) RICHARD (test code = RICHARD) Formatting of this result is different from the original. ?Left?Atrium: Saline contrast shows no shunt. No thrombus in left atrial appendage. ?Aorta: Atherosclerosis of the descending aorta with mild thickening. Left VentricleLeft ventricle size is normal. Normal systolic function with a visually estimated EF of 60 - 65%.Right VentricleRight ventricle size is normal. Normal systolic function.Left AtriumLeft atrium size is normal. Saline contrast shows no shunt. Normal sized appendage. Normal appendage flow velocity. No thrombus in left atrial appendage.Right AtriumRight atrium size is normal.Mitral ValveMitral valve structure is normal.Tricuspid ValveTricuspid valve structure is normal.Aortic ValveAortic valve structure is normal.Pulmonic ValveValve structure is normal.Ascending AortaAorta is normal in size. Atherosclerosis of the descending aorta with mild thickening.PericardiumTh e pericardium is normal. No pericardial effusion.Study DetailsA complete transesophageal echocardiogram was performed using complete 2D, color flow Doppler and spectral Doppler. The probe was inserted by the furniture mover. Moderate sedation was given. 2 mg of midazolam and 50 mcg of Fentanyl were administered during the study.STEPHANIE SHETH [facility] (for use with Heparin Drip)2022-03-25 21:55:03 Test Item Value Reference Range Interpretation Comments APTT Patient (test code See_Comment H [Au tomated message] = 3173-2) The system [employer] generated this result transmitted ref erence range: 26 - 36 Seconds. The reference range was not used to int erpret this result as normal/abnormal . Lab Interpretation (test Abnormal code = 53438-1) [facility] (for use with Heparin Drip)2022-03-25 21:55:03 Test Item Value Reference Range Interpretation Comments APTT Patient (test code See_Comment H [Au tomated message] = 3173-2) The system [employer] generated this result transmitted ref erence range: 26 - 36 Seconds. The reference range was not used to int erpret this result as normal/abnormal . Lab Interpretation (test Abnormal code = 04760-8) [facility] GLUCOSE (AUTOMATED)2022-03-25 21:46:57 Test Item Value Reference Range Interpretation Comments POCT GLU (test code = 0766705127) 101 mg/dL 70-110 Lab Interpretation (test code = Normal 20534-8) [facility] GLUCOSE (AUTOMATED)2022-03-25 21:46:57 Test Item Value Reference Range Interpretation Comments POCT GLU (test code = 8583417481) 101 mg/dL 70-110 Lab Interpretation (test code = Normal 63441-7) [facility] GLUCOSE (AUTOMATED)2022-03-25 12:28:40 Test Item Value Reference Range Interpretation Comments POCT GLU (test code = 9757900427) 157 mg/dL 70-110 H Lab Interpretation (test code = Abnormal 45044-2) [facility] GLUCOSE (AUTOMATED)2022-03-25 12:28:40 Test Item Value Reference Range Interpretation Comments POCT GLU (test code = 6673716307) 157 mg/dL 70-110 H Lab Interpretation (test code = Abnormal 27662-3) [facility] GLUCOSE (AUTOMATED)2022-03-25 01:57:13 Test Item Value Reference Range Interpretation Comments POCT GLU (test code = 8014380792) 143 mg/dL 70-110 H Lab Interpretation (test code = Abnormal 87455-6) [facility] GLUCOSE (AUTOMATED)2022-03-25 01:57:13 Test Item Value Reference Range Interpretation Comments POCT GLU (test code = 9457251010) 143 mg/dL 70-110 H Lab Interpretation (test code = Abnormal 10151-0) [facility] GLUCOSE (AUTOMATED)2022-03-24 21:57:41 Test Item Value Reference Range Interpretation Comments POCT GLU (test code = 8889235430) 211 mg/dL 70-110 H Lab Interpretation (test code = Abnormal 75096-7) [facility] GLUCOSE (AUTOMATED)2022-03-24 21:57:41 Test Item Value Reference Range Interpretation Comments POCT GLU (test code = 0914790041) 211 mg/dL 70-110 H Lab Interpretation (test code = Abnormal 80352-6) [facility] GLUCOSE (AUTOMATED)2022-03-24 21:57:41 Test Item Value Reference Range Interpretation Comments POCT GLU (test code = 1557702179) 211 mg/dL 70-110 H Lab Interpretation (test code = Abnormal 57000-0) [facility] GLUCOSE (AUTOMATED)2022-03-24 16:55:19 Test Item Value Reference Range Interpretation Comments POCT GLU (test code = 5322454023) 150 mg/dL 70-110 H Lab Interpretation (test code = Abnormal 55929-4) [facility] GLUCOSE (AUTOMATED)2022-03-24 16:55:19 Test Item Value Reference Range Interpretation Comments POCT GLU (test code = 1578843915) 150 mg/dL 70-110 H Lab Interpretation (test code = Abnormal 02694-6) [facility] GLUCOSE (AUTOMATED)2022-03-24 16:55:19 Test Item Value Reference Range Interpretation Comments POCT GLU (test code = 5225577573) 150 mg/dL 70-110 H Lab Interpretation (test code = Abnormal 92586-6) [facility] GLUCOSE (AUTOMATED)2022-03-24 14:05:17 Test Item Value Reference Range Interpretation Comments POCT GLU (test code = 0679855638) 117 mg/dL 70-110 H Lab Interpretation (test code = Abnormal 29113-0) [facility] GLUCOSE (AUTOMATED)2022-03-24 14:05:17 Test Item Value Reference Range Interpretation Comments POCT GLU (test code = 7697943142) 117 mg/dL 70-110 H Lab Interpretation (test code = Abnormal 45152-2) [facility] GLUCOSE (AUTOMATED)2022-03-24 14:05:17 Test Item Value Reference Range Interpretation Comments POCT GLU (test code = 9346237433) 117 mg/dL 70-110 H Lab Interpretation (test code = Abnormal 62620-8) [facility] GLUCOSE (AUTOMATED)2022-03-24 12:59:46 Test Item Value Reference Range Interpretation Comments POCT GLU (test code = 7768724476) 111 mg/dL 70-110 H Lab Interpretation (test code = Abnormal 39099-2) [facility] GLUCOSE (AUTOMATED)2022-03-24 12:59:46 Test Item Value Reference Range Interpretation Comments POCT GLU (test code = 3280007432) 111 mg/dL 70-110 H Lab Interpretation (test code = Abnormal 10626-9) [facility] GLUCOSE (AUTOMATED)2022-03-24 12:59:46 Test Item Value Reference Range Interpretation Comments POCT GLU (test code = 4605677646) 111 mg/dL 70-110 H Lab Interpretation (test code = Abnormal 77668-0) [facility] GLUCOSE (AUTOMATED)2022-03-24 01:46:43 Test Item Value Reference Range Interpretation Comments POCT GLU (test code = 4227601731) 158 mg/dL 70-110 H Lab Interpretation (test code = Abnormal 03600-6) [facility] GLUCOSE (AUTOMATED)2022-03-24 01:46:43 Test Item Value Reference Range Interpretation Comments POCT GLU (test code = 8164119962) 158 mg/dL 70-110 H Lab Interpretation (test code = Abnormal 53565-7) [facility] GLUCOSE (AUTOMATED)2022-03-24 01:46:43 Test Item Value Reference Range Interpretation Comments POCT GLU (test code = 2299727556) 158 mg/dL 70-110 H Lab Interpretation (test code = Abnormal 72788-9) [facility] GLUCOSE (AUTOMATED)2022-03-23 22:43:09 Test Item Value Reference Range Interpretation Comments POCT GLU (test code = 9122482351) 131 mg/dL 70-110 H Lab Interpretation (test code = Abnormal 01424-4) [facility] GLUCOSE (AUTOMATED)2022-03-23 22:43:09 Test Item Value Reference Range Interpretation Comments POCT GLU (test code = 8021403390) 131 mg/dL 70-110 H Lab Interpretation (test code = Abnormal 59733-9) [facility] GLUCOSE (AUTOMATED)2022-03-23 22:43:09 Test Item Value Reference Range Interpretation Comments POCT GLU (test code = 3642907316) 131 mg/dL 70-110 H Lab Interpretation (test code = Abnormal 51313-1) [facility] GLUCOSE (AUTOMATED)2022-03-23 17:51:30 Test Item Value Reference Range Interpretation Comments POCT GLU (test code = 7545982975) 98 mg/dL 70-110 Lab Interpretation (test code = Normal 05181-3) [facility] GLUCOSE (AUTOMATED)2022-03-23 17:51:30 Test Item Value Reference Range Interpretation Comments POCT GLU (test code = 6372149082) 98 mg/dL 70-110 Lab Interpretation (test code = Normal 12243-0) [facility] GLUCOSE (AUTOMATED)2022-03-23 17:51:30 Test Item Value Reference Range Interpretation Comments POCT GLU (test code = 5877479411) 98 mg/dL 70-110 Lab Interpretation (test code = Normal 60708-0) [facility] GLUCOSE (AUTOMATED)2022-03-23 13:28:10 Test Item Value Reference Range Interpretation Comments POCT GLU (test code = 0612406640) 119 mg/dL 70-110 H Lab Interpretation (test code = Abnormal 54770-0) [facility] GLUCOSE (AUTOMATED)2022-03-23 13:28:10 Test Item Value Reference Range Interpretation Comments POCT GLU (test code = 0048007295) 119 mg/dL 70-110 H Lab Interpretation (test code = Abnormal 55203-3) [facility] GLUCOSE (AUTOMATED)2022-03-23 13:28:10 Test Item Value Reference Range Interpretation Comments POCT GLU (test code = 2766598670) 119 mg/dL 70-110 H Lab Interpretation (test code = Abnormal 04983-0) [facility] GLUCOSE (AUTOMATED)2022-03-23 02:17:07 Test Item Value Reference Range Interpretation Comments POCT GLU (test code = 4335099808) 122 mg/dL 70-110 H Lab Interpretation (test code = Abnormal 13400-9) [facility] GLUCOSE (AUTOMATED)2022-03-23 02:17:07 Test Item Value Reference Range Interpretation Comments POCT GLU (test code = 4104826183) 122 mg/dL 70-110 H Lab Interpretation (test code = Abnormal 13923-3) [facility] GLUCOSE (AUTOMATED)2022-03-23 02:17:07 Test Item Value Reference Range Interpretation Comments POCT GLU (test code = 1313668319) 122 mg/dL 70-110 H Lab Interpretation (test code = Abnormal 37855-3) [facility] GLUCOSE (AUTOMATED)2022-03-22 22:44:19 Test Item Value Reference Range Interpretation Comments POCT GLU (test code = 7825273441) 126 mg/dL 70-110 H Lab Interpretation (test code = Abnormal 83103-6) [facility] GLUCOSE (AUTOMATED)2022-03-22 22:44:19 Test Item Value Reference Range Interpretation Comments POCT GLU (test code = 8497464519) 126 mg/dL 70-110 H Lab Interpretation (test code = Abnormal 24541-1) [facility] GLUCOSE (AUTOMATED)2022-03-22 22:44:19 Test Item Value Reference Range Interpretation Comments POCT GLU (test code = 6097220460) 126 mg/dL 70-110 H Lab Interpretation (test code = Abnormal 60835-5) [facility] GLUCOSE (AUTOMATED)2022-03-22 17:52:45 Test Item Value Reference Range Interpretation Comments POCT GLU (test code = 0970952529) 88 mg/dL 70-110 Lab Interpretation (test code = Normal 88805-3) [facility] GLUCOSE (AUTOMATED)2022-03-22 17:52:45 Test Item Value Reference Range Interpretation Comments POCT GLU (test code = 1405827576) 88 mg/dL 70-110 Lab Interpretation (test code = Normal 34127-6) [facility] GLUCOSE (AUTOMATED)2022-03-22 17:52:45 Test Item Value Reference Range Interpretation Comments POCT GLU (test code = 4062751865) 88 mg/dL 70-110 Lab Interpretation (test code = Normal 52696-8) [facility] GLUCOSE (AUTOMATED)2022-03-22 13:37:43 Test Item Value Reference Range Interpretation Comments POCT GLU (test code = 7095943225) 124 mg/dL 70-110 H Lab Interpretation (test code = Abnormal 90568-7) [facility] GLUCOSE (AUTOMATED)2022-03-22 13:37:43 Test Item Value Reference Range Interpretation Comments POCT GLU (test code = 3670482558) 124 mg/dL 70-110 H Lab Interpretation (test code = Abnormal 79251-6) [facility] GLUCOSE (AUTOMATED)2022-03-22 13:37:43 Test Item Value Reference Range Interpretation Comments POCT GLU (test code = 1678549644) 124 mg/dL 70-110 H Lab Interpretation (test code = Abnormal 43884-8) [facility] Metabolic Panel (NA, K, CL, CO2, GLUCOSE, BUN, CREATININE, CA)2022-03-22 10:33:20 Test Item Value Reference Range Interpretation Comments NA (test code = 139 mmol/L 135-145 0298862711) K (test code = 3.6 mmol/L 3.5-5 2392758637) CL (test code = 113 mmol/L 98-108 H 2685280640) CO2 TOTAL (test code = 23 mmol/L 23-31 5545825503) AGAP (test code = 2-16 6266306596) BUN (test code = 22 mg/dL 7-23 6352320790) GLUCOSE (test code = 132 mg/dL 70-110 H 4875545350) CREATININE (test code = 2.42 mg/dL 0.5-1.04 H 3371820808) CALCIUM (test code = 8.2 mg/dL 8.6-10.6 L 9281774468) eGFR (test code = mL/min/1.73m2 3851527127) RICHARD (test code = RICHARD) Association of Glomerular Filtration Rate (GFR) and Staging of Kidney Disease* + --+ --+ ------+| GFR (mL/min/1.73 m2) ?| With Kidney Damage ?| ?Without Kidney Damage+ --------+ --------+ +| ?>90 ?| ?Stage one ?| ? Normal ?+ ---+ ---+ -------+| ?60-89 ?| ?Stage two ?| ? Decreased GFR ? + --+ --+ ------+| ?30-59 ?| ?Stage three ?| ? Stage three ? + --+ --+ ------+| ?15-29 ?| ?Stage four ? | ? Stage four ?+ ---+ ---+ -------+| ?<15 (or dialysis) ? ?| ?Stage five ? | ? Stage five ?+ ---+ ---+ -------+ *Each stage assumes the associated GFR level has been in effect for at least three months. ?Stages 1 to 5, with or without kidney disease, indicate chronic kidney disease. Notes: Determination of stages one and two (with eGFR >59mL/min/1.73 m2) requires estimation of kidney damage for at least three months as defined by structural or functional abnormalities of the kidney, manifested by either:Pathological abnormalities or Markers of kidney damage (including abnormalities in the composition of the blood or urine or abnormalities in imaging tests). Lab Interpretation Abnormal (test code = 09716-8) [facility] Metabolic Panel (NA, K, CL, CO2, GLUCOSE, BUN, CREATININE, CA)2022-03-22 10:33:20 Test Item Value Reference Range Interpretation Comments NA (test code = 139 mmol/L 135-145 3635481492) K (test code = 3.6 mmol/L 3.5-5 2584724314) CL (test code = 113 mmol/L 98-108 H 7857841713) CO2 TOTAL (test code = 23 mmol/L 23-31 8378983392) AGAP (test code = 2-16 1279271033) BUN (test code = 22 mg/dL 7-23 2342826168) GLUCOSE (test code = 132 mg/dL 70-110 H 3104782226) CREATININE (test code = 2.42 mg/dL 0.5-1.04 H 5047856812) CALCIUM (test code = 8.2 mg/dL 8.6-10.6 L 2149755812) eGFR (test code = mL/min/1.73m2 5940344493) RICHARD (test code = RICHARD) Association of Glomerular Filtration Rate (GFR) and Staging of Kidney Disease* + --+ --+ ------+| GFR (mL/min/1.73 m2) ?| With Kidney Damage ?| ?Without Kidney Damage+ --------+ --------+ +| ?>90 ?| ?Stage one ?| ? Normal ?+ ---+ ---+ -------+| ?60-89 ?| ?Stage two ?| ? Decreased GFR ? + --+ --+ ------+| ?30-59 ?| ?Stage three ?| ? Stage three ? + --+ --+ ------+| ?15-29 ?| ?Stage four ? | ? Stage four ?+ ---+ ---+ -------+| ?<15 (or dialysis) ? ?| ?Stage five ? | ? Stage five ?+ ---+ ---+ -------+ *Each stage assumes the associated GFR level has been in effect for at least three months. ?Stages 1 to 5, with or without kidney disease, indicate chronic kidney disease. Notes: Determination of stages one and two (with eGFR >59mL/min/1.73 m2) requires estimation of kidney damage for at least three months as defined by structural or functional abnormalities of the kidney, manifested by either:Pathological abnormalities or Markers of kidney damage (including abnormalities in the composition of the blood or urine or abnormalities in imaging tests). Lab Interpretation Abnormal (test code = 62590-5) [facility] Metabolic Panel (NA, K, CL, CO2, GLUCOSE, BUN, CREATININE, CA)2022-03-22 10:33:20 Test Item Value Reference Range Interpretation Comments NA (test code = 139 mmol/L 135-145 8971912824) K (test code = 3.6 mmol/L 3.5-5 2242808914) CL (test code = 113 mmol/L 98-108 H 5701654213) CO2 TOTAL (test code = 23 mmol/L 23-31 9657946943) AGAP (test code = 2-16 0260077215) BUN (test code = 22 mg/dL 7-23 4637311483) GLUCOSE (test code = 132 mg/dL 70-110 H 9151410804) CREATININE (test code = 2.42 mg/dL 0.5-1.04 H 3075311959) CALCIUM (test code = 8.2 mg/dL 8.6-10.6 L 3833619678) eGFR (test code = mL/min/1.73m2 1187990953) RICHARD (test code = RICHARD) Association of Glomerular Filtration Rate (GFR) and Staging of Kidney Disease* + --+ --+ ------+| GFR (mL/min/1.73 m2) ?| With Kidney Damage ?| ?Without Kidney Damage+ --------+ --------+ +| ?>90 ?| ?Stage one ?| ? Normal ?+ ---+ ---+ -------+| ?60-89 ?| ?Stage two ?| ? Decreased GFR ? + --+ --+ ------+| ?30-59 ?| ?Stage three ?| ? Stage three ? + --+ --+ ------+| ?15-29 ?| ?Stage four ? | ? Stage four ?+ ---+ ---+ -------+| ?<15 (or dialysis) ? ?| ?Stage five ? | ? Stage five ?+ ---+ ---+ -------+ *Each stage assumes the associated GFR level has been in effect for at least three months. ?Stages 1 to 5, with or without kidney disease, indicate chronic kidney disease. Notes: Determination of stages one and two (with eGFR >59mL/min/1.73 m2) requires estimation of kidney damage for at least three months as defined by structural or functional abnormalities of the kidney, manifested by either:Pathological abnormalities or Markers of kidney damage (including abnormalities in the composition of the blood or urine or abnormalities in imaging tests). Lab Interpretation Abnormal (test code = 06548-9) [facility] 10:18:33 Test Item Value Reference Range Interpretation Comments APTT Patient (test code See_Comment H [Au tomated message] = 3173-2) The system [employer] generated this result transmitted ref erence range: 26 - 36 Seconds. The reference range was not used to int erpret this result as normal/abnormal . Lab Interpretation (test Abnormal code = 47913-9) [facility] (for use with Heparin Drip)2022-03-22 10:18:33 Test Item Value Reference Range Interpretation Comments APTT Patient (test code See_Comment H [Au tomated message] = 3173-2) The system [employer] generated this result transmitted ref erence range: 26 - 36 Seconds. The reference range was not used to int erpret this result as normal/abnormal . Lab Interpretation (test Abnormal code = 22970-2) [facility] (for use with Heparin Drip)2022-03-22 10:18:33 Test Item Value Reference Range Interpretation Comments APTT Patient (test code See_Comment H [Au tomated message] = 3173-2) The system [employer] generated this result transmitted ref erence range: 26 - 36 Seconds. The reference range was not used to int erpret this result as normal/abnormal . Lab Interpretation (test Abnormal code = 15965-5) [facility] with Urwvsqsmfhay8689-02-38 10:09:38 Test Item Value Reference Range Interpretation Comments WBC (test code = See_Comment [Automated 6690-2) message] The sy stem which generated this result transmitted reference range : 4.30 - 11.10 10*3/?L. The reference range was not used to interpret this result as normal/abnormal . RBC (test code = See_Comment L [Automated 789-8) message] The sy stem which generated this result transmitted reference range : 3.93 - 5.25 10*6/?L. The reference range was not used to interpret this result as normal/abnormal . HGB (test code = 7.6 g/dL 11.6-15 L 718-7) HCT (test code = 25.6 % 35.7-45.2 L 4544-3) MCV (test code = 77.8 fL 80.6-95.5 L 787-2) MCH (test code = 23.1 pg 25.9-32.8 L 785-6) MCHC (test code = 29.7 g/dL 31.6-35.1 L 786-4) RDW-SD (test code = 49.7 fL 39-49.9 50311-8) RDW-CV (test code = 17.4 % 12-15.5 H 788-0) PLT (test code = See_Comment [Automated 777-3) message] The sy stem which generated this result transmitted reference range : 166 - 358 10*3/ ?L. The reference r ruchi was not used to interpret this result as normal/abnormal . MPV (test code = 9.7 fL 9.5-12.9 41476-5) NRBC/100 WBC (test See_Comment [Automat ed code = 4195232033) message] The system which generated this result transmitted reference range : 0.0 - 10.0 /100 WBCs. The refer ence range was not u sed to interpret th is result as normal/abnormal . NRBC x10^3 (test code See_Comment [Auto mated = 8590585538) message] The s ystem which generated this result transmitted reference range : 10*3/?L. The reference range was not used to interpret this result as normal/abnormal . GRAN MAT (NEUT) % 73.4 % (test code = 770-8) IMM GRAN % (test code 0.40 % = 2103024523) LYMPH % (test code = 17.0 % 736-9) MONO % (test code = 5.4 % 5905-5) EOS % (test code = 3.3 % 713-8) BASO % (test code = 0.5 % 706-2) GRAN MAT x10^3(ANC) 6.08 10*3/uL 1.88-7.09 (test code = 8200988784) IMM GRAN x10^3 (test 0.03 10*3/uL 0-0.06 code = 9995525290) LYMPH x10^3 (test code 1.41 10*3/uL 1.32-3.29 = 731-0) MONO x10^3 (test code 0.45 10*3/uL 0.33-0.92 = 742-7) EOS x10^3 (test code = 0.27 10*3/uL 0.03-0.39 711-2) BASO x10^3 (test code 0.04 10*3/uL 0.01-0.07 = 704-7) Lab Interpretation Abnormal (test code = 32730-4) [facility] with Mgfxtodufmdh5700-97-82 10:09:38 Test Item Value Reference Range Interpretation Comments WBC (test code = See_Comment [Automated 6690-2) message] The sy stem which generated this result transmitted reference range : 4.30 - 11.10 10*3/?L. The reference range was not used to interpret this result as normal/abnormal . RBC (test code = See_Comment L [Automated 789-8) message] The sy stem which generated this result transmitted reference range : 3.93 - 5.25 10*6/?L. The reference range was not used to interpret this result as normal/abnormal . HGB (test code = 7.6 g/dL 11.6-15 L 718-7) HCT (test code = 25.6 % 35.7-45.2 L 4544-3) MCV (test code = 77.8 fL 80.6-95.5 L 787-2) MCH (test code = 23.1 pg 25.9-32.8 L 785-6) MCHC (test code = 29.7 g/dL 31.6-35.1 L 786-4) RDW-SD (test code = 49.7 fL 39-49.9 61885-6) RDW-CV (test code = 17.4 % 12-15.5 H 788-0) PLT (test code = See_Comment [Automated 777-3) message] The sy stem which generated this result transmitted reference range : 166 - 358 10*3/ ?L. The reference r ruchi was not used to interpret this result as normal/abnormal . MPV (test code = 9.7 fL 9.5-12.9 00523-8) NRBC/100 WBC (test See_Comment [Automat ed code = 6045298161) message] The system which generated this result transmitted reference range : 0.0 - 10.0 /100 WBCs. The refer ence range was not u sed to interpret th is result as normal/abnormal . NRBC x10^3 (test code See_Comment [Auto mated = 5324966071) message] The s ystem which generated this result transmitted reference range : 10*3/?L. The reference range was not used to interpret this result as normal/abnormal . GRAN MAT (NEUT) % 73.4 % (test code = 770-8) IMM GRAN % (test code 0.40 % = 4095015473) LYMPH % (test code = 17.0 % 736-9) MONO % (test code = 5.4 % 5905-5) EOS % (test code = 3.3 % 713-8) BASO % (test code = 0.5 % 706-2) GRAN MAT x10^3(ANC) 6.08 10*3/uL 1.88-7.09 (test code = 1316403782) IMM GRAN x10^3 (test 0.03 10*3/uL 0-0.06 code = 3311812463) LYMPH x10^3 (test code 1.41 10*3/uL 1.32-3.29 = 731-0) MONO x10^3 (test code 0.45 10*3/uL 0.33-0.92 = 742-7) EOS x10^3 (test code = 0.27 10*3/uL 0.03-0.39 711-2) BASO x10^3 (test code 0.04 10*3/uL 0.01-0.07 = 704-7) Lab Interpretation Abnormal (test code = 87620-1) [facility] with Boekxsxpqftz8260-89-46 10:09:38 Test Item Value Reference Range Interpretation Comments WBC (test code = See_Comment [Automated 9890-2) message] The sy stem which generated this result transmitted reference range : 4.30 - 11.10 10*3/?L. The reference range was not used to interpret this result as normal/abnormal . RBC (test code = See_Comment L [Automated 307-8) message] The sy stem which generated this result transmitted reference range : 3.93 - 5.25 10*6/?L. The reference range was not used to interpret this result as normal/abnormal . HGB (test code = 7.6 g/dL 11.6-15 L 718-7) HCT (test code = 25.6 % 35.7-45.2 L 4544-3) MCV (test code = 77.8 fL 80.6-95.5 L 787-2) MCH (test code = 23.1 pg 25.9-32.8 L 785-6) MCHC (test code = 29.7 g/dL 31.6-35.1 L 786-4) RDW-SD (test code = 49.7 fL 39-49.9 02851-1) RDW-CV (test code = 17.4 % 12-15.5 H 788-0) PLT (test code = See_Comment [Automated 777-3) message] The sy stem which generated this result transmitted reference range : 166 - 358 10*3/ ?L. The reference r ruchi was not used to interpret this result as normal/abnormal . MPV (test code = 9.7 fL 9.5-12.9 22761-4) NRBC/100 WBC (test See_Comment [Automat ed code = 2247818452) message] The system which generated this result transmitted reference range : 0.0 - 10.0 /100 WBCs. The refer ence range was not u sed to interpret th is result as normal/abnormal . NRBC x10^3 (test code See_Comment [Auto mated = 0687447228) message] The s ystem which generated this result transmitted reference range : 10*3/?L. The reference range was not used to interpret this result as normal/abnormal . GRAN MAT (NEUT) % 73.4 % (test code = 770-8) IMM GRAN % (test code 0.40 % = 0093237373) LYMPH % (test code = 17.0 % 736-9) MONO % (test code = 5.4 % 5905-5) EOS % (test code = 3.3 % 713-8) BASO % (test code = 0.5 % 706-2) GRAN MAT x10^3(ANC) 6.08 10*3/uL 1.88-7.09 (test code = 1705774429) IMM GRAN x10^3 (test 0.03 10*3/uL 0-0.06 code = 6747961665) LYMPH x10^3 (test code 1.41 10*3/uL 1.32-3.29 = 731-0) MONO x10^3 (test code 0.45 10*3/uL 0.33-0.92 = 742-7) EOS x10^3 (test code = 0.27 10*3/uL 0.03-0.39 711-2) BASO x10^3 (test code 0.04 10*3/uL 0.01-0.07 = 704-7) Lab Interpretation Abnormal (test code = 72616-7) [facility] (for use with Heparin Drip)2022-03-22 02:22:19 Test Item Value Reference Range Interpretation Comments APTT Patient (test code See_Comment [Au tomated message] = 3173-2) The system [employer] generated this result transmitted ref erence range: 26 - 36 Seconds. The reference range was not used to int erpret this result as normal/abnormal . Lab Interpretation (test Abnormal code = 26328-9) [facility] (for use with Heparin Drip)2022-03-22 02:22:19 Test Item Value Reference Range Interpretation Comments APTT Patient (test code See_Comment [Au tomated message] = 3173-2) The system [employer] generated this result transmitted ref erence range: 26 - 36 Seconds. The reference range was not used to int erpret this result as normal/abnormal . Lab Interpretation (test Abnormal code = 11801-8) [facility] (for use with Heparin Drip)2022-03-22 02:22:19 Test Item Value Reference Range Interpretation Comments APTT Patient (test code See_Comment [Au tomated message] = 3173-2) The system [employer] generated this result transmitted ref erence range: 26 - 36 Seconds. The reference range was not used to int erpret this result as normal/abnormal . Lab Interpretation (test Abnormal code = 40966-1) [facility] GLUCOSE (AUTOMATED)2022-03-22 02:02:11 Test Item Value Reference Range Interpretation Comments POCT GLU (test code = 3615828646) 121 mg/dL 70-110 H Lab Interpretation (test code = Abnormal 00926-6) [facility] GLUCOSE (AUTOMATED)2022-03-22 02:02:11 Test Item Value Reference Range Interpretation Comments POCT GLU (test code = 5589699231) 121 mg/dL 70-110 H Lab Interpretation (test code = Abnormal 99627-2) [facility] GLUCOSE (AUTOMATED)2022-03-22 02:02:11 Test Item Value Reference Range Interpretation Comments POCT GLU (test code = 4130190224) 121 mg/dL 70-110 H Lab Interpretation (test code = Abnormal 01872-1) [facility] GLUCOSE (AUTOMATED)2022-03-21 22:21:23 Test Item Value Reference Range Interpretation Comments POCT GLU (test code = 3616355012) 111 mg/dL 70-110 H Lab Interpretation (test code = Abnormal 37111-2) [facility] GLUCOSE (AUTOMATED)2022-03-21 22:21:23 Test Item Value Reference Range Interpretation Comments POCT GLU (test code = 5757581041) 111 mg/dL 70-110 H Lab Interpretation (test code = Abnormal 96481-7) [facility] GLUCOSE (AUTOMATED)2022-03-21 22:21:23 Test Item Value Reference Range Interpretation Comments POCT GLU (test code = 5922564861) 111 mg/dL 70-110 H Lab Interpretation (test code = Abnormal 42764-8) [facility] GLUCOSE (AUTOMATED)2022-03-21 18:27:51 Test Item Value Reference Range Interpretation Comments POCT GLU (test code = 0027950163) 95 mg/dL 70-110 Lab Interpretation (test code = Normal 34287-2) [facility] GLUCOSE (AUTOMATED)2022-03-21 18:27:51 Test Item Value Reference Range Interpretation Comments POCT GLU (test code = 3390942115) 95 mg/dL 70-110 Lab Interpretation (test code = Normal 48123-0) [facility] GLUCOSE (AUTOMATED)2022-03-21 18:27:51 Test Item Value Reference Range Interpretation Comments POCT GLU (test code = 0894794063) 95 mg/dL 70-110 Lab Interpretation (test code = Normal 30084-5) [facility] Kcsnmoz3452-06-81 12:04:08 Test Item Value Reference Range Interpretation Comments ABO & RH (test code A NEGATIVE Performe d at [facility] = 20) Laboratory [facility] Blood [address] [address]Ynqc Free: [phone] A No. [id number] IAT (test code = Negative Performed a t [facility] 1185) Laboratory [facility] hospital Blood [address] [address]Xarr Free: [phone] A No. [id number] [facility] and Screen - ONCE Pqocglf6412-03-70 12:04:08 Test Item Value Reference Range Interpretation Comments ABO & RH (test code A NEGATIVE Performe d at [facility] = 20) Laboratory [facility] Blood [address] [address]Ggyy Free: [phone] A No. [id number] IAT (test code = Negative Performed a t [facility] 1185) Laboratory [facility] Blood [address] [address]Mvpc Free: [phone] A No. [id number] [facility] and Screen - ONCE Dcexzcd8480-04-21 12:04:08 Test Item Value Reference Range Interpretation Comments ABO & RH (test code A NEGATIVE Performe d at [facility] = 20) Laboratory [facility] access hospital Blood [address] [address]Vvkv Free: [phone] A No. [id number] IAT (test code = Negative Performed a t [facility] 1185) Laboratory Critical access hospital Blood [address] [address]Claw Free: [phone] A No. [id number] [facility] GLUCOSE (AUTOMATED)2022-03-21 11:05:30 Test Item Value Reference Range Interpretation Comments POCT GLU (test code = 4439756083) 110 mg/dL 70-110 Lab Interpretation (test code = Normal 11575-8) [facility] GLUCOSE (AUTOMATED)2022-03-21 11:05:30 Test Item Value Reference Range Interpretation Comments POCT GLU (test code = 3444265492) 110 mg/dL 70-110 Lab Interpretation (test code = Normal 37051-5) [facility]2022-[facility]-21 11:05:30 Test Item Value Reference Range Interpretation Comments POCT GLU (test code = 9408432773) 110 mg/dL 70-110 Lab Interpretation (test code = Normal 83224-4) [facility] [id number] 09:54:00 Test Item Value Reference Range Interpretation Comments culture,urine (test mixed skin nneka present code = culture,urine) with no pathogen after 48 hrs. [facility] [id number] 09:52:00 Test Item Value Reference Range Interpretation Comments culture,urine (test mixed skin nneka present code = culture,urine) with no pathogen after [address] hrs[address] [facility],urine pres id [id number] 08:37:00 Test Item Value Reference Range Interpretation Comments culture,urine (test mixed skin nneka present code = culture,urine) with no pathogen after 24 hrs. [facility] 2000 [facility] - Serum or Plasma 2022-03-18 13:03:00 Test Item Value Reference Range Interpretation Comments glucose (test code = glucose) 113 mg/dL 82-115 blood urea nitrogen (test code = 24 mg/dL 8-23 H blood urea nitrogen) osmolality calculated,serum (test 286 mOsm/kg 280-300 code = osmolality calculated,serum) creatinine (test code = 2.56 mg/dL 0.50-0.90 H creatinine) glomerular filtration rate (test 18.81 L code = glomerular filtration rate) BUN/creatinine ratio (test code = 9.4 12.0-20.0 L BUN/creatinine ratio) sodium level (test code = sodium 141 mmol/L 135-145 level) potassium level (test code = 3.4 mmol/L 3.5-5.2 L potassium level) chloride level (test code = 106 mmol/L 98-108 chloride level) CO2 (test code = CO2) 24 mmol/L 21-32 anion gap (test code = anion gap) 14.4 mEq/L 12.0-20.0 calcium level (test code = 9.4 mg/dL 8.8-10.2 calcium level) total protein (test code = total 7.6 g/dL 6.6-8.7 protein) albumin (test code = albumin) 3.5 g/dL 3.5-5.2 globulin (test code = globulin) 4.1 g/dL 1.5-4.5 A/G ratio (test code = A/G ratio) 0.9 >1.0 bilirubin,total (test code = 0.2 mg/dL 0.0-1.2 bilirubin,total) AST/SGOT (test code = AST/SGOT) 20 U/L 15-32 ALT/SGPT (test code = ALT/SGPT) 28 U/L 0-33 alkaline phosphatase, total (test 196 U/L 35-105 H code = alkaline phosphatase, total) [facility] [id number] 13:03:00 Test Item Value Reference Range Interpretation Comments cholesterol level (test code = 133 mg/dL 150-200 L cholesterol level) triglycerides level (test code = 233 mg/dL <150 H triglycerides level) HDL cholesterol (test code = HDL 35 mg/dL >65 L cholesterol) Cholesterol in LDL [Mass/volume] in 55 mg/dL <100 Serum or Plasma (test code = 2089-1) cholesterol risk ratio (test code = 3.800 cholesterol risk ratio) [facility] [id number] 13:02:00 Test Item Value Reference Range Interpretation Comments thyroid stimulating hormone L 2.76 uIU/mL 0.36-3.74 (test code = thyroid stimulating hormone L) [facility] [id number] 13:02:00 Test Item Value Reference Range Interpretation Comments thyroid stimulating hormone L 2.76 uIU/mL 0.36-3.74 (test code = thyroid stimulating hormone L) [facility] [id number] 12:44:00 Test Item Value Reference Range Interpretation Comments Hemoglobin A1c/Hemoglobin.total in 5.3 % 4.0-6.0 Blood (test code = 4548-4) [facility] pres id [id number] 12:35:00 Test Item Value Reference Range Interpretation Comments culture,urine (test specimen has been code = culture,urine) received in lab and IS in progress. [facility]:14[facility]00 Test Item Value Reference Range Interpretation Comments color, urine (test code = light yellow color, urine) appearance, urine (test code = clear clear appearance, urine) urine glucose (test code = negative negative urine glucose) bilirubin, urine (test code = negative negative bilirubin, urine) ketone, urine (test code = negative negative ketone, urine) specific gravity,urine (test 1.009 1.003-1.030 code = specific gravity,urine) blood urine (test code = blood 2+ (moderate) negative A urine) pH,urine (test code = pH,urine) 5.500 5-9 protein urine (UA) (test code = trace negative protein urine (UA)) urobilinogen, urine (test code normal 0.2-1.0 = urobilinogen, urine) nitrate, urine (test code = negative negative nitrate, urine) urine leukocyte esterase (test 4+ negative A code = urine leukocyte esterase) urine culture added? (test code yes = urine culture added?) [facility] 12:14:00 Test Item Value Reference Range Interpretation Comments color, urine (test code = light yellow color, urine) appearance, urine (test code = clear clear appearance, urine) urine glucose (test code = negative negative urine glucose) bilirubin, urine (test code = negative negative bilirubin, urine) ketone, urine (test code = negative negative ketone, urine) specific gravity,urine (test 1.009 1.003-1.030 code = specific gravity,urine) blood urine (test code = blood 2+ (moderate) negative A urine) pH,urine (test code = pH,urine) 5.500 5-9 protein urine (UA) (test code = trace negative protein urine (UA)) urobilinogen, urine (test code normal 0.2-1.0 = urobilinogen, urine) nitrate, urine (test code = negative negative nitrate, urine) urine leukocyte esterase (test 4+ negative A code = urine leukocyte esterase) RBC, urine (test code = RBC, 6-10 0-5 A urine) WBC, urine (test code = WBC, >50 0-5 A urine) epithelial cell (test code = 1-5 0-5 epithelial cell) bacteria, urine (test code = none detected none detect bacteria, urine) casts,urine (test code = 2-5 none detect casts,urine) urine culture added? (test code yes = urine culture added?) yeast, urine (test code = 1+ none detect A yeast, urine) [facility] W Auto Differential panel - [id number] 12:08:00 Test Item Value Reference Range Interpretation Comments white blood count (test code = 12.0 K/uL 4.0-11.5 H white blood count) red blood count (test code = red 4.50 M/uL 3.80-5.20 blood count) hemoglobin (test code = 10.0 g/dL 10.5-15.7 L hemoglobin) hematocrit (test code = 35.9 % 34.0-50.0 hematocrit) mean corpuscular volume (test code 79.8 fL 86.0-100.0 L = mean corpuscular volume) mean corpuscular hemoglobin (test 22.2 pg 26.2-33.4 L code = mean corpuscular hemoglobin) mean corpuscular HGB conc (test 27.9 g/dL 30.0-34.0 L code = mean corpuscular HGB conc) red cell distribution width (test 17.4 % 12.0-15.5 H code = red cell distribution width) platelet count (test code = 308 K/uL 165-450 platelet count) mean platelet volume (test code = 9.9 fL 9.4-12.6 mean platelet volume) neutrophils % (test code = 81.6 % 44.4-80.1 H neutrophils %) Ig% (test code = Ig%) 0.5 % 0.0-0.4 H lymphocyte% (test code = 10.5 % 10.0-50.0 lymphocyte%) mono % (test code = mono %) 4.9 % 3.6-12.0 eos % (test code = eos %) 2.1 % 0.0-5.4 basophil % (test code = basophil 0.4 % 0.1-1.2 %) absolute neutrophil count (test 9.82 K/uL 1.56-6.13 H code = absolute neutrophil count) Ig# (test code = Ig#) 0.06 K/uL 0.00-0.03 H lymph # (test code = lymph #) 1.26 K/uL 1.18-3.74 mono # (test code = mono #) 0.59 K/uL 0.24-0.86 eos # (test code = eos #) 0.25 K/uL 0.04-0.36 basophil # (test code = basophil 0.05 K/uL 0.01-0.08 #) NRBC% (test code = NRBC%) 0 /100 WBC 0-0.2 NRBC# (test code = NRBC#) 0 K/uL [facility] [id number] 13:05:03 Test Item Value Reference Range Interpretation Comments POC glucose (test code 102 mg/dL 65-99 H Opera tor Name: = [id number]) Frantz Herrera ID : [id number] able: RN Notified Lab Interpretation Abnormal (test code = 27168-8) [facility] 12 [id number] 18:19:15 Test Item Value Reference Range Interpretation Comments Ventricular rate (test code = 253) Atrial rate (test code = 255) NE interval (test code = 266) QRSD interval (test code = 260) QT interval (test code = 264) QTC interval (test code = 265) P axis 1 (test code = 267) QRS axis 1 (test code = 268) T wave axis (test code = 270) EKG impression (test Sinus code = 273) tachycardia-Septal infarct , age undetermined-No previous ECGs available-Electronica lly Signed By Gabriel Guzman MD (2024) on 01/19/2021 1:19:14 PM [facility]-CoV-2 (COVID-19) RNA [Presence] in Respiratory specimen by TERRI with probe [id number] 00:00:5943134-9[facility] Differential panel - [id number] 00:00:00 Test Item Value Reference Range Interpretation Comments white blood count (test code = 8.4 K/uL 4.0-11.5 white blood count) red blood count (test code = red 5.52 M/uL 3.80-5.20 H blood count) hemoglobin (test code = 10.8 g/dL 10.5-15.7 hemoglobin) hematocrit (test code = 38.3 % 34.0-50.0 hematocrit) MCV [Entitic volume] (test code = 69.4 fL 86-100 L 21614-0) mean corpuscular hemoglobin (test 19.6 pg 26.2-33.4 L code = mean corpuscular hemoglobin) mean corpuscular HGB conc (test 28.2 g/dL 30-34 L code = mean corpuscular HGB conc) red cell distribution width (test 18.7 % 12.0-15.5 H code = red cell distribution width) platelet count (test code = 257 K/uL 165-450 platelet count) mean platelet volume (test code = 9.1 fL 9.4-12.6 L mean platelet volume) Segmented neutrophils/100 87.2 % 44.4-80.1 H leukocytes in Blood (test code = 13005-0) Immature granulocytes [#/volume] 0.0 K/uL 0.0-0.03 in Blood (test code = 40132-5) lymphocyte% (test code = 6.5 % 10.0-50.0 L lymphocyte%) mono % (test code = mono %) 4.3 % 3.6-12.0 eos % (test code = eos %) 1.7 % 0.0-5.4 Basophils/100 leukocytes in 0.1 % 0.1-1.2 Unspecified specimen (test code = 09081-3) Band form neutrophils [#/volume] 7.33 K/uL 1.56-6.13 H in Blood (test code = 56163-3) Lymphocytes [#/volume] in 0.6 K/uL 1.18-3.74 L Unspecified specimen by Automated count (test code = 60937-8) mono # (test code = mono #) 0.36 K/uL 0.24-0.86 eos # (test code = eos #) 0.14 K/uL 0.04-0.36 basophil # (test code = basophil 0.01 K/uL 0.01-0.08 #) NRBC% (test code = NRBC%) 0 /100 WBC 0-0.2 NRBC# (test code = NRBC#) 0 K/uL [facility] - Serum or [id number] 00:00:00 Test Item Value Reference Range Interpretation Comments Glucose [Mass/volume] in Serum or 184 mg/dL 82-115 H Plasma (test code = 2345-7) Urea nitrogen [Mass/volume] in 21 mg/dL 8-23 Serum or Plasma (test code = 3094-0) osmolality calculated,serum (test 278 mOsm/kg 280-300 L code = osmolality calculated,serum) creatinine (test code = 1.5 mg/dL 0.50-0.90 H creatinine) glomerular filtration rate (test 34.96 L code = glomerular filtration rate) Urea nitrogen/Creatinine [Mass 14.0 12-20 Ratio] in Serum or Plasma (test code = 3097-3) sodium level (test code = sodium 135 mmol/L 135-145 level) potassium level (test code = 3.9 mmol/L 3.5-5.2 potassium level) chloride level (test code = 100 mmol/L 98-108 chloride level) CO2 (test code = CO2) 24 mmol/L 21-32 anion gap (test code = anion gap) 14.9 mEq/L 12-20 calcium level (test code = 9.3 mg/dL 8.8-10.2 calcium level) [id number] 00:00:00 Test Item Value Reference Range Interpretation Comments prothrombin time (test code = 11.8 seconds 10.3-12.3 prothrombin time) INR in Blood by Coagulation 1.11 assay (test code = 44372-3) [facility] Center[facility] complete [facility] - [id number] 00:00:00 Test Item Value Reference Range Interpretation Comments Color of Urine by Auto (test code = yellow 70581-7) Appearance of Urine (test code = SL cloudy clear A 5767-9) Glucose [Presence] in Urine by negative negative Automated test strip (test code = 36663-6) Bilirubin.total [Mass/volume] in negative negative Urine (test code = 1978-6) Ketones [Mass/volume] in Urine by negative negative Automated test strip (test code = 82665-0) Specific gravity of Urine by 1.018 1.003-1.030 Automated test strip (test code = 34882-4) blood urine (test code = blood =3 negative H urine) pH of Urine (test code = 2756-5) 5.500 5-9 protein urine (UA) (test code = =1+ (70 negative H protein urine (UA)) Urobilinogen [Presence] in Urine normal 0.2-1.0 (test code = 34314-4) Nitrite [Presence] in Urine by Test positive negative H strip (test code = 5802-4) Leukocyte esterase [Presence] in =4 negative H Urine by Automated test strip (test code = 76316-3) Erythrocytes [#/volume] in Urine by =6-10 0-5 H Automated count (test code = 798-9) Leukocytes [#/area] in Urine =30-49 0-5 H sediment by Automated count (test code = 43768-0) Epithelial cells [Presence] in =11-14 0-5 Urine sediment by Light microscopy (test code = 06146-0) Bacteria identified in Urine by tntc (4 none detect H Culture (test code = 630-4) urine culture added? (test code = yes urine culture added?) [facility] RNA [Presence] in Respiratory specimen by TERRI with probe [id number] 00:00:5061064-1[facility] Auto Differential panel - Vylne1922-12-01 00:00:00 Test Item Value Reference Range Interpretation Comments white blood count (test code = 8.4 K/uL 4.0-11.5 white blood count) red blood count (test code = red 5.52 M/uL 3.80-5.20 H blood count) hemoglobin (test code = 10.8 g/dL 10.5-15.7 hemoglobin) hematocrit (test code = 38.3 % 34.0-50.0 hematocrit) MCV [Entitic volume] (test code = 69.4 fL 86-100 L 69537-8) mean corpuscular hemoglobin (test 19.6 pg 26.2-33.4 L code = mean corpuscular hemoglobin) mean corpuscular HGB conc (test 28.2 g/dL 30-34 L code = mean corpuscular HGB conc) red cell distribution width (test 18.7 % 12.0-15.5 H code = red cell distribution width) platelet count (test code = 257 K/uL 165-450 platelet count) mean platelet volume (test code = 9.1 fL 9.4-12.6 L mean platelet volume) Segmented neutrophils/100 87.2 % 44.4-80.1 H leukocytes in Blood (test code = 90338-2) Immature granulocytes [#/volume] 0.0 K/uL 0.0-0.03 in Blood (test code = 83743-2) lymphocyte% (test code = 6.5 % 10.0-50.0 L lymphocyte%) mono % (test code = mono %) 4.3 % 3.6-12.0 eos % (test code = eos %) 1.7 % 0.0-5.4 Basophils/100 leukocytes in 0.1 % 0.1-1.2 Unspecified specimen (test code = 25455-6) Band form neutrophils [#/volume] 7.33 K/uL 1.56-6.13 H in Blood (test code = 10924-6) Lymphocytes [#/volume] in 0.6 K/uL 1.18-3.74 L Unspecified specimen by Automated count (test code = 77820-1) mono # (test code = mono #) 0.36 K/uL 0.24-0.86 eos # (test code = eos #) 0.14 K/uL 0.04-0.36 basophil # (test code = basophil 0.01 K/uL 0.01-0.08 #) NRBC% (test code = NRBC%) 0 /100 WBC 0-0.2 NRBC# (test code = NRBC#) 0 K/uL [facility] metabolic 2000 panel - Serum or [id number] 00:00:00 Test Item Value Reference Range Interpretation Comments Glucose [Mass/volume] in Serum or 184 mg/dL 82-115 H Plasma (test code = 2345-7) Urea nitrogen [Mass/volume] in 21 mg/dL 8-23 Serum or Plasma (test code = 3094-0) osmolality calculated,serum (test 278 mOsm/kg 280-300 L code = osmolality calculated,serum) creatinine (test code = 1.5 mg/dL 0.50-0.90 H creatinine) glomerular filtration rate (test 34.96 L code = glomerular filtration rate) Urea nitrogen/Creatinine [Mass 14.0 12-20 Ratio] in Serum or Plasma (test code = 3097-3) sodium level (test code = sodium 135 mmol/L 135-145 level) potassium level (test code = 3.9 mmol/L 3.5-5.2 potassium level) chloride level (test code = 100 mmol/L 98-108 chloride level) CO2 (test code = CO2) 24 mmol/L 21-32 anion gap (test code = anion gap) 14.9 mEq/L 12-20 calcium level (test code = 9.3 mg/dL 8.8-10.2 calcium level) [id number] Test Item Value Reference Range Interpretation Comments prothrombin time (test code = 11.8 seconds 10.3-12.3 prothrombin time) INR in Blood by Coagulation 1.11 assay (test code = 61241-5) [facility] - [id number] 00:00:00 Test Item Value Reference Range Interpretation Comments Color of Urine by Auto (test code = yellow 39588-9) Appearance of Urine (test code = SL cloudy clear A 5767-9) Glucose [Presence] in Urine by negative negative Automated test strip (test code = 24192-4) Bilirubin.total [Mass/volume] in negative negative Urine (test code = 1977-6) Ketones [Mass/volume] in Urine by negative negative Automated test strip (test code = 67292-9) Specific gravity of Urine by 1.018 1.003-1.030 Automated test strip (test code = 04568-8) blood urine (test code = blood =3 negative H urine) pH of Urine (test code = 2756-5) 5.500 5-9 protein urine (UA) (test code = =1+ (70 negative H protein urine (UA)) Urobilinogen [Presence] in Urine normal 0.2-1.0 (test code = 88940-7) Nitrite [Presence] in Urine by Test positive negative H strip (test code = 5802-4) Leukocyte esterase [Presence] in =4 negative H Urine by Automated test strip (test code = 72231-0) Erythrocytes [#/volume] in Urine by =6-10 0-5 H Automated count (test code = 798-9) Leukocytes [#/area] in Urine =30-49 0-5 H sediment by Automated count (test code = 68073-8) Epithelial cells [Presence] in =11-14 0-5 Urine sediment by Light microscopy (test code = 35088-7) Bacteria identified in Urine by tntc (4 none detect H Culture (test code = 630-4) urine culture added? (test code = yes urine culture added?) [facility]"
[2023-06-03 11:46] LABS: Hematocrit 23.4 % (36.0-45.0); Lymphocytes % 12.6 % (15.3-44.8); MCV 77.2 fL (80-100); MPV 7.5 fL (7.6-11.3); Platelets 214 thou/uL (152-406); RBC Red Blood Cell Count 3.04 M/uL (3.86-4.86)
[2023-06-03 11:54] LABS: Protime INR 1.44
[2023-06-03 12:11] LABS: ALT/SGPT < 10 U/L (13-56); AST/SGOT 5 U/L (15-37); Albumin 2.4 g/dL (3.4-5.0); Alkaline Phosphatase 126 U/L (45-117); BUN Blood Urea Nitrogen 40 mg/dL (7-18); Bicarbonate 23 mEq/L (21-32); Bilirubin Total 0.2 mg/dL (0.2-1.0); Glomerular Filtration Rate 7 ml/min (=/>90); Glucose Level 145 mg/dL (74-106); Potassium 4.6 mEq/L (3.5-5.1); Protein, Total 6.8 g/dL (6.4-8.2); Sodium Level 139 mEq/L (136-145)
[2023-06-03 12:33] LABS: Specific Gravity 1.011 (1.005-1.030); Urine Bacteria <20 /HPF (<20); Urine Bilirubin NEGATIVE (Negative); Urine Blood 1+ (Negative); Urine Clarity Extremely Turbid (Clear); Urine Color Light-Yellow (Yellow); Urine Glucose TRACE (Negative); Urine Mucus Slight /HPF (None Seen); Urine Protein 1+ (Negative); Urine Urobilinogen Normal (Normal)
--- NOTE | 2023-06-03 12:52 | EDPHYS ---
Physician Documentation [facility] Name: Daniela Enriquez Age: 67 yrs Sex: Female : 1955 Arrival Date: 06/03/2023 Time: 11:05 Bed 3 Private MD: ED Physician Milind Art HPI: 06/03 12:05 This 67 yrs old Female presents to ER via EMS with complaints of Abnormal lab values. rt 12:05 Patient presents to the ED with fatigue for the past several months. She had labs that rt were drawn which showed a creatinine greater than 6 as well as hemoglobin of 7.2. Patient is on blood thinners but denies any active bleeding to include rectal bleeding, melena, hematemesis. Denies any abdominal pain or other acute complaints. Symptoms are moderate in severity, no other aggravating or alleviating factors.. Historical: - Allergies: 11:40 Codeine; tl4 11:40 Lidocaine; tl4 11:40 Morphine; tl4 - Home Meds: 11:42 aspirin 81 mg Oral tablet,chewable 1 tab daily [Active]; atorvastatin 20 mg oral tablet tl4 1 tab daily for hyperlipidemia [Active]; clopidogrel 75 mg oral tablet 1 tab daily for cerebral thromboembolism prevention [Active]; cyclobenzaprine 5 mg Oral tablet 1 tab 3 times per day for muscle spasm [Active]; Eliquis 5 mg oral tablet 1 tab 2 times per day [Active]; escitalopram oxalate 20 mg oral tablet 1 tab daily for major depressive disorder [Active]; lactulose 10 gram/15 mL (15 mL) oral solution 39 mL 2 times per day for constipation [Active]; gabapentin 300 mg oral capsule 1 cap daily for diabetic peripheral neuropathy [Active]; Humulin N 16 units Sub-Q daily for Diabetes [Active]; Humulin R Regular U-100 Insuln 100 unit/mL solution 1 sliding scale dose 2 times per day for type 2 diabetes mellitus [Active]; hydrocodone-acetaminophen 5-325 mg Oral tablet 1 tab every 6 hours for pain [Active]; metoprolol tartrate 25 mg Oral tablet 0.5 tabs 2 times per day for hypertension [Active]; - PMHx: 11:40 blood clots; heart medication for palpitations; Cerebrovascular accident; Anxiety; tl4 Hypertensive disorder; Kidney disease; Peripheral vascular disease; Dementia; 11:42 Diabetes mellitus; tl4 - Immunization history:: Adult Immunizations up to date, Flu vaccine is up to date. - Social history:: Smoking status: Patient denies any tobacco usage or history of. Patient/guardian denies using tobacco products. ROS: 12:05 Cardiovascular: Negative for chest pain, palpitations, and edema, Respiratory: Negative rt for shortness of breath, cough, wheezing, and pleuritic chest pain, Abdomen/GI: Negative for abdominal pain, nausea, vomiting, diarrhea, and constipation, MS/Extremity: Negative for injury and deformity, Skin: Negative for injury, rash, and discoloration, Neuro: Negative for headache, weakness, numbness, tingling, and seizure, Psych: Negative for depression, anxiety, suicide ideation, homicidal ideation, and hallucinations, 12:05 Constitutional: Positive for fatigue, Negative for fever, Exam: 12:05 Constitutional: This is a well developed, well nourished patient who is awake, alert, rt and in no acute distress. Head/Face: Normocephalic, atraumatic. Chest/axilla: Normal chest wall appearance and motion. Nontender with no deformity. No lesions are appreciated. Cardiovascular: Regular rate and rhythm with a normal S1 and S2. No gallops, murmurs, or rubs. Normal PMI, no JVD. No pulse deficits. Respiratory: Lungs have equal breath sounds bilaterally, clear to auscultation and percussion. No rales, rhonchi or wheezes noted. No increased work of breathing, no retractions or nasal flaring. Abdomen/GI: Soft, non-tender, with normal bowel sounds. No distension or tympany. No guarding or rebound. No evidence of tenderness throughout. Skin: Warm, dry with normal turgor. Normal color with no rashes, no lesions, and no evidence of cellulitis. MS/ Extremity: Pulses equal, no cyanosis. Neurovascular intact. Full, normal range of motion. Neuro: Awake and alert, GCS 15, oriented to person, place, time, and situation. Cranial nerves II-XII grossly intact. Motor strength 5/5 in all extremities. Sensory grossly intact. Cerebellar exam normal. Normal gait. Psych: Awake, alert, with orientation to person, place and time. Behavior, mood, and affect are within normal limits. 12:05 Eyes: Pale conjunctiva, pupils equally round. 12:52 ECG was reviewed by the Attending Physician. rt Vital Signs: 11:00 BP 148 / 80; Pulse 75; Resp 16; Pulse Ox 100% on R/A; tl4 11:30 BP 149 / 70; Pulse 73; Resp 19; Pulse Ox 100% on R/A; Pain 0/10; tl4 11:34 BP 145 / 68; Pulse 72; Resp 18; Temp 98.2; Pulse Ox 100% on R/A; Weight 100.24 kg (M); tl4 Pain 0/10; 12:00 BP 146 / 71; Pulse 72; Resp 16; Pulse Ox 100% on R/A; Pain 0/10; tl4 12:30 BP 146 / 92; Pulse 70; Resp 16; Pulse Ox 100% on R/A; Pain 0/10; tl4 13:00 BP 144 / 80; Pulse 75; Resp 18; Pulse Ox 100% on R/A; Pain 0/10; tl4 13:30 BP 142 / 93; Pulse 91; Resp 16; Pulse Ox 100% on R/A; tl4 14:00 BP 145 / 93; Pulse 78; Resp 16; Pulse Ox 99% on R/A; Pain 0/10; tl4 14:30 BP 158 / 79; Pulse 83; Resp 16; Pulse Ox 100% on R/A; tl4 15:00 BP 163 / 68; Pulse 78; Resp 18; Pulse Ox 100% on R/A; Pain 0/10; tl4 16:00 BP 142 / 73; Pulse 78; Resp 20; Pulse Ox 100% ; Pain 0/10; tl4 11:30 Pain Scale: Adult tl4 11:34 Pain Scale: Adult tl4 12:00 Pain Scale: Adult tl4 12:30 Pain Scale: Adult tl4 13:00 Pain Scale: Adult tl4 14:00 Pain Scale: Adult tl4 15:00 Pain Scale: Adult tl4 16:00 Pain Scale: Adult tl4 [place] Coma Score: 11:00 Eye Response: spontaneous(4). Motor Response: obeys commands(6). Verbal Response: tl4 oriented(5). Total: 15. 12:00 Eye Response: spontaneous(4). Motor Response: obeys commands(6). Verbal Response: tl4 oriented(5). Total: 15. 13:00 Eye Response: spontaneous(4). Motor Response: obeys commands(6). Verbal Response: tl4 oriented(5). Total: 15. 14:00 Eye Response: spontaneous(4). Motor Response: obeys commands(6). Verbal Response: tl4 oriented(5). Total: 15. 15:00 Eye Response: spontaneous(4). Motor Response: obeys commands(6). Verbal Response: tl4 oriented(5). Total: 15. 16:00 Eye Response: spontaneous(4). Motor Response: obeys commands(6). Verbal Response: tl4 oriented(5). Total: 15. MDM: 11:09 Patient medically screened. rt 12:51 Differential Diagnosis Anemia due to chronic disease, acute kidney injury. Data rt reviewed: vital signs, nurses notes, lab test result(s), EKG. Consideration of Admission/Observation Patient was admitted/placed on observation. Management of patient was discussed with the following: Hospitalist: Agrees to admit. I considered the following discharge prescriptions or medication management in the emergency department Medications were administered in the Emergency Department. See MAR. Care significantly affected by the following chronic conditions: Prior CVA. Counseling: I had a detailed discussion with the patient and/or guardian regarding the historical points, exam findings, and any diagnostic results supporting the discharge/admit diagnosis, lab results, the need for further work-up and treatment in the hospital. 06/03 11:10 Order name: CBC with Diff; Complete Time: 12:39 rt 06/03 11:10 Order name: CMP; Complete Time: 12:39 rt 06/03 11:10 Order name: PT-INR; Complete Time: 12:39 rt 06/03 11:10 Order name: Ptt, Activated; Complete Time: 12:39 rt 06/03 11:10 Order name: Type And Screen rt 06/03 11:10 Order name: UAM; Complete Time: 12:39 rt 06/03 13:50 Order name: Celiac Disease Comp Panel EDMS 06/03 13:50 Order name: Ferritin EDMS 06/03 13:50 Order name: Haptoglobin EDMS 06/03 13:50 Order name: Lactic Dehydrogenase EDMS 06/03 13:50 Order name: Protein Electo w/M Dion Serum EDMS 06/03 13:50 Order name: Retic Count EDMS 06/03 13:50 Order name: Transferrin Sat/Iron Binding EDMS 06/03 13:50 Order name: Vitamin B12 Level EDMS 06/03 13:50 Order name: Basic Metabolic Panel EDMS 06/03 13:50 Order name: Basic Metabolic Panel EDMS 06/03 13:50 Order name: Basic Metabolic Panel EDMS 06/03 13:50 Order name: Basic Metabolic Panel EDMS 06/03 13:50 Order name: Basic Metabolic Panel EDMS 06/03 13:50 Order name: Basic Metabolic Panel EDMS 06/03 13:50 Order name: CBC with Automated Diff EDMS 06/03 13:50 Order name: CBC with Automated Diff EDMS 06/03 13:50 Order name: CBC with Automated Diff EDMS 06/03 13:50 Order name: CBC with Automated Diff EDMS 06/03 13:50 Order name: CBC with Automated Diff EDMS 06/03 13:50 Order name: CBC with Automated Diff EDMS 06/03 13:50 Order name: Lipid Profile EDMS 06/03 13:50 Order name: Lipid Profile EDMS 06/03 13:50 Order name: Magnesium EDMS 06/03 13:50 Order name: Magnesium EDMS 06/03 13:50 Order name: Magnesium EDMS 06/03 13:50 Order name: Magnesium EDMS 06/03 13:50 Order name: Magnesium EDMS 06/03 13:50 Order name: Magnesium EDMS 06/03 13:50 Order name: Phosphorus EDMS 06/03 13:50 Order name: Phosphorus EDMS 06/03 13:50 Order name: Phosphorus EDMS 06/03 13:50 Order name: Phosphorus EDMS 06/03 13:50 Order name: Phosphorus EDMS 06/03 13:50 Order name: Phosphorus EDMS 06/03 14:56 Order name: ABO/RH no charge EDMS 06/03 11:10 Order name: EKG; Complete Time: 11:10 rt 06/03 11:10 Order name: EKG - Nurse/Tech; Complete Time: 12:33 rt 06/03 13:42 Order name: Labs - recollect needed: collect abo\E\rh no charge; Complete Time: 16:48 bd EC:52 Rate is 72 beats/min. Rhythm is regular, Normal Sinus Rhythm with No ectopy. QRS Sullivan rt is Normal. W[place] interval is normal. QRS interval is normal. QT interval is normal. No Q waves. Clinical impression: NSR w/ Non-specific ST/T Changes. Administered Medications: No medications were administered Disposition Summary: 06/03/23 12:51 Hospitalization Ordered Notes: Hospitalization Status: Inpatient Admission rt Provider: Jonny Centeno rt Location: Telemetry/MedSurg (Inpatient) rt Condition: Stable rt Problem: new rt Symptoms: are unchanged rt Bed/Room Type: Standard rt Room Assignment: 430(06/03/23 15:17) bd Diagnosis - Acute kidney injury rt Forms: - Medication Reconciliation Form rt - SBAR form rt - Leadership Thank You Letter rt Signatures: Dispatcher [employer] EDElla Li Ryan, MD MD rt John Hays tl4 Corrections: (The following items were deleted from the chart) 11:53 11:40 PMHx: Diabetes - NIDDM; tl4 tl4 13:50 13:50 Iron ordered. EDMS EDMS 15:17 12:51 rt bd
--- NOTE | 2023-06-03 12:52 | ER ---
Nurse's Notes [facility] Name: Daniela Enriquez Age: 67 yrs Sex: Female : 1955 Arrival Date: 06/03/2023 Time: 11:05 Bed 3 Private MD: Diagnosis: Acute kidney injury Presentation: 06/03 11:34 Chief complaint: Patient states: Pt c/o progressively worsening weakness and fatigue x tl4 2 weeks. Coronavirus screen: Vaccine status: Patient reports receiving the 2nd dose of the covid vaccine. Client denies travel out of the [place] in the last 14 days. Ebola Screen: Patient negative for fever greater than or equal to 101.5 degrees Fahrenheit, and additional compatible Ebola Virus Disease symptoms Patient denies exposure to infectious person. Patient denies travel to an Ebola-affected area in the 21 days before illness onset. No symptoms or risks identified at this time. Initial Sepsis Screen: Does the patient meet any 2 criteria? No. Patient's initial sepsis screen is negative. Risk Assessment: Do you want to hurt yourself or someone else? Patient reports no desire to harm self or others. Onset of symptoms was May 20, 2023. 11:34 Method Of Arrival: EMS: [facility] tl4 11:34 Acuity: MILAGROS 3 tl4 13:14 Initial Sepsis Screen: Does the patient have a suspected source of infection? No. tl4 Patient's initial sepsis screen is negative. Triage Assessment: 11:54 General: Appears in no apparent distress. comfortable, Behavior is calm, cooperative. tl4 Pain: Denies pain. EENT: No deficits noted. Neuro: No deficits noted. Cardiovascular: No deficits noted. Respiratory: No deficits noted. GI: No deficits noted. : No deficits noted. Historical: - Allergies: 11:40 Codeine; tl4 11:40 Lidocaine; tl4 11:40 Morphine; tl4 - Home Meds: 11:42 aspirin 81 mg Oral tablet,chewable 1 tab daily [Active]; atorvastatin 20 mg oral tablet tl4 1 tab daily for hyperlipidemia [Active]; clopidogrel 75 mg oral tablet 1 tab daily for cerebral thromboembolism prevention [Active]; cyclobenzaprine 5 mg Oral tablet 1 tab 3 times per day for muscle spasm [Active]; Eliquis 5 mg oral tablet 1 tab 2 times per day [Active]; escitalopram oxalate 20 mg oral tablet 1 tab daily for major depressive disorder [Active]; lactulose 10 gram/15 mL (15 mL) oral solution 39 mL 2 times per day for constipation [Active]; gabapentin 300 mg oral capsule 1 cap daily for diabetic peripheral neuropathy [Active]; Humulin N 16 units Sub-Q daily for Diabetes [Active]; Humulin R Regular U-100 Insuln 100 unit/mL solution 1 sliding scale dose 2 times per day for type 2 diabetes mellitus [Active]; hydrocodone-acetaminophen 5-325 mg Oral tablet 1 tab every 6 hours for pain [Active]; metoprolol tartrate 25 mg Oral tablet 0.5 tabs 2 times per day for hypertension [Active]; - PMHx: 11:40 blood clots; heart medication for palpitations; Cerebrovascular accident; Anxiety; tl4 Hypertensive disorder; Kidney disease; Peripheral vascular disease; Dementia; 11:42 Diabetes mellitus; tl4 - Immunization history:: Adult Immunizations up to date, Flu vaccine is up to date. - Social history:: Smoking status: Patient denies any tobacco usage or history of. Patient/guardian denies using tobacco products. Screenin:00 [facility] ED Fall Risk Assessment (Adult) History of falling in the last 3 months, tl4 including since admission Score/Fall Risk Level 0 - 2 = Low Risk Oriented to surroundings, Maintained a safe environment, Provided non-skid footwear, Hourly rounding (assess needs \T\ fall precautionary measures) done, Used ambulatory aids as needed (educated on \T\ assisted with), Used gait belt as appropriate. 12:01 Abuse screen: Denies threats or abuse. Denies injuries from another. Nutritional tl4 screening: No deficits noted. Tuberculosis screening: No symptoms or risk factors identified. Assessment: 11:55 Reassessment: see triage assessment. tl4 13:00 Reassessment: No changes from previously documented assessment. Patient and/or family tl4 updated on plan of care and expected duration. Pain level reassessed. Patient is alert, oriented x 3, equal unlabored respirations, skin warm/dry/pink. Patient denies pain at this time. 13:36 Reassessment: Repeat labs drawn and sent to lab. tl4 16:56 Reassessment: Patient appears in no apparent distress at this time. Patient and/or iw family updated on plan of care and expected duration. Pain level reassessed. 17:08 Reassessment: report given to STEPHANIE Barnard. iw Vital Signs: 11:00 BP 148 / 80; Pulse 75; Resp 16; Pulse Ox 100% on R/A; tl4 11:30 BP 149 / 70; Pulse 73; Resp 19; Pulse Ox 100% on R/A; Pain 0/10; tl4 11:34 BP 145 / 68; Pulse 72; Resp 18; Temp 98.2; Pulse Ox 100% on R/A; Weight 100.24 kg (M); tl4 Pain 0/10; 12:00 BP 146 / 71; Pulse 72; Resp 16; Pulse Ox 100% on R/A; Pain 0/10; tl4 12:30 BP 146 / 92; Pulse 70; Resp 16; Pulse Ox 100% on R/A; Pain 0/10; tl4 13:00 BP 144 / 80; Pulse 75; Resp 18; Pulse Ox 100% on R/A; Pain 0/10; tl4 13:30 BP 142 / 93; Pulse 91; Resp 16; Pulse Ox 100% on R/A; tl4 14:00 BP 145 / 93; Pulse 78; Resp 16; Pulse Ox 99% on R/A; Pain 0/10; tl4 14:30 BP 158 / 79; Pulse 83; Resp 16; Pulse Ox 100% on R/A; tl4 15:00 BP 163 / 68; Pulse 78; Resp 18; Pulse Ox 100% on R/A; Pain 0/10; tl4 16:00 BP 142 / 73; Pulse 78; Resp 20; Pulse Ox 100% ; Pain 0/10; tl4 11:30 Pain Scale: Adult tl4 11:34 Pain Scale: Adult tl4 12:00 Pain Scale: Adult tl4 12:30 Pain Scale: Adult tl4 13:00 Pain Scale: Adult tl4 14:00 Pain Scale: Adult tl4 15:00 Pain Scale: Adult tl4 16:00 Pain Scale: Adult tl4 [place] Coma Score: 11:00 Eye Response: spontaneous(4). Motor Response: obeys commands(6). Verbal Response: tl4 oriented(5). Total: 15. 12:00 Eye Response: spontaneous(4). Motor Response: obeys commands(6). Verbal Response: tl4 oriented(5). Total: 15. 13:00 Eye Response: spontaneous(4). Motor Response: obeys commands(6). Verbal Response: tl4 oriented(5). Total: 15. 14:00 Eye Response: spontaneous(4). Motor Response: obeys commands(6). Verbal Response: tl4 oriented(5). Total: 15. 15:00 Eye Response: spontaneous(4). Motor Response: obeys commands(6). Verbal Response: tl4 oriented(5). Total: 15. 16:00 Eye Response: spontaneous(4). Motor Response: obeys commands(6). Verbal Response: tl4 oriented(5). Total: 15. ED Course: 11:09 Patient arrived in ED. bd 11:09 Milind Art MD is Attending Physician. rt 11:09 John Hays is Primary Nurse. tl4 11:17 Inserted saline lock: 20 gauge in left antecubital area, using aseptic technique. Blood tl4 collected. 11:40 Triage completed. tl4 12:01 Patient has correct armband on for positive identification. Bed in low position. Call tl4 light in reach. Side rails up X2. Provided Education on: IV, EKG. 12:20 UAM Sent. tl4 12:51 Jonny Centeno is Hospitalizing Provider. rt 13:13 Arm band placed on right wrist. tl4 13:14 No provider procedures requiring assistance completed. tl4 16:03 Melina Mishra RN is Primary Nurse. iw 17:25 Patient admitted, IV remains in place. iw Administered Medications: No medications were administered Medication: 13:14 VIS not applicable for this client. tl4 Outcome: 12:51 Decision to Hospitalize by Provider. rt 17:25 Admitted to Tele accompanied by tech, via wheelchair, iw 17:25 Condition: good 17:25 Discharge instructions given to patient, family, Instructed on the need for admit, 17:26 Patient left the ED. iw Signatures: Ella Melendez Irene, RN RN Milind David MD MD rt John Hays tlEver Corrections: (The following items were deleted from the chart) 11:53 11:40 PMHx: Diabetes - NIDDM; tl4 tl4 15:43 11:00 BP 148 / 80; Pulse 75bpm; Resp 16bpm; Pulse Ox 100%; tl4 [facility] 15:43 11:30 BP 149 / 70; Pulse 73bpm; Resp 19bpm; Pulse Ox 100%; Pain 0/10, Adult; 4 [facility] 15:43 12:00 BP 146 / 71; Pulse 72bpm; Resp 16bpm; Pulse Ox 100%; Pain 0/10, Adult; 4 [facility] 15:43 12:30 BP 146 / 92; Pulse 70bpm; Resp 16bpm; Pulse Ox 100%; Pain 0/10, Adult; 4 [facility] 15:43 13:00 BP 144 / 80; Pulse 75bpm; Resp 18bpm; Pulse Ox 100%; Pain 0/10, Adult; [place] [id number]
[2023-06-03] MEDS ORDERED: NA CHLORIDE 0.9% 1,000 ML IV SCH (14:00)
[2023-06-03] MEDS: INSULIN REGULAR (HUMAN) 100 UNIT/ML SQ SCH ×2 (16:30→21:00)
--- NOTE | 2023-06-03 18:19 | P.HP ---
Patient History Date of Service: 06/03/23 Reason for admission: symptomatic anemia History of Present Illness: Daniela Enriquez is a 67-year-old female with a past medical history of blood clots, heart palpitations, hypertension, kidney disease, PVD, CVA, and anxiety who presents to the ED from the longterm with abnormal lab values of which hemoglobin was 7.2 and creatinine greater than 6. She reports fatigue for the last several months. Daniela is on Eliquis 5 mg twice daily. She states she has not seen any bleeding in her urine, bowel movements, or break in skin. Initial vitals BP 148 / 80; Pulse 75; Resp 16; Pulse Ox 100% on R/A. Significant labs H/H 7.5/23.4, platelets 214, glucose 145, BUN/creatinine 40/6.34. Daniela would be admitted for further evaluation and treatment of NELIA and symptomatic anemia. Allergies codeine Allergy (Unknown, Verified 06/03/23 18:14) Hives morphine Allergy (Unknown, Verified 06/03/23 18:14) Hives lidocaine Adverse Reaction (Severe, Verified 06/03/23 18:14) Anaphylaxis Review of Systems General: Weakness, Malaise Eyes: Unremarkable ENT: Unremarkable Respiratory: Unremarkable Cardiovascular: Unremarkable Gastrointestinal: Unremarkable Genitourinary: Unremarkable Musculoskeletal: Unremarkable Integumentary: Unremarkable Neurological: Weakness Physical Examination - Vital Signs Temperature: 98.3 F Blood Pressure: 156/77 Pulse: 82 Respirations: 18 Pulse Ox (%): 97 - Physical Exam General: Alert, In no apparent distress, Oriented x3 HEENT: Atraumatic, Normocephalic, PERRLA Neck: Supple, 2+ carotid pulse no bruit, JVD not distended Respiratory: Clear to auscultation bilaterally, Normal air movement Cardiovascular: No edema, Normal pulses, Regular rate/rhythm, Normal S1 S2 Capillary refill: <2 Seconds Gastrointestinal: Normal bowel sounds, Soft and benign Musculoskeletal: No clubbing, No swelling, No contractures Integumentary: No rashes, No breakdown, No significant lesion Neurological: Normal strength at 5/5 x4 extr, Normal tone, Abnormal speech (Residual from CVA) - Studies Laboratory Data (last 24 hrs) 06/03/23 06/03/23 06/03/23 11:29 11:29 11:29 WBC 8.30 Hgb 7.5 L Hct 23.4 L Plt Count 214 PT 15.8 H INR 1.44 APTT 23.0 L Sodium 139 Potassium 4.6 BUN 40 H Creatinine 6.34 H Glucose 145 H Total Bilirubin 0.2 AST 5 L ALT < 10 L Alkaline Phosphatase 126 H Assessment and Plan - Plan Assessment and plan Anemia due to chronic kidney disease Acute kidney injury H/H 7.5/23.4 BUN/creatinine 40/6.34, creatinine baseline is 2 labs pending IVF Consult Nephrology Monitor in AM labs Transfuse when Hgb < 7 DM2 Accu check with SSI Hx CVA Hx HTN and HLD restart home medications DNR DVT ppx: SCD for now LOS 2-3 days Discharge Plan: Group Home Plan to discharge in: 72 Hours - Advance Directives Does patient have a Living Will: No Does patient have a Durable POA for Healthcare: No Time Spent Managing Pts Care (In Minutes): 55
[2023-06-03 18:43] VITALS: BMI 35.6
--- NOTE | 2023-06-03 20:28 | P.CNS ---
Date of Consult: 06/03/23 Reason for Consult: NELIA/ CKD Requesting Physician: timbo bonds Chief Complaint: symptomatic anemia History of Present Illness: Daniela Enriquez is a 67-year-old female with a past medical history of blood clots, heart palpitations, hypertension, kidney disease, PVD, CVA, and anxiety who presents to the ED from the [facility] with abnormal lab values of which hemoglobin was 7.2 and creatinine greater than 6. She reports fatigue for the last several months. Daniela is on Eliquis 5 mg twice daily. She states she has not seen any bleeding in her urine, bowel movements, or break in skin. Initial vitals BP 148 / 80; Pulse 75; Resp 16; Pulse Ox 100% on R/A. Significant labs H/H 7.5/23.4, platelets 214, glucose 145, BUN/creatinine 40/6.34. Daniela would be admitted for further evaluation and treatment of NELIA and symptomatic anemia. 12:05 This 67 yrs old Female presents to ER via EMS with complaints of Abnormal lab values. rt 12:05 Patient presents to the ED with fatigue for the past several months. She had labs that rt were drawn which showed a creatinine greater than 6 as well as hemoglobin of 7.2. Patient is on blood thinners but denies any active bleeding to include rectal bleeding, melena, hematemesis. Denies any abdominal pain or other acute complaints. Symptoms are moderate in severity, no other aggravating or alleviating factors. 11:34 Chief complaint: Patient states: Pt c/o progressively worsening weakness and fatigue x tl4 2 weeks. Coronavirus screen: Vaccine status: Patient reports receiving the 2nd dose of the covid vaccine. Client denies travel out of the [place] in the last 14 days. Ebola Screen: Patient negative for fever greater than or equal to 101.5 degrees Fahrenheit, and additional compatible Ebola Virus Disease symptoms Patient denies exposure to infectious person. Patient denies travel to an Ebola-affected area in the 21 days before illness onset. No symptoms or risks identified at this time. Initial Sepsis Screen: Does the patient meet any 2 criteria? No. Patient's initial sepsis screen is negative. Risk Assessment: Do you want to hurt yourself or someone else? Patient reports no desire to harm self or others. Onset of symptoms was May 20, 2023. Allergies codeine Allergy (Unknown, Verified 06/03/23 18:14) Hives morphine Allergy (Unknown, Verified 06/03/23 18:14) Hives lidocaine Adverse Reaction (Severe, Verified 06/03/23 18:14) Anaphylaxis Home medications list reviewed: Yes Home Medications: Apixaban [Eliquis] 5 mg PO BID 06/03/23 Aspirin 81 mg PO DAILY 06/03/23 Atorvastatin Calcium 20 mg PO DAILY 06/03/23 Clopidogrel Bisulfate [Plavix] 75 mg PO DAILY 06/03/23 Cyclobenzaprine HCl [Flexeril] 5 mg PO TID 06/03/23 Escitalopram [Lexapro] 20 mg PO DAILY 06/03/23 Gabapentin 300 mg PO DAILY 06/03/23 Hydrocodone Bit/Acetaminophen [Hydrocodon-Acetaminophen 5-325] 1 tab PO Q6HR PRN 06/03/23 Insulin NPH Human Isophane [Humulin N] 16 units SQ DAILY 06/03/23 Lactulose 39 ml PO BID PRN 06/03/23 Metoprolol Tartrate [Lopressor] 0.5 tab PO BID 06/03/23 - Past Medical/Surgical History Diabetic: Yes -: HLD -: DM II with Polyneuropathy & CKD -: CKD (Dr. Lopez/ Dr. Atkins) -: Hx CVA -: Anemia -: Right foot toe amputations - Social History Smoking Status: Never smoker Alcohol use: No Place of Residence: Prison Review of Systems 10-point ROS is otherwise unremarkable Neurological: Weakness Physical Examination Temp Pulse Resp BP Pulse Ox 98.3 F 82 18 156/77 H 97 06/03/23 18:35 06/03/23 18:35 06/03/23 18:35 06/03/23 18:35 06/03/23 18:35 General: In no apparent distress, Cooperative HEENT: Atraumatic Neck: Supple Respiratory: Clear to auscultation bilaterally, Normal air movement Cardiovascular: No edema, Regular rate/rhythm Gastrointestinal: Soft and benign, Non-distended Musculoskeletal: No clubbing, No contractures Integumentary: No rashes, No cyanosis Neurological: Abnormal speech Laboratory Data (last 24 hrs) 06/03/23 06/03/23 06/03/23 11:29 11:29 11: WBC 8.30 Hgb 7.5 L Hct 23.4 L Plt Count 214 PT 15.8 H INR 1.44 APTT 23.0 L Sodium 139 Potassium 4.6 BUN 40 H Creatinine 6.34 H Glucose 145 H Total Bilirubin 0.2 AST 5 L ALT < 10 L Alkaline Phosphatase 126 H Conclusions/Impression: Stage III NELIA with associated hematuria vs Progressive CKD CKD IV with Proteinuria -No NSAIDs -Renal US -Check HBV panel -Request records from [facility] HTN with CKD -Hydralazine IV prn DM II with CKD (Last A1C 5.9) -RISS Hypoalbuminemia -Consider Nepro Anemia in chronic illness -Monitor H&H -Transfuse PRBC prn -Iron & B12 status pending -Retacrit prn CKD MBD Vitamin D3 Deficiency -Start Ergo Thank you kindly for the consultation Hospitalist and ER notes reviewed
[2023-06-03 20:32] LABS: RBC Red Blood Cell Count 3.03 M/uL (3.86-4.86)
--- NOTE | 2023-06-03 21:14 | RAD REPORT ---
EXAM DESCRIPTION: US - Renal Ultrasound-Complete - 06/03/2023 9:03 pm CLINICAL HISTORY: Stage III NELIA COMPARISON: No comparisons FINDINGS: The right kidney measures 11.6 cm. Cortical thinning. Moderate right-sided hydronephrosis. No focal masses. Echotexture is normal. The left kidney measures 10 cm. No hydronephrosis, focal mass or perinephric fluid. The urinary bladder is incompletely distended without gross abnormality seen. IMPRESSION: Moderate right-sided hydronephrosis of uncertain etiology. Bilateral renal cortical thin mayuri.
[2023-06-03] MEDS: Ringers Lactate 1,000 ML IV SCH (23:00)
[2023-06-04 04:16] LABS: Absolute Lymphocytes (CBC) 1.2 K/uL (0.7-4.9); Hematocrit 21.4 % (36.0-45.0); Lymphocytes % 13.7 % (15.3-44.8); MCV 77.1 fL (80-100); MPV 7.3 fL (7.6-11.3); Platelets 209 thou/uL (152-406); RBC Red Blood Cell Count 2.77 M/uL (3.86-4.86)
[2023-06-04 04:49] LABS: Phosphorus 3.8 mg/dL (2.5-4.9); Potassium 4.4 mEq/L (3.5-5.1)
[2023-06-04] MEDS: Ringers Lactate 1,000 ML IV SCH (06:37)
[2023-06-04] MEDS: INSULIN REGULAR (HUMAN) 100 UNIT/ML SQ SCH ×4 (07:30→20:12)
[2023-06-04 07:31] LABS: Hepatitis B Core Ab, Total Nonreactive (Nonreactive); Hepatitis B surface AG Interp. Nonreactive (Nonreactive); Hepatitis C Virus Ab Nonreactive (Nonreactive)
[2023-06-04 07:32] LABS: Hepatitis B Surface Ab - Quant < 3.10 mIU/mL (<8.0)
[2023-06-04] MEDS: NACHLORIDE 0.45% 1,000 ML IV SCH ×2 (07:56→18:00)
[2023-06-04] MEDS ORDERED: NA CHLORIDE 0.9% 250 ML IV SCH ×2 (08:00→16:42)
--- NOTE | 2023-06-04 09:17 | P.PN ---
Subjective Date of Service: 06/04/23 Chief Complaint: symptomatic anemia Subjective: Doing well HPI 06/03: Daniela Enriquez is a 67-year-old female with a past medical history of blood clots, heart palpitations, hypertension, kidney disease, PVD, CVA, and anxiety who presents to the ED from the [facility] with abnormal lab values of which hemoglobin was 7.2 and creatinine greater than 6. She reports fatigue for the last several months. Daniela is on Eliquis 5 mg twice daily. She states she has not seen any bleeding in her urine, bowel movements, or break in skin. Initial vitals BP 148 / 80; Pulse 75; Resp 16; Pulse Ox 100% on R/A. Significant labs H/H 7.5/23.4, platelets 214, glucose 145, BUN/creatinine 40/6.34. Daniela would be admitted for further evaluation and treatment of NELIA and symptomatic anemia. 06/04: Daniela was sleeping well this morning. Awake this afternoon, AAOx3, conversing well. Receiving the second unit of PRBC. No complaints. Review of Systems 10-point ROS is otherwise unremarkable Physical Examination - Vital Signs Temperature: 98.8 F Blood Pressure: 139/69 Pulse: 75 Respirations: 16 Pulse Ox (%): 97 - Studies Laboratory Data (last 24 hrs) 06/03/23 06/03/23 06/03/23 11:29 11:29 11:29 WBC 8.30 Hgb 7.5 L Hct 23.4 L Plt Count 214 PT 15.8 H INR 1.44 APTT 23.0 L Sodium 139 Potassium 4.6 BUN 40 H Creatinine 6.34 H Glucose 145 H Total Bilirubin 0.2 AST 5 L ALT < 10 L Alkaline Phosphatase 126 H Assessment And Plan - Plan Physical Exam General: Alert, In no apparent distress, Oriented x3 HEENT: Atraumatic, Normocephalic, PERRLA Neck: Supple, 2+ carotid pulse no bruit, JVD not distended Respiratory: Clear to auscultation bilaterally, Normal air movement Cardiovascular: No edema, Normal pulses, Regular rate/rhythm, Normal S1 S2 Capillary refill: <2 Seconds Gastrointestinal: Normal bowel sounds, Soft and benign Musculoskeletal: No clubbing, No swelling, No contractures Integumentary: No rashes, No breakdown, No significant lesion Neurological: Normal strength at 5/5 x4 extr, Normal tone, Abnormal speech (Residual from CVA) Problem Anemia due to chronic kidney disease Stage III NELIA with associated hematuria CKD IV with Proteinuria DM2 Plan Anemia due to chronic kidney disease Stage III NELIA with associated hematuria CKD IV with Proteinuria H/H 6.8/21.4 Transfuse 2 units PRBC- 06/04 repeat H/H 2200 BUN/creatinine 38/5.98, creatinine baseline is [address] Lopez Consult Dr. Araiza Monitor in AM labs Transfuse when Hgb < 7 no NSAIDs HBV panel Renal US DM2 Accu check with SSI Hx CVA Hx HTN and HLD restart home medications DNR DVT ppx: SCD for now LOS 2-3 days Discharge Plan: [facility] Plan to discharge in: 24 Hours Time Spent Managing PTS Care (In Minutes): 35
[2023-06-04] MEDS ORDERED: NA CHLORIDE 0.9% 250 ML ONE (10:02)
--- NOTE | 2023-06-04 10:44 | EKG ---
Test Date: 2023-06-03 Test Time: 12:30:22 Voucher Examiner: TL MEASUREMENT RESULTS: Intervals: Rate: 72 OR: 192 QRSD: 74 QT: 408 QTc: 446 Sinclair: P: 47 OR: 192 QRS: -10 T: 49 INTERPRETIVE STATEMENTS: Normal sinus rhythm Low voltage QRS Septal infarct, age undetermined Abnormal ECG Compared to ECG 03/07/2020 12:11:48 Low QRS voltage now present Myocardial infarct finding still present Electronically Signed On 06-04-23 10:42:09 INTERNET MARKETING [employer]NALYST by Ming Smith
[2023-06-04] MEDS ORDERED: EPOETIN ALFA-EPBX 10,000 UNIT/ML VIAL SQ ONE (11:30)
[2023-06-04] MEDS: DRISDOL (VITAMIN D=ERGOCALCIFEROL) 50000 UNIT CAP PO SCH (12:45)
[2023-06-04] MEDS ORDERED: NA CHLORIDE 0.9% 100 ML ONE (13:37)
--- NOTE | 2023-06-04 20:00 | P.PN ---
Date of Service: 06/04/23 Vital Signs Temp Pulse Resp BP Pulse Ox 97.8 F 78 17 132/62 99 06/04/23 15:59 06/04/23 15:59 06/04/23 15:59 06/04/23 15:59 06/04/23 15:59 Medications Ergocalciferol (Drisdol (Vitamin D=Ergocalciferol) 33530 Unit Cap) 50,000 unit PO Q48H ELISABETH Stop: 06/06/23 12:01 Last Admin: 06/04/23 12:45 Dose: 50,000 unit Sodium Chloride (Sodium Chloride 0.45%) 1,000 mls @ 100 mls/hr IV .Q10H ELISABETH Last Admin: 06/04/23 18:00 Dose: Not Given Sodium Chloride (Sodium Chloride) 250 mls @ 0 mls/hr IV .Q0M ELISABETH Sodium Chloride (Sodium Chloride) 250 mls @ 0 mls/hr IV .Q0M ELISABETH Insulin Human Regular (Insulin Regular (Human) 100 Unit/Ml) 0 unit SQ ACHS ELISABETH; Protocol Last Admin: 06/04/23 16:17 Dose: Not Given Lab Results (last 24 hrs) 06/04/23 11:04: POC Glucose 152 H 06/04/23 08:44: POC Glucose 99 06/04/23 07:33: ABO/Rh Cancelled, Solid Phase Ab Screen Cancelled, Crossmatch See Detail 06/04/23 03:23: Hep Bs Antigen Nonreactive, Hep B Surface Ag Comm Report, Hep Bs Antibody Nonreactive, Hep Bs Antibody, Quant < 3.10, Hep B Core Total Ab Nonreactive, Hepatitis C Interp Nonreactive 06/04/23 03:23: Sodium 142, Potassium 4.4, Chloride 114 H, Carbon Dioxide 24, Anion Gap 8.4, BUN 38 H, Creatinine 5.98 H, Est GFR (CKD-EPI) 7 L, Glucose 111 H, Uric Acid 7.0 H, Calcium 7.6 L D, Phosphorus 3.8, Magnesium 2.0, Triglycerides 100, Cholesterol 99, LDL Cholesterol, Calc 51, HDL Cholesterol 28 L, Cholesterol/HDL Ratio 3.54 06/04/23 03:23: WBC 9.00, RBC 2.77 L, Hgb 6.8 L D, Hct 21.4 L, MCV 77.1 L, MCH 24.7 L, MCHC 32.0, RDW 16.0 H, Plt Count 209, MPV 7.3 L, Neutrophils % 76.8 H, Lymphocytes % 13.7 L, Monocytes % 5.2, Eosinophils % 3.6, Basophils % 0.7, Absolute Neutrophils 6.9, Absolute Lymphocytes 1.2, Absolute Monocytes 0.5, Absolute Eosinophils 0.3, Absolute Basophils 0.1 06/03/23 21:07: POC Glucose 156 H 06/03/23 11:29: RBC 3.03 L, Absolute Retic 0.03, Percent Retic 1.13 06/03/23 11:29: ABO/Rh A NEGATIVE, Solid Phase Ab Screen Negative, Crossmatch See Detail Assessment/ Plan: Nephrology No dyspnea No chest pain Good urine output No acute events overnight Vitals, medications, blood work and imaging reviewed in the chart. General: In no apparent distress, Cooperative HEENT: Atraumatic Neck: Supple Respiratory: Clear to auscultation bilaterally, Normal air movement Cardiovascular: No edema, Regular rate/rhythm Gastrointestinal: Soft and benign, Non-distended Musculoskeletal: No clubbing, No contractures Integumentary: No rashes, No cyanosis Neurological: Abnormal speech Laboratory Data (last 24 hrs) 06/03/23 06/03/23 06/03/23 11:29 11:29 11:29 WBC 8.30 Hgb 7.5 L Hct 23.4 L Plt Count 214 PT 15.8 H INR 1.44 APTT 23.0 L Sodium 139 Potassium 4.6 BUN 40 H Creatinine 6.34 H Glucose 145 H Total Bilirubin 0.2 AST 5 L ALT < 10 L Alkaline Phosphatase 126 H EXAM DESCRIPTION: US - Renal Ultrasound-Complete - 06/03/2023 9:03 pm CLINICAL HISTORY: Stage III NELIA COMPARISON: No comparisons FINDINGS: The right kidney measures 11.6 cm. Cortical thinning. Moderate right- sided hydronephrosis. No focal masses. Echotexture is normal. The left kidney measures 10 cm. No hydronephrosis, focal mass or perinephric fluid. The urinary bladder is incompletely distended without gross abnormality seen. IMPRESSION: Moderate right-sided hydronephrosis of uncertain etiology. Bilateral renal cortical thinning. Conclusions/Impression: Stage III NELIA with associated hematuria vs Progressive CKD CKD IV with Proteinuria -No NSAIDs -Renal US demonstrated right hydronephrosis; Urology consulted -Hepatitis panel negative -Request records from [facility] -Change IVF 1/2NS -Urine uncollected -May need to consider dialysis if no improvement HTN with CKD -Hydralazine IV prn DM II with CKD (Last A1C 5.9) -RISS Hypoalbuminemia -Consider Nepro Anemia in chronic illness -Monitor H&H -Transfuse PRBC as ordered -Iron & B12 status pending -Retacrit X1 CKD MBD Vitamin D3 Deficiency -Continue Ergo Case reviewed with hospitalist team Hospitalist note reviewed
--- NOTE | 2023-06-04 20:27 | P.CNS ---
Date of Consult: 06/04/23 Reason for Consult: Hydronephrosis Requesting Physician: Adrián Lopez Chief Complaint: symptomatic anemia History of Present Illness: 67-year-old woman with IDDM, hypertension, hyperlipidemia, h/o CVA on aspirin and Plavix, PVD, DVT on Eliquis and heart palpitations presents to me in consultation because of acute on chronic kidney injury observed in the setting of right-sided hydronephrosis. She was admitted via the emergency department from the [facility] with symptomatic anemia as well as the sign of acute kidney injury. She had reported significant fatigue over the last several months. She denied any blood in her urine. Since her admission, she has received 2 blood transfusions, but her renal function continues to be poor. Review of lab history and [facility]: 03/07/2020 creatinine 1.29 09/10/2022 creatinine 2.89, BUN 32 06/03/2023 creatinine 6.34, BUN 40, UA micro contaminated specimen with 5-10 RBCs and 5-10 WBCs but trace leukocyte esterase 06/04/2023 creatinine 5.98, BUN 38 Pursuant to her acute on chronic renal failure, renal ultrasound was requested as follows: 06/03/2023 right kidney with cortical thinning and moderate hydronephrosis without focal mass identified. Normal echotexture seen. Left kidney normal. Bladder incompletely distended without gross abnormality seen. 06/03/2023 EKG interpretation: NSR, old septal infarct suspected, myocardial infarct finding still present compared to EKG 03/07/2020. Past medical history: As above Past surgical history: Right foot toe amputations Social history: Never smoker Examination: Well-appearing and in no acute distress Alert, awake, oriented x3 No dyspnea or sign of respiratory distress No cervical/supraclavicular adenopathy or thyromegaly Abdomen soft, nontender Lying in her hospital bed comfortable and well-appearing No lower extremity Homman's sign noted -Initial recommendations: -CT scan of the abdomen and pelvis without contrast recommended to assess for stone or other source of obstruction to determine if she is a candidate for right ureteral stent placement 06/05/2023 CT completed as ordered and I reviewed the images with the following findings: Atrophy of the left kidney noted. Hydronephrosis of right kidney with ureteral nephrosis extending down to the distal ureter where there is a greater than 9 mm burden of stone causing significant obstruction. Assessment and recommendation: 67-year-old woman with IDDM, hypertension, hyperlipidemia, h/o CVA on aspirin and Plavix, PVD, DVT on Eliquis and heart palpitations admitted with symptomatic anemia and acute on chronic kidney injury observed in the setting of right-sided hydronephrosis secondary to distal right ureteral stone burden greater than 9 mm. -While intervention to relieve the obstruction is indeed recommended given the cortical preservation observed on ultrasound with the right kidney, the potential for recovery of significant renal function will be limited since there is evidence of renal function decline since at least August of this year. That said, given the lack of significant improvement despite transfusions and the patient's apparent expressed desire to avoid dialysis, the only option to try to improve her renal function beyond improvement in her vascular flow status, would be to relieve the obstruction. -Given her significant medical comorbidities and an undefined cardiac risk, I we will request an assessment of her medical suitability for any form of anesthesia prior to surgical intervention for this low risk procedure. Please note, this procedure could likely be performed under sedation plus MAC as opposed to general anesthesia. -Patient requested to be n.p.o. after midnight tonight in the unlikely event she is medically cleared for intervention tomorrow. If unable to provide medical clearance/cardiac clearance required, patient may be fed, but she should be made n.p.o. at the moment surgical-anesthetic intervention would be considered of a reasonable risk, and I should be notified as well. -Given the prolonged likely nature of this obstruction, placement of a stent is likely to be incredibly challenging and may be impossible. She may require transfer for urgent percutaneous nephrostomy tube placement, and if her cardiac comorbidities are prohibitive for anesthesia, this may be her best initial route until she can be medically cleared. -Ceftriaxone 1g IV periop prophylaxis Allergies codeine Allergy (Unknown, Verified 06/03/23 18:14) Hives morphine Allergy (Unknown, Verified 06/03/23 18:14) Hives lidocaine Adverse Reaction (Severe, Verified 06/03/23 18:14) Anaphylaxis Home medications list reviewed: Yes Home Medications: Apixaban [Eliquis] 5 mg PO BID 06/03/23 Aspirin 81 mg PO DAILY 06/03/23 Atorvastatin Calcium 20 mg PO DAILY 06/03/23 Clopidogrel Bisulfate [Plavix] 75 mg PO DAILY 06/03/23 Cyclobenzaprine HCl [Flexeril] 5 mg PO TID 06/03/23 Escitalopram [Lexapro] 20 mg PO DAILY 06/03/23 Gabapentin 300 mg PO DAILY 06/03/23 Hydrocodone Bit/Acetaminophen [Hydrocodon-Acetaminophen 5-325] 1 tab PO Q6HR PRN 06/03/23 Insulin NPH Human Isophane [Humulin N] 16 units SQ DAILY 06/03/23 Lactulose 39 ml PO BID PRN 06/03/23 Metoprolol Tartrate [Lopressor] 0.5 tab PO BID 06/03/23 - Past Medical/Surgical History Diabetic: Yes -: HLD -: DM II with Polyneuropathy & CKD -: CKD (Dr. Lopez/ Dr. Atkins) -: Hx CVA -: Anemia -: Right foot toe amputations - Social History Smoking Status: Never smoker Alcohol use: No Place of Residence: Shelter Physical Examination Temp Pulse Resp BP Pulse Ox 97.8 F 78 17 132/62 99 06/04/23 15:59 06/04/23 15:59 06/04/23 15:59 06/04/23 15:59 06/04/23 15:59 Laboratory Data (last 24 hrs) 06/04/23 06/04/23 03:23 03:23 WBC 9.00 Hgb 6.8 L D Hct 21.4 L Plt Count 209 Sodium 142 Potassium 4.4 BUN 38 H Creatinine 5.98 H Glucose 111 H Uric Acid 7.0 H Phosphorus 3.8 Magnesium 2.0 Triglycerides 100 Cholesterol 99 HDL Cholesterol 28 L Cholesterol/HDL Ratio 3.54 - Problems (1) Hydronephrosis, right Current Visit: Yes Status: Acute (2) NELIA (acute kidney injury) Current Visit: Yes Status: Acute (3) CKD (chronic kidney disease) stage 4, GFR 15-29 ml/min Current Visit: Yes Status: Acute Conclusions/Impression: See assessment and plan in HPI Critical Care: No Time Spent Managing Pts care (In Minutes): 45
[2023-06-05] MEDS: NACHLORIDE 0.45% 1,000 ML IV SCH ×2 (01:11→12:24)
[2023-06-05] MEDS: HYDROCODONE/APAP 5/325 MG TAB PO PRN ×2 (01:11→23:55)
[2023-06-05 07:20] LABS: Absolute Lymphocytes (CBC) 1.5 K/uL (0.7-4.9); Hematocrit 28.9 % (36.0-45.0); MCV 80.3 fL (80-100); MPV 7.4 fL (7.6-11.3); Platelets 183 thou/uL (152-406)
[2023-06-05] MEDS: INSULIN REGULAR (HUMAN) 100 UNIT/ML SQ SCH ×4 (07:30→21:00)
--- NOTE | 2023-06-05 08:06 | RAD REPORT ---
EXAM DESCRIPTION: CT - Abdomen Pelvis Wo Contrast - 06/05/2023 7:51 am CLINICAL HISTORY: Abdominal pain COMPARISON: Renal ultrasound June 03, 2023 TECHNIQUE: Computed axial tomography of the abdomen and pelvis was obtained. IV and oral contrast we re not requested. All CT scans are performed using dose optimization technique as appropriate and may include automated exposure control or mA/KV adjustment according to patient size. FINDINGS: The evaluation of solid organs, vessels and bowel is limited secondary to the lack of con trast administration. Marked right hydronephrosis. Marked dilatation right ureter. Several contiguous calculi are present w ithin the mid to distal right ureter measuring 18 millimeters cranial caudal length Cortical renal thinning. Liver, pancreas and adrenals grossly normal Cholecystectomy Spleen mildly enlarged. No evidence of diverticulitis. No adnexal mass. Right iliac arterial stent present. 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
[2023-06-05 08:13] LABS: BUN Blood Urea Nitrogen 35 mg/dL (7-18); Bicarbonate 23 mEq/L (21-32); Glomerular Filtration Rate 8 ml/min (=/>90); Glucose Level 106 mg/dL (74-106); Magnesium 1.9; Phosphorus 3.8 mg/dL (2.5-4.9); Potassium 4.7 mEq/L (3.5-5.1); Sodium Level 139 mEq/L (136-145)
--- NOTE | 2023-06-05 11:03 | P.PN ---
Nephrology note (S) CT findings reviewed and discussed with pt and primary team, Urology on the case. Pt is NPO. She denies flank pain or gross hematuria, she acknowledges mild nausea. (O) Vitals, medications, blood work and imaging reviewed in the chart. General: In no apparent distress, Cooperative HEENT: Atraumatic, sclera anicteric, not on O2 Neck: Supple Respiratory: Clear to auscultation bilaterally, Normal air movement Cardiovascular: No edema, Regular rate/rhythm mostly Gastrointestinal: Soft and benign, Non-distended Musculoskeletal: Rt foot deformity Integumentary: No rashes Neurological: Awake, alert, responsive, no tremors EXAM DESCRIPTION: US - Renal Ultrasound-Complete - 06/03/2023 9:03 pm CLINICAL HISTORY: Stage III NELIA COMPARISON: No comparisons FINDINGS: The right kidney measures 11.6 cm. Cortical thinning. Moderate right- sided hydronephrosis. No focal masses. Echotexture is normal. The left kidney measures 10 cm. No hydronephrosis, focal mass or perinephric fluid. The urinary bladder is incompletely distended without gross abnormality seen. IMPRESSION: Moderate right-sided hydronephrosis of uncertain etiology. Bilateral renal cortical thinning. Conclusions/Impression: Stage III ARF, likely sub-acute on underlying CKD, possibly Stage IV on the basis of Cr level earlier in the year in Aug but there is a gap in record and we do not have a good historic trend of levels. Renal u/s imaging also reported cortical thinning b/l. ARF in the setting of Rt sided hydro +/- other factors. -Cr level has downward trended mildly and will see with Rt ureteral stenting how much additional improvement is seen. Metab chemistries and volume status currently stable, so there is no emergent indication for DISASSEMBLER at this time. -Cont IVF hydration -UA on admission showed some microscopic hematuria likely due to ureteral stones. Will f/u UCx Rt sided hydroureteronephrosis 2nd to mid and distal ureteral calculi -unable to load CT images to review independently. Urology, Dr. Araiza, on the case, pt will need Rt ureteral stenting. Urology had requested med/cardiac clearance given pt hx, will defer to IM to address. Pt was taking Eliquis and Plavix among home meds, both appear held here. HTN with CKD -BP mildly labile, trend Anemia multifactorial and in chronic illness -s/p tranfusion, trend H/H closely. Since pt was on Eliquis and Plavix, if H/H remains low, consider FOBT testing as well. F/u iron studies. Vishnu Atkins MD, DIANA
--- NOTE | 2023-06-05 17:48 | P.PN ---
Subjective Date of Service: 06/05/23 Chief Complaint: symptomatic anemia Patient has no new complaint. Renal function trended down only slightly. She reports good urine output. She denies any flank pain. Physical Examination - Vital Signs Temperature: 98.1 F Blood Pressure: 183/73 Pulse: 77 Respirations: 16 Pulse Ox (%): 97 Assessment And Plan - Plan Physical Exam General: Alert, In no apparent distress, Oriented x3 Neck: Supple, JVD not distended. Respiratory: Clear to auscultation bilaterally, Normal air movement Cardiovascular: No edema, Normal pulses, Regular rate/rhythm, Normal S1 S2 Gastrointestinal: Normal bowel sounds, Soft and benign Musculoskeletal: No clubbing, No swelling. Integumentary: No rashes, No breakdown. Neurological: Normal strength at 5/5 x4 extr, Normal tone, dysarthria. Problem Anemia due to chronic kidney disease Stage III NELIA with associated hematuria CKD IV DM2 Plan Anemia due to chronic kidney disease Stage III NELIA with associated hematuria CKD IV Proteinuria Status post 2 units PRBC transfusion Continue IVF Nephrology Dr. Greenberg is following and assisting with management. Monitor renal function Transfuse PRBC as needed for hemoglobin less than 7 Avoid nephrotoxins Right hydronephrosis secondary to obstructing calculus Urology Dr. Araiza input appreciated. Dr. Araiza is planning ureteral stent placement tomorrow DM2 Accu check with SSI Hx CVA Hx HTN and HLD Hold antiplatelet and anticoagulant for urologic procedure tomorrow. DNR DVT ppx: SCD for now Discharge Plan: Long Term
[2023-06-05 22:17] LABS: Ferritin 27.6 ng/mL (8-388)
[2023-06-06 03:25] LABS: Absolute Lymphocytes (CBC) 1.3 K/uL (0.7-4.9); Hematocrit 27.7 % (36.0-45.0); Lymphocytes % 13.2 % (15.3-44.8); MCV 79.8 fL (80-100); MPV 7.7 fL (7.6-11.3); Platelets 205 thou/uL (152-406); RBC Red Blood Cell Count 3.48 M/uL (3.86-4.86)
[2023-06-06 03:53] LABS: Magnesium 1.7 mg/dL (1.6-2.4); Potassium 4.7 mEq/L (3.5-5.1)
[2023-06-06] MEDS: INSULIN REGULAR (HUMAN) 100 UNIT/ML SQ SCH ×4 (07:30→21:00)
[2023-06-06] MEDS ORDERED: NA CHLORIDE 0.9% 500 ML ONE (09:58)
[2023-06-06] MEDS ORDERED: CEFTRIAXONE 1,000 MG in NA CHLORIDE 0.9% 50 ML IVPB ONE (11:00)
--- NOTE | 2023-06-06 11:32 | P.PN ---
Subjective Date of Service: 06/06/23 Chief Complaint: acute on chronic kidney disease Subjective: No new changes, Improving Physical Examination - Vital Signs Temperature: 98.4 F Blood Pressure: 183/77 Pulse: 73 Respirations: 16 Pulse Ox (%): 92 - Physical Exam General: Alert, In no apparent distress HEENT: Atraumatic Neck: Supple, No Thyromegaly, No LAD Respiratory: Normal air movement Cardiovascular: Normal pulses Gastrointestinal: Soft and benign Musculoskeletal: No tenderness Neurological: Normal speech Assessment And Plan - Current Problems (Diagnosis) (1) Hydronephrosis, right Current Visit: Yes Status: Acute (2) NELIA (acute kidney injury) Current Visit: Yes Status: Acute (3) CKD (chronic kidney disease) stage 4, GFR 15-29 ml/min Current Visit: Yes Status: Acute - Plan 67-year-old woman with IDDM, hypertension, hyperlipidemia, h/o CVA on aspirin and Plavix, PVD, DVT on Eliquis and heart palpitations admitted with symptomatic anemia and acute on chronic kidney injury observed in the setting of right-sided hydronephrosis secondary to distal right ureteral stone burden greater than 9 mm. -While intervention to relieve the obstruction is indeed recommended given the cortical preservation observed on ultrasound with the right kidney, the potential for recovery of significant renal function will be limited since there is evidence of renal function decline since at least August of this year. That said, given the lack of significant improvement despite transfusions and the patient's apparent expressed desire to avoid dialysis, the only option to try to improve her renal function beyond improvement in her vascular flow status, would be to relieve the obstruction. -Given the prolonged likely nature of this obstruction, placement of a stent is likely to be incredibly challenging and may be impossible. She may require transfer for urgent percutaneous nephrostomy tube placement, and if her cardiac comorbidities are prohibitive for anesthesia, this may be her best initial route until she can be medically cleared. -cysto with right RGP and stent, possible need for PCN tube placement -Ceftriaxone 1g IV periop prophylaxis Plan to discharge in: Greater than 2 days
[2023-06-06] MEDS ORDERED: propofoL 1,000 MG/100 ML VIAL IV ONE (11:37)
[2023-06-06] MEDS ORDERED: MIDAZOLAM HCL 2 MG/2 ML INJ ONE (11:45)
[2023-06-06] MEDS ORDERED: FENTANYL CITR 100 MCG/2 ML ONE (11:45)
--- NOTE | 2023-06-06 12:28 | P.OP ---
Date of Service: 06/06/23 Preoperative diagnoses: Right hydronephrosis Acute on chronic kidney injury Right ureterolithiasis Postoperative diagnoses: Same Principal procedures: Cystoscopy Right retrograde pyelography Right 6 x 26 [place] double-J ureteral stent placement Indication for procedure: 67-year-old woman with IDDM, hypertension, hyperlipidemia, h/o CVA on aspirin and Plavix, PVD, DVT on Eliquis and heart palpitations admitted with symptomatic anemia and acute on chronic kidney injury observed in the setting of right-sided hydronephrosis secondary to distal right ureteral stone burden greater than 9 mm. Procedure note: The patient was consented in the preoperative holding area before being transferred to the operative suite where general anesthesia was induced. She was given ceftriaxone 1 g IV antimicrobial prophylaxis, and pneumoboots were provided for DVT prophylaxis. She was placed in the lithotomy position, padded and secured to the table appropriately. Her genitalia was prepped with Hibiclens and draped in standard fashion. The case was begun using a 22 [place] rigid cystoscope to traverse the urethra and into the bladder with ease. The bladder was decompressed of fluid and urine and surveyed. There were no papillary mucosal lesions, foreign bodies or stones. The ureteral orifices were orthotopic in location, and I cannulated the right ureteral orifice using the tip of a sensor wire to guide entry of a 5 [place] ureteral access catheter. Right retrograde pyelography: Using a 70: 30 mixture of Omnipaque and saline, contrast was injected via the lumen of the 5 [place] ureteral access catheter and did propagate up the distal portion of the ureter to the point of calculus related obstruction, which was largely radiolucent. Contrast did seem to emanate beyond the point of obstruction just of couple of centimeters into a point of dilated proximal and mid and distal ureter. As a result, I advanced the 5 [place] ureteral access catheter a bit further into the distal ureter 1 to 2 cm distal to the stone burden and again injected full-strength contrast to delineate more of the proximal ureter and elucidate the significant tortuosity observed. Unfortunately contrast would not enter the renal pelvis due to the chronic hydronephrosis and stasis of urine. As a result, I passed the sensor wire under live fluoroscopic imagery beyond the point of stone burden and obstruction and passed the degree of ureteral tortuosity before coiling it in the putative renal pelvis and calyces. To confirm the appropriate localization of the sensor wire, I advanced the 5 [place] ureteral access catheter over the wire into the putative renal pelvis. I remove the wire and then again injected contrast delineating the renal pelvis and calyces demonstrating the pelvocaliectasis consistent with a hydronephrosis seen on imaging. As a result, I passed the sensor wire via the 5 [place] ureteral access catheter and coiled it within the upper pole calyx of the kidney. I then remove the 5 [place] ureteral access catheter and passed a 6 [place] by 26 cm double-J ureteral stent over the wire and remove the wire forming a coil wi thin the upper pole calyx of the right kidney and cystoscopically observing a coil formed within her bladder. I then decompressed her bladder of fluid and urine before placing a 16 [place] urethral Shepherd catheter to aid in right renal decompression. The drainage of urine was largely clear without significant debris. She was then taken out of the lithotomy position, awakened from general anesthes ia, transferred to a stretcher, and then transferred to the recovery room in good condition. Complications: None Discharge disposition: I have placed a urethral Shepherd catheter to aid in the rapid decompression of the right renal unit and improvement in her renal function. That catheter may be removed later tonight or tomorrow morning as the kidney should have decompressed by that point. Monitoring for renal function recovery to assess what her new baseline will be will then dictate her propensity for discharge along with her other chronic medical comorbidities and symptomatic anemia that prompted her admission in the first place. Subsequent follow-up should be established in the urology clinic to discuss definitive management of her distal ureterolithiasis. Given the lack of radio opaque nature of the stones, she will require definitive ureteroscopy with laser lithotripsy. Cardiology evaluation and clearance will be required. Findings and Operative Technique
--- NOTE | 2023-06-06 12:33 | RAD REPORT ---
EXAM DESCRIPTION: RAD - Fluoroscopy <1 Hour - 06/06/2023 12:26 pm CLINICAL HISTORY: Device placement ureteral stent placement FINDINGS: Ten fluoroscopic spot images. Fluoroscopy time 0.4 minutes Right ureter cannulated and contrast administered. Subsequently a right ureteral stent placed The examination was performed by Dr. Araiza
[2023-06-06] MEDS ORDERED: HYDRALAZINE HCL 20 MG/ML VIAL ONE (13:06)
[2023-06-06] MEDS: NACHLORIDE 0.45% 1,000 ML IV SCH ×3 (13:44→20:43)
[2023-06-06] MEDS: DRISDOL (VITAMIN D=ERGOCALCIFEROL) 50000 UNIT CAP PO SCH (13:45)
--- NOTE | 2023-06-06 16:02 | PN ---
Date of Progress Note: 06/06/2023 Subjective: Patient was seen and examined at bedside. She is doing okay. Denies any complaints. S he had stenting done by Dr. Araiza today. Physical Examination: Vital Signs: Have been reviewed and are stable. General: Here, she appears in no acute distress. Lungs: Clear. Abdomen: Soft. Extremities: Showed no evidence of edema. Laboratory Data: At this time are showing creatinine improving to 5.34 this morning. Other electrol ytes are stable. CBC showing stable hemoglobin, hematocrit, and platelet count. Current Medications: Have been reviewed in detail. She remains on IV fluids with normal saline at 1 00 cc an hour and Rocephin 1 g every 24 hours. Impression: 1.Acute renal failure secondary to obstructive uropathy with hydronephrosis and needing ureteral guillermina nting. Patient had ureteral stent placed by Dr. Araiza. We will continue to monitor closely. 2.Anemia secondary to chronic kidney disease, status post transfusion. Continue to monitor hemoglob in. It is currently stable. 3.Hypertension. Blood pressure labile. Continue to monitor at this time after anesthesia effects h ave ceased. We will go ahead and change IV fluids from normal saline to half NS. Patient is getting half NS. We will continue to the NS and monitor her at this time. VV/MODL Voice ID: [id number] Report ID: [id number]
--- NOTE | 2023-06-06 16:40 | P.PN ---
Subjective Date of Service: 06/06/23 Chief Complaint: acute on chronic kidney disease 06/06; Daniela is awake this AM, feeling well. Plan is for Dr. Araiza to perform a Right retrograde pyelography with Right ureteral stent placement. Shepherd was placed during procedure and will be dc in the AM. Will require continued follow up with Dr. Araiza for further treatment. <LazaroAllisonMarj - Last Filed: 06/06/23 16:56> Date of Service: 06/06/23 <timbo bonds - Last Filed: 06/06/23 17:47> Review of Systems 10-point ROS is otherwise unremarkable <LazaroMarj - Last Filed: 06/06/23 16:56> Physical Examination - Vital Signs Temperature: 98.0 F Blood Pressure: 136/87 Pulse: 79 Respirations: 14 Pulse Ox (%): 96 <LazaroMarj - Last Filed: 06/06/23 16:56> Assessment And Plan - Plan Physical Exam General: Alert, In no apparent distress, Oriented x3 HEENT: Atraumatic, Normocephalic, PERRLA Neck: Supple, 2+ carotid pulse no bruit, JVD not distended Respiratory: Clear to auscultation bilaterally, Normal air movement Cardiovascular: No edema, Normal pulses, Regular rate/rhythm, Normal S1 S2 Capillary refill: <2 Seconds Gastrointestinal: Normal bowel sounds, Soft and benign Musculoskeletal: No clubbing, No swelling, No contractures Integumentary: No rashes, No breakdown, No significant lesion Neurological: Normal strength at 5/5 x4 extr, Normal tone, dysarthria (Residual from CVA) Problem Anemia due to chronic kidney disease Stage III NELIA with associated hematuria CKD IV DM2 Plan Anemia due to chronic kidney disease Stage III NELIA with associated hematuria CKD IV Proteinuria Status post 2 units PRBC transfusion Continue IVF Nephrology Dr. Greenberg is following and assisting with management. Monitor renal function Transfuse PRBC as needed for hemoglobin less than 7 Avoid nephrotoxins Right hydronephrosis secondary to obstructing calculus Dr. Araiza is planning ureteral stent placement tomorrow Shepherd in place til the morning Requires extensive follow up with Dr. Araiza DM2 Accu check with SSI Hx CVA Hx HTN and HLD held antiplatelets and anticoagulants for urologic procedure will restart when appropriate DNR DVT ppx: SCD for now LOS 2-3 days Discharge Plan: Jail Plan to discharge in: 48 Hours Time Spent Managing PTS Care (In Minutes): 35 <Marj Willis - Last Filed: 06/06/23 16:56> - Plan Plan of care discussed with Ms. Willis. Urethral stent placed today Shepherd catheter maintained after the procedure Continue to monitor renal function for improvement Nephrology is following. Monitor H&H. <timbo bonds - Last Filed: 06/06/23 17:47>
[2023-06-06] MEDS: HYDROCODONE/APAP 5/325 MG TAB PO PRN (20:37)
[2023-06-06] MEDS ORDERED: HYDROCODONE/APAP 5/325 MG TAB PO PRN (23:36)
[2023-06-07] MEDS ORDERED: LACTULOSE 20 GM/30 ML UCUP PO PRN (02:56)
[2023-06-07 03:36] LABS: Absolute Lymphocytes (CBC) 1.4 K/uL (0.7-4.9); Hematocrit 27.9 % (36.0-45.0); Lymphocytes % 16.1 % (15.3-44.8); MCV 80.2 fL (80-100); MPV 7.6 fL (7.6-11.3); Platelets 202 thou/uL (152-406); RBC Red Blood Cell Count 3.48 M/uL (3.86-4.86)
[2023-06-07 03:52] LABS: Magnesium 1.7 mg/dL (1.6-2.4); Phosphorus 4.3 mg/dL (2.5-4.9); Potassium 4.6 mEq/L (3.5-5.1)
[2023-06-07] MEDS ORDERED: MAGNESIUM SULFATE 1 gm IVPB 1 GM/100 ML BAG IV ONE (05:34)
[2023-06-07] MEDS: NACHLORIDE 0.45% 1,000 ML IV SCH ×2 (06:15→16:00)
[2023-06-07] MEDS: INSULIN REGULAR (HUMAN) 100 UNIT/ML SQ SCH ×4 (07:30→21:00)
[2023-06-07] MEDS ORDERED: APIXABAN 5 MG TABLET PO SCH (09:00)
[2023-06-07] MEDS: GABAPENTIN 300 MG CAP PO SCH (09:20)
[2023-06-07] MEDS: CLOPIDOGREL 75 MG TABLET PO SCH (09:20)
[2023-06-07] MEDS: METOPROLOL TAR 25 MG TAB PO SCH ×2 (09:20→16:34)
[2023-06-07] MEDS: ATORVASTATIN 20 MG TAB PO SCH (09:21)
[2023-06-07] MEDS: CYCLOBENZAPRINE 10 MG TAB PO SCH ×3 (09:21→21:48)
[2023-06-07] MEDS: ESCITALOPRAM 20 MG TAB PO SCH (09:21)
[2023-06-07] MEDS: ASPIRIN 81 MG CHEWABLE TABLET PO SCH (09:21)
[2023-06-07] MEDS: APIXABAN 2.5 MG TABLET PO SCH ×2 (09:24→21:48)
[2023-06-07 12:18] LABS: Albumin, (SPE) 2.6 g/dL (3.8-4.8); Alpha-1-Globulins 0.3 g/dL (0.2-0.3); Alpha-2-Globulins 0.8 g/dL (0.5-0.9); INTERPRETATION REPORT
--- NOTE | 2023-06-07 17:29 | P.PN ---
Subjective Date of Service: 06/07/23 Chief Complaint: acute on chronic kidney disease Patient has no new complaint. Renal function trended down significantly after ureteral stent placement yesterday She reports good urine output. She denies any flank pain. Physical Examination - Vital Signs Temperature: 98.3 F Blood Pressure: 176/63 Pulse: 70 Respirations: 14 Pulse Ox (%): 92 Assessment And Plan - Plan Physical Exam General: Alert, In no apparent distress, Oriented x3 Neck: Supple, JVD not distended. Respiratory: Clear to auscultation bilaterally, Normal air movement Cardiovascular: No edema, Normal pulses, Regular rate/rhythm, Normal S1 S2 Gastrointestinal: Normal bowel sounds, Soft and benign Musculoskeletal: No clubbing, No swelling. Integumentary: No rashes, No breakdown. Neurological: Normal strength at 5/5 x4 extr, Normal tone, dysarthria. Diagnosis Anemia due to chronic kidney disease Stage III NELIA with associated hematuria CKD IV DM2 Plan Anemia due to chronic kidney disease Stage III NELIA with associated hematuria CKD IV Proteinuria Status post 2 units PRBC transfusion. Hemoglobin has been stable. Nephrology Dr. Greenberg is following and assisting with management. Status post ureteral stent.. Renal function significantly improved after ureteral stent placement. Monitor renal function Transfuse PRBC as needed for hemoglobin less than 7 Avoid nephrotoxins Right hydronephrosis secondary to obstructing calculus Urology Dr. Araiza input appreciated. Status post ureteral stent placement. Discontinue Shepherd catheter today. DM2 Accu check with SSI Hx CVA Hx HTN and HLD Resume antiplatelet and Eliquis. Continue statin. DNR DVT ppx: SCD for now Discharge Plan: Snf
[2023-06-08 03:39] LABS: Absolute Lymphocytes (CBC) 1.3 K/uL (0.7-4.9); Hematocrit 27.8 % (36.0-45.0); Lymphocytes % 13.2 % (15.3-44.8); MCV 79.9 fL (80-100); MPV 7.4 fL (7.6-11.3); Platelets 173 thou/uL (152-406); RBC Red Blood Cell Count 3.48 M/uL (3.86-4.86)
[2023-06-08 04:32] LABS: Magnesium 1.9 mg/dL (1.6-2.4); Phosphorus 3.8 mg/dL (2.5-4.9); Potassium 4.4 mEq/L (3.5-5.1)
[2023-06-08] MEDS: NACHLORIDE 0.45% 1,000 ML IV SCH ×2 (05:52→12:00)
[2023-06-08] MEDS: INSULIN REGULAR (HUMAN) 100 UNIT/ML SQ SCH ×2 (07:30→11:30)
[2023-06-08] MEDS: CYCLOBENZAPRINE 10 MG TAB PO SCH (09:20)
[2023-06-08] MEDS: GABAPENTIN 300 MG CAP PO SCH (09:22)
[2023-06-08] MEDS: ATORVASTATIN 20 MG TAB PO SCH (09:22)
[2023-06-08] MEDS: APIXABAN 2.5 MG TABLET PO SCH (09:22)
[2023-06-08] MEDS: CLOPIDOGREL 75 MG TABLET PO SCH (09:23)
[2023-06-08] MEDS: METOPROLOL TAR 25 MG TAB PO SCH (09:23)
[2023-06-08] MEDS: ESCITALOPRAM 20 MG TAB PO SCH (09:24)
[2023-06-08] MEDS: ASPIRIN 81 MG CHEWABLE TABLET PO SCH (09:24)
[2023-06-08 09:26] VITALS: BP 163/87
[2023-06-08 10:44] VITALS: TEMP 97.5
[2023-06-08 11:21] VITALS: O2SAT 91
--- NOTE | 2023-06-08 17:07 | P.DS ---
Admission Date: 06/04/23 Discharge Date: 06/08/23 Disposition: TRANSFER TO JAIL Discharge Condition: FAIR Reason for Admission: acute on chronic kidney disease Brief History of Present Illness: Daniela Enriquez is a 67-year-old female with a past medical history of blood clots, heart palpitations, hypertension, kidney disease, PVD, CVA, and anxiety who presents to the ED from the senior care with abnormal lab values of which hemoglobin was 7.2 and creatinine greater than 6. She reports fatigue for the last several months. Daniela is on Eliquis 5 mg twice daily. She states she has not seen any bleeding in her urine, bowel movements, or break in skin. Initial vitals BP 148 / 80; Pulse 75; Resp 16; Pulse Ox 100% on R/A. Significant labs H/H 7.5/23.4, platelets 214, glucose 145, BUN/creatinine 40/6.34. Daniela would be admitted for further evaluation and treatment of NELIA and symptomatic anemia. Hospital Course: Diagnosis Anemia due to chronic kidney disease Stage III NELIA with associated hematuria CKD IV DM2 Shayy Enriquez is a 67-year-old female with past medical history of blood clots, heart palpitations, hypertension, kidney disease, PVD, CVA A, and anxiety who presented to the ED on 06/03/23 from the senior care with abnormal lab values of which hemoglobin was 7.2 and creatinine greater than 6. Her symptoms and involved fatigue for several months. She was admitted for NELIA and symptomatic anemia. She tolerated a blood transfusion, Dr. Lopez was consulted for her kidney function. Dr. Araiza was consulted for hydronephrosis at which time he placed a right ureteral stent and priest to decompress the right kidney. The priest was removed the next day. Her renal function trended down significantly after ureteral stent placement, she reports good urine output and denies flank pain. She is on room air, ambulating independently, urinating well without pain, denies flank pain, tolerating p.o. diet. On 06/08/2020, Daniela was seen on morning rounds and deemed medically stable for discharge. Daniela was discharged with instructions to schedule follow-up appointments with Dr. Araiza and Dr. Lopez. Daniela was provided prescription for Vantin. The patient was given the opportunity to ask questions and reported no further questions. Furthermore, all questions were answered to the best of my ability. A copy of this discharge summary will be sent to the above providers to facilitate continuity of care. Today, I personally spent 55 minutes with Shayy, of which greater than 50% of the time was spent in patient education, counseling, and coordination of care as described above. Physical Exam General: Alert, In no apparent distress, Oriented x3 Neck: Supple, JVD not distended. Respiratory: Clear to auscultation bilaterally, Normal air movement Cardiovascular: No edema, Normal pulses, Regular rate/rhythm, Normal S1 S2 Gastrointestinal: Normal bowel sounds, Soft and benign Musculoskeletal: No clubbing, No swelling. Integumentary: No rashes, No breakdown. Neurological: Normal strength at 5/5 x4 extr, Normal tone, dysarthria. Vital Signs/Physical Exam: Temp Pulse Resp BP Pulse Ox 97.5 F 69 14 163/87 H 91 06/08/23 08:00 06/08/23 09:23 06/08/23 08:00 06/08/23 09:23 06/08/23 08:00 Laboratory Data at Discharge: WBC 9.60 thou/uL (4.3-10.9) 06/08/23 02:35 Hgb 9.2 g/dL (12.0-15.0) L 06/08/23 02:35 Hct 27.8 % (36.0-45.0) L 06/08/23 02:35 Plt Count 173 thou/uL (152-406) 06/08/23 02:35 PT 15.8 SECONDS (9.5-12.5) H 06/03/23 11:29 INR 1.44 06/03/23 11:29 APTT 23.0 SECONDS (24.3-36.9) L 06/03/23 11:29 Sodium 141 mEq/L (136-145) 06/08/23 02:35 Potassium 4.4 mEq/L (3.5-5.1) 06/08/23 02:35 BUN 41 mg/dL (7-18) H 06/08/23 02:35 Creatinine 4.49 mg/dL (0.55-1.02) H 06/08/23 02:35 Glucose 103 mg/dL (74-106) 06/08/23 02:35 Uric Acid 7.0 mg/dL (2.6-6.0) H 06/04/23 03:23 Phosphorus 3.8 mg/dL (2.5-4.9) 06/08/23 02:35 Magnesium 1.9 mg/dL (1.6-2.4) 06/08/23 02:35 Total Bilirubin 0.2 mg/dL (0.2-1.0) 06/03/23 11:29 AST 5 U/L (15-37) L 06/03/23 11:29 ALT < 10 U/L (13-56) L 06/03/23 11:29 Alkaline Phosphatase 126 U/L (45-117) H 06/03/23 11:29 Triglycerides 100 mg/dL (<150) 06/04/23 03:23 Cholesterol 99 mg/dL (<200) 06/04/23 03:23 HDL Cholesterol 28 mg/dL (40-60) L 06/04/23 03:23 Cholesterol/HDL Ratio 3.54 06/04/23 03:23 Home Medications: Apixaban [Eliquis] 5 mg PO BID 06/03/23 Aspirin 81 mg PO DAILY 06/03/23 Atorvastatin Calcium 20 mg PO DAILY 06/03/23 Clopidogrel Bisulfate [Plavix*] 75 mg PO DAILY 06/03/23 Cyclobenzaprine HCl [Flexeril] 5 mg PO TID 06/03/23 Escitalopram [Lexapro*] 20 mg PO DAILY 06/03/23 Gabapentin 300 mg PO DAILY 06/03/23 Hydrocodone Bit/Acetaminophen [Hydrocodon-Acetaminophen 5-325] 1 tab PO Q6HR PRN 06/03/23 Insulin NPH Human Isophane [Humulin N] 16 units SQ DAILY 06/03/23 Lactulose 39 ml PO BID PRN 06/03/23 Metoprolol Tartrate [Lopressor*] 0.5 tab PO BID 06/03/23 Cefpodoxime Proxetil [Vantin] 200 mg PO BID #14 tab 06/08/23 New Medications: Cefpodoxime Proxetil [Vantin] 200 mg PO BID #14 tab Physician Discharge Instructions: 1. Follow up with PCP for continued medication management 2. Follow up with Dr. Lopez for continued kidney management 3. Follow up with Dr. Araiza for continued urology management 4. Renal diet 5. no activity restrictions, precaution while ambulating 6. Return to the ED if symptoms return Diet: ADA Activity: Fall precautions Followup: Adrián Lopez DO [ACTIVE - CAN ADMIT] - 1-2 Weeks NONE,NONE [Primary Care Provider] - Thien Araiza [ACTIVE - CAN ADMIT] - (Within 1 month.) Time spent managing pt's care (in minutes): 55
--- NOTE | 2023-06-08 21:07 | P.PN ---
Date of Service: 06/08/23 Vital Signs Temp Pulse Resp BP Pulse Ox 97.5 F 69 14 163/87 H 91 06/08/23 08:00 06/08/23 09:23 06/08/23 08:00 06/08/23 09:23 06/08/23 08:00 Assessment/ Plan: Nephrology No dyspnea No chest pain Good urine output Denies uremic symptoms No acute events overnight Vitals, medications, blood work and imaging reviewed in the chart. General: In no apparent distress, Cooperative HEENT: Atraumatic Neck: Supple Respiratory: Clear to auscultation bilaterally, Normal air movement Cardiovascular: No edema, Regular rate/rhythm Gastrointestinal: Soft and benign, Non-distended Musculoskeletal: No clubbing, No contractures Integumentary: No rashes, No cyanosis Neurological: Abnormal speech Laboratory Data (last 24 hrs) 06/03/23 06/03/23 06/03/23 11:29 11:29 11:29 WBC 8.30 Hgb 7.5 L Hct 23.4 L Plt Count 214 PT 15.8 H INR 1.44 APTT 23.0 L Sodium 139 Potassium 4.6 BUN 40 H Creatinine 6.34 H Glucose 145 H Total Bilirubin 0.2 AST 5 L ALT < 10 L Alkaline Phosphatase 126 H EXAM DESCRIPTION: US - Renal Ultrasound-Complete - 06/03/2023 9:03 pm CLINICAL HISTORY: Stage III NELIA COMPARISON: No comparisons FINDINGS: The right kidney measures 11.6 cm. Cortical thinning. Moderate right- sided hydronephrosis. No focal masses. Echotexture is normal. The left kidney measures 10 cm. No hydronephrosis, focal mass or perinephric fluid. The urinary bladder is incompletely distended without gross abnormality seen. IMPRESSION: Moderate right-sided hydronephrosis of uncertain etiology. Bilateral renal cortical thinning. EXAM DESCRIPTION: CT - Abdomen Pelvis Wo Contrast - 06/05/2023 7:51 am CLINICAL HISTORY: Abdominal pain COMPARISON: Renal ultrasound June 03, 2023 TECHNIQUE: Computed axial tomography of the abdomen and pelvis was obtained. IV and oral contrast were not requested. All CT scans are performed using dose optimization technique as appropriate and may include automated exposure control or mA/KV adjustment according to patient size. FINDINGS: The evaluation of solid organs, vessels and bowel is limited secondary to the lack of contrast administration. Marked right hydronephrosis. Marked dilatation right ureter. Several contiguous calculi are present within the mid to distal right ureter measuring 18 millimeters cranial caudal length Cortical renal thinning. Liver, pancreas and adrenals grossly normal Cholecystectomy Spleen mildly enlarged. No evidence of diverticulitis. No adnexal mass. Right iliac arterial stent present. 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 Araiza HTN with CKD -Hydralazine IV prn DM II with CKD (Last A1C 5.9) -RISS Hypoalbuminemia -Consider Nepro Anemia in chronic illness Iron Deficiency 9.9% -Monitor H&H -Transfuse PRBC as ordered -Retacrit PRN CKD MBD Vitamin D3 Deficiency -Continue Ergo Case reviewed with hospitalist team Hospitalist note reviewed
[2023-06-09 12:35] LABS: Immunoglobulin A 353 mg/dL (70-320); Tissue Transglutaminase IgA Ab <1.0 U/mL (<15.0)
== END 2023-06-08 13:30 | DRG 661 ==
LOC: ER 11:05 → 4TH 15:44 → OBSVTOIN 06-04 13:03 → 2ND 06-05 19:45
PROVIDERS: ADMIT Internal Medicine; ATTEND Internal Medicine
PROC: 0T768DZ Dilation of Right Ureter with Intraluminal Device, Via Natural or Artificial Opening Endoscopic (ICD-10-PCS; principal; 2023-06-04)
PROC: BT1D1ZZ Fluoroscopy of Right Kidney, Ureter and Bladder using Low Osmolar Contrast (ICD-10-PCS; 2023-06-04)
DX: N17.9 Acute kidney failure, unspecified (principal); N18.4 Chronic kidney disease, stage 4 (severe); I12.9 Hypertensive chronic kidney disease with stage 1 through stage 4 chronic kidney disease, or unspecified chronic kidney disease; N13.2 Hydronephrosis with renal and ureteral calculous obstruction; E11.42 Type 2 diabetes mellitus with diabetic polyneuropathy; E11.51 Type 2 diabetes mellitus with diabetic peripheral angiopathy without gangrene; E11.22 Type 2 diabetes mellitus with diabetic chronic kidney disease; D63.1 Anemia in chronic kidney disease; E78.5 Hyperlipidemia, unspecified; E88.09 Other disorders of plasma-protein metabolism, not elsewhere classified; D50.9 Iron deficiency anemia, unspecified; E55.9 Vitamin D deficiency, unspecified; R31.9 Hematuria, unspecified; R31.29 Other microscopic hematuria; Z66 Do not resuscitate; Z79.4 Long term (current) use of insulin; Z88.5 Allergy status to narcotic agent; Z79.82 Long term (current) use of aspirin; Z79.01 Long term (current) use of anticoagulants; Z79.02 Long term (current) use of antithrombotics/antiplatelets; Z86.73 Personal history of transient ischemic attack (TIA), and cerebral infarction without residual deficits; Z79.899 Other long term (current) drug therapy; Z89.421 Acquired absence of other right toe(s)
CPT/HCPCS: 36415; 36430; 74176; 76000; 76770; 80048; 80053; 80061; 81001; 82607; 82728; 82784; 82947; 83010; 83540; 83615; 83735; 84100; 84165; 84466; 84550; 85014; 85018; 85025; 85044; 85610; 85730; 86021; 86038; 86160; 86364; 86704; 86706; 86803; 86850; 86900; 86901; 86920; 87340; 93005; 99285; G0378; J0360; J0696; J2250; J2704; J3010; J3475; J7030; J7040; J7050; J7120; P9016; Q5106

== ENCOUNTER 2024-03-31 11:39 | Day surgery (SDC) | payer OTHER ==
[2024-03-31 12:22] LABS: Absolute Basophils 0.1 K/uL (0-0.5); Absolute Eosinophils 0.4 K/uL (0-0.5); Absolute Lymphocytes (CBC) 1.7 K/uL (0.7-4.9); Absolute Monocytes 0.5 K/uL (0.1-1.3); Absolute Neutrophil 7.2 K/uL (1.8-8.0); Basophils % 0.9 % (0-1.3); Eosinophils % 3.9 % (0-4.4); Hematocrit 40.9 % (36.0-45.0); Hemoglobin 13.3 g/dL (12.0-15.0); MCH 29.3 pg (27.0-35.0); MCHC 32.5 g/dL (32.0-36.0); MCV 90.3 fL (80-100); MPV 7.5 fL (7.6-11.3); Monocytes % 5.4 % (3.3-12.3); Neutrophils % 72.8 % (41.7-73.7); Platelets 165 thou/uL (152-406); RBC Red Blood Cell Count 4.53 M/uL (3.86-4.86); Red Cell Distribution Width 14.1 % (12.1-15.2)
[2024-03-31 12:38] LABS: Albumin 3.1 g/dL (3.4-5.0); Albumin/Globulin Ratio 0.7 (1.1-1.8); Alkaline Phosphatase 174 U/L (45-117); Anion Gap 11.6 mEq/L (5.0-15.0); BUN Blood Urea Nitrogen 37 mg/dL (7-18); Bicarbonate 24 mEq/L (21-32); Bilirubin Total 0.4 mg/dL (0.2-1.0); Globulin 4.6 g/dL (2.3-3.5); Glomerular Filtration Rate 12 ml/min (=/>90); Glucose Level 145 mg/dL (74-106); Potassium 3.6 mEq/L (3.5-5.1); Protein, Total 7.7 g/dL (6.4-8.2); Sodium Level 138 mEq/L (136-145)
[2024-03-31 12:39] LABS: ALT/SGPT < 14 U/L (13-56); AST/SGOT < 10 U/L (15-37)
--- NOTE | 2024-03-31 13:29 | ER ---
Nurse's Notes [facility] Name: Daniela Enriquez Age: 68 yrs Sex: Female : 1955 Arrival Date: 03/31/2024 Time: 11:39 Bed 26 Private MD: Diagnosis: Encounter for removal of dialysis catheter Presentation: 03/31 11:42 Chief complaint: EMS states: has a dialysis port in right chest , is red and inflamed X iw 3 days, has not been used in months. Coronavirus screen: At this time, the client does not indicate any symptoms associated with coronavirus-19. Ebola Screen: No symptoms or risks identified at this time. Initial Sepsis Screen: Does the patient meet any 2 criteria? No. Patient's initial sepsis screen is negative. Does the patient have a suspected source of infection? No. Patient's initial sepsis screen is negative. Risk Assessment: Do you want to hurt yourself or someone else? Patient reports no desire to harm self or others. Onset of symptoms was March 28, 2024. 11:42 Method Of Arrival: EMS: [facility] iw 11:42 Acuity: MILAGROS 3 iw Historical: - Allergies: 11:43 Codeine; iw 11:43 Lidocaine; iw 11:43 Morphine; iw - Home Meds: 14:39 aspirin 81 mg Oral tablet 1 tab daily [Active]; atorvastatin 20 mg Oral tablet 1 tab iw daily for Hyperlipidemia [Active]; clopidogrel 75 mg Oral tablet 1 tab daily for Cerebral Thromboembolism Prevention [Active]; cyclobenzaprine 5 mg Oral tablet 1 tab 3 times per day for Muscle Spasm [Active]; Eliquis 5 mg Oral tablet 1 tab 2 times per day [Active]; escitalopram oxalate 20 mg Oral tablet 1 tab daily for Major Depressive Disorder [Active]; gabapentin 300 mg Oral capsule 1 cap daily for Diabetic Peripheral Neuropathy [Active]; Humulin N 16 units Sub-Q daily for Diabetes [Active]; hydrocodone-acetaminophen 5-325 mg Oral tablet 1 tab every 6 hours for Pain [Active]; Humulin R Regular U-100 Insuln 100 unit/mL solution 1 sliding scale dose 2 times per day for Type 2 Diabetes Mellitus [Active]; lactulose 10 gram/15 mL (15 mL) Oral solution 39 mL 2 times per day for constipation [Active]; metoprolol tartrate 25 mg Oral tablet 0.5 tabs 2 times per day for Hypertension [Active]; - PMHx: 11:43 heart medication for palpitations; Anxiety; blood clots; Cerebrovascular accident; iw peripheral vascular disease; diabetes mellitus; Hypertensive disorder; Dementia; kidney disease; - Immunization history:: Adult Immunizations unknown. - Infectious Disease History:: Denies. - Social history:: Smoking status: Patient denies any tobacco usage or history of. Screenin:36 [facility] ED Fall Risk Assessment (Adult) History of falling in the last 3 months, iw including since admission No falls in past 3 months (0 pts) Confusion or Disorientation No (0 pts) Intoxicated or Sedated No (0 pts) Impaired Gait No (0 pts) Mobility Assist Device Used No (0 pt) Altered Elimination No (0 pt) Score/Fall Risk Level 0 - 2 = Low Risk Oriented to surroundings, Maintained a safe environment, Educated pt \T\ family on fall prevention, incl call for assistance when getting out of bed, Assessed \T\ reinforced patient's understanding of fall precautions, Provided non-skid footwear. Abuse screen: Denies threats or abuse. Denies injuries from another. Nutritional screening: No deficits noted. Tuberculosis screening: No symptoms or risk factors identified. Assessment: 14:34 General: Appears in no apparent distress. Behavior is calm, cooperative. Pain: Denies iw pain. Neuro: Level of Consciousness is awake, alert, obeys commands. Cardiovascular: Capillary refill < 3 seconds Patient's skin is warm and dry. Respiratory: Airway is patent Respiratory effort is even, unlabored, Respiratory pattern is regular, symmetrical. GI: No signs and/or symptoms were reported involving the gastrointestinal system. : No signs and/or symptoms were reported regarding the genitourinary system. EENT: No signs and/or symptoms were reported regarding the EENT system. Derm: No signs and/or symptoms reported regarding the dermatologic system. Musculoskeletal: No signs and/or symptoms reported regarding the musculoskeletal system. 14:38 Reassessment: Surgery here to take patient. iw Vital Signs: 12:16 BP 123 / 70; Pulse 73; Resp 16; Temp 97.3; Pulse Ox 99% on R/A; iw 14:35 BP 127 / 81; Pulse 66; Resp 18; Temp 97.7(O); Pulse Ox 100% ; Pain 0/10; iw 14:35 Pain Scale: Adult iw ED Course: 11:42 Patient arrived in ED. iw 11:43 Milind Art MD is Attending Physician. rt 11:43 Triage completed. iw 11:44 Arm band placed on. iw 12:13 CBC with Diff Sent. bc6 12:13 CMP Sent. bc6 12:13 Initial lab(s) drawn, by me, sent to lab. bc6 13:27 Chest Single View XRAY In Process Unspecified. EDMS 13:28 Stanislav Reaves MD is Hospitalizing Provider. rt 14:36 Patient has correct armband on for positive identification. Placed in gown. Bed in low iw position. Call light in reach. Side rails up X2. Provided Education on: call cody. Client placed on continuous cardiac and pulse oximetry monitoring. NIBP monitoring applied. Door closed. Noise minimized. Lights dimmed. Moved to private room. Warm blanket given. 14:36 No provider procedures requiring assistance completed. Patient did not have IV access iw during this emergency room visit. Administered Medications: No medications were administered Medication: 14:36 VIS not applicable for this client. iw Outcome: 13:29 Decision to Hospitalize by Provider. rt 14:38 Admitted to OR accompanied by nurse, iw 14:38 Condition: stable 14:38 Instructed on the need for admit, 14:40 Patient left the ED. iw Signatures: Dispatcher [employer] Melina Bates, RN Milind Simmons MD MD rt Jannette Hanna bc6
--- NOTE | 2024-03-31 13:29 | EDPHYS ---
Physician Documentation [facility] Name: Daniela Enriquez Age: 68 yrs Sex: Female : 1955 Arrival Date: 03/31/2024 Time: 11:39 Bed 26 Private MD: ED Physician Milind Art HPI: 03/31 13:24 This 68 yrs old Female presents to ER via EMS with complaints of infected dialysis port.rt 13:24 Patient presents to the ED with concerns for infected dialysis port. The patient is not rt currently using the port, has been off of dialysis for many months. States it is red, irritated, itchy around the insertion site. Denies other acute complaints at this time, symptoms are mild in severity, no other aggravating or alleviating factors.. Historical: - Allergies: 11:43 Codeine; iw 11:43 Lidocaine; iw 11:43 Morphine; iw - Home Meds: 14:39 aspirin 81 mg Oral tablet 1 tab daily [Active]; atorvastatin 20 mg Oral tablet 1 tab iw daily for Hyperlipidemia [Active]; clopidogrel 75 mg Oral tablet 1 tab daily for Cerebral Thromboembolism Prevention [Active]; cyclobenzaprine 5 mg Oral tablet 1 tab 3 times per day for Muscle Spasm [Active]; Eliquis 5 mg Oral tablet 1 tab 2 times per day [Active]; escitalopram oxalate 20 mg Oral tablet 1 tab daily for Major Depressive Disorder [Active]; gabapentin 300 mg Oral capsule 1 cap daily for Diabetic Peripheral Neuropathy [Active]; Humulin N 16 units Sub-Q daily for Diabetes [Active]; hydrocodone-acetaminophen 5-325 mg Oral tablet 1 tab every 6 hours for Pain [Active]; Humulin R Regular U-100 Insuln 100 unit/mL solution 1 sliding scale dose 2 times per day for Type 2 Diabetes Mellitus [Active]; lactulose 10 gram/15 mL (15 mL) Oral solution 39 mL 2 times per day for constipation [Active]; metoprolol tartrate 25 mg Oral tablet 0.5 tabs 2 times per day for Hypertension [Active]; - PMHx: 11:43 heart medication for palpitations; Anxiety; blood clots; Cerebrovascular accident; iw peripheral vascular disease; diabetes mellitus; Hypertensive disorder; Dementia; kidney disease; - Immunization history:: Adult Immunizations unknown. - Infectious Disease History:: Denies. - Social history:: Smoking status: Patient denies any tobacco usage or history of. ROS: 13:24 Constitutional: Negative for fever, chills, and weight loss, Cardiovascular: Negative rt for chest pain, palpitations, and edema, Respiratory: Negative for shortness of breath, cough, wheezing, and pleuritic chest pain, Abdomen/GI: Negative for abdominal pain, nausea, vomiting, diarrhea, and constipation, Neuro: Negative for headache, weakness, numbness, tingling, and seizure, Exam: 13:26 Constitutional: This is a well developed, well nourished patient who is awake, alert, rt and in no acute distress. Head/Face: Normocephalic, atraumatic. Cardiovascular: Regular rate and rhythm with a normal S1 and S2. No gallops, murmurs, or rubs. Normal PMI, no JVD. No pulse deficits. Respiratory: Lungs have equal breath sounds bilaterally, clear to auscultation and percussion. No rales, rhonchi or wheezes noted. No increased work of breathing, no retractions or nasal flaring. Abdomen/GI: Soft, non-tender, with normal bowel sounds. No distension or tympany. No guarding or rebound. No evidence of tenderness throughout. Skin: Warm, dry with normal turgor. Normal color with no rashes, no lesions, and no evidence of cellulitis. MS/ Extremity: Pulses equal, no cyanosis. Neurovascular intact. Full, normal range of motion. 13:26 Chest/axilla: Dialysis port to right subclavian, minimal surrounding irritation, no purulence. Vital Signs: 12:16 BP 123 / 70; Pulse 73; Resp 16; Temp 97.3; Pulse Ox 99% on R/A; iw 14:35 BP 127 / 81; Pulse 66; Resp 18; Temp 97.7(O); Pulse Ox 100% ; Pain 0/10; iw 14:35 Pain Scale: Adult iw MDM: 11:43 Patient medically screened. rt 13:26 Differential Diagnosis Infected dialysis port, irritated dialysis port. Data reviewed: rt vital signs, nurses notes, lab test result(s), radiologic studies. Consideration of Admission/Observation Patient was admitted/placed on observation. Management of patient was discussed with the following: Assessment Specialist: Discussed with Dr. Lopez, states that has dialysis port is longer being used, okay to remove, discussed with Dr. Reaves who will move it in the operating room and subsequently discharged.. Independent interpretation of the following test(s) in the Emergency Department X-Ray: My interpretation is Dialysis port appears to be intact on my interpretation of x-ray images. Counseling: I had a detailed discussion with the patient and/or guardian regarding the historical points, exam findings, and any diagnostic results supporting the discharge/admit diagnosis, lab results, radiology results, the need for further work-up and treatment in the hospital. 03/31 11:53 Order name: CMP; Complete Time: 12:54 rt 03/31 11:53 Order name: CBC with Diff; Complete Time: 12:54 rt 03/31 12:15 Order name: Chest Single View XRAY; Complete Time: 14:01 rt Administered Medications: No medications were administered Disposition Summary: 03/31/24 13:29 Hospitalization Ordered Notes: Hospitalization Status: Observation rt Provider: Stanislav Reaves rt Location: Operating Room rt Condition: Stable rt Problem: new rt Symptoms: are unchanged rt Bed/Room Type: Standard rt Room Assignment: rt Diagnosis - Encounter for removal of dialysis catheter rt Forms: - Medication Reconciliation Form rt - SBAR form rt - Leadership Thank You Letter rt Signatures: Dispatcher [employer] Melina Bates, STEPHANIE RN Milind David MD MD rt
--- NOTE | 2024-03-31 13:51 | RAD REPORT ---
EXAMINATION: ONE VIEW CHEST XR CLINICAL INDICATION: Female, 68 years old. Chest pain, infection. TECHNIQUE: 1 View, AP supine, X-ray of the chest was performed. [id number]. COMPARISON: 03/07/2020 FINDINGS: Lungs are grossly clear. The heart is upper limit of normal in size. Right-sided venous catheters tip in SVC. IMPRESSION: No acute process identified.
--- NOTE | 2024-03-31 14:44 | P.HP ---
Date of Service: 03/31/24 PC: This 68-year-old female presented to the emergency room for evaluation of a nonfunctioning dialysis catheter. HPC: The catheter is currently hanging out of the skin, the redness and erythema around the insertion site. The catheter has not been used for a number of months. PSHx: Catheter insertion PMHx: Diabetes, hypertension Social Hx: States allergic to codeine morphine and lidocaine Sys R: No cough, wheeze, shortness of breath. No chest pain or palpitations. No urinary complaints O/E: Awake alert vital signs are stable HEENT: Negative Chest: Catheter right IJ catheter Abd: Negative [place]: Intact Impression: Redundant Plan: I will remove this catheter in the OR. Will do this under local anesthesia. We will inject with normal saline for our anesthesia. The risks of this procedure have been discussed. The possibility of being slightly uncomfortable while we do it was explained. She understands and wants to proceed.
[2024-03-31] MEDS ORDERED: NA CHLORIDE 0.9% 500 ML ONE (14:59)
[2024-03-31] MEDS ORDERED: NA CHLORIDE 0.9% 100 ML ONE (16:15)
--- NOTE | 2024-03-31 16:50 | P.OP ---
Preoperative diagnosis: Redundant dialysis catheter Postoperative diagnosis: The same Primary procedure: Removal of redundant dialysis catheter Anesthesia: Local Estimated blood loss: Less than 10 cc Specimen: Catheter sent for ID Operative Technique: The patient brought the operating room placed supine on the table. After the area of the right upper chest and neck had been prepped with a DuraPrep solution , she was draped in usual manner. After surgical timeout, the area around the catheter was injected with normal saline. Having ink injected under pressure, we were able to establish enough anesthesia that the patient was comfortable. Applying lateral traction a skin incision was made on top of the catheter at its exit site. We able to now apply traction and bring the cuff down into this area. It was dissected free from the surrounding area and removed. Bleeding was easily controlled with pressure and elevating the patient's head. The skin was now approximated with 3 interrupted sutures of chromic. At the end of procedure she was in a stable condition when sent to the recovery room. She was delighted that the catheter was removed and said she was relatively comfortable throughout the procedure. Complications: None Transferred to: Recovery Room Condition: Good
[2024-03-31 17:15] VITALS: BP 147/82; TEMP 97.5; O2SAT 99
== END 2024-03-31 17:26 | disposition home or self-care (01) ==
LOC: ER 11:39 → DS 13:30
PROVIDERS: ATTEND Surgery
PROC: 0WPG03Z Removal of Infusion Device from Peritoneal Cavity, Open Approach (ICD-10-PCS; principal; 2024-03-31 17:00)
DX: Z49.02 Encounter for fitting and adjustment of peritoneal dialysis catheter (principal); E78.5 Hyperlipidemia, unspecified; F32.A Depression, unspecified; I10 Essential (primary) hypertension; E11.40 Type 2 diabetes mellitus with diabetic neuropathy, unspecified; N18.9 Chronic kidney disease, unspecified; Z88.5 Allergy status to narcotic agent
CPT/HCPCS: 85025; 36415; 80053; 71045; 36590; J7040; 88300; 99285

== ENCOUNTER 2024-07-26 07:10 | Day surgery (SDC) | payer OTHER ==
[2024-06-28 12:08] LABS: Absolute Basophils 0.1 K/uL (0-0.5); Absolute Eosinophils 0.4 K/uL (0-0.5); Absolute Lymphocytes (CBC) 1.4 K/uL (0.7-4.9); Absolute Monocytes 0.5 K/uL (0.1-1.3); Absolute Neutrophil 9.4 K/uL (1.8-8.0); Basophils % 0.7 % (0-1.3); Eosinophils % 3.1 % (0-4.4); Hematocrit 37.9 % (36.0-45.0); Hemoglobin 12.1 g/dL (12.0-15.0); Lymphocytes % 11.6 % (15.3-44.8); MCH 29.1 pg (27.0-35.0); MCHC 31.8 g/dL (32.0-36.0); MCV 91.5 fL (80-100); MPV 7.8 fL (7.6-11.3); Monocytes % 4.3 % (3.3-12.3); Neutrophils % 80.3 % (41.7-73.7); Platelets 209 thou/uL (152-406); RBC Red Blood Cell Count 4.14 M/uL (3.86-4.86); Red Cell Distribution Width 13.9 % (12.1-15.2)
[2024-06-28 12:16] LABS: PT Prothrombin Time 16.1 SECONDS (9.4-12.5); PTT, Activated Partial Thromb 35.1 SECONDS (24.3-36.9); Protime INR 1.45
--- NOTE | 2024-07-01 15:57 | EKG ---
Test Date: 2024-06-28 Test Time: 12:52:17 Revenue Cycle Manager: DHIRAJ MEASUREMENT RESULTS: Intervals: Rate: 67 WY: 192 QRSD: 80 QT: 430 QTc: 454 [place]ayer: P: 39 WY: 192 QRS: 54 T: 55 INTERPRETIVE STATEMENTS: Normal sinus rhythm Septal infarct, age undetermined Abnormal ECG Compared to ECG 06/03/2023 12:30:22 No significant changes Electronically Signed On 07-01-24 15:51:40 MANAGER PAID by Can Nieto
[~2024-07-26 07:10] MED LIST: CEFEPIME 0.5 GM in NA CHLORIDE 0.9% 50 ML IV SCH
[2024-07-26] MEDS: NA CHLORIDE 0.9% 500 ML ONE (08:14)
[2024-07-26 09:25] LABS: PT Prothrombin Time 13.7 SECONDS (9.4-12.5); PTT, Activated Partial Thromb 32.9 SECONDS (24.3-36.9); Protime INR 1.23
[2024-07-26] MEDS ORDERED: FENTANYL CITR 100 MCG/2 ML ONE (11:03)
[2024-07-26] MEDS ORDERED: MIDAZOLAM HCL 2 MG/2 ML INJ ONE (11:04)
[2024-07-26] MEDS ORDERED: ONDANSETRON 4 MG/2 ML VIAL ONE (11:05)
[2024-07-26] MEDS ORDERED: LIDOCAINE 2% MPF 5 ML VIAL ONE (11:05)
[2024-07-26] MEDS: CEFEPIME 0.5 GM in NA CHLORIDE 0.9% 50 ML IV ONE (12:03)
[2024-07-26] MEDS: CEFEPIME 1 GM/VIAL ONE (12:05)
[2024-07-26] MEDS ORDERED: ROCURONIUM 50 MG/5 ML VIAL IV ONE (12:23)
[2024-07-26] MEDS ORDERED: Mastisol Adhesive Liq ONE (13:04)
--- NOTE | 2024-07-26 13:32 | RAD REPORT ---
Fluoroscopy time 0.31 minutes
--- NOTE | 2024-07-26 13:44 | P.OP ---
Date of Service: 07/26/24 Preoperative diagnoses: Right 9 mm ureterolithiasis s/p right ureteral stent placement in May 2023 Retained right ureteral stent Postoperative diagnoses: Right 9 mm ureterolithiasis s/p right ureteral stent placement in May 2023 Retained right ureteral stent, partially encrusted Principal procedures: Cystoscopy Right retrograde pyelography Right ureteral stent extraction Right ureteroscopy with stone basketing Right ureteroscopic laser lithotripsy Right ureteral 7 Albanian by 26 cm stent replacement Indication for procedures: 68-year-old woman with obstructive ureterolithiasis who underwent urgent stent placement in May 2023. Because of health challenges, significant delay in management of the stone and removal of the stent did take place, and she presented many months later with a retained stent. She now has been cleared for surgical intervention. She was given Cipro to start dosed per her renal functio n starting Thursday prior to surgery today. Procedure note: The patient was consented in the preoperative holding area before being transferred to the operative suite where general anesthesia was induced. 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 Cefepime 500 mg IV was given for antimicrobial prophylaxis, and pneumoboots were provided for DVT prophylaxis. She was placed in the lithotomy position, padded and secured to the table appropriately. Her genitalia was prepped with Hibiclens and she was draped in standard fashion. The case was be gun using a 22 Albanian rigid cystoscope to traverse the urethra and into the bladder with ease. The bladder was decompressed of fluid and urine and surveyed. No papillary mucosal lesions, foreign bodies or stones were noted with the exception of the right ureteral stent which was slightly encrusted emanating from the right ureteral orifice. The entire tip of the stent was covered in encrustation; so was not likely draining adequately. Because the ureter did appear significantly dilated around the stent, I advanced a 5 Albanian ureteral access catheter with a sensor wire passed through it all the way into the collecting system and left the 5 Albanian ureteral access catheter with the tip in the kidney alongside the indwelling ureteral stent. I then was able to place the cystoscope alongside the 5 Albanian ureteral access catheter into the bladder and used an alligator grasper to grasp the tip of the coil of the stent and then remove the stent in its entirety with both coils intact with ease. I then injected contrast via the 5 Albanian ureteral access catheter to perform a retrograde pyelography study. Right retrograde pyelography: Using a 70: 30 mixture of Omnipaque and saline, contrast was injected via the lumen of the 5 Albanian ureteral access catheter and did fill the renal pelvis and calyces. I advanced the catheter down into the proximal ureter and injected more contrast so that it would fill the proximal ureter to ensure no evidence of extravasation. When no extravasation was noted, I then advanced a sensor wire via the 5 Albanian ureteral access catheter coiling it within the collecting system of the right kidney. I then remove the 5 Albanian ureteral access catheter and alongside the indwelling sensor wire, I passed a semirigid ureteroscope under direct vision via her urethra into her bladder and into the right ureteral orifice. I navigated the ureteroscope up to the mid ureter where a calculus was observed that was approximately 4 to 5 mm in diameter. Because the ureter was nicely dilated, I utilized a 1.9 Albanian 0 tip nitinol basket to grasp the stone and was able to deliver it from the ureter intact. I then advanced the semirigid ureteroscope back into the ureter several additional times removing a lot of additional stone material, which was likely that which fell off of the encrusted right ureteral stent. Once I had cleared all of the stone material as far as I could reach into the proximal ureter with the semirigid ureteroscope, I then advanced a Bentson guidewire via the ureteroscope into the collecting system as evidenced fluoroscopically. I then removed the semirigid ureteroscope leaving the wire in place, and then passed a flexible ureteroscope over the Bentson guidewire all the way into the collecting system. I then surveyed each of the calyces of the collecting system using pressurized saline irrigation after I gently aspirated some of the retained urine that was making visualization difficult via the ureteroscope. Without completely collapsing the collecting system out of concern for the potential for development of a subcapsular hematoma, I was able to clarify visualization significantly. I then surveyed through the upper pole into the midpole and lower pole calyces identifying only small additional fragments. These I fragmented using a 272 nm laser fiber at a power setting of 0.8 J and 15 Hz. To ensure each and every calyx had been seen, I injected contrast via the ureteroscope and again delineated the calyces and navigating the scope fluoroscopically into each and every crevice and calyx of the kidney. When no additional significant stones or fragments were noted, I then surveyed back into the renal pelvis and down into the proximal before going into the mid and distal ureter on the way out. With no evidence of any ureteral injury or significant residual calculi otherwise observed, I then remove the ureteroscope and backloaded the cystoscope over the indwelling safety wire. I then passed a 7 Albanian by 26 cm double-J ureteral stent over the sensor safety wire into the collecting system with a coil observed fluoroscopically in the renal pelvis and 1 cystoscopically formed in her bladder. I then decompressed her bladder of fluid, urine, and lots of stones and stone material which was collected and sent for pathologic analysis. I then removed the cystoscope and utilized Mastisol and Steri-Strips to secure the tether of the stent to her introitus on the right side. She was then taken out of the lithotomy position, awakened from general anesthesia, transferred to a stretcher, and then transferred to the recovery room in good condition. Complications: None Discharge disposition: She may resume her Eliquis on and otherwise the tethered ureteral stent may be removed on or Thursday. If the nurses at her facility are able to remove the tethered stent, they may do so, but they must call our office to confirm that it was successfully removed with both coils intact. If they are uncomfortable doing so, the patient should come by my office to have the tethered right ureteral stent extracted on or Thursday of this week. If she is not still getting Cipro antimicrobial therapy at that time, leftover from the preoperative prescription, she may be given a dose in my office of 500 mg ciprofloxacin. Subsequent follow-up should be determined based on whether she is a recurrent stone former to decrease her risk of future stone forming event.
[2024-07-26 14:32] VITALS: BP 153/64; TEMP 97.5; O2SAT 97
== END 2024-07-26 14:34 | disposition home or self-care (01) ==
LOC: OR 07:10
PROVIDERS: ATTEND Urology
PROC: 0T768DZ Dilation of Right Ureter with Intraluminal Device, Via Natural or Artificial Opening Endoscopic (ICD-10-PCS; 2024-07-26)
PROC: 0TC68ZZ Extirpation of Matter from Right Ureter, Via Natural or Artificial Opening Endoscopic (ICD-10-PCS; principal; 2024-07-26 08:45)
DX: N20.1 Calculus of ureter (principal); N18.5 Chronic kidney disease, stage 5; I10 Essential (primary) hypertension; E11.9 Type 2 diabetes mellitus without complications; E78.5 Hyperlipidemia, unspecified; I82.409 Acute embolism and thrombosis of unspecified deep veins of unspecified lower extremity; Z86.73 Personal history of transient ischemic attack (TIA), and cerebral infarction without residual deficits; Z79.01 Long term (current) use of anticoagulants
CPT/HCPCS: 93005; 87088; 85025; 87086; 80048; 36415 ×2; 85610 ×2; 82947 ×2; 88300; 85730 ×2; 87077; 87186; 82360; 74450; 51610; 52356; J2704; J2250; J3010; J2405; J7040; J0692; J2003

== ENCOUNTER 2024-08-19 19:40 | Emergency (ER) | payer OTHER ==
--- NOTE | 2024-08-19 20:11 | RAD REPORT ---
EXAM: Chest Single View HISTORY: poss aspiration COMPARISON: 03/31/2024 FINDINGS: LUNGS/PLEURA: The lungs are clear. No pleural effusions or pneumothorax. No pulmonary edema. MEDIASTINUM: The mediastinal silhouette is within normal limits. CARDIAC: The cardiac silhouette is within normal limits. UPPER ABDOMEN: No significant abnormality. BONES: No acute abnormality. LINES/TUBES/OTHER: N/A IMPRESSION: No evidence of acute cardiopulmonary disease.
[2024-08-19] MEDS ORDERED: LEVETIRACETAM 500 MG/5 ML VIAL IV ONE ×2 (20:19→23:36)
[2024-08-19] MEDS ORDERED: NA CHLORIDE 0.9% 100 ML ONE ×3 (20:19→23:36)
[2024-08-19 20:22] LABS: PT Prothrombin Time 13.9 SECONDS (9.4-12.5); PTT, Activated Partial Thromb 25.5 SECONDS (24.3-36.9); Protime INR 1.33
[2024-08-19 20:54] LABS: AST/SGOT 16 U/L (15-37); Albumin 3.5 g/dL (3.4-5.0); Albumin/Globulin Ratio 0.7 (1.1-1.8); Alkaline Phosphatase 185 U/L (45-117); Anion Gap 19.4 mEq/L (5.0-15.0); BUN Blood Urea Nitrogen 38 mg/dL (7-18); Bicarbonate 14 mEq/L (21-32); Bilirubin Total 0.4 mg/dL (0.2-1.0); Globulin 4.9 g/dL (2.3-3.5); Glomerular Filtration Rate 14 ml/min (=/>90); Glucose Level 189 mg/dL (74-106); Magnesium 2.6 mg/dL (1.6-2.4); Potassium 4.4 mEq/L (3.5-5.1); Protein, Total 8.4 g/dL (6.4-8.2); Sodium Level 142 mEq/L (136-145); Troponin High Sensitivity 48.4 pg/mL (<58.9)
[2024-08-19 20:59] LABS: ALT/SGPT < 14 U/L (13-56); Bilirubin Direct < 0.2 mg/dL (0-0.2); Bilirubin Indirect, Calculated 0.2 mg/dL (0.2-0.8)
--- NOTE | 2024-08-19 21:06 | RAD REPORT ---
EXAMINATION: CT HEAD WITHOUT CONTRAST CLINICAL INDICATION: Female, 68 years old.ams, seizure TECHNIQUE: Axial CT images from the skull base to the vertex without intravenous contrast. Coronal an d sagittal reformatted images were created from the data set. One or more of the following dose reduction techniques were used: Automated exposure control, adjustment of the mA and/or kV according to patient size, and/or iterative reconstruction. Unless otherwise specified, incidental findings do not require dedicated imaging follow-up. [id number]. COMPARISON: No prior exam. FINDINGS: INTRACRANIAL: Moderate size remote infarct centered at the parietal and occipital lobe. No hydrocepha emerita. No mass effect or midline shift. Mild chronic small vessel ischemic changes.Mild cerebral atrophy. VASCULATURE: No visualized abnormalities in the arteries or dural venous sinuses. SCALP/SKULL: No significant soft tissue or osseous abnormalities. SINUSES: The visualized paranasal sinuses and mastoid air cells are predominantly clear. IMPRESSION: Moderate-sized left cerebral hemisphere infarct which is presumably chronic but no priors available f or comparison. MRI could better assess for a new superimposed acute infarct.
--- NOTE | 2024-08-19 21:11 | RAD REPORT ---
EXAM: CT CHEST, ABDOMEN AND PELVIS WITHOUT CONTRAST CLINICAL INDICATION: Female, 68 years old gib TECHNIQUE: CT chest, abdomen and pelvis was performed, without IV contrast, as per department protoco l. Axial, sagittal and coronal reconstructions were obtained. One or more of the following dose reduction techniques were used: Automated exposure control, adjustment of the mA and/or kV according to the patient size, and/or iterative reconstruction. Unless otherwise specified, incidental findings do not require dedicated imaging follow-up. [id number]. COMPARISON: No prior exam. FINDINGS: The lack of intravenous contrast limits the sensitivity of this exam for evaluation of solid visceral organs, vascular structures, and retroperitoneum. Chest: LOWER NECK: Visualized thyroid gland and soft tissues are normal. LUNGS AND AIRWAYS: Scattered sub-4 mm pulmonary nodules bilaterally which are likely benign. No clear ly suspicious nodules. PLEURA: No pleural effusion. No pneumothorax. Hemidiaphragms are normally positioned. MEDIASTINUM AND LYMPH NODES: No mediastinal mass or fluid collection. Normal size mediastinal, hilar, and axillary lymph nodes. THORACIC AORTA: No thoracic aortic aneurysm. PULMONARY ARTERIES: Caliber is within normal limits. HEART: Normal heart size. No coronary calcifications.No significant pericardial effusion. Abdomen/Pelvis UPPER GI: No significant abnormality. LIVER: No significant focal abnormality. GALLBLADDER/BILE DUCTS: Cholecystectomy.? PANCREAS: Atrophy, but otherwise unremarkable. SPLEEN: Lobular appearance of the spleen. ADRENALS: No adrenal masses. KIDNEYS AND URETERS: No hydronephrosis.Renal cortical thinning. ABDOMINAL AORTA AND OTHER VESSELS: Right iliac and femoral stent. Moderate atherosclerosis. PERITONEUM: No abnormal free fluid. No free air. LYMPH NODES: No pathologic lymphadenopathy. ABDOMINAL WALL: Unremarkable SMALL BOWEL/COLON: Mild diffuse colonic wall thickening versus underdistention. No bowel obstruction. No appendicitis. URINARY BLADDER: Underdistended but grossly unremarkable. REPRODUCTIVE ORGANS: No pathologic process. MUSCULOSKELETAL: No acute or suspicious osseous abnormality. ADDITIONAL FINDINGS: None. IMPRESSION: 1. Mild diffuse colonic wall thickening versus underdistention. A mild colitis is difficult to exclud e. 2. No acute findings in the chest. 3. Other incidental findings as noted above.
[2024-08-19 21:27] LABS: Absolute Basophils 0.1 K/uL (0-0.5); Absolute Lymphocytes (CBC) 0.4 K/uL (0.7-4.9); Absolute Monocytes 0.3 K/uL (0.1-1.3); Absolute Neutrophil 13.8 K/uL (1.8-8.0); Basophils % 0.5 % (0-1.3); Hematocrit 41.4 % (36.0-45.0); Hemoglobin 13.4 g/dL (12.0-15.0); Lymphocytes % 2.7 % (15.3-44.8); MCH 28.6 pg (27.0-35.0); MCHC 32.3 g/dL (32.0-36.0); MCV 88.6 fL (80-100); MPV 8.3 fL (7.6-11.3); Monocytes % 2.3 % (3.3-12.3); Neutrophils % 94.5 % (41.7-73.7); Nucleated RBC Absolute Count 0.1 (0-0); Nucleated Red Blood Cells % 0.3 % (0-0); Platelets 181 thou/uL (152-406); RBC Red Blood Cell Count 4.68 M/uL (3.86-4.86); Red Cell Distribution Width 14.2 % (12.1-15.2)
[2024-08-19] MEDS ORDERED: PIPERACIL/TAZO 3.375 GM VIAL IV ONE (22:21)
--- NOTE | 2024-08-19 22:38 | EDPHYS ---
Physician Documentation [facility] Name: Daniela Enriquez Age: 68 yrs Sex: Female : 1955 Arrival Date: 08/19/2024 Time: 19:40 Bed 4 Private MD: ED Physician Alexi Schmidt HPI: 08/19 19:59 This 68 yrs old Female presents to ER via EMS with complaints of AMS, vomiting. sb4 20:01 Patient with history of hypertension, insulin-dependent diabetes, CVA, congestive heart sb4 failure, CKD previously on dialysis, atrial fibrillation on Eliquis, chronic pain [facility] for 3 days of nausea and vomiting. halfway has been administering Zofran and IV fluids but today they noticed her emesis was dark brown and she was becoming confused. Patient does have a history of dementia but is typically oriented x 4. Today she is oriented x 0. EMS did also note a very dark bowel movement. Patient cannot provide any further history. She started seizing right after my initial assessment. No reported history of seizures. Historical: - Allergies: 19:59 Codeine; dd2 19:59 Morphine; dd2 19:59 Lidocaine; dd2 19:59 Melatonin; dd2 19:59 Novocain; dd2 - PMHx: 19:59 Anxiety; blood clots; Cerebrovascular accident; Dementia; diabetes mellitus; heart dd2 medication for palpitations; Hypertensive disorder; kidney disease; peripheral vascular disease; - PSHx: 19:59 Unable to Obtain; dd2 - Immunization history:: Adult Immunizations unknown. - Infectious Disease History:: UNKNOWN. - Social history:: Smoking status: unknown. ROS: 20:01 Unable to obtain ROS due to altered mental status, sb4 Exam: 20:01 Head/Face: Normocephalic, atraumatic. Eyes: Extra-ocular motions intact. Periorbital sb4 areas with no swelling, redness, or edema. Cardiovascular: Regular rate and rhythm with a normal S1 and S2. Respiratory: No increased work of breathing, no retractions or nasal flaring. 20:01 Constitutional: The patient appears uncomfortable, unkempt, 20:01 ENT: Mouth: Oral mucosa: dry, 20:01 Abdomen/GI: Palpation: abdomen is soft and non-tender, Rectal exam: Stool: brown, 20:01 Neuro: Orientation: Not oriented to person, place, time, situation, seizure activity, grand mal type is displayed, 22:47 Radiologist reports: negative for acute findings sb4 Vital Signs: 19:54 BP 190 / 76; Pulse 80; Resp 16; Pulse Ox 98% on R/A; dd2 20:05 BP 167 / 71; Pulse 105; Resp 19; Pulse Ox 100% ; vc1 20:07 Temp 98.4(R); vc1 20:15 Weight 89.5 kg; vc1 22:58 Pulse 87; sb4 23:30 BP 147 / 86; Pulse 90; Resp 20; Pulse Ox 98% ; vc1 08/20 00:12 BP 152 / 82; Pulse 84; Resp 16; Pulse Ox 100% ; vc1 MDM: 08/19 19:41 Medical Screening Exam initiated sb4 22:47 Data reviewed: vital signs, nurses notes, EMS record, [facility]iary records, lab test sb4 result(s), EKG, radiologic studies, I have discussed the patient's presentation/case with the attending Emergency Department Physician;. Care significantly affected by the following chronic conditions: Diabetes, Hypertension, Congestive Heart Failure, Obesity, Chronic Kidney Disease. Counseling: I had a detailed discussion with the patient and/or guardian regarding the historical points, exam findings, and any diagnostic results supporting the discharge/admit diagnosis, the presence of at least one elevated blood pressure reading (>120/80) during this emergency department visit, lab results, radiology results, the need to transfer to another facility, for higher level of care, [facility] does not immediately have the required specialist. ED course: patient is not anemic but has had several bouts of coffee ground emesis. additionally, she had a seizure with no history. will transfer for GI and neurology/EEG services which we do not currently have available . 08/19 19:50 Order name: Basic Metabolic Panel; Complete Time: 21: sb4 08/19 19:50 Order name: CBC with Diff; Complete Time: : sb4 08/19 19:50 Order name: Hepatic Function; Complete Time: 21:00 sb4 08/19 19:50 Order name: Magnesium; Complete Time: 21: sb4 08/19 19:50 Order name: Protime (+inr); Complete Time: 20:22 sb4 31 19:50 Order name: Ptt, Activated; Complete Time: 20:22 08/19 19:50 Order name: Troponin High Sensitivity; Complete Time: 21:00 08/19 19:50 Order name: Type And Screen; Complete Time: 21:00 08/19 21:39 Order name: Blood Culture Adult (2) 08/19 21:39 Order name: Lactate w/ 2H reflex if indic.; Complete Time: 22:34 08/19 19:50 Order name: CT Head Brain wo Cont; Complete Time: 21:19 08/19 19:50 Order name: Chest Single View XRAY; Complete Time: 20:13 08/19 20:53 Order name: CT Chest Abdomen Pelvis W/O Contrast; Complete Time: 21:19 08/19 19:50 Order name: EKG; Complete Time: 19:51 08/19 19:50 Order name: Cardiac monitoring; Complete Time: 20:07 08/19 19:50 Order name: EKG - Nurse/Tech; Complete Time: 20:08/19 19:50 Order name: IV Saline Lock; Complete Time: 20:07 08/19 19:50 Order name: Labs collected and sent; Complete Time: 20:29 08/19 19:50 Order name: NPO; Complete Time: 20:07 08/19 19:50 Order name: O2 Per Protocol; Complete Time: 20:07 08/19 19:50 Order name: O2 Sat Monitoring; Complete Time: 20:08/19 20:33 Order name: Shepherd; Complete Time: 22:27 sb4 EC:20 Rate is 100 beats/min. Rhythm is regular, Sinus tachycardia. NE interval is normal at sb4 168 msec. QRS interval is normal at 66 msec. QT interval is normal at 362 msec. No Q waves. T waves are Normal. No ST changes noted. Clinical impression: Normal ECG. Interpreted by me. Reviewed by me. Administered Medications: 20:06 Drug: Ativan IVP 1 mg IVP once Route: IVP; Site: right antecubital; vc1 20:26 Follow up: Response: No adverse reaction; Marked relief of symptoms; RASS: Moderate vc1 sedation (-3) 20:22 Drug: Keppra IV 1000 mg IV at calculated rate once Route: IV; Rate: calculated rate; vc1 Site: right antecubital; 20:37 Follow up: IV Status: Completed infusion; IV Intake: 100ml vc1 20:22 Not Given (not available ): kcentra1,000 unit 2500 units IV at calculated rate once vc1 22:25 Drug: Ativan (LORazepam) 1 mg IVP once {Note: adminstered while provider is at bedside, vc1 verbal order given. .} Route: IVP; Site: right antecubital; 23:32 Drug: Piperacillin-Tazobactam IVPB 3.375 grams IVPB once over 60 mins; (mix in NS 100 vc1 mL) Route: IVPB; Infused Over: 60 mins; Site: left antecubital; 08/20 00:47 Follow up: IV Status: Completed infusion; IV Intake: 100ml vc1 08/19 23:32 Drug: D5W IV 1000 ml, Sodium Bicarbonate IVP 150 mEq IV at 100 calculated rate vc1 continuous Route: IV; Rate: 100 calculated rate; Site: right antecubital; 08/20 00:59 Follow up: IV Status: Infusion continued upon transfer; IV Intake: 300ml vc1 08/19 23:32 Drug: Pantoprazole IVP 40 mg IVP once Route: IVP; Site: left antecubital; vc1 08/20 00:49 Follow up: Response: No adverse reaction; No change in condition vc1 08/19 23:41 Drug: Keppra IV 1000 mg IV at calculated rate once Route: IV; Rate: calculated rate; vc1 Site: left antecubital; 23:56 Follow up: IV Status: Completed infusion; IV Intake: 100ml vc1 Disposition: 22:48 Chart complete. sb4 Disposition Summary: 08/19/24 22:38 Transfer Ordered Notes: Transfer Location: [facility] sb4 Reason: Higher level of care sb4 Condition: Fair sb4 Problem: new sb4 Symptoms: are unchanged sb4 Accepting Physician: hospitalist(08/20/24 01:21) vc1 Diagnosis - Colitis sb4 - Hematemesis sb4 - Altered mental status, unspecified sb4 - Other seizures - new onset sb4 - Acidosis - metabolic(08/19/24 23:37) sb4 Forms: - Medication Reconciliation Form sb4 - SBAR form sb4 Signatures: Dispatcher [employer] EDMS Hilda Brito RN RN vc1 Lisa Herrera PA-C PA-C sb4 ARIANNA HIDALGO RN RN dd2 Corrections: (The following items were deleted from the chart) 20:16 20:01 Abdomen/GI: Palpation: abdomen is soft and non-tender, Rectal exam: Stool: black, sb4 sb4 22:27 20:11 Blood Transfusion Consent ordered. sb4 vc1 22:38 22:38 hospitalist sb4 sb4 23:37 22:38 Acidosis sb4 sb4 23:37 22:38 hospitalist sb4 sb4 08/20 01:21 08/19 23:37 hospitalist sb4 vc1
--- NOTE | 2024-08-19 22:38 | ER ---
Nurse's Notes [facility] Name: Daniela Enriquez Age: 68 yrs Sex: Female : 1955 Arrival Date: 08/19/2024 Time: 19:40 Bed 4 Private MD: Diagnosis: Colitis;Hematemesis;Acidosis-metabolic;Altered mental status, unspecified;Other seizures-new onset Presentation: 08/19 19:54 Chief complaint: EMS states: EMS TONED OUT FOR VOMITING AND DIARRHEA X3 DAYS. EMS dd2 REPORTS USP MD STARTED IV LINE AND ADMINISTERED ZOFRAN. PT HAS VISIBLE BROWN EMESIS. PER EMS PT TYPICALLY AAOX3 BUT, ALTERED AT THIS TIME. Coronavirus screen: At this time, the client does not indicate any symptoms associated with coronavirus-19. Ebola Screen: No symptoms or risks identified at this time. Initial Sepsis Screen: Does the patient meet any 2 criteria? No. Patient's initial sepsis screen is negative. Does the patient have a suspected source of infection? No. Patient's initial sepsis screen is negative. Risk Assessment: Do you want to hurt yourself or someone else? Unable to obtain. Onset of symptoms is unknown. Care prior to arrival: Medication(s) given: Normal saline infusion, 100 ML zofran 4 mg. 19:54 Method Of Arrival: EMS: [facility] dd2 19:54 Acuity: MILAGROS 2 dd2 Historical: - Allergies: 19:59 Codeine; dd2 19:59 Morphine; dd2 19:59 Lidocaine; dd2 19:59 Melatonin; dd2 19:59 Novocain; dd2 - PMHx: 19:59 Anxiety; blood clots; Cerebrovascular accident; Dementia; diabetes mellitus; heart dd2 medication for palpitations; Hypertensive disorder; kidney disease; peripheral vascular disease; - PSHx: 19:59 Unable to Obtain; dd2 - Immunization history:: Adult Immunizations unknown. - Infectious Disease History:: UNKNOWN. - Social history:: Smoking status: unknown. Screenin:50 Abuse screen: Denies threats or abuse. Nutritional screening: No deficits noted. vc1 Tuberculosis screening: No symptoms or risk factors identified. 19:50 [facility] ED Fall Risk Assessment (Adult) History of falling in the last 3 months, vc1 including since admission No falls in past 3 months (0 pts) Confusion or Disorientation Yes (5 pts) Intoxicated or Sedated No (0 pts) Impaired Gait Yes (1 pt) Mobility Assist Device Used Yes (1 pt) Altered Elimination Yes (1 pt) Score/Fall Risk Level 3 or more points = High Risk Oriented to surroundings, Maintained a safe environment, Educated pt \T\ family on fall prevention, incl call for assistance when getting out of bed, Hourly rounding (assess needs \T\ fall precautionary measures) done, Offered frequent toileting (1:1 observation), Remained with patient while ambulating, Utilized family, sitter, or virtual hollock maker as indicated. Assessment: 20:02 Reassessment: PT BEGAN SEIZING DURING TRIAGE. NURSE ASSIST WAS CALLED, ATIVAN 1MG dd2 ADMINISTERED IV BY STEPHANIE BAILON PER VERBAL ORDER DR. SCHMIDT. PT MOVED TO TRAUMA ROOM 4. 23:41 Reassessment: No changes from previously documented assessment. Patient and/or family vc1 updated on plan of care and expected duration. Pain level reassessed. General: Appears in no apparent distress. uncomfortable, obese, unkempt, Behavior is restless. Pain: Denies pain. 08/20 00:30 General: Spoke with patients daughter, verbal consent over phone to transfer to [email or web address] Vital Signs: 08/19 19:54 BP 190 / 76; Pulse 80; Resp 16; Pulse Ox 98% on R/A; dd2 20:05 BP 167 / 71; Pulse 105; Resp 19; Pulse Ox 100% ; vc1 20:07 Temp 98.4(R); vc1 20:15 Weight 89.5 kg; vc1 22:58 Pulse 87; sb4 23:30 BP 147 / 86; Pulse 90; Resp 20; Pulse Ox 98% ; vc1 08/20 00:12 BP 152 / 82; Pulse 84; Resp 16; Pulse Ox 100% ; vc1 ED Course: 08/19 19:41 Patient arrived in ED. sb4 19:41 Lisa Herrera PA-C is PHCP. sb4 19:41 Alexi Schmidt MD is Attending Physician. sb4 19:59 Triage completed. dd2 19:59 Arm band placed on right wrist. Patient placed in an exam room, on a stretcher. dd2 20:00 Patient has correct armband on for positive identification. Bed in low position. Call vc1 light in reach. nursing support worker on. Pulse ox on. NIBP on. 20:00 Provided Education on: priest. vc1 20:06 Chest Single View XRAY In Process Unspecified. EDMS 20:28 Inserted saline lock: 20 gauge in left antecubital area, using aseptic technique. Blood mm11 collected. Flushed with 10 mL NS. 20:29 CBC with Diff Sent. mm11 20:29 Basic Metabolic Panel Sent. mm11 20:29 Hepatic Function Sent. mm11 20:29 Magnesium Sent. mm11 20:29 Troponin High Sensitivity Sent. mm11 20:46 Troponin High Sensitivity Sent. vc1 20:46 Hepatic Function Sent. vc1 20:46 Magnesium Sent. vc1 20:46 Basic Metabolic Panel Sent. vc1 20:46 Type And Screen Sent. vc1 20:58 CT Head Brain wo Cont In Process Unspecified. EDMS 20:58 CT Chest Abdomen Pelvis W/O Contrast In Process Unspecified. EDMS 21:01 CBC with Diff Sent. mm11 21:55 Hilda Brito, RN is Primary Nurse. vc1 22:27 Priest cath inserted, using sterile technique, 16 Fr., by va, balloon inflated, to vc1 gravity drainage, clamped. 23:05 Transfer initiated \T\2303. 08/20 00:47 Patient accepted to [facility] \T\0012, Pt going to room 2239, [phone]. 01:20 No provider procedures requiring assistance completed. Patient transferred, IV remains vc1 in place. Administered Medications: 08/19 20:06 Drug: Ativan IVP 1 mg IVP once Route: IVP; Site: right antecubital; vc1 20:26 Follow up: Response: No adverse reaction; Marked relief of symptoms; RASS: Moderate vc1 sedation (-3) 20:22 Drug: Keppra IV 1000 mg IV at calculated rate once Route: IV; Rate: calculated rate; vc1 Site: right antecubital; 20:37 Follow up: IV Status: Completed infusion; IV Intake: 100ml vc1 20:22 Not Given (not available ): kcentra1,000 unit 2500 units IV at calculated rate once vc1 22:25 Drug: Ativan (LORazepam) 1 mg IVP once {Note: adminstered while provider is at bedside, vc1 verbal order given. .} Route: IVP; Site: right antecubital; 23:32 Drug: Piperacillin-Tazobactam IVPB 3.375 grams IVPB once over 60 mins; (mix in NS 100 vc1 mL) Route: IVPB; Infused Over: 60 mins; Site: left antecubital; 08/20 00:47 Follow up: IV Status: Completed infusion; IV Intake: 100ml vc1 08/19 23:32 Drug: D5W IV 1000 ml, Sodium Bicarbonate IVP 150 mEq IV at 100 calculated rate vc1 continuous Route: IV; Rate: 100 calculated rate; Site: right antecubital; 08/20 00:59 Follow up: IV Status: Infusion continued upon transfer; IV Intake: 300ml vc1 08/19 23:32 Drug: Pantoprazole IVP 40 mg IVP once Route: IVP; Site: left antecubital; vc1 08/20 00:49 Follow up: Response: No adverse reaction; No change in condition vc1 08/19 23:41 Drug: Keppra IV 1000 mg IV at calculated rate once Route: IV; Rate: calculated rate; vc1 Site: left antecubital; 23:56 Follow up: IV Status: Completed infusion; IV Intake: 100ml vc1 Medication: 22:26 VIS not applicable for this client. vc1 Intake: 20:37 IV: 100ml; Total: 100ml. vc1 23:56 IV: 100ml; Total: 200ml. vc1 08/20 00:47 IV: 100ml; Total: 300ml. vc1 00:59 IV: 300ml; Total: 600ml. vc1 Outcome: 08/19 22:38 ER care complete, transfer ordered by MD. [email or web address] 08/20 01:20 Transferred by ground EMS to [facility], Transfer form completed. vc1 X-rays sent w/ patient. Condition: good Instructed on the need for transfer, 01:21 Patient left the ED. vc1 Signatures: Dispatcher [employer] Hilda Camargo RN RN vc1 Lisa Herrera, PAGermánC PAJose [email or web address] ARIANNA HIDALGO RN RN dd2 Sofía Hawthorne morris cody mm11 Corrections: (The following items were deleted from the chart) 00:48 00:47 Response: No adverse reaction; Marked relief of symptoms; RASS: Moderate sedation vc1 (-3) vc1
[2024-08-19] MEDS ORDERED: PANTOPRAZOLE 40 MG INJ ONE (23:12)
[2024-08-19] MEDS ORDERED: SODIUM BICARB 50 MEQ/50ML VIAL ONE (23:13)
[2024-08-19] MEDS ORDERED: D5W 1,000 ML IV ONE (23:13)
[2024-08-20 01:50] VITALS: TEMP 98.4
[2024-08-20 01:53] VITALS: BP 152/82; O2SAT 100
--- NOTE | 2024-08-23 12:25 | EKG ---
Test Date: 2024-08-19 Test Time: 20:17:03 Stained Glass Window Designer: MATTY MEASUREMENT RESULTS: Intervals: Rate: 100 GA: 168 QRSD: 66 QT: 362 QTc: 466 [place]: P: 70 GA: 168 QRS: -21 T: 95 INTERPRETIVE STATEMENTS: Normal sinus rhythm Septal infarct, age undetermined Abnormal ECG Compared to ECG 06/28/2024 12:52:17 No significant changes Electronically Signed On 08-23-24 12:19:26 RADIO OFFICER by Can Nieto
== END 2024-08-20 01:21 | disposition short-term general hospital (02) ==
LOC: ER 19:40
DX: G40.89 Other seizures (principal); K52.9 Noninfective gastroenteritis and colitis, unspecified; K92.0 Hematemesis; E87.20 Acidosis, unspecified; E11.22 Type 2 diabetes mellitus with diabetic chronic kidney disease; I12.0 Hypertensive chronic kidney disease with stage 5 chronic kidney disease or end stage renal disease; N18.6 End stage renal disease; Z99.2 Dependence on renal dialysis
CPT/HCPCS: 93005; 87040 ×2; 85025; 80048; 36415; 86900; 83735; 86850; 85610; 86901; 80076; 83605; 85730; 84484; 70450; 71250; 74176; 71045; 51702; 99285; J1953 ×2; J2543; J2470

== ENCOUNTER 2024-09-03 20:19 | Emergency (ER) | payer OTHER ==
[2024-09-03] MEDS ORDERED: ONDANSETRON 4 MG/2 ML VIAL ONE (20:51)
[2024-09-03] MEDS ORDERED: LEVETIRACETAM 500 MG/5 ML VIAL IV ONE (20:51)
[2024-09-03] MEDS ORDERED: PANTOPRAZOLE 40 MG INJ ONE (20:51)
[2024-09-03] MEDS ORDERED: NA CHLORIDE 0.9% 250 ML ONE (20:52)
[2024-09-03] MEDS ORDERED: NA CHLORIDE 0.9% 100 ML ONE (20:52)
[2024-09-03 21:00] LABS: Absolute Basophils 0.1 K/uL (0-0.5); Absolute Lymphocytes (CBC) 0.8 K/uL (0.7-4.9); Absolute Monocytes 0.5 K/uL (0.1-1.3); Absolute Neutrophil 18.9 K/uL (1.8-8.0); Basophils % 0.5 % (0-1.3); Eosinophils % 0.1 % (0-4.4); Hematocrit 42.3 % (36.0-45.0); Hemoglobin 14.1 g/dL (12.0-15.0); Lymphocytes % 4.1 % (15.3-44.8); MCHC 33.4 g/dL (32.0-36.0); MCV 86.9 fL (80-100); Monocytes % 2.6 % (3.3-12.3); Neutrophils % 92.7 % (41.7-73.7); Platelets 269 thou/uL (152-406); RBC Red Blood Cell Count 4.87 M/uL (3.86-4.86); Red Cell Distribution Width 14.4 % (12.1-15.2)
--- NOTE | 2024-09-03 21:03 | RAD REPORT ---
EXAM: CT CHEST, ABDOMEN AND PELVIS WITHOUT CONTRAST CLINICAL INDICATION: ABDOMINAL DISTENTION TECHNIQUE: CT chest, abdomen and pelvis was performed without contrast, as per department protocol. A xial, sagittal and coronal reconstructions were obtained. One or more of the following dose reduction techniques were used: Automated exposure control, adjustment of the mA and/or kV according to patient size, and/or iterative reconstruction. Unless otherwise specified, incidental findings do not require dedicated imaging follow-up. Examination is limited by the lack of intravenous contrast material. COMPARISON: 08/19/2024 FINDINGS: LUNGS: No evidence of airspace or interstitial process. No nodules. PLEURA: No pleural effusion. No pneumothorax. MEDIASTINUM AND LYMPH NODES: No mediastinal mass or fluid collection. Normal size mediastinal, hilar, and axillary lymph nodes. OSSEOUS STRUCTURES AND CHEST WALL: Intact. LIVER: Normal in size and contour. No focal lesion or biliary dilatation. Grossly unremarkable gallbl adder. PANCREAS: No mass, ductal dilation, or henrry-pancreatic fluid. SPLEEN: Normal size. No focal lesion. ADRENALS: Normal; no mass. KIDNEYS: Normal size and contour. No hydronephrosis. Mild bilateral renal atrophy. URINARY BLADDER: Normal contour. GASTROINTESTINAL TRACT: No bowel obstruction, free air, significant free fluid or abscess. APPENDIX: Normal appendix. LYMPH NODES: No lymphadenopathy. MUSCULOSKELETAL: Mild lumbar degenerative changes. OTHER: Right common iliac stent. IMPRESSION: No acute or significant abnormalities seen in the chest, abdomen or pelvis.
[2024-09-03 21:28] LABS: Band Neutrophils 6 % (0-1); Blood Morphology Comment NOT SEEN (NOT SEEN); Differential Total Cells Count 100; Lymphocytes 6 % (15-42); Monocytes 1 % (0-10); Platelet Estimate ADEQ; Reactive Lymphocytes 2 %; Segmented Neutrophils 85 % (40-80)
[2024-09-03 21:34] LABS: ALT/SGPT < 14 U/L (13-56); AST/SGOT 11 U/L (15-37); Albumin/Globulin Ratio 0.5 (1.1-1.8); Alkaline Phosphatase 224 U/L (45-117); Anion Gap 12.9 mEq/L (5.0-15.0); BUN Blood Urea Nitrogen 33 mg/dL (7-18); Bicarbonate 25 mEq/L (21-32); Bilirubin Direct 0.2 mg/dL (0-0.2); Bilirubin Indirect, Calculated 0.3 mg/dL (0.2-0.8); Bilirubin Total 0.5 mg/dL (0.2-1.0); Globulin 5.5 g/dL (2.3-3.5); Glomerular Filtration Rate 15 ml/min (=/>90); Glucose Level 160 mg/dL (74-106); Magnesium 2.2 mg/dL (1.6-2.4); NT PRO-BNP 1790 pg/mL (<125); Potassium 2.9 mEq/L (3.5-5.1); Protein, Total 8.5 g/dL (6.4-8.2); Sodium Level 139 mEq/L (136-145); Troponin High Sensitivity 23.3 pg/mL (<58.9)
--- NOTE | 2024-09-03 21:38 | RAD REPORT ---
EXAMINATION: ONE VIEW CHEST XR CLINICAL INDICATION: GI bleed TECHNIQUE: Frontal chest projection is submitted. Examination is limited by patient positioning and t echnique. COMPARISON: 08/19/2024 FINDINGS: The lungs are well inflated and clear. The heart is upper limit of normal in size. No displaced fract ures identified. IMPRESSION: No acute intrathoracic abnormalities.
[2024-09-03] MEDS ORDERED: NA CHLORIDE 0.9% 1,000 ML ONE (21:49)
[2024-09-03] MEDS ORDERED: KCL 20 MEQ/100 mL IVPB 100 ML IV ONE (21:49)
[2024-09-03] MEDS ORDERED: CEFTRIAXONE 1000 MG/VIAL ONE (21:49)
--- NOTE | 2024-09-03 21:50 | EDPHYS ---
Physician Documentation [facility] Name: Daniela Enriquez Age: 68 yrs Sex: Female : 1955 Arrival Date: 09/03/2024 Time: 20:19 Bed 2 Private MD: ED Physician Jcarlos Mancini HPI: 09/03 20:47 This 68 yrs old Female presents to ER via EMS with complaints of aubrey Nausea/Vomiting. 20:47 The patient presents to the emergency department with nausea, vomiting, described as aubrey coffee ground in nature. Onset: The symptoms/episode began/occurred just prior to arrival. Historical: - Allergies: 20:28 Codeine; al5 20:28 Lidocaine; al5 20:28 Melatonin; al5 20:28 Morphine; al5 20:28 Novocain; al5 - Home Meds: 20:28 aspirin 81 mg Oral tablet 1 tab daily [Active]; atorvastatin 20 mg Oral tablet 1 tab al5 daily for Hyperlipidemia [Active]; clopidogrel 75 mg Oral tablet 1 tab daily for Cerebral Thromboembolism Prevention [Active]; cyclobenzaprine 5 mg Oral tablet 1 tab 3 times per day for Muscle Spasm [Active]; Eliquis 5 mg Oral tablet 1 tab 2 times per day [Active]; escitalopram oxalate 20 mg Oral tablet 1 tab daily for Major Depressive Disorder [Active]; gabapentin 300 mg Oral capsule 1 cap daily for Diabetic Peripheral Neuropathy [Active]; Humulin R Regular U-100 Insuln 100 unit/mL solution 1 sliding scale dose 2 times per day for Type 2 Diabetes Mellitus [Active]; hydrocodone-acetaminophen 5-325 mg Oral tablet 1 tab every 6 hours for Pain [Active]; metoprolol tartrate 25 mg Oral tablet 0.5 tabs 2 times per day for Hypertension [Active]; lactulose 10 gram/15 mL (15 mL) Oral solution 39 mL 2 times per day for constipation [Active]; Humulin N 16 units Sub-Q daily for Diabetes [Active]; - PMHx: 20:28 Anxiety; blood clots; Cerebrovascular accident; Dementia; diabetes mellitus; heart al5 medication for palpitations; Hypertensive disorder; kidney disease; peripheral vascular disease; - PSHx: 20:28 None; al5 - Immunization history:: Adult Immunizations up to date. - Infectious Disease History:: Denies. - Social history:: Smoking status: Patient denies any tobacco usage or history of. ROS: 20:48 Constitutional: Negative for fever, chills, and weight loss, Eyes: Negative for injury, aubrey pain, redness, and discharge, ENT: Negative for injury, pain, and discharge, Neck: Negative for injury, pain, and swelling, Cardiovascular: Negative for chest pain, palpitations, and edema, Respiratory: Negative for shortness of breath, cough, wheezing, and pleuritic chest pain, Back: Negative for injury and pain, : Negative for injury, bleeding, discharge, and swelling, MS/Extremity: Negative for injury and deformity, Skin: Negative for injury, rash, and discoloration, Neuro: Negative for headache, weakness, numbness, tingling, and seizure, Psych: Negative for depression, anxiety, suicide ideation, homicidal ideation, and hallucinations, Allergy/Immunology: Negative for hives, rash, and allergies, Endocrine: Negative for neck swelling, polydipsia, polyuria, polyphagia, and marked weight changes, Hematologic/Lymphatic: Negative for swollen nodes, abnormal bleeding, and unusual bruising, 20:48 Abdomen/GI: Positive for abdominal pain, nausea and vomiting, 20:48 Neuro: Positive for weakness, Exam: 20:48 Constitutional: This is a well developed, well nourished patient who is awake, alert, aubrey and in no acute distress. Head/Face: Normocephalic, atraumatic. Eyes: Pupils equal round and reactive to light, extra-ocular motions intact. Lids and lashes normal. Conjunctiva and sclera are non-icteric and not injected. Cornea within normal limits. Periorbital areas with no swelling, redness, or edema. ENT: Nares patent. No nasal discharge, no septal abnormalities noted. Tympanic membranes are normal and external auditory canals are clear. Oropharynx with no redness, swelling, or masses, exudates, or evidence of obstruction, uvula midline. Mucous membranes moist. Neck: Trachea midline, no thyromegaly or masses palpated, and no cervical lymphadenopathy. Supple, full range of motion without nuchal rigidity, or vertebral point tenderness. No Meningismus. Chest/axilla: Normal chest wall appearance and motion. Nontender with no deformity. No lesions are appreciated. Cardiovascular: Regular rate and rhythm with a normal S1 and S2. No gallops, murmurs, or rubs. Normal PMI, no JVD. No pulse deficits. Abdomen/GI: Soft, non-tender, with normal bowel sounds. No distension or tympany. No guarding or rebound. No evidence of tenderness throughout. Back: No spinal tenderness. No costovertebral tenderness. Full range of motion. Female : Normal external genitalia. MS/ Extremity: Pulses equal, no cyanosis. Neurovascular intact. Full, normal range of motion., bilateral aka Neuro: Awake and alert, GCS 15, oriented to person, place, time, and situation. Cranial nerves II-XII grossly intact. Motor strength 5/5 in all extremities. Sensory grossly intact. Cerebellar exam normal. Normal gait. Psych: Awake, alert, with orientation to person, place and time. Behavior, mood, and affect are within normal limits. 20:48 Respiratory: Exam negative for acute changes, the patient does not display signs of respiratory distress, Respirations: normal, Breath sounds: are clear throughout, 20:48 Skin: Appearance: Color: pale, abscess, not appreciated, cellulitis, is not appreciated, induration, is not appreciated, injury, is not appreciated, 21:51 ECG was reviewed by the Attending Physician. [facility] Vital Signs: 20:23 BP 173 / 75; Pulse 80; Resp 16; Temp 98.3; Pulse Ox 100% on R/A; Weight 84.5 kg; Height al5 5 ft. 6 in. ; 20:30 BP 168 / 87; Pulse 74; Resp 16; Pulse Ox 98% on R/A; bm8 21:30 BP 177 / 71; Pulse 72; Resp 17; Pulse Ox 99% on R/A; bm8 22:00 BP 164 / 72; Pulse 70; Resp 18; Pulse Ox 95% on R/A; bm8 20:23 Body Mass Index 30.07 (84.50 kg, 167.64 cm) al5 [place] Coma Score: 20:29 Eye Response: spontaneous(4). Motor Response: obeys commands(6). Verbal Response: bm8 oriented(5). Total: 15. MDM: 20:37 Medical Screening Exam initiated aubrey 20:50 Differential diagnosis: Nonspecific abd pain, gastritis, cholecystitis, pancreatitis, aubrey appendicitis, diverticulitis, viral gastroenteritis, gastroenteritis. Data reviewed: vital signs, nurses notes, EMS record, lab test result(s), EKG, radiologic studies, CT scan, plain films. Consideration of Admission/Observation Escalation of care including admission/observation considered. I considered the following discharge prescriptions or medication management in the emergency department Medications were administered in the Emergency Department. See MAR. Independent interpretation of the following test(s) in the Emergency Department EKG: See my EKG interpretation above. Test considered but Not performed: Ultrasound no abd usg. Historians other than the Patient: EMS: well informed. Care significantly affected by the following chronic conditions: Diabetes, Hypertension, Obesity, anxiety, blood clots, not taking eliquis currently. Counseling: I had a detailed discussion with the patient and/or guardian regarding the historical points, exam findings, and any diagnostic results supporting the discharge/admit diagnosis, lab results, radiology results, the need to transfer to another facility, for higher level of care, [facility] does not immediately have the required specialist. 20:52 ED course: just got dc from [facility] last night. [facility] 09/03 20:38 Order name: Type And Screen [facility] 09/03 20:38 Order name: Basic Metabolic Panel [facility] 09/03 20:38 Order name: CBC with Diff; Complete Time: 21:40 [facility] 09/03 20:38 Order name: LFT's [facility] 09/03 20:38 Order name: Magnesium [facility] 09/03 20:38 Order name: NT PRO-BNP [facility] 09/03 20:38 Order name: Troponin HS [facility] 09/03 21:18 Order name: Manual Differential; Complete Time: 21:40 [facility] 09/03 21:47 Order name: Blood Culture Adult (2) [facility] 09/03 21:47 Order name: Lactate w/ 2H reflex if indic. [facility] 09/03 22:12 Order name: Lipase [facility] 09/03 20:38 Order name: XRAY Chest (1 view); Complete Time: 21:40 [facility] 09/03 20:42 Order name: CT Chest Abdomen Pelvis W/O Contrast; Complete Time: 21:40 [facility] 09/03 20:38 Order name: EKG; Complete Time: 20:38 [facility] 09/03 20:38 Order name: Cardiac monitoring; Complete Time: 20:53 [facility] 09/03 20:38 Order name: EKG - Nurse/Tech; Complete Time: 20:42 [facility] 09/03 20:38 Order name: IV Saline Lock; Complete Time: 20:39 al5 09/03 20:38 Order name: Labs collected and sent; Complete Time: 20:39 al5 09/03 20:38 Order name: O2 Per Protocol; Complete Time: 20:39 al5 09/03 20:38 Order name: O2 Sat Monitoring; Complete Time: 20:39 al5 09/03 20:42 Order name: IV Saline Lock - Large Bore; Complete Time: 20:44 aubrey 09/03 20:48 Order name: Seizure Precautions; Complete Time: 23:35 aubrey 09/03 21:42 Order name: Shepherd; Complete Time: 23:06 aubrey EC:51 Rate is 76 beats/min. Rhythm is regular. QRS [place] is Normal. IA interval is normal. QRS aubrey interval is normal. QT interval is normal. No Q waves. T waves are Normal. No ST changes noted. Clinical impression: NSR w/ Non-specific ST/T Changes and No evidence of ischemia. Interpreted by me. Reviewed by me. Administered Medications: 21:07 Drug: Pantoprazole IVP 80 mg IVP once Route: IVP; Site: right forearm; al5 21:44 Follow up: Response: No adverse reaction 21:07 Drug: Ondansetron IVP 4 mg IVP once; over 2 minutes Route: IVP; Site: right forearm; al5 21:45 Follow up: Response: No adverse reaction; Nausea unchanged 21:07 Drug: Keppra IV 1000 mg IV at per protocol once Route: IV; Rate: per protocol; Site: [facility] right [facility]; 21:44 Follow up: Response: No adverse reaction; IV Status: Completed infusion; IV Intake: al5 100ml 21:43 CANCELLED (Duplicate Order): ns 0.9% 2000 ml IV at 2000 ml once; to be given as a bolus aubrey over 60 minutes 21:45 Drug: Pantoprazole IV 8 mg/hr IV at 25 ml/hr continuous; (Standard dilution is 80 mg in al5 250 mL NS) Route: IV; Rate: 25 ml/hr; Site: right forearm; 23:07 Follow up: Response: No adverse reaction; IV Status: Infusion continued upon transfer al5 22:25 Drug: NS 0.9% IV (30 ml/kg) 30 ml/kg IV at bolus once; Sepsis Protocol; to be given as al5 a bolus over 90 minutes {Note: per Dr. Mancini, only do 1 L at this time .} Route: IV; Rate: bolus; Site: left forearm; 23:06 Follow up: Response: No adverse reaction; IV Status: Infusion continued upon transfer al5 22:26 Drug: Potassium Chloride IV 20 mEq IV at per protocol once; administer over 1-2 hours al5 Route: IV; Rate: per protocol; Site: left forearm; 23:06 Follow up: Response: No adverse reaction; IV Status: Infusion continued upon transfer al5 22:26 Drug: Rocephin IV 1 grams IV at per protocol once; Given slow IV push per pharmacy al5 instructions Route: IV; Rate: per protocol; Site: left forearm; 23:06 Follow up: Response: No adverse reaction; IV Status: Completed infusion; IV Intake: [id number] Disposition Summary: 09/03/24 21:49 Transfer Ordered Notes: [facility] Reason: Higher level of care aubrey Condition: Fair aubrey Problem: new aubrey Symptoms: have improved aubrey Accepting Physician: to [facility](09/03/24 23:35) al5 Diagnosis - Vomiting aubrey - GI Bleed/ Gastrointestinal hemorrhage, unspecified - upper aubrey - Unspecified kidney failure - chronic aubrey - Elevated white blood cell count aubrey - Bandemia aubrey - Hypokalemia aubrey - Type 2 diabetes mellitus with hyperglycemia aubrey Forms: - Medication Reconciliation Form aubrey - SBAR form aubrey Signatures: Dispatcher [employer] Jcarlos Carrera MD MD cha Langhorst, Amanda RN RN al5 Corrections: (The following items were deleted from the chart) 20:38 20:38 TYPE AND SCREEN+BB.LAB.BRZ ordered. EDMS EDMS 20:38 20:38 BASIC METABOLIC PANEL+C.LAB.BRZ ordered. EDMS EDMS 20:38 20:38 CBC+H.LAB.BRZ ordered. EDMS EDMS 20:38 20:38 HEPATIC FUNCTION+C.LAB.BRZ ordered. EDMS EDMS 20:38 20:38 MAGNESIUM+C.LAB.BRZ ordered. EDMS EDMS 20:38 20:38 PROBNP+C.LAB.BRZ ordered. EDMS EDMS 20:38 20:38 PROTIME (+INR)+COAG.LAB.BRZ ordered. EDMS EDMS 20:38 20:38 Troponin High Sensitivity+C.LAB.BRZ ordered. EDMS EDMS 20:48 20:38 D-DIMER+COAG.LAB.BRZ ordered. EDMS EDMS 21:43 21:43 NS 0.9% IV 2000 ml IV at 2000 ml once; to be given as a bolus over 60 minutes aubrey ordered. aubrey 21:50 21:49 to [facility] aubrey aubrey 22:12 20:47 LIPASE+C.LAB.BRZ ordered. EDMS EDMS 23:35 21:50 to [facility] aubrey al5
--- NOTE | 2024-09-03 21:50 | ER ---
Nurse's Notes [facility] Name: Daniela Enriquez Age: 68 yrs Sex: Female : 1955 Arrival Date: 09/03/2024 Time: 20:19 Bed 2 Private MD: Diagnosis: Vomiting;GI Bleed/ Gastrointestinal hemorrhage, unspecified-upper ;Unspecified kidney failure-chronic;Elevated white blood cell count;Bandemia;Hypokalemia;Type 2 diabetes mellitus with hyperglycemia Presentation: 09/03 20:23 Chief complaint: EMS states: from [facility] c/o n/v bright red blood al5 starting today, has been vomiting 2-3 weeks. Coronavirus screen: nausea, vomiting. Ebola Screen: No symptoms or risks identified at this time. Initial Sepsis Screen: Does the patient meet any 2 criteria? No. Patient's initial sepsis screen is negative. Does the patient have a suspected source of infection? No. Patient's initial sepsis screen is negative. Risk Assessment: Do you want to hurt yourself or someone else? Patient reports no desire to harm self or others. Onset of symptoms was September 03, 2024. 20:23 Method Of Arrival: EMS: [facility] al5 20:23 Acuity: MILAGROS 3 al5 Triage Assessment: 20:30 General: Appears in no apparent distress. uncomfortable, ill, Behavior is calm, al5 cooperative. Pain: Complains of pain in abdomen. EENT: No signs and/or symptoms were reported regarding the EENT system. Neuro: Level of Consciousness is awake, alert, obeys commands, Oriented to person, place, time, situation. Cardiovascular: Capillary refill < 3 seconds Patient's skin is warm and dry. Respiratory: Airway is patent Respiratory effort is even, unlabored, Respiratory pattern is regular, symmetrical. GI: Abdomen is flat, non-distended, Reports lower abdominal pain, upper abdominal pain, nausea, vomiting. : No signs and/or symptoms were reported regarding the genitourinary system. Derm: Skin is intact, Skin is pink, warm \T\ dry. normal. Musculoskeletal: No signs and/or symptoms reported regarding the musculoskeletal system. Historical: - Allergies: 20:28 Codeine; al5 20:28 Lidocaine; al5 20:28 Melatonin; al5 20:28 Morphine; al5 20:28 Novocain; al5 - Home Meds: 20:28 aspirin 81 mg Oral tablet 1 tab daily [Active]; atorvastatin 20 mg Oral tablet 1 tab al5 daily for Hyperlipidemia [Active]; clopidogrel 75 mg Oral tablet 1 tab daily for Cerebral Thromboembolism Prevention [Active]; cyclobenzaprine 5 mg Oral tablet 1 tab 3 times per day for Muscle Spasm [Active]; Eliquis 5 mg Oral tablet 1 tab 2 times per day [Active]; escitalopram oxalate 20 mg Oral tablet 1 tab daily for Major Depressive Disorder [Active]; gabapentin 300 mg Oral capsule 1 cap daily for Diabetic Peripheral Neuropathy [Active]; Humulin R Regular U-100 Insuln 100 unit/mL solution 1 sliding scale dose 2 times per day for Type 2 Diabetes Mellitus [Active]; hydrocodone-acetaminophen 5-325 mg Oral tablet 1 tab every 6 hours for Pain [Active]; metoprolol tartrate 25 mg Oral tablet 0.5 tabs 2 times per day for Hypertension [Active]; lactulose 10 gram/15 mL (15 mL) Oral solution 39 mL 2 times per day for constipation [Active]; Humulin N 16 units Sub-Q daily for Diabetes [Active]; - PMHx: 20:28 Anxiety; blood clots; Cerebrovascular accident; Dementia; diabetes mellitus; heart al5 medication for palpitations; Hypertensive disorder; kidney disease; peripheral vascular disease; - PSHx: 20:28 None; al5 - Immunization history:: Adult Immunizations up to date. - Infectious Disease History:: Denies. - Social history:: Smoking status: Patient denies any tobacco usage or history of. Screenin:29 [facility] ED Fall Risk Assessment (Adult) History of falling in the last 3 months, bm8 including since admission Yes- fall prone (multiple falls) (3 pts) Confusion or Disorientation No (0 pts) Intoxicated or Sedated No (0 pts) Impaired Gait Yes (1 pt) Mobility Assist Device Used Yes (1 pt) Altered Elimination No (0 pt) Score/Fall Risk Level 3 or more points = High Risk Oriented to surroundings, Maintained a safe environment, Educated pt \T\ family on fall prevention, incl call for assistance when getting out of bed, Assessed \T\ reinforced patient's understanding of fall precautions, Hourly rounding (assess needs \T\ fall precautionary measures) done, Used ambulatory aids as needed (educated on \T\ assisted with), Used gait belt as appropriate Implemented a Fall Risk Plan of Care. Abuse screen: Denies threats or abuse. Nutritional screening: No deficits noted. Tuberculosis screening: No symptoms or risk factors identified. Assessment: 20:31 Reassessment: see triage assessment. al5 21:59 Reassessment: Patient appears in no apparent distress at this time. No changes from al5 previously documented assessment. Patient and/or family updated on plan of care and expected duration. Pain level reassessed. Patient is alert, oriented x 3, equal unlabored respirations, skin warm/dry/pink. 22:37 Reassessment: report given to stephanie ibrahim at this time. al5 23:08 Reassessment: Patient appears in no apparent distress at this time. No changes from al5 previously documented assessment. Patient and/or family updated on plan of care and expected duration. Pain level reassessed. Patient is alert, oriented x 3, equal unlabored respirations, skin warm/dry/pink. 23:09 Reassessment: report given to EMS for transfer. al5 Vital Signs: 20:23 BP 173 / 75; Pulse 80; Resp 16; Temp 98.3; Pulse Ox 100% on R/A; Weight 84.5 kg; Height al5 5 ft. 6 in. ; 20:30 BP 168 / 87; Pulse 74; Resp 16; Pulse Ox 98% on R/A; bm8 21:30 BP 177 / 71; Pulse 72; Resp 17; Pulse Ox 99% on R/A; bm8 22:00 BP 164 / 72; Pulse 70; Resp 18; Pulse Ox 95% on R/A; bm8 20:23 Body Mass Index 30.07 (84.50 kg, 167.64 cm) al5 [place] Coma Score: 20:29 Eye Response: spontaneous(4). Motor Response: obeys commands(6). Verbal Response: bm8 oriented(5). Total: 15. ED Course: 20:23 Patient arrived in ED. al5 20:28 Triage completed. al5 20:28 Gautam Glez RN is Primary Nurse. bm8 20:28 Arm band placed on right wrist. Patient placed in the treatment room, on a stretcher, al5 in view of staff members, on monitoring specialist, on pulse oximetry. 20:29 Patient has correct armband on for positive identification. Bed in low position. Call bm8 light in reach. Side rails up X 1. Adult w/ patient. Client placed on continuous cardiac and pulse oximetry monitoring. NIBP monitoring applied. Pulse ox on. NIBP on. Door closed. Noise minimized. Warm blanket given. Pillow given. Verbal reassurance given. Head of bed elevated. 20:29 No provider procedures requiring assistance completed. Initial lab(s) drawn, by me, bm8 sent to lab. Inserted saline lock: 20 gauge in right forearm, using aseptic technique. Blood collected. Flushed with 10 mL NS. Patient maintains SpO2 saturation greater than 95% on room air. 20:31 Provided Education on: plan of care. al5 20:34 Jcarlos Mancini MD is Attending Physician. al5 20:42 EKG done, by ED staff, reviewed by Jcarlos Mancini MD. oh1 20:55 CT Chest Abdomen Pelvis W/O Contrast In Process Unspecified. EDMS 21:18 XRAY Chest (1 view) In Process Unspecified. EDMS 21:19 Provided Education on: Blood Transfusion. al5 21:51 Initiated transfer with [facility] spoke to Huey Shepard. vk 23:07 Patient was accepted to [facility] Gal. to Dr. Aj Ruiz \[id number] to [address] Bed #1153 per Huey Shepard, Report # [phone], patient accepted for transport with EMS per Kenan. 23:09 Patient transferred, IV remains in place. al5 23:09 Priest cath inserted, using sterile technique, 16 Fr., by la, balloon inflated, to al5 gravity drainage, clamped. other 600 mL urine in priest bag returned loretta urine. Patient tolerated well. Administered Medications: 21:07 Drug: Pantoprazole IVP 80 mg IVP once Route: IVP; Site: right forearm; al5 21:44 Follow up: Response: No adverse reaction al5 21:07 Drug: Ondansetron IVP 4 mg IVP once; over 2 minutes Route: IVP; Site: right forearm; al5 21:45 Follow up: Response: No adverse reaction; Nausea unchanged al5 21:07 Drug: Keppra IV 1000 mg IV at per protocol once Route: IV; Rate: per protocol; Site: al5 right forearm; 21:44 Follow up: Response: No adverse reaction; IV Status: Completed infusion; IV Intake: al5 100ml 21:43 CANCELLED (Duplicate Order): ns 0.9% 2000 ml IV at 2000 ml once; to be given as a bolus aubrey over 60 minutes 21:45 Drug: Pantoprazole IV 8 mg/hr IV at 25 ml/hr continuous; (Standard dilution is 80 mg in al5 250 mL NS) Route: IV; Rate: 25 ml/hr; Site: right forearm; 23:07 Follow up: Response: No adverse reaction; IV Status: Infusion continued upon transfer al5 22:25 Drug: NS 0.9% IV (30 ml/kg) 30 ml/kg IV at bolus once; Sepsis Protocol; to be given as al5 a bolus over 90 minutes {Note: per Dr. Mancini, only do 1 L at this time .} Route: IV; Rate: bolus; Site: left forearm; 23:06 Follow up: Response: No adverse reaction; IV Status: Infusion continued upon transfer al5 22:26 Drug: Potassium Chloride IV 20 mEq IV at per protocol once; administer over 1-2 hours al5 Route: IV; Rate: per protocol; Site: left forearm; 23:06 Follow up: Response: No adverse reaction; IV Status: Infusion continued upon transfer al5 22:26 Drug: Rocephin IV 1 grams IV at per protocol once; Given slow IV push per pharmacy al5 instructions Route: IV; Rate: per protocol; Site: left forearm; 23:06 Follow up: Response: No adverse reaction; IV Status: Completed infusion; IV Intake: [id number] Medication: 20:29 VIS not applicable for this client. bm8 Intake: 21:44 IV: 100ml; Total: 100ml. al5 23:06 IV: 10ml; Total: 110ml. al5 Outcome: 21:49 ER care complete, transfer ordered by MD. burgos 23:34 Transferred by ground EMS [facility] to [facility] [place] 23:34 Condition: stable 23:34 Instructed on the need for transfer, 23:35 Patient left the ED. al5 Signatures: Dispatcher [employer] EDJcarlos Melton MD MD cha Kruse, Vivian vk McDonald, Brad RN STEPHANIE bm8 Marleen Dow RN RN al5 Goss, Celine oh1 Corrections: (The following items were deleted from the chart) 21:54 21:51 Initiated transfer with [facility] vk vk 21:57 21:51 Initiated transfer with [facility] spoke HUEY vk vk 23:07 22:25 NS 0.9% IV (30 ml/kg) 2535 mL IV at bolus in left forearm al5 al5
[2024-09-03 22:45] LABS: Lipase 36 U/L (13-75)
[2024-09-03 23:42] VITALS: TEMP 98.3
[2024-09-03 23:45] VITALS: BP 164/72; O2SAT 95
== END 2024-09-03 23:35 | disposition short-term general hospital (02) ==
LOC: ER 20:19
DX: E11.65 Type 2 diabetes mellitus with hyperglycemia (principal); K92.2 Gastrointestinal hemorrhage, unspecified; I12.9 Hypertensive chronic kidney disease with stage 1 through stage 4 chronic kidney disease, or unspecified chronic kidney disease; N18.9 Chronic kidney disease, unspecified; D72.825 Bandemia; E87.6 Hypokalemia; Z79.01 Long term (current) use of anticoagulants; Z79.82 Long term (current) use of aspirin; Z79.4 Long term (current) use of insulin
CPT/HCPCS: 93005; 87040 ×2; 85025; 80048; 36415; 86900; 83735; 86850; 86901; 80076; 83605; 86920 ×2; 84484; 83690; 83880; 71250; 74176; 71045; 51702; 99285; J3480; J1953; J2470; J2405; J7050; J7030; J0696

== ENCOUNTER 2024-10-07 11:44 | Emergency (ER) | payer OTHER, MEDICAID ==
[2024-10-07] MEDS ORDERED: ONDANSETRON 4 MG/2 ML VIAL ONE (12:20)
[2024-10-07] MEDS ORDERED: NA CHLORIDE 0.9% 1,000 ML ONE (12:20)
[2024-10-07 12:25] LABS: Absolute Basophils 0.1 K/uL (0-0.5); Absolute Eosinophils 0.2 K/uL (0-0.5); Absolute Monocytes 0.7 K/uL (0.1-1.3); Absolute Neutrophil 10.8 K/uL (1.8-8.0); Basophils % 0.7 % (0-1.3); Eosinophils % 1.4 % (0-4.4); Hematocrit 36.9 % (36.0-45.0); Lymphocytes % 8.1 % (15.3-44.8); MCH 29.5 pg (27.0-35.0); MCHC 32.7 g/dL (32.0-36.0); MCV 90.3 fL (80-100); MPV 8.8 fL (7.6-11.3); Monocytes % 5.6 % (3.3-12.3); Neutrophils % 84.2 % (41.7-73.7); Nucleated Red Blood Cells % 0.1 % (0-0); Platelets 259 thou/uL (152-406); RBC Red Blood Cell Count 4.08 M/uL (3.86-4.86); Red Cell Distribution Width 14.9 % (12.1-15.2)
--- NOTE | 2024-10-07 13:44 | ER ---
Nurse's Notes [facility] Name: Daniela Enriquez Age: 69 yrs Sex: Female : 1955 Arrival Date: 10/07/2024 Time: 11:44 Bed 15 Private MD: Diagnosis: Fall from bed, initial encounter;Pain in right hip;Hematemesis;Unspecified dementia with behavioral disturbance;Dementia in other diseases classified elsewhere without behavioral disturbance Presentation: 10/07 11:58 Chief complaint: EMS states: [facility] staff report dark brown emesis this morning. hb On hospice, had Dilaudid, Phenergan, and droperidol [employer]PAIGN MANAGER. NS 1L infusing 20g R wrist. Coronavirus screen: At this time, the client does not indicate any symptoms associated with coronavirus-19. Ebola Screen: No symptoms or risks identified at this time. Initial Sepsis Screen: Does the patient meet any 2 criteria? No. Patient's initial sepsis screen is negative. Does the patient have a suspected source of infection? No. Patient's initial sepsis screen is negative. Risk Assessment: Do you want to hurt yourself or someone else? Patient reports no desire to harm self or others. Onset of symptoms was October 07, 2024. 11:58 Method Of Arrival: EMS: [facility] hb 11:58 Acuity: MILAGROS 3 hb Historical: - Allergies: 12:00 Codeine; hb 12:00 Lidocaine; hb 12:00 Melatonin; hb 12:00 Morphine; hb 12:00 Novocain; hb - PMHx: 12:00 Anxiety; blood clots; heart medication for palpitations; Cerebrovascular accident; hb Dementia; diabetes mellitus; Hypertensive disorder; kidney disease; peripheral vascular disease; - Immunization history:: Adult Immunizations up to date. - Infectious Disease History:: Denies. - Social history:: Smoking status: unknown. Screenin:00 [facility] ED Fall Risk Assessment (Adult) History of falling in the last 3 months, me1 including since admission No falls in past 3 months (0 pts) Confusion or Disorientation Yes (5 pts) Intoxicated or Sedated No (0 pts) Impaired Gait Yes (1 pt) Mobility Assist Device Used No (0 pt) Altered Elimination Yes (1 pt) Score/Fall Risk Level 3 or more points = High Risk Maintained a safe environment, Hourly rounding (assess needs \T\ fall precautionary measures) done, Used ambulatory aids as needed (educated on \T\ assisted with). Abuse screen: Denies threats or abuse. Nutritional screening: No deficits noted. Tuberculosis screening: No symptoms or risk factors identified. Assessment: 12:00 General: Appears uncomfortable, ill, well groomed, well developed, well nourished, me1 Behavior is calm, cooperative, appropriate for age, Reports [facility] staff report dark brown emesis this morning. On hospice, had Dilaudid, Phenergan, and droperidol D[employer]PAIGN MANAGER. NS 1L infusing 20g R wrist. Pain: Complains of pain in right hip Pain radiates to right leg. Neuro: Level of Consciousness is awake, alert, Oriented to person. Cardiovascular: Patient's skin is warm and dry. Respiratory: Airway is patent Respiratory effort is even, unlabored, Respiratory pattern is regular, symmetrical. GI: Abdomen is round distended, Reports vomiting, coffee ground emesis. : No signs and/or symptoms were reported regarding the genitourinary system. EENT: No signs and/or symptoms were reported regarding the EENT system. Derm: Skin is intact, Skin is pale. Musculoskeletal: Reports pain in right hip. 13:07 General: Report called to DREA Evans that after conversation with the doctor patient nancy is going back to [facility] for hospice care. . 14:29 Reassessment: IN sent WC with bottom hoop driver to take patient home but per daughter patient 1 passes out when sitting upright and will need a stretcher to transport back. I was in room when daughter talked to DON from [facility] and they are sending an ambulance to take her home. Vital Signs: 11:58 BP 118 / 64; Pulse 96; Resp 16; Temp 97.9(A); Pulse Ox 98% on R/A; Weight 62.6 kg; hb Height 5 ft. 9 in. ; Pain 0/10; 12:57 BP 120 / 59; Pulse 99; Resp 17; Pulse Ox 98% ; me1 14:00 BP 120 / 59; Pulse 99; Resp 18; Pulse Ox 98% ; me1 11:58 Body Mass Index 20.38 (62.60 kg, 175.26 cm) hb 11:58 Pain Scale: Adult hb ED Course: 11:54 Patient arrived in ED. im 12:00 Triage completed. hb 12:00 Patient has correct armband on for positive identification. Bed in low position. Call me1 light in reach. Side rails up X2. Provided Education on: POC. Verbalized understanding.. Client placed on continuous cardiac and pulse oximetry monitoring. NIBP monitoring applied. Pulse ox on. NIBP on. 12:00 No provider procedures requiring assistance completed. me1 12:01 Dolores Ruiz, RN is Primary Nurse. me1 12:01 Arm band placed on. hb 12:03 Charito Kerns MD is Attending Physician. gb1 12:17 CBC with Diff Sent. me1 12:17 CMP Sent. me1 12:17 Lipase Sent. me1 12:18 Initial lab(s) drawn, by me, sent to lab. Maintain EMS IV. Dressing intact. Good blood me1 return noted. Site clean \T\ dry. Gauge \T\ site: 20g RFA. Flushed with 10 mL NS. 14:15 IV discontinued, intact, bleeding controlled, No redness/swelling at site. Pressure me1 dressing applied. Administered Medications: 12:34 Drug: Ondansetron IVP 4 mg IVP once; over 2 minutes Route: IVP; Site: right forearm; me1 13:06 Follow up: Response: Nausea unchanged me1 12:34 Drug: NS 0.9% IV 1000 ml IV at 1 bolus Per protocol; to be given as a bolus over 60 me1 minutes Route: IV; Rate: 1 bolus; Site: right forearm; 14:15 Follow up: Response: No adverse reaction; IV Status: Completed infusion; IV Intake: me1 1000ml Medication: 12:00 VIS not applicable for this client. me1 Intake: 14:15 IV: 1000ml; Total: 1000ml. me1 Outcome: 13:43 Discharge ordered by . gb1 14:15 Discharged to retirement. Report called to DREA Evans me1 14:15 Condition: stable 14:15 Instructed on discharge instructions, follow up and referral plans. 15:16 Patient left the ED. me1 Signatures: Xena Coyne, RN RN Verónica Simon Michelle, RN RN me1 Charito Kerns MD MD gb1 Corrections: (The following items were deleted from the chart) 12:58 11:58 Chief complaint: EMS states: [facility] staff report dark brown emesis this me1 morning. On hospice, had Dilaudid, Phenergan, and droperidol DIGITAL CAMPAIGN MANAGER. NS 1L infusing 20g R wrist. hb
--- NOTE | 2024-10-07 13:44 | EDPHYS ---
Physician Documentation [facility] Name: Daniela Enriquez Age: 69 yrs Sex: Female : 1955 Arrival Date: 10/07/2024 Time: 11:44 Bed 15 Private MD: ED Physician Charito Kerns HPI: 10/07 13:36 This 69 yrs old Female presents to ER via EMS with complaints of Vomiting. gb1 13:36 69-year-old female brought from the correction [facility] with concern for gb1 dark vomit that started earlier yesterday. Patient has history of CVA, dementia, blood clots and most recently a fall from bed on last Thursday. 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 Patient was originally on hospice prior to transport to the ER today.. Historical: - Allergies: 12:00 Codeine; hb 12:00 Lidocaine; hb 12:00 Melatonin; hb 12:00 Morphine; hb 12:00 Novocain; hb - PMHx: 12:00 Anxiety; blood clots; heart medication for palpitations; Cerebrovascular accident; hb Dementia; diabetes mellitus; Hypertensive disorder; kidney disease; peripheral vascular disease; - Immunization history:: Adult Immunizations up to date. - Infectious Disease History:: Denies. - Social history:: Smoking status: unknown. Exam: 13:36 Constitutional: This is a well developed, well nourished patient who is awake, at gb1 baseline mental status with a history of dementia and in mild distress. Head/Face: Normocephalic, atraumatic. Eyes: Pupils equal round and reactive to light, extra-ocular motions intact. Lids and lashes normal. Conjunctiva and sclera are non-icteric and not injected. Cornea within normal limits. Periorbital areas with no swelling, redness, or edema. ENT: Nares patent. No nasal discharge, no septal abnormalities noted. Tympanic membranes are normal and external auditory canals are clear. Oropharynx with no redness, swelling, or masses, exudates, or evidence of obstruction, uvula midline. Mucous membranes moist. Neck: Trachea midline, no thyromegaly or masses palpated, and no cervical lymphadenopathy. Supple, full range of motion without nuchal rigidity, or vertebral point tenderness. No Meningismus. Chest/axilla: Normal chest wall appearance and motion. Nontender with no deformity. No lesions are appreciated. Cardiovascular: Regular rate and rhythm with a normal S1 and S2. No gallops, murmurs, or rubs. Normal PMI, no JVD. No pulse deficits. Respiratory: Lungs have equal breath sounds bilaterally, clear to auscultation and percussion. No rales, rhonchi or wheezes noted. No increased work of breathing, no retractions or nasal flaring. Abdomen/GI: Soft, non-tender, with normal bowel sounds. No distension or tympany. No guarding or rebound. No evidence of tenderness throughout. Back: No spinal tenderness. No costovertebral tenderness. Full range of motion. Skin: Warm, dry with normal turgor. Normal color with no rashes, no lesions, and no evidence of cellulitis. MS/ Extremity: Pulses equal, no cyanosis. Patient's right leg is mottled in appearance with a shortened and inverted right lower extremity. Patient is very tender at the hip joint. Vital Signs: 11:58 BP 118 / 64; Pulse 96; Resp 16; Temp 97.9(A); Pulse Ox 98% on R/A; Weight 62.6 kg; hb Height 5 ft. 9 in. ; Pain 0/10; 12:57 BP 120 / 59; Pulse 99; Resp 17; Pulse Ox 98% ; me1 14:00 BP 120 / 59; Pulse 99; Resp 18; Pulse Ox 98% ; me1 11:58 Body Mass Index 20.38 (62.60 kg, 175.26 cm) hb 11:58 Pain Scale: Adult hb MDM: 12:05 Medical Screening Exam initiated gb1 13:36 Data reviewed: vital signs, nurses notes. ED course: 69-year-old female with a history gb1 of advanced dementia currently living in the halfway facility had a remote fall about a week ago out of bed. I am concerned at this time with her clinical exam that she has a fractured right hip, pelvic versus intertrochanteric. Patient may also have a DVT with her continued disability of being bed ridden secondary to her dementia. Patient is currently a fall risk and now has a chief complaint of coffee-ground emesis. Patient's daughter is at the bedside and she is currently on hospice which patient's daughter intends to place her back on hospice dip despite the emergency department transfer for evaluation. We discussed with shared decision making the ability to obtain blood work and x-rays as well as DVT lower extremity right-sided ultrasound to rule out DVT however the patient would not be a candidate for any further anticoagulation or curative treatments due to her being a fall risk as well as advanced dementia. Patient at this time will be transferred back to halfway facility currently on hospice as well as DNR/DNI. Patient's daughter is well aware that she is likely in the early stages of transition and late stages of advanced dementia with multiple comorbidities at this time. Patient's daughter wishes to keep her comfortable and actively on hospice.. 10/07 12:04 Order name: CBC with Diff; Complete Time: 13:09 gb1 10/07 12:04 Order name: IV Saline Lock; Complete Time: 12:17 gb1 10/07 12:04 Order name: Labs collected and sent; Complete Time: 12:17 gb1 Administered Medications: 12:34 Drug: Ondansetron IVP 4 mg IVP once; over 2 minutes Route: IVP; Site: right forearm; me1 13:06 Follow up: Response: Nausea unchanged me1 12:34 Drug: NS 0.9% IV 1000 ml IV at 1 bolus Per protocol; to be given as a bolus over 60 me1 minutes Route: IV; Rate: 1 bolus; Site: right forearm; 14:15 Follow up: Response: No adverse reaction; IV Status: Completed infusion; IV Intake: me1 1000ml Disposition Summary: 10/07/24 13:43 Discharge Ordered Notes: Location: Home gb1 Problem: new gb1 Symptoms: have worsened gb1 Condition: Fair gb1 Diagnosis - Fall from bed, initial encounter gb1 - Pain in right hip gb1 - Hematemesis gb1 - Unspecified dementia with behavioral disturbance gb1 - Dementia in other diseases classified elsewhere without behavioral disturbance gb1 Followup: gb1 - With: Private Physician - When: - Reason: Hospice Discharge Instructions: - Discharge Summary Sheet gb1 - Dementia Caregiver Guide gb1 Forms: - Medication Reconciliation Form gb1 - Antibiotic Education gb1 - Prescription Opioid Use gb1 - Patient Portal Instructions gb1 - Leadership Thank You Letter gb1 Critical care time excluding procedures: 13:44 Critical care time: Bedside Care: 40 minutes, Family Intervention: 45 minutes. Total gb1 time: 85 minutes Signatures: Dispatcher [employer] Xena Langley RN RN Dolores Ruiz RN RN md1 Charito Kerns MD MD gb1
[2024-10-07 15:21] VITALS: TEMP 97.9; O2SAT 98
[2024-10-07 15:22] VITALS: BP 120/59
== END 2024-10-07 15:16 | disposition home or self-care (01) ==
LOC: ER 11:44
DX: M25.551 Pain in right hip (principal); K92.0 Hematemesis; W06.XXXA Fall from bed, initial encounter; F02.818 Dementia in other diseases classified elsewhere, unspecified severity, with other behavioral disturbance; Z86.73 Personal history of transient ischemic attack (TIA), and cerebral infarction without residual deficits
CPT/HCPCS: 96361; 85025; 96374; 99284; J2405; J7030